=== PATIENT | male | born 1960 | race Caucasian/White ===

== ENCOUNTER → 2018-01-29 10:50 | Outpatient (CLI) | payer BC, SELFPAY ==
[2018-01-29 12:47] LABS: Cholesterol 306 mg/dL (200); High Density Lipoprotein 37 mg/dL; Triglycerides 613 mg/dL
== END ==
PROVIDERS: Family Provider Family Medicine; PCP Family Medicine; Visit Provider Family Medicine
DX: E11.49 Type 2 diabetes mellitus with other diabetic neurological complication (principal); E11.65 Type 2 diabetes mellitus with hyperglycemia; E78.5 Hyperlipidemia, unspecified
CPT/HCPCS: 36415; 80061; 83036

== ENCOUNTER → 2019-02-04 11:19 | Outpatient (CLI) | payer BC, SELFPAY ==
[2019-02-04 15:56] LABS: Absolute Neutrophil Count 6.4 X10^3/uL (2.0-7.7); Basophil# 0.04 X10^3/uL; Basophil% 0.4 % (0-1); Eosinophil# 0.28 X10^3/uL; Eosinophils% 2.8 % (0-5); Hematocrit 40.8 % (40-54); Hemoglobin 13.8 g/dl (13.0-16.5); Lymphocyte % 23.3 % (19-41); Mean Corp Hgb Conc 33.8 g/gl (32-36); Mean Corpuscular Hgb 31.6 pg (27.0-32.0); Mean Corpuscular Volume 93.4 fL (80-94); Mean Platelet Vol. 12.6 fl (6.2-12.0); Monocyte# 0.79 X10^3/uL; Neutrophil # 6.41 X10^3/uL (2.7-7.7); POSITIVE COUNT NO; POSITIVE DIFFERENTIAL NO; POSITIVE MORPHOLOGY NO; Platelet Count 197 K/mm3 (150-450); RBC Distribution Width CV 12.1 % (11.6-14.6); RBC Distribution Width SD 40.3 fl (35.1-43.9); Red Blood Count 4.37 M/mm3 (4.6-6.2); White Blood Count 9.9 K/mm3 (4.4-11.0)
[2019-02-04 16:12] LABS: Hemoglobin A1c 11.8 % (4.2-6.3)
[2019-02-04 16:14] LABS: AST(SGOT) 30 U/L (15-37); Alanine Aminotransfer ALT/SGPT 48 U/L (16-61); Albumin, Serum 3.8 g/dL (3.2-5.0); Alkaline Phosphatase 86 U/L (45-117); Anion Gap 10 (5-15); BUN 25 mg/dL (7-18); BUN/Creat Ratio 15.9 RATIO (10-20); Calcium,Total 8.8 mg/dL (8.5-10.1); Chloride 100 mmol/L (98-107); Cholesterol 273 mg/dL (200); Creatinine, Serum 1.57 mg/dL (0.70-1.30); EST Glomerular Filtration Rate 49 mL/min (>60); Est Glom Filt Rate - Afr Amer 59 mL/min (>60); Globulin 3.9 g/dL (2.2-4.2); Glucose 239 mg/dL (74-106); High Density Lipoprotein 36 mg/dL; Potassium 4.7 mmol/L (3.5-5.1); Protein, Total 7.7 g/dL (6.4-8.2); Sodium Level 133 mmol/L (136-145); Triglycerides 761 mg/dL
[2019-02-04 16:21] LABS: Microalbumin,Random Urine 52.3 mg/L (NO RANGE EST.); Microalbumin:Creatinine Ratio 22.1 mg/g CRE (<30 mg/g CRE)
== END ==
PROVIDERS: Family Provider Family Medicine; PCP Family Medicine; Visit Provider Family Medicine
DX: E11.49 Type 2 diabetes mellitus with other diabetic neurological complication (principal); E11.65 Type 2 diabetes mellitus with hyperglycemia; I10 Essential (primary) hypertension; Z12.5 Encounter for screening for malignant neoplasm of prostate
CPT/HCPCS: 36415; 80053; 80061; 82043; 82570; 83036; 84153; 85025; G0103

== ENCOUNTER 2019-10-26 13:40 | Inpatient (IN) | payer BC, SELFPAY ==
[2019-10-26 13:41] VITALS: BP 137/89; PULSE 120; RESP 18; TEMP 36.6; O2SAT 99; BMI 36.2
--- NOTE | 2019-10-26 14:53 | EKG12_ITS ---
Test Reason : INFECTED WOUND Blood Pressure : / mmHG Vent. Rate : 108 BPM Atrial Rate : 108 BPM P-R Int : 146 ms QRS Dur : 088 ms QT Int : 326 ms P-R-T Axes : 050 056 063 degrees QTc Int : 436 ms Sinus tachycardia Nonspecific T wave abnormality Abnormal ECG Confirmed by MARYANN ROOT, HANANE ([id number]), film editor supervisor ASTRID RODRIGUEZ ([id number]) on 10/28/2019 11:58:39 AM Referred By: Guilherme Stanley Confirmed By:HANANE WOLF MD
--- NOTE | 2019-10-26 15:00 | RAD_ITS ---
STUDY: X-RAY CHEST REASON FOR EXAM: Male, 58 years old. Tachycardia. TECHNIQUE: Single AP portable view of the chest. COMPARISON: None. FINDINGS: The lungs are clear and expanded. Scattered calcified granulomas. There is no demonstrated pleural abnormality. Normal size heart. Normal mediastinum and mariano. Normal visualized pulmonary arteries. Normal visualized aortic arch and descending thoracic aorta. There are diffuse degenerative changes of the visualized thoracic spine. Normal visualized ribs, clavicles, and shoulders. There is no demonstrated abnormality of the visualized soft tissue structures of the upper abdomen. RAD/Chest 1 View (Portable) IMPRESSION: No acute abnormality is seen. Electronically Signed: Joe Barone, at 15:21 EST , Service support ,
--- NOTE | 2019-10-26 15:12 | ED.VIS.GEN ---
History of Present Illness Chief Complaint: Wound Informant: Patient, Significant Other Onset: Days Context: Gradual Onset Narrative: Patient is a 58-year-old male with history of insulin-dependent diabetes mellitus presenting with wounds/abscesses in his groin region and leg. Patient states he started with a spot in his left groin. That was about 2 weeks ago. That improved but then he developed another spot on his left mid thigh. That has been draining. His PCP started him on Bactrim. He is now had 3 doses. The area on his leg seems to be worsening and today patient developed another spot in the folds of his lower right abdomen. Patient has had associated fever and chills. He states he is otherwise feeling well. He does have an associated headache. He denies any associated chest pain, nausea, vomiting or urinary symptoms. He denies any other complaints at this time. Past Medical History - Allergies and Home Meds Allergies/Adverse Reactions: Allergies No Known Allergies Allergy (Verified 10/26/19 13:40) Primary Care Physician: Didier Longoria DO [Primary Care Provider] - Past Medical History: - - Hypertension, insulin-dependent diabetes mellitus Surgical History: noncontributory Lives: Spouse/ Significant Other Smoking Status: Current every day smoker Review of Systems General: Reports: Chills, Fever, Malaise. Denies: Sweats Eyes: Denies: Visual changes - bilaterally, Diplopia ENT: Denies: Rhinorrhea, Sore throat Cardiovascular: Denies: Chest pain, Palpitations Respiratory: Denies: Dyspnea, Cough, Dyspnea on exertion Gastrointestinal: Denies: Abdominal pain, Nausea, Vomiting, Diarrhea, Melena, Hematochezia Genitourinary: Denies: Dysuria, Hematuria, Frequency Musculoskeletal: Denies: Back pain, Extremity Pain Skin: Reports: Abscess - left thigh. Denies: Rash, Wounds Neurological: Denies: Headache, Weakness, Numbness Physical Exam Vital Signs/Narrative: Vital Signs Temp Pulse Resp BP Pulse Ox 10/26/19 13:41 97.8 F 120 H 18 137/89 H 99 Inital Vital Signs reviewed: Yes General: Well nourished, Well developed, No Acute Distress Head: Normocephalic, Atraumatic Eyes: Perrl, EOMI ENT: Moist mucous membranes, No rhinorrhea Neck: Supple, Nontender Cardiovascular: Regular rhythm, No murmurs, Tachycardia Respiratory: No distress, CTA bilaterally, Chest nontender. Negative for: Wheezing Abdomen: Soft, Nontender, Nondistended, Normal bowel sounds Back: Nontender, Normal Inspection Extremities: Nontender, No edema Skin: Normal color, - - Left mid thigh?8 cm x 8 cm area of erythema with central 2 cm x 2 cm area of induration and some purulent drainage present. Right lower abdominal wall?3 cm x 2 cm area of erythema with a central pore?no associated induration or fluctuance Neurological: Alert, Oriented x3, Cranial nerves II-XII grossly intact, Normal Strength, Normal Sensation Psychological: Normal affect, Normal Mood Diagnostic/Tx/Re-eval Clinical Impression(s) from Imaging Studies Chest X-Ray 10/26/19 15:00 IMPRESSION: No acute abnormality is seen. Electronically Signed: Joe Braone, at 15:21 EST , Service support , Laboratory Data 10/26/19 10/26/19 10/26/19 15:40 15:40 15:40 WBC 15.8 H RBC 4.44 L Hgb 14.0 Hct 40.2 MCV 90.5 MCH 31.5 MCHC 34.8 RDW Std Deviation 39.1 RDW Coeff of Chrissie 11.9 Plt Count 216 MPV 12.2 H Immature Gran % (Auto) 1.100 H Neut % (Auto) 73.3 H Lymph % (Auto) 17.1 L [place] % (Auto) 6.6 Eos % (Auto) 1.5 Baso % (Auto) 0.4 Absolute Neuts (auto) 11.6 H Absolute Lymphs (auto) 2.70 Nucleated RBC % 0 PT 13.0 INR 1.0 APTT 31.0 Sodium 135 L Potassium 4.1 Chloride 103 Carbon Dioxide 25.0 Anion Gap 7 BUN 29 H Creatinine 1.98 H Estim Creat Clear Calc 43.84 Est GFR (MDRD) Af Amer 45 L Est GFR (MDRD) Non-Af 37 L BUN/Creatinine Ratio 14.6 Glucose 139 H Lactic Acid Calcium 9.4 Total Bilirubin 0.40 AST 11 L ALT 21 Alkaline Phosphatase 112 Troponin I < 0.015 Total Protein 8.5 H Albumin 3.7 Globulin 4.8 H Albumin/Globulin Ratio 0.8 L Urine Color Urine Clarity Urine pH Ur Specific [place] Urine Protein Urine Glucose (UA) Urine Ketones Urine Occult Blood Urine Nitrite Urine Bilirubin Urine Urobilinogen Ur Leukocyte Esterase Urine RBC Urine WBC Ur Squamous Epith Cells Urine Bacteria Hyaline Casts Urine Mucus 10/26/19 10/26/19 15:40 16:00 WBC RBC Hgb Hct MCV MCH MCHC RDW Std Deviation RDW Coeff of Chrissie Plt Count MPV Immature Gran % (Auto) Neut % (Auto) Lymph % (Auto) [place] % (Auto) Eos % (Auto) Baso % (Auto) Absolute Neuts (auto) Absolute Lymphs (auto) Nucleated RBC % PT INR APTT Sodium Potassium Chloride Carbon Dioxide Anion Gap BUN Creatinine Estim Creat Clear Calc Est GFR (MDRD) Af Amer Est GFR (MDRD) Non-Af BUN/Creatinine Ratio Glucose Lactic Acid 1.7 Calcium Total Bilirubin AST ALT Alkaline Phosphatase Troponin I Total Protein Albumin Globulin Albumin/Globulin Ratio Urine Color Yellow Urine Clarity Clear Urine pH 5.0 Ur Specific [place] 1.025 Urine Protein 30 H Urine Glucose (UA) 250 H Urine Ketones 5 H Urine Occult Blood Negative Urine Nitrite Negative Urine Bilirubin 1 H Urine Urobilinogen 1 H Ur Leukocyte Esterase 25 H Urine RBC 0 SEEN Urine WBC 0-5 SEEN Ur Squamous Epith Cells 0 SEEN Urine Bacteria RARE Hyaline Casts 5-10 SEEN Urine Mucus 0 SEEN - Rhythm Strip Rhythm Strip: Sinus Tach Rate: 108 Ectopy: None - EKG Initial EKG Interpretation: Sinus Tachycardia, - - Sinus tachycardia at a rate of 108 Normal intervals Normal axis Normal ST segments - Medical Decision Making Patient has new abscesses that have been forming as well as fever and generalized malaise. He has had 3 doses of Bactrim but seems to be worsening. Patient has cellulitic changes and an abscess on his left thigh which does require incision and drainage. See procedure note. Patient is initially quite tachycardic. He is given IV fluids and does have improvement. He has a leukocytosis as well. He does meet criteria for sepsis. His lactate is normal and he does not have severe sepsis or septic shock. Patient is a diabetic and is at increased risk of delayed healing. I do not appreciate any crepitus and I do not think he has early gas gangrene/Oneil's. I do think he would benefit from IV antibiotics. He started on vancomycin in the emergency room. His creatinine is mildly elevated from earlier this year. This will be renally dosed by pharmacy. Patient is agreeable to this plan and stable for the general medical floor at time of disposition. Procedures Procedure(s): Incision and drainage. 2 cc of 1% lidocaine injected subcutaneously. Once adequate analgesia was achieved #11 blade used to make a 1-1/2 cm incision through center of induration. Patient did have a moderate amount of purulent discharge. A wound culture was obtained at this time. Abscess was explored with hemostats to open up any loculations. It was then irrigated. Half-inch iodoform packing is placed to help keep it open. Patient tolerated procedure well with no immediate complications. ED Disposition - Plan for ED Patient: Disposition: [facility] Diagnosis: Cellulitis and abscess of leg, Sepsis Referrals: Didier Longoria DO [Primary Care Provider] -
[2019-10-26 16:01] LABS: Absolute Neutrophil Count 11.6 X10^3/uL (2.0-7.7); Basophil# 0.07 X10^3/uL; Basophil% 0.4 % (0-1); Eosinophil# 0.24 X10^3/uL; Eosinophils% 1.5 % (0-5); Hematocrit 40.2 % (40-54); Lymphocyte % 17.1 % (19-41); Mean Corp Hgb Conc 34.8 g/dL (32-36); Mean Corpuscular Hgb 31.5 pg (27.0-32.0); Mean Corpuscular Volume 90.5 fL (80-94); Mean Platelet Vol. 12.2 fl (6.2-12.0); Monocyte# 1.04 X10^3/uL; Monocyte% 6.6 % (0-10); NRBC Flagged by Analyzer 0 % (0-5); Neutrophil # 11.58 X10^3/uL (2.7-7.7); Neutrophil % 73.3 % (47-70); Platelet Count 216 K/mm3 (150-450); RBC Distribution Width CV 11.9 % (11.6-14.6); RBC Distribution Width SD 39.1 fl (35.1-43.9); Red Blood Count 4.44 M/mm3 (4.6-6.2); White Blood Count 15.8 K/mm3 (4.4-11.0)
[2019-10-26] MEDS: Acetaminophen 500 MG Tablet 1000 MG PO (16:10)
[2019-10-26 16:13] LABS: Mucous, Urine 0 SEEN /hpf (<or=2+); Red Blood Cells-Urine 0 SEEN /hpf (0-5); Squamous Epithelial Cells - UA 0 SEEN /hpf (0-5)
[2019-10-26 16:15] VITALS: BP 118/81; PULSE 101; RESP 15; O2SAT 95
[2019-10-26 16:19] LABS: ALB/GLOB Ratio 0.8 RATIO (0.9-2.4); AST(SGOT) 11 U/L (15-37); Alanine Aminotransfer ALT/SGPT 21 U/L (16-61); Albumin, Serum 3.7 g/dL (3.2-5.0); Alkaline Phosphatase 112 U/L (45-117); Anion Gap 7 (5-15); BUN 29 mg/dL (7-18); BUN/Creat Ratio 14.6 RATIO (10-20); Calcium,Total 9.4 mg/dL (8.5-10.1); Chloride 103 mmol/L (98-107); Creatinine, Serum 1.98 mg/dL (0.70-1.30); EST Glomerular Filtration Rate 37 mL/min (>60); Est Glom Filt Rate - Afr Amer 45 mL/min (>60); Estimated Creatinine Clearance 43.84 ml/min; Globulin 4.8 g/dL (2.2-4.2); Glucose 139 mg/dL (74-106); Potassium 4.1 mmol/L (3.5-5.1); Protein, Total 8.5 g/dL (6.4-8.2); Sodium Level 135 mmol/L (136-145)
[2019-10-26] MEDS: 0.9% Normal Saline 1,000 ML 999 ML IV (16:19)
[2019-10-26 16:22] LABS: Color, Urine Yellow (Yellow); Glucose, Dipstick 250 mg/dl (Normal); Ketone-Dipstick 5 mg/dl (Negative); Leukocyte Esterase-Dipstick 25 /ul (Negative); Nitrite-Dipstick Negative (Negative); Occult Blood-Urine Negative /ul (Negative); Protein-Dipstick 30 mg/dl (Negative); Specific Gravity, Urine 1.025 (1.002-1.030); Urine Clarity Clear (Clear); Urine Urobilinogen 1 mg/dl (Normal)
[2019-10-26 16:24] LABS: Lactic Acid 1.7 mmol/L (0.4-1.9)
[2019-10-26 16:49] LABS: Urine Bilirubin Dipstick 1 mg/dL (Negative)
[2019-10-26 16:54] LABS: Bacteria RARE /hpf (None Seen); Hyaline Cast 5-10 SEEN /lpf (0-5); White Blood Cells 0-5 SEEN /hpf (0-5)
[2019-10-26 17:00] VITALS: BP 121/79; PULSE 98; RESP 14; TEMP 36.8; O2SAT 94
--- NOTE | 2019-10-26 17:06 | NURSING ---
PCU FABIENNE SEPSIS, CELLULITIS
--- NOTE | 2019-10-26 17:16 | HP.PCM_ITS ---
<Omari Mike - Last Filed: 10/26/19 17:16> Problem List (1) Sepsis Status: Acute (2) Cellulitis and abscess of leg Status: Acute (3) Diabetes Status: Chronic Qualifiers: Diabetes mellitus type: type 2 (4) Obesity Status: Chronic (5) Nicotine abuse Status: Chronic (6) HTN (hypertension) Status: Chronic History of Present Illness Date of Admission: 10/26/19 Chief Complaint: LE wound The patient is a 58 year old M with pmhx of DMt2, HTN, Nicotine abuse, obesity who presents to the ER with c/o LLE wound. He is primarily here for a left proximal leg wound that he noticed about 2 days ago, however he also has some smaller red swollen areas in the right inguinal and right lower abdominal areas that have been there for several weeks. As for the left thigh wound, this started 2 days prior with him picking at what he described as a festered hair. It became red, swollen, and had clear drainage with some blood. He has had fevers and heavy sweats at home over the past 2 days as well. He tried bleaching the area and also took bactrim for one day. He had this lanced in the ER and drained of purulent fluid. He denies prior cellulitis or mrsa. He currently has no pain, stating it feels much better after being drained. [] Past Medical History Past Medical History (Chronic Problems): Chronic Problems Diabetes (Chronic) Obesity (Chronic) Nicotine abuse (Chronic) HTN (hypertension) (Chronic) Allergies No Known Allergies Allergy (Verified 10/26/19 13:40) Home Medications: Ambulatory Orders Medication Instructions Recorded Amlodipine [Norvasc] 10 mg PO DAILY 10/26/19 Aspirin [Aspirin EC] 81 mg PO DAILY 10/26/19 Duloxetine Hcl [Cymbalta] 60 mg PO DAILY 10/26/19 Gabapentin [Neurontin] 300 mg PO TID 10/26/19 Insulin NPH Hum/Reg Insulin Hm 50 unit SQ BID 10/26/19 [Humulin 70/30 Kwikpen] Lisinopril 20 mg PO BID 10/26/19 Omeprazole 40 mg PO DAILY 10/26/19 Smz/Tmp Ds [Bactrim Ds] 1 tab PO BID 10/26/19 traMADol [Ultram] 1 - 2 tab PO Q6H PRN 10/26/19 Surgical History: noncontributory Psychiatric History: No pertinent psych hx Lives: Spouse/ Significant Other Smoking Status: Heavy Smoker (>10/day) Tobacco Use: Cigarettes Alcohol: None Drugs: None - *Family History Maternal History Items: Cancer - liver Paternal History Items: Dementia Review of Systems Constitutional: Reports: Chills, Fever, Night Sweats. Denies: Weight Change, Fatigue HEENT: Denies: Head Aches, Sinus Congestion, Sinus Drainage Cardiovascular: Denies: Chest Pain, Chest Tightness, Heaviness, Light Headedness, Palpitations Respiratory: Denies: Cough, Shortness of Breath, Shortness of breath at rest, Sputum production, Wheezing Gastrointestinal: Denies: Abdominal Pain, Nausea, Vomiting Genitourinary: Denies: Dysuria Musculoskeletal: Denies: Joint Pain, Joint Tenderness Skin: Reports: Lesions, Rash, Skin Changes, Wounds Neurological: Denies: Numbness, Tingling, Focal weakness Psychiatric: Denies: Anxiety, Depression, Homicidal Ideations, Suicidal Ideations Hematologic/ Lymphatic: Denies: Easy Bruising, Easy Bleeding VTE Information - Inpt Only VTE Present on Admission: No VTE Mechan Device Prophylaxis: None VTE Pharm Prophylaxis ordered?: Yes Patient Problems: Active and Suspected Problems Cellulitis and abscess of leg (Acute) Sepsis (Acute) - Physical Exam Vitals/I&O's: Vital Signs Temp Pulse Resp BP Pulse Ox 97.8 F 120 H 18 137/89 H 99 10/26/19 13:41 10/26/19 13:41 10/26/19 13:41 10/26/19 13:41 10/26/19 13:41 Oxygen Delivery Method Room Air Weight: 260 lb Body Mass Index (BMI) 36.2 General: Alert, Oriented x3, Cooperative HEENT: Atraumatic, PERRLA, EOMI, Normocephalic Neck: Supple, No JVD, Negative Carotid Bruits Lungs: Clear to auscultation, Normal air movement Cardiovascular: Regular rate, No murmurs Abdomen: Bowel Sounds Present, Soft, Non Tender, Obese Extremities: No edema, Capillary Refill Less than 3 Seconds Skin: No rashes, No breakdown, - - Left thigh, somewhat medially, area of abscess s/p I&D with surrounding warmth, erythema, and induration. Right lower abdomen skin with small swollen abscess with no drainage, mild surrounding erythema, and similar areas in right inguinal region. Musculoskeletal: No Tenderness to Palpation of Joints or Extremities Neurological: Cranial nerves II-XII grossly intact Psych/Mental Status: Normal Affect, Appropriate Laboratory Results 10/26/19 15:40: WBC 15.8 H, RBC 4.44 L, Hgb 14.0, Hct 40.2, MCV 90.5, MCH 31.5, MCHC 34.8, RDW Std Deviation 39.1, RDW Coeff of Chrissie 11.9, Plt Count 216, MPV 12.2 H, Immature Gran % (Auto) 1.100 H, Neut % (Auto) 73.3 H, Lymph % (Auto) 17.1 L, [place] % (Auto) 6.6, Eos % (Auto) 1.5, Baso % (Auto) 0.4, Absolute Neuts (auto) 11.6 H, Absolute Lymphs (auto) 2.70, Nucleated RBC % 0 10/26/19 15:40: PT 13.0, INR 1.0, APTT 31.0 10/26/19 15:40: Sodium 135 L, Potassium 4.1, Chloride 103, Carbon Dioxide 25.0, Anion Gap 7, BUN 29 H, Creatinine 1.98 H, Estim Creat Clear Calc 43.84, Est GFR (MDRD) Af Amer 45 L, Est GFR (MDRD) Non-Af 37 L, BUN/Creatinine Ratio 14.6, Glucose 139 H, Calcium 9.4, Total Bilirubin 0.40, AST 11 L, ALT 21, Alkaline Phosphatase 112, Troponin I < 0.015, Total Protein 8.5 H, Albumin 3.7, Globulin 4.8 H, Albumin/Globulin Ratio 0.8 L 10/26/19 15:40: Lactic Acid 1.7 10/26/19 16:00: Urine Color Yellow, Urine Clarity Clear, Urine pH 5.0, Ur Specific [place] 1.025, Urine Protein 30 H, Urine Glucose (UA) 250 H, Urine Ketones 5 H, Urine Occult Blood Negative, Urine Nitrite Negative, Urine Bilirubin 1 H, Urine Urobilinogen 1 H, Ur Leukocyte Esterase 25 H, Urine RBC 0 SEEN, Urine WBC 0-5 SEEN, Ur Squamous Epith Cells 0 SEEN, Urine Bacteria RARE, Hyaline Casts 5-10 SEEN, Urine Mucus 0 SEEN Current Medications Vancomycin HCl 1,750 mg/ (Sodium Chloride) 535 mls @ 250 mls/hr IV X1 ONE Stop: 10/26/19 19:38 Assessment/Plan All Active Problems Cellulitis and abscess of leg (Acute) Sepsis (Acute) 1. Acute sepsis 2/2 cellulitis and abscess left thigh - I&D in ER with purulent drainage. + Leukocytosis and tachycardia, no fever, negative lactate. Suspicious for MRSA. Start Vancomycin/Rocephin for empiric sepsis tx. Culture wound, check MRSA/MSSA PCR screen, culture blood. C/s Dr. Lopez to evaluate if it needs further debridement. Hx DMt2 + Smoking will complicate and prolong wound healing. 2. MAT 2/2 acute infection, possibly related to bactrim use - hold bactrim, lisinopril 3. 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 4. HTN -stable, continue norvasc. 5. Chronic pain - gabapentin/cymbalta/tramadol. DVT ppx: heparin DC planning: Likely home with no needs. Consider wound care center referral. This patient was seen by Omari Mike PA-C under the supervision of Dr. Stanley. <Guilherme Stanley - Last Filed: 10/26/19 18:07> History of Present Illness The patient is a 58 year old M with history of diabetes mellitus type 2 and hypertension and possible right recent groin abscess with MRSA but no microbiology culture prove came to ER with left thigh wound with purulent drainage for about 2 days. It started with a small red boil in the area area which progressed to abscess with purulent drainage, pain, erythema and induration and surrounding area. She is also had fever and chills as mentioned above. Patient had incision and drainage in ER. Patient has healing right groin scab and other 2 small furunculosis in the right groin area. Past Medical History Allergies No Known Allergies Allergy (Verified 10/26/19 13:40) Review of Systems Constitutional: Reports: Chills, Fever, Night Sweats HEENT: Denies: Head Aches, Sinus Congestion, Sinus Drainage Cardiovascular: Denies: Chest Pain, Palpitations Respiratory: Denies: Cough, Shortness of breath at rest, Sputum production Gastrointestinal: Denies: Abdominal Pain, Nausea, Vomiting Genitourinary: Denies: Dysuria Musculoskeletal: Denies: Joint Pain, Joint Tenderness Skin: Reports: Rash, Skin Changes, Wounds Neurological: Denies: Numbness, Tingling, Focal weakness Psychiatric: Denies: Anxiety, Depression, Homicidal Ideations, Suicidal Ideations Hematologic/ Lymphatic: Denies: Easy Bruising, Easy Bleeding VTE Information - Inpt Only VTE Pharm Prophylaxis ordered?: Yes - Physical Exam Vitals/I&O's: Vital Signs Temp Pulse Resp BP Pulse Ox 98.2 F 98 14 121/79 H 94 10/26/19 17:00 10/26/19 17:00 10/26/19 17:00 10/26/19 17:00 10/26/19 17:00 Oxygen Delivery Method Room Air Weight: 271 lb 14.4 oz Body Mass Index (BMI) 37.9 General: Alert, Oriented x3, Cooperative HEENT: Atraumatic, PERRLA, EOMI, Normocephalic Neck: Supple, No JVD, Negative Carotid Bruits Lungs: Clear to auscultation, Normal air movement, No rhonchi, No wheeze, No rales Cardiovascular: Regular rate, Regular Rhythm, Normal S1, No murmurs Abdomen: Bowel Sounds Present, Soft, Non Tender, Non-Distended, Obese Extremities: No edema, Capillary Refill Less than 3 Seconds Skin: No rashes, No breakdown, Ulcer/ Wound, Rash Present - Erythema present, - - Left thigh, somewhat medially, area of abscess s/p I&D with surrounding warmth, erythema, and induration. Right lower abdomen skin with small swollen abscess with no drainage, mild surrounding erythema, and similar areas in right inguinal region. Small incision and drainage over right anterior thigh. Total area of induration about 8 x 8 cm from anterior medial to posterior medial region. Musculoskeletal: No Tenderness to Palpation of Joints or Extremities Neurological: Cranial nerves II-XII grossly intact, Deep Tendon Reflexes 2+/4 and Symmetrical Psych/Mental Status: Normal Affect, Appropriate Laboratory Results 10/26/19 15:40: WBC 15.8 H, RBC 4.44 L, Hgb 14.0, Hct 40.2, MCV 90.5, MCH 31.5, MCHC 34.8, RDW Std Deviation 39.1, RDW Coeff of Chrissie 11.9, Plt Count 216, MPV 12.2 H, Immature Gran % (Auto) 1.100 H, Neut % (Auto) 73.3 H, Lymph % (Auto) 17.1 L, [place] % (Auto) 6.6, Eos % (Auto) 1.5, Baso % (Auto) 0.4, Absolute Neuts (auto) 11.6 H, Absolute Lymphs (auto) 2.70, Nucleated RBC % 0 10/26/19 15:40: PT 13.0, INR 1.0, APTT 31.0 10/26/19 15:40: Sodium 135 L, Potassium 4.1, Chloride 103, Carbon Dioxide 25.0, Anion Gap 7, BUN 29 H, Creatinine 1.98 H, Estim Creat Clear Calc 43.84, Est GFR (MDRD) Af Amer 45 L, Est GFR (MDRD) Non-Af 37 L, BUN/Creatinine Ratio 14.6, Glucose 139 H, Calcium 9.4, Total Bilirubin 0.40, AST 11 L, ALT 21, Alkaline Phosphatase 112, Troponin I < 0.015, Total Protein 8.5 H, Albumin 3.7, Globulin 4.8 H, Albumin/Globulin Ratio 0.8 L 10/26/19 15:40: Lactic Acid 1.7 10/26/19 16:00: Urine Color Yellow, Urine Clarity Clear, Urine pH 5.0, Ur Specific [place] 1.025, Urine Protein 30 H, Urine Glucose (UA) 250 H, Urine Ketones 5 H, Urine Occult Blood Negative, Urine Nitrite Negative, Urine Bilirubin 1 H, Urine Urobilinogen 1 H, Ur Leukocyte Esterase 25 H, Urine RBC 0 SEEN, Urine WBC 0-5 SEEN, Ur Squamous Epith Cells 0 SEEN, Urine Bacteria RARE, Hyaline Casts 5-10 SEEN, Urine Mucus 0 SEEN Current Medications Vancomycin HCl 1,750 mg/ (Sodium Chloride) 535 mls @ 250 mls/hr IV X1 ONE Stop: 10/26/19 19:38 Influenza Virus Vaccine Quadrival (Flucelvax /Fluzone [id number]) 0.5 ml IM .ONCE ONE Stop: 10/27/19 10:01 Sodium Chloride () 10 - 40 ml IV UD PRN PRN Reason: SALINE FLUSH Assessment/Plan This patient was seen in conjunction with Omari ESCOBAR. I have independently interviewed and examined the patient and reviewed pertinent history, examination findings, laboratory and plan of management. I have reviewed the note and agree with the documented findings with the few additional points. 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 Patient had incision and drainage in ER. Patient has 2 sirs criteria positive sinus tachycardia and leukocytosis with neutrophils 73%. Normal lactic acid. BUN/creatinine 29/1.98. Glucose 139. INR normal. Transaminases normal. UA is negative WBC 0-5 cells. Patient is increased frequency secondary to diabetes/hyperglycemia but no burning micturition. Diagnosis: Acute sepsis secondary to cellulitis with left thigh abscess. Patient is started on IV vancomycin and Rocephin. Follow-up cultures. Acute kidney injury probably prerenal/Bactrim use prior to admission/infection: Hold nephrotoxic medications and IV fluid. I have discussed my assessment with Omari ESCOBAR and orders have been reviewed. Code Visit Inpatient E&M: 81502 Init Hosp L3
[2019-10-26 17:44] VITALS: BMI 37.9
[2019-10-26 17:50] VITALS: BMI 37.9
[2019-10-26 17:58] VITALS: BP 110/75; PULSE 102; RESP 16; TEMP 36.7; O2SAT 97
[2019-10-26] MEDS: 0.9% Saline Lock 10 ML Syringe IV (18:29)
[2019-10-26 19:01] LABS: Bedside Glucose 62 mg/dL (70-110)
--- NOTE | 2019-10-26 19:15 | PHA.PHARE_ITS ---
Consult Pharmacy has been consulted to manage selected antiobiotic: Vancomycin Type of Consult: New start Suspected Infection: Skin/Soft tissue Labs: Sodium 135 mmol/L (136-145) L 10/26/19 15:40 Potassium 4.1 mmol/L (3.5-5.1) 10/26/19 15:40 Chloride 103 mmol/L (98-107) 10/26/19 15:40 Carbon Dioxide 25.0 mmol/L (21.0-32.0) 10/26/19 15:40 Anion Gap 7 (5-15) 10/26/19 15:40 BUN 29 mg/dL (7-18) H 10/26/19 15:40 Creatinine 1.98 mg/dL (0.70-1.30) H 10/26/19 15:40 Est GFR (MDRD) Af Amer 45 mL/min (>60) L 10/26/19 15:40 Est GFR (MDRD) Non-Af 37 mL/min (>60) L 10/26/19 15:40 BUN/Creatinine Ratio 14.6 RATIO (10-20) 10/26/19 15:40 Glucose 139 mg/dL (74-106) H 10/26/19 15:40 Weight used for dosin lb 2.697 oz Goal Trough: 15-20 mcg/mL Pharmacy Plan for Drug Dosing: Pharmacy Service will continue to monitor and adjust dosing as required. Vancomycin loading dose of 1750mg given in ED at 1828 Calculated dose of 1250mg q12h to start 10/27 at 0600 to maintain trough of 15- 20 Trough will be obtained before 4th dose on 10/28 at 0530 Follow-Up Labs: Trough Vancomycin
[2019-10-26 19:16] LABS: Bedside Glucose 108 mg/dL (70-110)
[2019-10-26 19:30] LABS: M R Staph aureus DNA By PCR Negative (Negative); Probe Check PASS; Specimen Processing Control PASS; Staph aureus DNA By PCR NEGATIVE (Negative)
[2019-10-26] MEDS: Heparin Injection (Vial) 5,000 UNIT/ML VIAL 5000 UNIT SC (21:52)
[2019-10-26] MEDS: Gabapentin 300 MG Capsule PO (21:52)
[2019-10-26] MEDS: DULoxetine Hcl 60 MG Capsule PO (21:52)
[2019-10-26] MEDS: traMADol 50 MG Tablet PO (21:53)
[2019-10-26] MEDS: 0.9% Normal Saline 1,000 ML 125 ML IV (22:04)
[2019-10-26 22:15] VITALS: BP 128/78; PULSE 98; RESP 18; TEMP 36.8; O2SAT 96
[2019-10-26 22:51] LABS: Bedside Glucose 259 mg/dL (70-110)
[2019-10-27] VITALS (9 sets, daily range): BP systolic 131–167; BP diastolic 83–99; PULSE 97–120; RESP 16–18; TEMP 36.6–37.2; O2SAT 94–98; BMI 37.9
[2019-10-27] MEDS: 0.9% Saline Lock 10 ML Syringe IV (04:18)
[2019-10-27] MEDS: oxyCODONE 5 MG Tablet PO ×3 (04:18→22:05)
[2019-10-27] MEDS: 0.9% Normal Saline 1,000 ML 125 ML IV ×2 (05:17→16:36)
[2019-10-27] MEDS: Gabapentin 300 MG Capsule PO ×2 (05:18→22:05)
[2019-10-27] MEDS: Heparin Injection (Vial) 5,000 UNIT/ML VIAL 5000 UNIT SC (05:18)
[2019-10-27 05:19] LABS: Absolute Neutrophil Count 8.5 X10^3/uL (2.0-7.7); Basophil# 0.05 X10^3/uL; Basophil% 0.4 % (0-1); Eosinophil# 0.23 X10^3/uL; Eosinophils% 1.8 % (0-5); Hematocrit 33.5 % (40-54); Hemoglobin 11.5 g/dL (13.0-16.5); Lymphocyte % 22.5 % (19-41); Mean Corp Hgb Conc 34.3 g/dL (32-36); Mean Corpuscular Hgb 31.6 pg (27.0-32.0); Mean Platelet Vol. 12.8 fl (6.2-12.0); Monocyte# 0.75 X10^3/uL; NRBC Flagged by Analyzer 0 % (0-5); Neutrophil # 8.51 X10^3/uL (2.7-7.7); Neutrophil % 68.3 % (47-70); Platelet Count 158 K/mm3 (150-450); RBC Distribution Width CV 12.1 % (11.6-14.6); RBC Distribution Width SD 40.7 fl (35.1-43.9); Red Blood Count 3.64 M/mm3 (4.6-6.2); White Blood Count 12.5 K/mm3 (4.4-11.0)
[2019-10-27 05:42] LABS: Anion Gap 7 (5-15); BUN 33 mg/dL (7-18); BUN/Creat Ratio 17.9 RATIO (10-20); Calcium,Total 8.3 mg/dL (8.5-10.1); Chloride 106 mmol/L (98-107); Creatinine, Serum 1.84 mg/dL (0.70-1.30); EST Glomerular Filtration Rate 40 mL/min (>60); Est Glom Filt Rate - Afr Amer 49 mL/min (>60); Estimated Creatinine Clearance 47.18 ml/min; Glucose 282 mg/dL (74-106); Potassium 4.2 mmol/L (3.5-5.1); Sodium Level 133 mmol/L (136-145)
[2019-10-27 06:51] LABS: Bedside Glucose 252 mg/dL (70-110)
--- NOTE | 2019-10-27 08:24 | CON.PCM_ITS ---
Reason for Consult Date of Consultation: 10/27/19 Reason for Consultation: Diabetic abscesses left medial thigh and right lower abdominal wall. REFERRING PHYSICIAN: Dr. Stanley. POWER NUT RUNNER OPERATOR: Dr. Lopez. History of Present Illness: The patient is a 58 year old M with a history of diabetes mellitus presented to the ED with increasing pain and redness and swelling in his left medial thigh and right lower abdominal wall that started a few days ago. The patient thinks he may have scratched an ingrown hair on his left medial thigh that worsened. He was started on Bactrim without relief as the symptomatology worsened which prompted the visit to the ED. In the ED, and I&D was done and purulent drainage was expressed. His WBC was 15.8. His Lactate was 1.7. He was started on IV Vancomycin and Ceftriaxone and admitted. I was asked to evaluate this patient for surgical options for treatment. He did have some fever at home. Past Medical History Past Medical History (Chronic Problems): Chronic Problems Smoker (Chronic) Diabetes (Chronic) Obesity (Chronic) Nicotine abuse (Chronic) HTN (hypertension) (Chronic) Allergies No Known Allergies Allergy (Verified 10/26/19 13:40) Home Medications: Ambulatory Orders Medication Instructions Recorded Amlodipine [Norvasc] 10 mg PO DAILY 10/26/19 Aspirin [Aspirin EC] 81 mg PO DAILY 10/26/19 Duloxetine Hcl [Cymbalta] 60 mg PO DAILY 10/26/19 Gabapentin [Neurontin] 300 mg PO TID 10/26/19 Insulin NPH Hum/Reg Insulin Hm 50 unit SQ BID 10/26/19 [Humulin 70/30 Kwikpen] Lisinopril 20 mg PO BID 10/26/19 Omeprazole 40 mg PO DAILY 10/26/19 traMADol [Ultram] 1 - 2 tab PO Q6H PRN 10/26/19 Diazepam [Valium] 5 mg PO 4X/DAY PRN PRN #30 tablet 10/29/19 Oxycodone HCl/Acetaminophen 1 tablet PO Q4H PRN PRN 7 Days #40 10/29/19 [Percocet 5/325] tablet Surgical History: noncontributory Psychiatric History: No pertinent psych hx Lives: Spouse/ Significant Other Smoking Status: Heavy Smoker (>10/day) Tobacco Use: Cigarettes Alcohol: None Drugs: None - *Family History Maternal History Items: Cancer - liver Paternal History Items: Dementia Review of Systems Comment: Constitutional: Reports: Chills, Fever, Night Sweats. Denies: Weight Change, Fatigue. HEENT: Denies: Head Aches, Sinus Congestion, Sinus Drainage. Cardiovascular: Denies: Chest Pain, Chest Tightness, Heaviness, Light Headedness, Palpitations. Respiratory: Denies: Cough, Shortness of Breath, Shortness of breath at rest, Sputum production, Wheezing. Gastrointestinal: Denies: Abdominal Pain, Nausea, Vomiting. Genitourinary: Denies: Dysuria. Musculoskeletal: Denies: Joint Pain, Joint Tenderness. Skin: Reports: Lesions, Rash, Skin Changes, Wounds. Neurological: Denies: Numbness, Tingling, Focal weakness. Psychiatric: Denies: Anxiety, Depression, Homicidal Ideations, Suicidal Ideations. Hematologic/ Lymphatic: Denies: Easy Bruising, Easy Bleeding Patient Problems: Active and Suspected Problems Necrotizing soft tissue infection (Acute) diabetic abscesses left medial thigh and right lower abdominal wall Abscess of abdominal wall (Acute) necrotizing soft tissue infection diabetic abscess right lower abdominal wall Abscess of left thigh (Acute) necrotizing soft tissue infection diabetic abscess left medial thigh Cellulitis and abscess of leg (Acute) Sepsis (Acute) - Physical Exam Vitals/I&O's: General: Alert, Oriented x3, Cooperative HEENT: PERRLA, EOMI. Neck: Supple, Nontender. No cervical adenopathy. Lungs: Clear to auscultation. Cardiovascular: Regular rate and rhythm. Abdomen: Soft, Nondistended. Extremities: No edema, Capillary Refill Less than 3 Seconds Skin: Left medial thigh has an area of tender induration with an opening in the central aspect from an I&D in the ED. The redness and induration measure 11 x 8 cm. Some fluctuance. No inguinal adenopathy. Dorsalis pedis pulses are palpable. On the right lower abdominal wall is an area of tender induration. Some fluctuance. No purulent drainage. The redness and induration measure 9 x 3 cm. Neurological: Cranial nerves II-XII grossly intact Psych/Mental Status: Normal Affect, Appropriate Vital Signs Temp Pulse Resp BP Pulse Ox 97.8 F 101 H 18 131/83 H 97 10/27/19 03:45 10/27/19 03:45 10/27/19 03:45 10/27/19 03:45 10/27/19 03:45 Oxygen Delivery Method Room Air Weight: 271 lb 14.4 oz Body Mass Index (BMI) 37.9 Intake and Output for Last 24 Hours 10/25/19 10/26/19 10/27/19 23:59 23:59 23:59 Intake Total 1884 1659.16 / 1659.16 Balance 1884 1659.16 / 165.16 Laboratory Results 10/26/19 15:40: WBC 15.8 H, RBC 4.44 L, Hgb 14.0, Hct 40.2, MCV 90.5, MCH 31.5, MCHC 34.8, RDW Std Deviation 39.1, RDW Coeff of Chrissie 11.9, Plt Count 216, MPV 12.2 H, Immature Gran % (Auto) 1.100 H, Neut % (Auto) 73.3 H, Lymph % (Auto) 17.1 L, [place] % (Auto) 6.6, Eos % (Auto) 1.5, Baso % (Auto) 0.4, Absolute Neuts (auto) 11.6 H, Absolute Lymphs (auto) 2.70, Nucleated RBC % 0 10/26/19 15:40: PT 13.0, INR 1.0, APTT 31.0 10/26/19 15:40: Sodium 135 L, Potassium 4.1, Chloride 103, Carbon Dioxide 25.0, Anion Gap 7, BUN 29 H, Creatinine 1.98 H, Estim Creat Clear Calc 43.84, Est GFR (MDRD) Af Amer 45 L, Est GFR (MDRD) Non-Af 37 L, BUN/Creatinine Ratio 14.6, Glucose 139 H, Calcium 9.4, Total Bilirubin 0.40, AST 11 L, ALT 21, Alkaline Phosphatase 112, Troponin I < 0.015, Total Protein 8.5 H, Albumin 3.7, Globulin 4.8 H, Albumin/Globulin Ratio 0.8 L 10/26/19 15:40: Lactic Acid 1.7 10/26/19 16:00: Urine Color Yellow, Urine Clarity Clear, Urine pH 5.0, Ur Specific [place] 1.025, Urine Protein 30 H, Urine Glucose (UA) 250 H, Urine Ketones 5 H, Urine Occult Blood Negative, Urine Nitrite Negative, Urine Bilirubin 1 H, Urine Urobilinogen 1 H, Ur Leukocyte Esterase 25 H, Urine RBC 0 SEEN, Urine WBC 0-5 SEEN, Ur Squamous Epith Cells 0 SEEN, Urine Bacteria RARE, Hyaline Casts 5-10 SEEN, Urine Mucus 0 SEEN 10/26/19 18:17: S.aureus Protein A PCR NEGATIVE, MRSA (PCR) Negative 10/26/19 18:45: POC Glucose 62 L 10/26/19 19:07: POC Glucose 108 10/26/19 21:50: POC Glucose 259 H 10/27/19 04:42: WBC 12.5 H, RBC 3.64 L, Hgb 11.5 L, Hct 33.5 L, MCV 92.0, MCH 31.6, MCHC 34.3, RDW Std Deviation 40.7, RDW Coeff of Chrissie 12.1, Plt Count 158, MPV 12.8 H, Immature Gran % (Auto) 1.000 H, Neut % (Auto) 68.3, Lymph % (Auto) 22.5, [place] % (Auto) 6.0, Eos % (Auto) 1.8, Baso % (Auto) 0.4, Absolute Neuts (auto) 8.5 H, Absolute Lymphs (auto) 2.80, Nucleated RBC % 0 10/27/19 04:42: Sodium 133 L, Potassium 4.2, Chloride 106, Carbon Dioxide 20.0 L , Anion Gap 7, BUN 33 H, Creatinine 1.84 H, Estim Creat Clear Calc 47.18, Est GFR (MDRD) Af Amer 49 L, Est GFR (MDRD) Non-Af 40 L, BUN/Creatinine Ratio 17.9, Glucose 282 H, Calcium 8.3 L 10/27/19 06:36: POC Glucose 252 H Current Medications Acetaminophen (Tylenol) 650 mg PO Q6H PRN PRN PRN Reason: Pain (1-08/20) or Fever Amlodipine Besylate (Norvasc) 10 mg PO DAILY [facility] Aspirin (Ecotrin) 81 mg PO DAILY@0800 [facility] Duloxetine HCl (Cymbalta) 60 mg PO QHS [facility] Last Admin: 10/26/19 21:52 Dose: 60 mg Documented by: Gabapentin (Neurontin) 300 mg PO TID [facility] Last Admin: 10/27/19 05:18 Dose: 300 mg Documented by: Glucagon () 1 mg IM .X1 PRN PRN Reason: Hypoglycemia Heparin Sodium (Porcine) (Heparin Na) 5,000 unit SC Q8 [facility] Last Admin: 10/27/19 05:18 Dose: 5,000 unit Documented by: Ceftriaxone Sodium 2 gm/ (Sodium Chloride) 50 mls @ 100 mls/hr IV Q24@2200 [facility] Last Infusion: 10/26/19 21:23 Dose: Infused Documented by: Sodium Chloride () 1,000 mls @ 125 mls/hr IV .Q8H [facility] Last Infusion: 10/27/19 06:57 Dose: 125 mls/hr Documented by: Vancomycin IV Pharmacy to Dose (1 ea/ Sodium Chloride) 500 mls @ 250 mls/hr IV X1 PRN; Protocol PRN Reason: Rx to Dose Dextrose (Dextrose 10%-Water) 250 mls @ 999 mls/hr IV X1 PRN; Protocol PRN Reason: HYPOGLYCEMIA Vancomycin HCl 1,250 mg/ (Sodium Chloride) 275 mls @ 167 mls/hr IV Q12H [facility] Last Infusion: 10/27/19 06:57 Dose: Infused Documented by: Influenza Virus Vaccine Quadrival (Flucelvax /Fluzone ) 0.5 ml IM .ONCE ONE Stop: 10/27/19 10:01 Insulin Human Lispro (Humalog Kwikpen (Bkc)) 0 unit SC ACHS [facility]; Protocol Last Admin: 10/27/19 08:01 Dose: Not Given Documented by: Insulin Lispro Protam/Lispro Human (Humalog Mix 75-25 Kwikpen (Bkc)) 50 unit SC BIDCM [facility] Last Admin: 10/27/19 08:01 Dose: Not Given Documented by: Nicotine (Nicoderm Cq (Pbkc)) 14 mg TRANSDERM. DAILY [facility] Last Admin: 10/26/19 21:53 Dose: 14 mg Documented by: Ondansetron HCl (Zofran Odt) 4 mg PO Q6H PRN PRN PRN Reason: NAUSEA Oxycodone HCl (Oxyir) 5 mg PO Q6H PRN PRN PRN Reason: Pain Score 6-10/10 Last Admin: 10/27/19 04:18 Dose: 5 mg Documented by: Pantoprazole Sodium (Protonix) 40 mg PO DAILY [facility] Sodium Chloride () 10 - 40 ml IV UD PRN PRN Reason: SALINE FLUSH Last Admin: 10/27/19 04:18 Dose: 10 ml Documented by: Tramadol HCl (Ultram) 50 - 100 mg PO Q6H PRN PRN PRN Reason: Pain 4-1010 Last Admin: 10/26/19 21:53 Dose: 100 mg Documented by: Assessment/Plan All Active Problems Necrotizing soft tissue infection (Acute) Abscess of abdominal wall (Acute) Abscess of left thigh (Acute) Cellulitis and abscess of leg (Acute) Sepsis (Acute) 1. Necrotizing soft tissue infection diabetic abscess left medial thigh. 2. Necrotizing soft tissue infection diabetic abscess right lower abdominal wall. 3. Diabetes mellitus. 4. Sepsis. 5. Smoker. Patient has necrotizing soft tissue infection diabetic abscesses left medial thigh and right lower abdominal wall that worsened despite oral antibiotic therapy with Bactrim as an outpatient. In the ED, his WBC was 15.8. Lactate was 1.7. He was started on Vancomycin and Ceftriaxone. Patient has painful induration in the area of the left medial thigh and right lower abdominal wall. His clinical picture is consistent with MRSA. Recommended to the patient to proceed with operative intervention with incision and drainage and excisional debridement of these necrotizing soft tissue infection diabetic abscesses left medial thigh and right lower abdominal wall. Will leave the wounds open after surgery. Postoperatively will place the VAC. Will send tissue to Pathology for analysis to rule out carcinoma and to Microbiology for culture. A positive culture will necessitate antibiotic ther apy. After discharge, will [facility]up [facility]. If there is a plateau in the healing process, then can proceed with delayed closure with skin grafting. Before proceeding with an elective skin graft, his HgbA1c needs to be less than 8. He had one drawn on admission and it is pending thus far. Anticipate increased metabolic demands from the infection and from the surgery. Will check a Prealbumin and encourage nutritional supplementation with protein to help the healing process. Will proceed with the surgery later today as I am concerned that by waiting and by being diabetic, there is increased risk of the necrotizing process extending to his muscle and fascia and a possible necrotizing fasciitis. Surgery will be done under general anesthesia. Patient is aware the wounds will be left open after surgery and voices understanding. Patient was informed of the risks and complications of the procedure including alternatives to surgery. These were discussed with the patient personally. Patient voices understanding and wishes to proceed. Encouraged patient to stop smoking as it may have deleterious effects on wound healing. Code Visit Inpatient E&M: 73340 Init Hosp L3 - --57 Modifier ICD-10 - L02.416, L02.211, M79.89, E11.9, A41.9, F17.200
[2019-10-27] MEDS: amLODIPine 10 MG Tablet PO (09:52)
[2019-10-27] MEDS: Pantoprazole Sodium 40 MG Tablet PO (09:52)
--- NOTE | 2019-10-27 11:12 | NURSING ---
wound photo: left medial thigh
--- NOTE | 2019-10-27 11:13 | NURSING ---
wound photo: right lower abdomen
[2019-10-27 11:26] LABS: Bedside Glucose 251 mg/dL (70-110)
--- NOTE | 2019-10-27 11:39 | PCM.PN.HOSP ---
<Omari Mike - Last Filed: 10/27/19 11:39> Patient Problems: Active and Suspected Problems Cellulitis and abscess of leg (Acute) Sepsis (Acute) Reason for Visit: abscess Subjective: Pt resting comfortably in bed NAD. Pt going to OR today for further debridement. No fever/chills overnight. No nausea vomiting. Erythema slightly improved. No further drainage. Vitals/I&O's: Vital Signs Temp Pulse Resp BP Pulse Ox 98.2 F 97 18 141/84 H 98 10/27/19 09:45 10/27/19 09:45 10/27/19 09:45 10/27/19 09:45 10/27/19 09:45 Oxygen Delivery Method Room Air Weight: 271 lb 14.408 oz Body Mass Index (BMI) 37.9 Intake and Output for Last 24 Hours 10/25/19 10/26/19 10/27/19 23:59 23:59 23:59 Intake Total 1884 / 1884 1709.16 / 1709.16 Balance 1884 1709.16 / 1709.16 General: Alert, Oriented x3, Cooperative HEENT: Atraumatic, PERRLA, EOMI, Normocephalic Neck: Supple, No JVD, Negative Carotid Bruits Lungs: Clear to auscultation, Normal air movement Cardiovascular: Regular rate, No murmurs Abdomen: Bowel Sounds Present, Soft, Non Tender Extremities: No edema, Capillary Refill Less than 3 Seconds Skin: No rashes, No breakdown, - - erythema improved however worsening induration around left thigh abscess Musculoskeletal: No Tenderness to Palpation of Joints or Extremities Neurological: Cranial nerves II-XII grossly intact Psych/Mental Status: Normal Affect, Appropriate, Alert and oriented to time, place, person, mood and affect Microbiology Past 72 Hours 10/26/19 16:45 Wound - Leg, Left Gram Stain - Final 10/26/19 16:45 Wound - Leg, Left Wound Culture - Preliminary Staphylococcus aureus Laboratory Results 10/26/19 15:40: WBC 15.8 H, RBC 4.44 L, Hgb 14.0, Hct 40.2, MCV 90.5, MCH 31.5, MCHC 34.8, RDW Std Deviation 39.1, RDW Coeff of Chrissie 11.9, Plt Count 216, MPV 12.2 H, Immature Gran % (Auto) 1.100 H, Neut % (Auto) 73.3 H, Lymph % (Auto) 17.1 L, Bradley % (Auto) 6.6, Eos % (Auto) 1.5, Baso % (Auto) 0.4, Absolute Neuts (auto) 11.6 H, Absolute Lymphs (auto) 2.70, Nucleated RBC % 0 10/26/19 15:40: PT 13.0, INR 1.0, APTT 31.0 10/26/19 15:40: Sodium 135 L, Potassium 4.1, Chloride 103, Carbon Dioxide 25.0, Anion Gap 7, BUN 29 H, Creatinine 1.98 H, Estim Creat Clear Calc 43.84, Est GFR (MDRD) Af Amer 45 L, Est GFR (MDRD) Non-Af 37 L, BUN/Creatinine Ratio 14.6, Glucose 139 H, Calcium 9.4, Total Bilirubin 0.40, AST 11 L, ALT 21, Alkaline Phosphatase 112, Troponin I < 0.015, Total Protein 8.5 H, Albumin 3.7, Globulin 4.8 H, Albumin/Globulin Ratio 0.8 L 10/26/19 15:40: Lactic Acid 1.7 10/26/19 16:00: Urine Color Yellow, Urine Clarity Clear, Urine pH 5.0, Ur Specific [place] 1.025, Urine Protein 30 H, Urine Glucose (UA) 250 H, Urine Ketones 5 H, Urine Occult Blood Negative, Urine Nitrite Negative, Urine Bilirubin 1 H, Urine Urobilinogen 1 H, Ur Leukocyte Esterase 25 H, Urine RBC 0 SEEN, Urine WBC 0-5 SEEN, Ur Squamous Epith Cells 0 SEEN, Urine Bacteria RARE, Hyaline Casts 5-10 SEEN, Urine Mucus 0 SEEN 10/26/19 18:17: S.aureus Protein A PCR NEGATIVE, MRSA (PCR) Negative 10/26/19 18:45: POC Glucose 62 L 10/26/19 19:07: POC Glucose 108 10/26/19 21:50: POC Glucose 259 H 10/27/19 04:42: WBC 12.5 H, RBC 3.64 L, Hgb 11.5 L, Hct 33.5 L, MCV 92.0, MCH 31.6, MCHC 34.3, RDW Std Deviation 40.7, RDW Coeff of Chrissie 12.1, Plt Count 158, MPV 12.8 H, Immature Gran % (Auto) 1.000 H, Neut % (Auto) 68.3, Lymph % (Auto) 22.5, Bradley % (Auto) 6.0, Eos % (Auto) 1.8, Baso % (Auto) 0.4, Absolute Neuts (auto) 8.5 H, Absolute Lymphs (auto) 2.80, Nucleated RBC % 0 10/27/19 04:42: Sodium 133 L, Potassium 4.2, Chloride 106, Carbon Dioxide 20.0 L, Anion Gap 7, BUN 33 H, Creatinine 1.84 H, Estim Creat Clear Calc 47.18, Est GFR (MDRD) Af Amer 49 L, Est GFR (MDRD) Non-Af 40 L, BUN/Creatinine Ratio 17.9, Glucose 282 H, Calcium 8.3 L 10/27/19 04:42: Hemoglobin A1c Pending 10/27/19 06:36: POC Glucose 252 H 10/27/19 11:15: POC Glucose 251 H Current Medications Acetaminophen (Tylenol) 650 mg PO Q6H PRN PRN PRN Reason: Pain (-08/20) or Fever Amlodipine Besylate (Norvasc) 10 mg PO DAILY [facility] Last Admin: 10/27/19 09:52 Dose: 10 mg Documented by: Aspirin (Ecotrin) 81 mg PO DAILY@0800 [facility] Last Admin: 10/27/19 09:27 Dose: Not Given Documented by: Duloxetine HCl (Cymbalta) 60 mg PO QHS [facility] Last Admin: 10/26/19 21:52 Dose: 60 mg Documented by: Gabapentin (Neurontin) 300 mg PO TID [facility] Last Admin: 10/27/19 05:18 Dose: 300 mg Documented by: Glucagon () 1 mg IM .X1 PRN PRN Reason: Hypoglycemia Heparin Sodium (Porcine) (Heparin Na) 5,000 unit SC Q8 [facility] Last Admin: 10/27/19 11:23 Dose: Not Given Documented by: Ceftriaxone Sodium 2 gm/ (Sodium Chloride) 50 mls @ 100 mls/hr IV Q24@2200 [facility] Last Infusion: 10/26/19 21:23 Dose: Infused Documented by: Sodium Chloride () 1,000 mls @ 125 mls/hr IV .Q8H [facility] Last Infusion: 10/27/19 06:57 Dose: 125 mls/hr Documented by: Vancomycin IV Pharmacy to Dose (1 ea/ Sodium Chloride) 500 mls @ 250 mls/hr IV X1 PRN; Protocol PRN Reason: Rx to Dose Dextrose (Dextrose 10%-Water) 250 mls @ 999 mls/hr IV X1 PRN; Protocol PRN Reason: HYPOGLYCEMIA Vancomycin HCl 1,250 mg/ (Sodium Chloride) 275 mls @ 167 mls/hr IV Q12H [facility] Last Infusion: 10/27/19 06:57 Dose: Infused Documented by: Insulin Human Lispro (Humalog Kwikpen (Bkc)) 0 unit SC ACHS [facility]; Protocol Last Admin: 10/27/19 11:16 Dose: Not Given Documented by: Insulin Lispro Protam/Lispro Human (Humalog Mix 75-25 Kwikpen (Bk)) 50 unit SC BIDCM [facility] Last Admin: 10/27/19 08:01 Dose: Not Given Documented by: Nicotine (Nicoderm Cq (Pbkc)) 14 mg TRANSDERM. DAILY [facility] Last Admin: 10/27/19 09:43 Dose: 14 mg Documented by: Ondansetron HCl (Zofran Odt) 4 mg PO Q6H PRN PRN PRN Reason: NAUSEA Oxycodone HCl (Oxyir) 5 mg PO Q6H PRN PRN PRN Reason: Pain Score 6-10/10 Last Admin: 10/27/19 04:18 Dose: 5 mg Documented by: Pantoprazole Sodium (Protonix) 40 mg PO DAILY [facility] Last Admin: 10/27/19 09:52 Dose: 40 mg Documented by: Sodium Chloride () 10 - 40 ml IV UD PRN PRN Reason: SALINE FLUSH Last Admin: 10/27/19 04:18 Dose: 10 ml Documented by: Tramadol HCl (Ultram) 50 - 100 mg PO Q6H PRN PRN PRN Reason: Pain 4-10/10 Last Admin: 10/26/19 21:53 Dose: 100 mg Documented by: STROKE Vital Signs/Narrative: Vital Signs Temp Pulse Resp BP Pulse Ox 10/27/19 09:45 98.2 F 97 18 141/84 H 98 Medical Necessity - Tobacco Use Smoking Status: Heavy Smoker (>10/day) Tobacco Use: Cigarettes Assessment/Plan All Active Problems Cellulitis and abscess of leg (Acute) Sepsis (Acute) 1. Acute sepsis 2/2 cellulitis and abscess left thigh - Stable. To OR today with [place]. MRSA/MSSA screen negative. Await final cultures. Continue empiric therapy. 2. MAT 2/2 acute infection, possibly related to bactrim use - hold bactrim, lisinopril. Somewhat improved overnight. Continue IVF. 3. DMt2 with obesity - director of partnerships eval, continue home insulin + SSI. A1C pending. 4. HTN -stable, continue norvasc. 5. Chronic pain - gabapentin/cymbalta/tramadol. DVT ppx: heparin DC planning: Consider wound care center referral. This patient was seen by Omari Mike PA-C under the supervision of Dr. Valladares <Rajendra Valladares - Last Filed: 10/27/19 12:32> Vitals/I&O's: Vital Signs Temp Pulse Resp BP Pulse Ox 98.2 F 97 18 141/84 H 98 10/27/19 09:45 10/27/19 09:45 10/27/19 09:45 10/27/19 09:45 10/27/19 09:45 Oxygen Delivery Method Room Air Weight: 123.332 kg Body Mass Index (BMI) 37.9 Intake and Output for Last 24 Hours 10/25/19 10/26/19 10/27/19 23:59 23:59 23:59 Intake Total 1884 / 188 1709.16 / 1709.16 Balance 1884 / 188 1709.16 / 1709.16 Microbiology Past 72 Hours 10/26/19 16:45 Wound - Leg, Left Gram Stain - Final 10/26/19 16:45 Wound - Leg, Left Wound Culture - Preliminary Staphylococcus aureus Laboratory Results 10/26/19 15:40: WBC 15.8 H, RBC 4.44 L, Hgb 14.0, Hct 40.2, MCV 90.5, MCH 31.5, MCHC 34.8, RDW Std Deviation 39.1, RDW Coeff of Chrissie 11.9, Plt Count 216, MPV 12.2 H, Immature Gran % (Auto) 1.100 H, Neut % (Auto) 73.3 H, Lymph % (Auto) 17.1 L, Bradley % (Auto) 6.6, Eos % (Auto) 1.5, Baso % (Auto) 0.4, Absolute Neuts (auto) 11.6 H, Absolute Lymphs (auto) 2.70, Nucleated RBC % 0 10/26/19 15:40: PT 13.0, INR 1.0, APTT 31.0 10/26/19 15:40: Sodium 135 L, Potassium 4.1, Chloride 103, Carbon Dioxide 25.0, Anion Gap 7, BUN 29 H, Creatinine 1.98 H, Estim Creat Clear Calc 43.84, Est GFR (MDRD) Af Amer 45 L, Est GFR (MDRD) Non-Af 37 L, BUN/Creatinine Ratio 14.6, Glucose 139 H, Calcium 9.4, Total Bilirubin 0.40, AST 11 L, ALT 21, Alkaline Phosphatase 112, Troponin I < 0.015, Total Protein 8.5 H, Albumin 3.7, Globulin 4.8 H, Albumin/Globulin Ratio 0.8 L 10/26/19 15:40: Lactic Acid 1.7 10/26/19 16:00: Urine Color Yellow, Urine Clarity Clear, Urine pH 5.0, Ur Specific [place] 1.025, Urine Protein 30 H, Urine Glucose (UA) 250 H, Urine Ketones 5 H, Urine Occult Blood Negative, Urine Nitrite Negative, Urine Bilirubin 1 H, Urine Urobilinogen 1 H, Ur Leukocyte Esterase 25 H, Urine RBC 0 SEEN, Urine WBC 0-5 SEEN, Ur Squamous Epith Cells 0 SEEN, Urine Bacteria RARE, Hyaline Casts 5-10 SEEN, Urine Mucus 0 SEEN 10/26/19 18:17: S.aureus Protein A PCR NEGATIVE, MRSA (PCR) Negative 10/26/19 18:45: POC Glucose 62 L 10/26/19 19:07: POC Glucose 108 10/26/19 21:50: POC Glucose 259 H 10/27/19 04:42: WBC 12.5 H, RBC 3.64 L, Hgb 11.5 L, Hct 33.5 L, MCV 92.0, MCH 31.6, MCHC 34.3, RDW Std Deviation 40.7, RDW Coeff of Chrissie 12.1, Plt Count 158, MPV 12.8 H, Immature Gran % (Auto) 1.000 H, Neut % (Auto) 68.3, Lymph % (Auto) 22.5, Bradley % (Auto) 6.0, Eos % (Auto) 1.8, Baso % (Auto) 0.4, Absolute Neuts (auto) 8.5 H, Absolute Lymphs (auto) 2.80, Nucleated RBC % 0 10/27/19 04:42: Sodium 133 L, Potassium 4.2, Chloride 106, Carbon Dioxide 20.0 L, Anion Gap 7, BUN 33 H, Creatinine 1.84 H, Estim Creat Clear Calc 47.18, Est GFR (MDRD) Af Amer 49 L, Est GFR (MDRD) Non-Af 40 L, BUN/Creatinine Ratio 17.9, Glucose 282 H, Calcium 8.3 L 10/27/19 04:42: Hemoglobin A1c Pending 10/27/19 06:36: POC Glucose 252 H 10/27/19 11:15: POC Glucose 251 H Current Medications Acetaminophen (Tylenol) 650 mg PO Q6H PRN PRN PRN Reason: Pain (-08/20) or Fever Amlodipine Besylate (Norvasc) 10 mg PO DAILY [facility] Last Admin: 10/27/19 09:52 Dose: 10 mg Documented by: Aspirin (Ecotrin) 81 mg PO DAILY@0800 [facility] Last Admin: 10/27/19 09:27 Dose: Not Given Documented by: Duloxetine HCl (Cymbalta) 60 mg PO QHS [facility] Last Admin: 10/26/19 21:52 Dose: 60 mg Documented by: Gabapentin (Neurontin) 300 mg PO TID [facility] Last Admin: 10/27/19 05:18 Dose: 300 mg Documented by: Glucagon () 1 mg IM .X1 PRN PRN Reason: Hypoglycemia Heparin Sodium (Porcine) (Heparin Na) 5,000 unit SC Q8 [facility] Last Admin: 10/27/19 11:23 Dose: Not Given Documented by: Ceftriaxone Sodium 2 gm/ (Sodium Chloride) 50 mls @ 100 mls/hr IV Q24@2200 [facility] Last Infusion: 10/26/19 21:23 Dose: Infused Documented by: Sodium Chloride () 1,000 mls @ 125 mls/hr IV .Q8H [facility] Last Infusion: 10/27/19 06:57 Dose: 125 mls/hr Documented by: Vancomycin IV Pharmacy to Dose (1 ea/ Sodium Chloride) 500 mls @ 250 mls/hr IV X1 PRN; Protocol PRN Reason: Rx to Dose Dextrose (Dextrose 10%-Water) 250 mls @ 999 mls/hr IV X1 PRN; Protocol PRN Reason: HYPOGLYCEMIA Vancomycin HCl 1,250 mg/ (Sodium Chloride) 275 mls @ 167 mls/hr IV Q12H [facility] Last Infusion: 10/27/19 06:57 Dose: Infused Documented by: Insulin Human Lispro (Humalog Kwikpen (Bkc)) 0 unit SC ACHS [facility]; Protocol Last Admin: 10/27/19 11:16 Dose: Not Given Documented by: Insulin Lispro Protam/Lispro Human (Humalog Mix 75-25 Kwikpen (Bkc)) 50 unit SC BIDCM [facility] Last Admin: 10/27/19 08:01 Dose: Not Given Documented by: Nicotine (Nicoderm Cq ([facility])) 14 mg TRANSDERM. DAILY [facility] Last Admin: 10/27/19 09:43 Dose: 14 mg Documented by: Ondansetron HCl (Zofran Odt) 4 mg PO Q6H PRN PRN PRN Reason: NAUSEA Oxycodone HCl (Oxyir) 5 mg PO Q6H PRN PRN PRN Reason: Pain Score 6-10/10 Last Admin: 10/27/19 04:18 Dose: 5 mg Documented by: Pantoprazole Sodium (Protonix) 40 mg PO DAILY [facility] Last Admin: 10/27/19 09:52 Dose: 40 mg Documented by: Sodium Chloride () 10 - 40 ml IV UD PRN PRN Reason: SALINE FLUSH Last Admin: 10/27/19 04:18 Dose: 10 ml Documented by: Tramadol HCl (Ultram) 50 - 100 mg PO Q6H PRN PRN PRN Reason: Pain 4-10/10 Last Admin: 10/26/19 21:53 Dose: 100 mg Documented by: STROKE Vital Signs/Narrative: Vital Signs Temp Pulse Resp BP Pulse Ox 10/27/19 09:45 98.2 F 97 18 141/84 H 98 Assessment/Plan This patient was seen in conjunction with Omari Mike PA-C . I have independently interviewed and examined the patient and reviewed pertinent historical, laboratory, and other data. Please refer to Omari Mike PA-C note for details of this patient's presentation, findings, and recommendations. I have reviewed Omari Rashid PA-C note and concur with documented findings. In brief, patient is a 58-year-old gentleman who presented with swelling and erythema on the inner aspect of the left thigh as well as anterior abdomen Physical Examination: GENERAL: cooperative HEENT: Atraumatic; EYES; Anicteric, Normal Conjunctiva NECK; supple, normal thyroid, RESPIRATORY: Diminished to auscultation CARDIOVASCULAR: Regular S1 S2, GI: soft, normoactive bowel sounds, : No Renal angle tenderness; EXTREMITIES: No edema, no clubbing, MUSCULOSKELETAL: no muscle waisting NEURO: Awake; no lateralizing signs. SKIN: Abscess left thigh and anterior abdomen PSYCH; Flat affect Assessment: 1. Left thigh And anterior abdominal wall cellulitis and abscess 2. Acute kidney injury 3. Diabetes mellitus type 2 4. Essential hypertension 5. Obesity with BMI of 37.9 6. Chronic pain syndrome 7. DVT prophylaxis SC heparin Recommendations: 1. I have discussed the results of my overview and impressions with the patient 2. Options for management were reviewed Code Visit Inpatient E&M: 46416 Subs Hosp L3
--- NOTE | 2019-10-27 12:55 | ABS_PTH ---
PATIENT: YURIDIA SINGH LOC: MS3 U#:[id number] AGE/SX: 58/M ROOM: MS314 RE10/26/[address]: Dr. Rajendra Valladares MD : 1960 BED: 1 DIS: 10/29/2019 SPEC #: [id number] RECD: 10/27/19 16:01 STATUS: CURTIS RE #: [id number] JOSUE: 10/27/19 12:[address]: Fredi Lopez DEPT: SURGICAL PATHOLOGY RECD BY: Terrance Roche ENTERED: 10/28/19 11:59 SP TYPE: Abscess OTHR DR: MD Dr. Fredi Rao MD Dr. Mark Stutzman, DO Dr. Prakash Chand, MD Dr. Robert Leininger, MD Tissues: A - Thigh, NOS B - Abdominal wall, NOS Procedures: PAS Fungus (control) Special Stain Group I Surgery Specimen Level III AFB Stain (control) Comments: @ Ordering doctor for SUIII edited from to @ by LUZ MARIA at 10/29/19912 @ Submitting doctor edited from to @ by LUZ MARIA at 10/29/19912 HEADER OPERATION: Incision, drainage abscess, left thigh, right abdominal wall PRE-OP DIAGNOSIS: Diabetic abscess right medial thigh and left abdominal wall TISSUE SUBMITTED: A. Soft tissue left thigh, B. Soft tissue right abdominal wall MICROSCOPIC DIAGNOSIS A. Soft tissue left thigh: A piece of skin with underlying tissue with focal ulceration, acute inflammation and abscess formation. Special stains for acid fast bacilli and fungi are negative for organisms; matched controls are appropriate. B. Soft tissue abdominal wall: A piece of skin with underlying tissue with focal ulceration, acute inflammation and abscess formation. Special stains for acid fast bacilli and fungi are negative for organisms; matched controls are appropriate. SJ:eldon 10/29/19 MICROSCOPIC DESCRIPTION Slides are reviewed. GROSS DESCRIPTION A - Received in fixative is one container labeled with the patient's name and designated soft tissue left thigh. The specimen consists of a piece of skin with underlying tissue measuring 7 x 5.5 cm and up to 3.5 cm in thickness. The skin surface shows brownish discolored area and focal area of ulceration. No mass lesion is identified. Cotton Weigher sections are submitted in two cassettes. B - Received in fixative is one container labeled with the patient's name and designated soft tissue abdominal wall. The specimen consists of a piece of skin with underlying tissue measuring 5.5 x 3 cm and up to 1.5 cm in thickness. A focal pink area is noted with ulceration. No mass lesion is identified. Cotton Weigher sections are submitted in two cassettes. / IMTIAZ:eldon 10/28/19 TC:2 CPT: 78258 x2, 72239 x4
--- NOTE | 2019-10-27 12:55 | NURSING ---
report called to KIRK Clements in [facility] for pre-op.
--- NOTE | 2019-10-27 14:44 | CASEMGMT ---
Case Management Progress Note: This instructional writer to patient bedside to complete RNCM initial assessment, patient not at bedside. Plan for patient to go to OR for Debridement of wound. CM to continue to follow for assessment and care coordination needs. Gaudencio Doss RNCM
--- NOTE | 2019-10-27 15:28 | OP.PCM_ITS ---
Report of Operation Date of Procedure: 10/27/19 Pre-Operative Diagnosis: 1. Necrotizing soft tissue infection diabetic abscess left medial thigh. 2. Necrotizing soft tissue infection diabetic abscess right lower abdominal wall. 3. Diabetes mellitus. 4. Sepsis. 5. Smoker. Post-Operative Diagnosis: Same. Surgery/Procedure Performed:: 1. Surgical preparation left medial thigh with incision and drainage and excisional debridement necrotizing soft tissue infection diabetic abscess (88 cm2). 2. Surgical preparation right lower abdominal wall with incision and drainage and excisional debridement skin, subcutaneous tissue, and fascia for necrotizing soft tissue infection diabetic abscess (27 cm2). Description of Surgical Findings:: The patient is a 58 year old M with a history of diabetes mellitus presented to the ED with increasing pain and redness and swelling in his left medial thigh and right lower abdominal wall that started a few days ago. The patient thinks he may have scratched an ingrown hair on his left medial thigh that worsened. He was started on Bactrim without relief as the symptomatology worsened which prompted the visit to the ED. In the ED, and I&D was done and purulent drainage was expressed. His WBC was 15.8. His Lactate was 1.7. He was started on IV Vancomycin and Ceftriaxone and admitted. I was asked to evaluate this patient for surgical options for treatment. He did have some fever at home. Patient was informed of the risks and complications of the procedure including alternatives to surgery. These were discussed with the patient personally. Patient voices understanding and wishes to proceed. Encouraged patient to stop smoking as it may have deleterious effects on wound healing. Size of defect left medial thigh - 11 x 8 x 3 cm. Size of defect right lower abdominal wall - 9 x 3 x 3 cm. operations management professionals: Jacky Cristina. Type of Anesthesia:: General Specimen's removed: 1. Necrotizing soft tissue infection diabetic abscess left medial thigh to Pathology and Microbiology. 2. MRSA Wound DNA by PCR. 3. Necrotizing soft tissue infection diabetic abscess right lower abdominal wall to Pathology and Microbiology. 4. MRSA Wound DNA by PCR. Drains: None. Estimated Blood Loss (mL): 250 ml. Description of Procedure: Patient was taken to OR in supine position and was placed under general anesthesia. The left medial thigh and right lower abdominal wall areas were prepped and draped in the usual fashion. SCD's were placed for DVT prophylaxis. Perioperative antibiotics were given intravenously. Using xylocaine with epinephrine, the left medial thigh and right lower abdominal wall areas were infiltrated for postoperative pain relief. After waiting 5 minutes for the anesthetic to take effect, I made a circular incision around the edges of the diabetic abscess left medial thigh into the subcutaneous tissue. Copious amounts of pus were seen and drained. Liquefied fat necrosis was seen and was excised and debrided. Large veins were encountered with presence of venous hypertension. Hemostasis was obtained with electrocautery. Dissection was carried down to the muscle. The fascia was inflamed but not thickened. It was viable. The underlying muscle was pink and viable. Some of the tissue was sent to Pathology for analysis to rule out carcinoma and to Microbiology for culture. A positive culture will necessitate antibiotic therapy. MRSA Wound DNA by PCR was done as clinically the infection looked consistent with MRSA. The size of the defect left medial thigh was 11 x 8 x 3 cm or 88 cm2. The wound was dressed with Mepitel nonadherent dressing followed by Kerlix gauze and Betadine and followed by dry Kerlix gauze and ABD pads compression dressing followed by a compression umm wrap. I made an elliptical incision over the diabetic abscess right lower abdominal wall into the subcutaneous tissue. Copious amounts of pus were seen and drained. Liquefied fat necrosis was seen and was excised and debrided. The fat necrosis extended deep to Joe's fascia. Hemostasis was obtained with electrocautery. Dissection was carried down to the abdominal wall fascia. The fascia was inflamed but not thickened. It was viable. Some of the tissue was sent to Pathology for analysis to rule out carcinoma and to Microbiology for culture. A positive culture will necessitate antibiotic therapy. MRSA Wound DNA by PCR was done as clinically the infection looked consistent with MRSA. The size of the defect right lower abdominal wall was 9 x 3 x 3 cm or 27 cm2. The wound was dressed with Mepitel nonadherent dressing followed by Kerlix gauze and Betadine and followed by dry Kerlix gauze and ABD pads compression dressing. Patient tolerated the procedure well and was sent to PACU in satisfactory condition. Patient will be sent upstairs for continued postop care. Will have the VAC placed tomorrow. Will continue Ceftriaxone and Vancomycin until the operative cultures are available. Grafts/Implants Used: None. - Complications None. - Admit VTE Documentation VTE Present on Admission: No VTE Mechan Device Prophylaxis: SCD's VTE Pharm Prophylaxis ordered?: Yes Code Visit Surgery Charges CPT - 30792 ICD-10 - S71.102A, L02.416, M79.89, E11.9, A41.9, F17.200 26573 L02.416, M79.89, S71.102A, E11.9, A41.9, F17.200 08178 L02.211, M79.89, S31.103A, E11.9, A41.9, F17.200
[2019-10-27 15:41] LABS: Bedside Glucose 239 mg/dL (70-110)
[2019-10-27] MEDS: Lactated Ringers 1,000 ML 100 ML IV (15:47)
--- NOTE | 2019-10-27 16:22 | NURSING ---
1600-REPORT CALLED TO [facility] FOR TRANSFER POST-OPERATIVELY.
[2019-10-27 16:44] LABS: Hemoglobin A1c 10.5 % (4.2-6.3)
[2019-10-27 17:11] LABS: Bedside Glucose 223 mg/dL (70-110)
[2019-10-27] MEDS: traMADol 50 MG Tablet PO (17:29)
[2019-10-27] MEDS: Insulin Human 75/25 Kwickpen 50 UNIT SC (18:15)
[2019-10-27] MEDS: Insulin Lispro 100 UNIT/ML INSULN.PEN SC ×2 (18:16→22:05)
[2019-10-27 18:17] LABS: M R Staph aureus DNA By PCR POSITIVE (Negative); Probe Check PASS; Staph aureus DNA By PCR POSITIVE (Negative)
[2019-10-27 18:18] LABS: M R Staph aureus DNA By PCR POSITIVE (Negative); Probe Check PASS; Staph aureus DNA By PCR POSITIVE (Negative)
[2019-10-27 19:36] LABS: Bedside Glucose 381 mg/dL (70-110)
[2019-10-27] MEDS: DULoxetine Hcl 60 MG Capsule PO (22:05)
[2019-10-27 22:16] LABS: Bedside Glucose 297 mg/dL (70-110)
[2019-10-28 00:13] VITALS: BP 161/80; PULSE 110; RESP 18; TEMP 36.9; O2SAT 97
[2019-10-28] MEDS: traMADol 50 MG Tablet PO ×2 (00:15→18:53)
[2019-10-28] MEDS: 0.9% Normal Saline 1,000 ML 125 ML IV ×3 (02:42→21:36)
[2019-10-28 05:40] LABS: Absolute Lymphocyte Count 1.36 X10^3/uL (0.83-4.51); Absolute Neutrophil Count 8.9 X10^3/uL (2.0-7.7); Basophil# 0.03 X10^3/uL; Basophil% 0.3 % (0-1); Eosinophil# 0.01 X10^3/uL; Eosinophils% 0.1 % (0-5); Hematocrit 32.3 % (40-54); Hemoglobin 11.1 g/dL (13.0-16.5); Lymphocyte # 1.36 X10^3/ul (4.0); Lymphocyte % 12.5 % (19-41); Mean Corp Hgb Conc 34.4 g/dL (32-36); Mean Corpuscular Hgb 31.4 pg (27.0-32.0); Mean Corpuscular Volume 91.5 fL (80-94); Mean Platelet Vol. 11.9 fl (6.2-12.0); Monocyte# 0.49 X10^3/uL; Monocyte% 4.5 % (0-10); NRBC Flagged by Analyzer 0 % (0-5); Neutrophil # 8.88 X10^3/uL (2.7-7.7); Neutrophil % 81.8 % (47-70); Platelet Count 163 K/mm3 (150-450); RBC Distribution Width SD 39.8 fl (35.1-43.9); Red Blood Count 3.53 M/mm3 (4.6-6.2); White Blood Count 10.9 K/mm3 (4.4-11.0)
[2019-10-28 06:00] VITALS: BP 149/85; PULSE 99; RESP 16; TEMP 36.7; O2SAT 97
[2019-10-28] MEDS: Gabapentin 300 MG Capsule PO ×3 (06:06→21:30)
[2019-10-28] MEDS: Heparin Injection (Vial) 5,000 UNIT/ML VIAL 5000 UNIT SC ×3 (06:06→21:30)
[2019-10-28] MEDS: oxyCODONE 5 MG Tablet PO ×3 (06:06→21:52)
[2019-10-28 06:53] LABS: Vancomycin, Trough Level 16.6 ug/mL (5.0-15.0)
[2019-10-28 06:54] LABS: Anion Gap 6 (5-15); BUN 25 mg/dL (7-18); BUN/Creat Ratio 16.8 RATIO (10-20); Calcium,Total 8.9 mg/dL (8.5-10.1); Chloride 108 mmol/L (98-107); Creatinine, Serum 1.49 mg/dL (0.70-1.30); EST Glomerular Filtration Rate 52 mL/min (>60); Est Glom Filt Rate - Afr Amer 62 mL/min (>60); Estimated Creatinine Clearance 58.26 ml/min; Glucose 177 mg/dL (74-106); Sodium Level 135 mmol/L (136-145)
--- NOTE | 2019-10-28 07:42 | PCM.PN.HOSP ---
Patient Problems: Active and Suspected Problems Cellulitis and abscess of leg (Acute) Sepsis (Acute) Reason for Visit: Follow-up left thigh abscess with MRSA Subjective: In brief, patient is a 58-year-old gentleman who presented with swelling and erythema on the inner aspect of the left thigh as well as anterior abdomen Objective: GENERAL: cooperative HEENT: Atraumatic; EYES; Anicteric, Normal Conjunctiva NECK; supple, normal thyroid, RESPIRATORY: Diminished to auscultation CARDIOVASCULAR: Regular S1 S2, GI: soft, normoactive bowel sounds, : No Renal angle tenderness; EXTREMITIES: No edema, no clubbing, MUSCULOSKELETAL: no muscle waisting NEURO: Awake; no lateralizing signs. SKIN: Abscess left thigh and anterior abdomen PSYCH; Flat affect Vitals/I&O's: Vital Signs Temp Pulse Resp BP Pulse Ox 98.1 F 99 16 149/85 H 97 10/28/19 06:00 10/28/19 06:00 10/28/19 06:00 10/28/19 06:00 10/28/19 06:00 Oxygen Delivery Method Room Air Weight: 123.332 kg Body Mass Index (BMI) 37.9 Finger Stick Blood Glucose 239 Intake and Output for Last 24 Hours 10/26/19 10/27/19 10/28/19 23:59 23:59 23:59 Intake Total 1884 / 1884 5773.75 / 5773.75 1487.49 / 1487.49 Output Total 700 / 700 1850 / 1850 Balance 1884 / 1885 5073.75 / 5073.75 -362.51 / -362.51 Microbiology Past 72 Hours 10/26/19 16:45 Wound - Leg, Left Gram Stain - Final 10/26/19 16:45 Wound - Leg, Left Wound Culture - Preliminary Staphylococcus aureus Laboratory Results 10/27/19 04:42: Hemoglobin A1c 10.5 H 10/27/19 11:15: POC Glucose 251 H 10/27/19 15:38: POC Glucose 239 H 10/27/19 15:40: S.aureus Protein A PCR POSITIVE H, MRSA (PCR) POSITIVE H 10/27/19 15:40: S.aureus Protein A PCR POSITIVE H, MRSA (PCR) POSITIVE H 10/27/19 16:27: POC Glucose 223 H 10/27/19 19:27: POC Glucose 381 H 10/27/19 22:02: POC Glucose 297 H 10/28/19 05:18: Vancomycin Trough 16.6 H 10/28/19 05:18: WBC 10.9, RBC 3.53 L, Hgb 11.1 L, Hct 32.3 L, MCV 91.5, MCH 31.4, MCHC 34.4, RDW Std Deviation 39.8, RDW Coeff of Chrissie 12.0, Plt Count 163, MPV 11.9, Immature Gran % (Auto) 0.800, Neut % (Auto) 81.8 H, Lymph % (Auto) 12.5 L, Braxton % (Auto) 4.5, Eos % (Auto) 0.1, Baso % (Auto) 0.3, Absolute Neuts (auto) 8.9 H, Absolute Lymphs (auto) 1.36, Nucleated RBC % 0 10/28/19 05:18: Sodium 135 L, Potassium 5.0, Chloride 108 H, Carbon Dioxide 21.0, Anion Gap 6, BUN 25 H, Creatinine 1.49 H, Estim Creat Clear Calc 58.26, Est GFR (MDRD) Af Amer 62, Est GFR (MDRD) Non-Af 52 L, BUN/Creatinine Ratio 16.8, Glucose 177 H, Calcium 8.9, Prealbumin 21.0 Current Medications Acetaminophen (Tylenol) 650 mg PO Q6H PRN PRN PRN Reason: Pain (-08/20) or Fever Amlodipine Besylate (Norvasc) 10 mg PO DAILY [facility] Last Admin: 10/27/19 09:52 Dose: 10 mg Documented by: Aspirin (Ecotrin) 81 mg PO DAILY@0800 [facility] Last Admin: 10/27/19 09:27 Dose: Not Given Documented by: Duloxetine HCl (Cymbalta) 60 mg PO QHS [facility] Last Admin: 10/27/19 22:05 Dose: 60 mg Documented by: Gabapentin (Neurontin) 300 mg PO TID [facility] Last Admin: 10/28/19 06:06 Dose: 300 mg Documented by: Glucagon () 1 mg IM .X1 PRN PRN Reason: Hypoglycemia Heparin Sodium (Porcine) (Heparin Na) 5,000 unit SC Q8 [facility] Last Admin: 10/28/19 06:06 Dose: 5,000 unit Documented by: Ceftriaxone Sodium 2 gm/ (Sodium Chloride) 50 mls @ 100 mls/hr IV Q24@2200 [facility] Last Infusion: 10/27/19 22:34 Dose: Infused Documented by: Sodium Chloride () 1,000 mls @ 125 mls/hr IV .Q8H [facility] Last Infusion: 10/28/19 06:07 Dose: 0 mls/hr Documented by: Vancomycin IV Pharmacy to Dose (1 ea/ Sodium Chloride) 500 mls @ 250 mls/hr IV X1 PRN; Protocol PRN Reason: Rx to Dose Dextrose (Dextrose 10%-Water) 250 mls @ 999 mls/hr IV X1 PRN; Protocol PRN Reason: HYPOGLYCEMIA Vancomycin HCl 1,250 mg/ (Sodium Chloride) 275 mls @ 167 mls/hr IV Q12H [facility] Last Admin: 10/28/19 06:07 Dose: 167 mls/hr Documented by: Insulin Human Lispro (Humalog Kwikpen (Bkc)) 0 unit SC ACHS [facility]; Protocol Last Admin: 10/27/19 22:05 Dose: 4 units Documented by: Insulin Lispro Protam/Lispro Human (Humalog Mix 75-25 Kwikpen (Bkc)) 50 unit SC BIDCM [facility] Last Admin: 10/27/19 18:15 Dose: 50 units Documented by: Nicotine (Nicoderm Cq (Pbkc)) 21 mg TRANSDERM. DAILY [facility] Nutritional Formula (Lactose Free) (Glucerna Shake) 120 ml PO 4X/DAY [facility] Ondansetron HCl (Zofran Odt) 4 mg PO Q6H PRN PRN PRN Reason: NAUSEA Oxycodone HCl (Oxyir) 5 mg PO Q6H PRN PRN PRN Reason: Pain Score 6-10/10 Last Admin: 10/28/19 06:06 Dose: 5 mg Documented by: Pantoprazole Sodium (Protonix) 40 mg PO DAILY [facility] Last Admin: 10/27/19 09:52 Dose: 40 mg Documented by: Sodium Chloride () 10 - 40 ml IV UD PRN PRN Reason: SALINE FLUSH Last Admin: 10/27/19 04:18 Dose: 10 ml Documented by: Tramadol HCl (Ultram) 50 - 100 mg PO Q6H PRN PRN PRN Reason: Pain 4-10/10 Last Admin: 10/28/19 00:15 Dose: 100 mg Documented by: STROKE Vital Signs/Narrative: Vital Signs Temp Pulse Resp BP Pulse Ox 10/28/19 06:00 98.1 F 99 16 149/85 H 97 Medical Necessity - Tobacco Use Smoking Status: Heavy Smoker (>10/day) Tobacco Use: Cigarettes Assessment/Plan All Active Problems Cellulitis and abscess of leg (Acute) Sepsis (Acute) In brief, patient is a 58-year-old gentleman who presented with swelling and erythema on the inner aspect of the left thigh as well as anterior abdomen 1. Left thigh And anterior abdominal wall cellulitis and abscess ?10/28/2019 and underwent incision and drainage the day prior by Dr. Lopez. Subsequent cultures came back positive for MRSA. Patient currently on appropriate antibiotic therapy. Scheduled to have a wound VAC placed. Consult placed to ID 2. Diabetes mellitus type II ~Complications including diabetic nephropathy patient's oral hypoglycemics held. Placed on long acting insulin, Accu-Cheks a.c. and at bedtime and covered with sliding scale insulin 3. Diabetic nephropathy (chronic kidney disease stage III) with baseline creatinine of 1.5 ~Creatinine on admission was 1.98 has since improved 4. Acute kidney injury ~Post on CKD stage III management as discussed above 5. Hypertension ~ blood pressure controlled, home medications continued with dose adjustment as needed 6. Obesity with BMI of 37.9 ~Weight loss advised. 7. Diabetic polyneuropathy Patient is on gabapentin as well as Cymbalta did continue 8. GERD ?Patient is on PPI 9. DVT prophylaxis ~SC heparin Active Medications Acetaminophen (Tylenol) 650 mg PO Q6H PRN PRN PRN Reason: Pain (1-10/10) or Fever Amlodipine Besylate (Norvasc) 10 mg PO DAILY [facility] Last Admin: 10/28/19 08:30 Dose: 10 mg Documented by: Aspirin (Ecotrin) 81 mg PO DAILY@0800 [facility] Last Admin: 10/28/19 08:30 Dose: 81 mg Documented by: Duloxetine HCl (Cymbalta) 60 mg PO QHS [facility] Last Admin: 10/27/19 22:05 Dose: 60 mg Documented by: Gabapentin (Neurontin) 300 mg PO TID [facility] Last Admin: 10/28/19 06:06 Dose: 300 mg Documented by: Glucagon () 1 mg IM .X1 PRN PRN Reason: Hypoglycemia Heparin Sodium (Porcine) (Heparin Na) 5,000 unit SC Q8 [facility] Last Admin: 10/28/19 06:06 Dose: 5,000 unit Documented by: Ceftriaxone Sodium 2 gm/ (Sodium Chloride) 50 mls @ 100 mls/hr IV Q24@2200 [facility] Last Infusion: 10/27/19 22:34 Dose: Infused Documented by: Sodium Chloride () 1,000 mls @ 125 mls/hr IV .Q8H [facility] Last Infusion: 10/28/19 07:46 Dose: 125 mls/hr Documented by: Vancomycin IV Pharmacy to Dose (1 ea/ Sodium Chloride) 500 mls @ 250 mls/hr IV X1 PRN; Protocol PRN Reason: Rx to Dose Dextrose (Dextrose 10%-Water) 250 mls @ 999 mls/hr IV X1 PRN; Protocol PRN Reason: HYPOGLYCEMIA Vancomycin HCl 1,250 mg/ (Sodium Chloride) 275 mls @ 167 mls/hr IV Q12H [facility] Last Infusion: 10/28/19 07:46 Dose: Infused Documented by: Insulin Human Lispro (Humalog Kwikpen (Bkc)) 0 unit SC ACHS [facility]; Protocol Last Admin: 10/28/19 08:28 Dose: 3 units Documented by: Insulin Lispro Protam/Lispro Human (Humalog Mix 75-25 Kwikpen (Bkc)) 50 unit SC BIDCM [facility] Last Admin: 10/28/19 08:29 Dose: 50 units Documented by: Nicotine (Nicoderm Cq (kc)) 21 mg TRANSDERM. DAILY [facility] Last Admin: 10/28/19 08:30 Dose: 21 mg Documented by: Nutritional Formula (Lactose Free) (Glucerna Shake) 120 ml PO 4X/DAY [facility] Last Admin: 10/28/19 08:35 Dose: 120 ml Documented by: Ondansetron HCl (Zofran Odt) 4 mg PO Q6H PRN PRN PRN Reason: NAUSEA Oxycodone HCl (Oxyir) 5 mg PO Q6H PRN PRN PRN Reason: Pain Score 6-10/10 Last Admin: 10/28/19 06:06 Dose: 5 mg Documented by: Pantoprazole Sodium (Protonix) 40 mg PO DAILY [facility] Last Admin: 10/28/19 08:30 Dose: 40 mg Documented by: Sodium Chloride () 10 - 40 ml IV UD PRN PRN Reason: SALINE FLUSH Last Admin: 10/27/19 04:18 Dose: 10 ml Documented by: Tramadol HCl (Ultram) 50 - 100 mg PO Q6H PRN PRN PRN Reason: Pain 4-08/20 Last Admin: 10/28/19 00:15 Dose: 100 mg Documented by: Code Visit Inpatient E&M: [id number] Subs Hosp L2
--- NOTE | 2019-10-28 07:44 | PCM.RX.CS ---
Consult Pharmacy has been consulted to manage selected antiobiotic: Vancomycin Type of Consult: Follow-up Suspected Infection: Sepsis, Skin/Soft tissue Prior Doses of Antibiotics Received/Current Regimen: Currently on 1250mg IV q12h Labs: Sodium 135 mmol/L (136-145) L 10/28/19 05:18 Potassium 5.0 mmol/L (3.5-5.1) 10/28/19 05:18 Chloride 108 mmol/L (98-107) H 10/28/19 05:18 Carbon Dioxide 21.0 mmol/L (21.0-32.0) 10/28/19 05:18 Anion Gap 6 (5-15) 10/28/19 05:18 BUN 25 mg/dL (7-18) H 10/28/19 05:18 Creatinine 1.49 mg/dL (0.70-1.30) H 10/28/19 05:18 Est GFR (MDRD) Af Amer 62 mL/min (>60) 10/28/19 05:18 Est GFR (MDRD) Non-Af 52 mL/min (>60) L 10/28/19 05:18 BUN/Creatinine Ratio 16.8 RATIO (10-20) 10/28/19 05:18 Glucose 177 mg/dL (74-106) H 10/28/19 05:18 Vancomycin Trough 16.6 ug/mL (5.0-15.0) H 10/28/19 05:18 Microbiology: Microbiology 10/26/19 16:45 Wound - Leg, Left Gram Stain - Final 10/26/19 16:45 Wound - Leg, Left Wound Culture - Preliminary Staphylococcus aureus Weight used for dosin kg Estimated Creatinine Clearance: 73 ml/min Goal Trough: 15-20 mcg/mL Pharmacy Plan for Drug Dosing: The vancomycin trough obtained before this morning's dose (drawn 11 hours after the previous dose) came back as 16.6 mg/L. Since this is within the goal range of 15-20, plan to keep the patient on the current regimen of 1250mg IV q12h. Will recheck the trough again in 4 days. Pharmacy Service will continue to monitor and adjust dosing as required. Follow-Up Labs: Trough Vancomycin Labs to be done on [date and time ordered]: 11/01/19 05:30
[2019-10-28 08:25] VITALS: BP 144/95; PULSE 103; RESP 16; TEMP 36.9; O2SAT 98
[2019-10-28] MEDS: Insulin Lispro 100 UNIT/ML INSULN.PEN SC ×3 (08:28→21:46)
[2019-10-28] MEDS: Insulin Human 75/25 Kwickpen 50 UNIT SC ×2 (08:29→16:55)
[2019-10-28] MEDS: Aspirin E.C. 81 MG Tablet PO (08:30)
[2019-10-28] MEDS: Pantoprazole Sodium 40 MG Tablet PO (08:30)
[2019-10-28] MEDS: amLODIPine 10 MG Tablet PO (08:30)
[2019-10-28] MEDS: Glucerna Shake 120 ML LIQUID PO ×4 (08:35→21:36)
[2019-10-28 08:46] LABS: Bedside Glucose 245 mg/dL (70-110)
--- NOTE | 2019-10-28 09:55 | CASEMGMT ---
KIRK ATKINSON Face to Face with patient for initial transition planning/care coordination assessment. KIRK ATKINSON introduced self and role at [facility]. Patient lying in bed, alert and oriented. Patient willing to participate in assessment and is able to answer all questions appropriately. Care providers, pharmacy, and demographics verified. Patient wishes to discharge home will need HHC for wound vac at discharge. Patient states he has no further needs or concerns at this time. CM to follow for discharge planning needs that may arise. PCP: [facility] Specialists: none [facility]acy[facility] Insurance: [employer] Prescription Benefit: yes Living Will/HPOA: none LNOK: Living Arrangements: Patient lives with in mobile home with 3 steps and railing to enter the home. Transportation: self/ DME/HHC: shower chair, BSC, raised toilet, cane, walker, nebulizer at home. Patient denies previous HHC. KIRK ATKINSON provided list of in-network HHC companies for patient to review. Disposition Plan: Patient to discharge home with HHC, family support, and follow-up plans in place. Marcia JHA, RN, CM
[2019-10-28 12:10] LABS: Bedside Glucose 202 mg/dL (70-110)
--- NOTE | 2019-10-28 12:11 | NURSING ---
wound photo: left medial thigh
--- NOTE | 2019-10-28 12:12 | NURSING ---
wound photo: right lower abdomen
[2019-10-28] MEDS: Magnesium Citrate 300 ML PO (12:58)
--- NOTE | 2019-10-28 14:46 | PCM.HP.ID ---
Problem List (1) Cellulitis and abscess of leg Status: Acute Reason for Consult: leg infection Consulted by: Dr. Valladares History of Present Illness: The patient is a 58 year old M with DM, presented 10/26 with 2 days of progressive L thigh and LLQ abd pain, redness, swelling. Pain was severe. Some associated nausea. No fever. Called PCP, started on po abx, but after a dose was still worsening, so came to ED. Started on vanc/ceftriaxone, taken to OR 10/[address] Lopez for I&D, wound vac now in place. Full ROS performed and neg except as noted above. - Medical History Past Medical History (Chronic Problems): Chronic Problems Diabetes (Chronic) Obesity (Chronic) Nicotine abuse (Chronic) HTN (hypertension) (Chronic) Allergies/Adverse Reactions: Allergies No Known Allergies Allergy (Verified 10/26/19 13:40) Home Medications: Ambulatory Orders Medication Instructions Recorded Amlodipine [Norvasc] 10 mg PO DAILY 10/26/19 Aspirin [Aspirin EC] 81 mg PO DAILY 10/26/19 Duloxetine Hcl [Cymbalta] 60 mg PO DAILY 10/26/19 Gabapentin [Neurontin] 300 mg PO TID 10/26/19 Insulin NPH Hum/Reg Insulin Hm 50 unit SQ BID 10/26/19 [Humulin 70/30 Kwikpen] Lisinopril 20 mg PO BID 10/26/19 Omeprazole 40 mg PO DAILY 10/26/19 traMADol [Ultram] 1 - 2 tab PO Q6H PRN 10/26/19 - Social History Tobacco Use: cigarettes Vital Signs Temp Pulse Resp BP Pulse Ox 98.5 F 103 H 16 144/95 H 98 10/28/19 08:25 10/28/19 08:25 10/28/19 08:25 10/28/19 08:25 10/28/19 08:25 Oxygen Delivery Method Room Air Weight: 123.332 kg Body Mass Index (BMI) 37.9 Finger Stick Blood Glucose 239 Microbiology Past 72 Hours 10/27/19 15:40 Gram Stain - Final Tissue - Abdominal Wound Culture - Preliminary Staphylococcus aureus Gram negative ольга 10/27/19 15:40 Gram Stain - Final Biopsy - Leg, Left Wound Culture - Preliminary Staphylococcus aureus 10/26/19 16:45 Gram Stain - Final Wound - Leg, Left Wound Culture - Final Meth. resistant Staph. aureus Laboratory Tests Past 24 Hrs 10/27/19 10/27/19 10/27/19 04:42 15:40 15:40 WBC RBC Hgb Hct MCV MCH MCHC RDW Std Deviation RDW Coeff of Chrissie Plt Count MPV Immature Gran % (Auto) Neut % (Auto) Lymph % (Auto) [place]y % (Auto) Eos % (Auto) Baso % (Auto) Absolute Neuts (auto) Absolute Lymphs (auto) Nucleated RBC % Sodium Potassium Chloride Carbon Dioxide Anion Gap BUN Creatinine Estim Creat Clear Calc Est GFR (MDRD) Af Amer Est GFR (MDRD) Non-Af BUN/Creatinine Ratio Glucose Hemoglobin A1c 10.5 H Calcium Prealbumin Vancomycin Trough S.aureus Protein A PCR POSITIVE H POSITIVE H MRSA (PCR) POSITIVE H POSITIVE H 10/28/19 10/28/19 10/28/19 05:18 05:18 05:18 WBC 10.9 RBC 3.53 L Hgb 11.1 L Hct 32.3 L MCV 91.5 MCH 31.4 MCHC 34.4 RDW Std Deviation 39.8 RDW Coeff of Chrissie 12.0 Plt Count 163 MPV 11.9 Immature Gran % (Auto) 0.800 Neut % (Auto) 81.8 H Lymph % (Auto) 12.5 L [place]y % (Auto) 4.5 Eos % (Auto) 0.1 Baso % (Auto) 0.3 Absolute Neuts (auto) 8.9 H Absolute Lymphs (auto) 1.36 Nucleated RBC % 0 Sodium 135 L Potassium 5.0 Chloride 108 H Carbon Dioxide 21.0 Anion Gap 6 BUN 25 H Creatinine 1.49 H Estim Creat Clear Calc 58.26 Est GFR (MDRD) Af Amer 62 Est GFR (MDRD) Non-Af 52 L BUN/Creatinine Ratio 16.8 Glucose 177 H Hemoglobin A1c Calcium 8.9 Prealbumin 21.0 Vancomycin Trough 16.6 H S.aureus Protein A PCR MRSA (PCR) - Other Studies Radiology: [] reviewed Other Studies: [] Route of nutrition/ use of supplements: [] Nutritional Intake: [] IV Site: [] Fleming Catheter: [] - Physical Exam General: Alert, Oriented x3, Cooperative, No apparent distress HEENT: Atraumatic, PERRLA, EOMI Neck: Supple, No Nodes Lungs: Clear to auscultation, Normal air movement Cardiovascular: Regular rate, Regular Rhythm, No murmurs Abdomen: Soft, Non Tender, Non-Distended Extremities: No edema Skin: Ulcer/ Wound - reviewed photos. Wound vac in place IV Site: Peripheral, without redness Musculoskeletal: No Tenderness to Palpation of Joints or Extremities Neurological: Cranial nerves II-XII grossly intact - Assessment/Plan Antibiotics: [] Assessment/Plan: [] Active and Suspected Problems Cellulitis and abscess of leg (Acute) Sepsis (Acute) necrotic skin infection of LLE and LLQ abd. Now s/p I&D and wound vac by Dr. Lopez 10/27. Surg cx with MRSA, staph, GNR. On vanc/ceftriaxone. Plan will be for home with po abx given good source control. Will follow, thank you, d/w correctional case manager.
[2019-10-28 14:55] VITALS: BP 150/83; PULSE 111; RESP 18; TEMP 36.7; O2SAT 98
--- NOTE | 2019-10-28 14:55 | CASEMGMT ---
KIRK ATKINSON discussed HHC with patient. Patient would like [facility] after reviewing list. RN CM called [facility] and they do not have staffing in [facility] at this time. RN CM in to update patient and get second choice. Patient states he is not sure and has left and he cannot get a hold of her. Patient gave permission for CM to call . KIRK ATKINSON attempted to call but no answer and unable to leave message.
[2019-10-28 17:06] LABS: Bedside Glucose 144 mg/dL (70-110)
[2019-10-28] MEDS: Glycerin/Hypromellose/PEG400 15 ml Bottle 1 DRP EACH EYE (20:25)
--- NOTE | 2019-10-28 20:32 | PN.SURG_ITS ---
Patient Problems: Active and Suspected Problems Necrotizing soft tissue infection (Acute) diabetic abscesses left medial thigh and right lower abdominal wall Abscess of abdominal wall (Acute) necrotizing soft tissue infection diabetic abscess right lower abdominal wall Abscess of left thigh (Acute) necrotizing soft tissue infection diabetic abscess left medial thigh Cellulitis and abscess of leg (Acute) Sepsis (Acute) Subjective: Postop #1 Patient is resting comfortably. VAC applied today. Has some spasm. - Physical Exam Vitals/I&O's: Vital Signs Temp Pulse Resp BP Pulse Ox 98.1 F 111 H 18 150/83 H 98 10/28/19 14:55 10/28/19 14:55 10/28/19 14:55 10/28/19 14:55 10/28/19 14:55 Oxygen Delivery Method Room Air Weight: 271 lb 14.408 oz Body Mass Index (BMI) 37.9 Finger Stick Blood Glucose 239 Intake and Output for Last 24 Hours 10/26/19 10/27/19 10/28/19 23:59 23:59 23:59 Intake Total 1885 / 1885 5773.75 / 5773.75 3847.91 / 3847.91 Output Total 700 / 700 3100 / 3100 Balance 1885 / 1885 5073.75 / 5073.75 747.91 / 747.91 General: Alert, Oriented x3 HEENT: PERRLA, EOMI Oral: Moist Mucosa Neck: Supple Abdomen: Soft, Non-Distended Skin: Ulcer/ Wound - wounds are stable. No active bleeding seen. VAC applied today. Neurological: Cranial nerves II-XII grossly intact Psych/Mental Status: Normal Affect, Appropriate Microbiology Past 72 Hours 10/27/19 15:40 Tissue - Abdominal Gram Stain - Final 10/27/19 15:40 Tissue - Abdominal Wound Culture - Preliminary Staphylococcus aureus Gram negative ольга 10/27/19 15:40 Biopsy - Leg, Left Gram Stain - Final 10/27/19 15:40 Biopsy - Leg, Left Wound Culture - Preliminary Staphylococcus aureus 10/26/19 16:45 Wound - Leg, Left Gram Stain - Final 10/26/19 16:45 Wound - Leg, Left Wound Culture - Final Meth. resistant Staph. aureus Laboratory Results 10/27/19 22:02: POC Glucose 297 H 10/28/19 05:18: Vancomycin Trough 16.6 H 10/28/19 05:18: WBC 10.9, RBC 3.53 L, Hgb 11.1 L, Hct 32.3 L, MCV 91.5, MCH 31.4, MCHC 34.4, RDW Std Deviation 39.8, RDW Coeff of Chrissie 12.0, Plt Count 163, MPV 11.9, Immature Gran % (Auto) 0.800, Neut % (Auto) 81.8 H, Lymph % (Auto) 12.5 L, Grainger % (Auto) 4.5, Eos % (Auto) 0.1, Baso % (Auto) 0.3, Absolute Neuts (auto) 8.9 H, Absolute Lymphs (auto) 1.36, Nucleated RBC % 0 10/28/19 05:18: Sodium 135 L, Potassium 5.0, Chloride 108 H, Carbon Dioxide 21.0, Anion Gap 6, BUN 25 H, Creatinine 1.49 H, Estim Creat Clear Calc 58.26, Est GFR (MDRD) Af Amer 62, Est GFR (MDRD) Non-Af 52 L, BUN/Creatinine Ratio 16.8, Glucose 177 H, Calcium 8.9, Prealbumin 21.0 10/28/19 08:27: POC Glucose 245 H 10/28/19 12:03: POC Glucose 202 H 10/28/19 16:53: POC Glucose 144 H Current Medications Acetaminophen (Tylenol) 650 mg PO Q6H PRN PRN PRN Reason: Pain (-08/20) or Fever Amlodipine Besylate (Norvasc) 10 mg PO DAILY [facility] Last Admin: 10/28/19 08:30 Dose: 10 mg Documented by: Aspirin (Ecotrin) 81 mg PO DAILY@0800 [facility] Last Admin: 10/28/19 08:30 Dose: 81 mg Documented by: Duloxetine HCl (Cymbalta) 60 mg PO QHS [facility] Last Admin: 10/27/19 22:05 Dose: 60 mg Documented by: Gabapentin (Neurontin) 300 mg PO TID [facility] Last Admin: 10/28/19 14:57 Dose: 300 mg Documented by: Glucagon () 1 mg IM .X1 PRN PRN Reason: Hypoglycemia Heparin Sodium (Porcine) (Heparin Na) 5,000 unit SC Q8 [facility] Last Admin: 10/28/19 14:57 Dose: 5,000 unit Documented by: Ceftriaxone Sodium 2 gm/ (Sodium Chloride) 50 mls @ 100 mls/hr IV Q24@2200 [facility] Last Infusion: 10/27/19 22:34 Dose: Infused Documented by: Sodium Chloride () 1,000 mls @ 125 mls/hr IV .Q8H [facility] Last Infusion: 10/28/19 17:52 Dose: 0 mls/hr Documented by: Vancomycin IV Pharmacy to Dose (1 ea/ Sodium Chloride) 500 mls @ 250 mls/hr IV X1 PRN; Protocol PRN Reason: Rx to Dose Dextrose (Dextrose 10%-Water) 250 mls @ 999 mls/hr IV X1 PRN; Protocol PRN Reason: HYPOGLYCEMIA Vancomycin HCl 1,250 mg/ (Sodium Chloride) 275 mls @ 167 mls/hr IV Q12H [facility] Last Admin: 10/28/19 17:52 Dose: 167 mls/hr Documented by: Insulin Human Lispro (Humalog Kwikpen (Bkc)) 0 unit SC ACHS [facility]; Protocol Last Admin: 10/28/19 16:55 Dose: Not Given Documented by: Insulin Lispro Protam/Lispro Human (Humalog Mix 75-25 Kwikpen (Bkc)) 50 unit SC BIDCM [facility] Last Admin: 10/28/19 16:55 Dose: 50 units Documented by: Nicotine (Nicoderm Cq (Pbkc)) 21 mg TRANSDERM. DAILY [facility] Last Admin: 10/28/19 08:30 Dose: 21 mg Documented by: Nutritional Formula (Lactose Free) (Glucerna Shake) 120 ml PO 4X/DAY [facility] Last Admin: 10/28/19 17:52 Dose: 120 ml Documented by: Ondansetron HCl (Zofran Odt) 4 mg PO Q6H PRN PRN PRN Reason: NAUSEA Oxycodone HCl (Oxyir) 5 mg PO Q6H PRN PRN PRN Reason: Pain Score 6-10/10 Last Admin: 10/28/19 15:04 Dose: 5 mg Documented by: Pantoprazole Sodium (Protonix) 40 mg PO DAILY [facility] Last Admin: 10/28/19 08:30 Dose: 40 mg Documented by: Senna (Senokot) 1 tablet PO BID [facility] Sodium Chloride () 10 - 40 ml IV UD PRN PRN Reason: SALINE FLUSH Last Admin: 10/27/19 04:18 Dose: 10 ml Documented by: Tramadol HCl (Ultram) 50 - 100 mg PO Q6H PRN PRN PRN Reason: Pain 4-1010 Last Admin: 10/28/19 18:53 Dose: 100 mg Documented by: Medical Necessity - Tobacco Use Smoking Status: Heavy Smoker (>10/day) Tobacco Use: Cigarettes Assessment/Plan All Active Problems Necrotizing soft tissue infection (Acute) Abscess of abdominal wall (Acute) Abscess of left thigh (Acute) Cellulitis and abscess of leg (Acute) Sepsis (Acute) 1. Necrotizing soft tissue infection diabetic abscess left medial thigh. 2. Necrotizing soft tissue infection diabetic abscess right lower abdominal wall. 3. Diabetes mellitus. 4. Sepsis, resolved. 5. Smoker. 6. MRSA. Wounds are stable, No active bleeding. VAC applied today. To be changed three times per week at 150 mmHg continuous suction. Operative culture shows MRSA and Gram negative ольга. He is currently on Vancomycin and Ceftriaxone. Ok for discharge when the vac is approved and antibiotics finalized. Will send scripts for Percocet for pain (40 tabs) and Valium for spasm (30 tabs) to his Pharmacy. Prealbumin was 21.0. Encourage nutritional supplementation with protein to help the healing process. After discharge, will [facility]up [facility]. If there is a plateau in the healing process, then can proceed with delayed closure with skin grafting. Before proceeding with an elective skin graft, his HgbA1c needs to be less than 8. His HgbA1c in the hospital was 10.5. Encouraged patient to stop smoking as it may have deleterious effects on wound healing.
[2019-10-28 20:55] VITALS: BP 150/89; PULSE 103; RESP 16; TEMP 37.2; O2SAT 97
[2019-10-28] MEDS: Senna Tablet 1 TABLET PO (21:30)
[2019-10-28] MEDS: DULoxetine Hcl 60 MG Capsule PO (21:30)
[2019-10-28 21:55] LABS: Bedside Glucose 167 mg/dL (70-110)
[2019-10-28 22:00] VITALS: PULSE 103
[2019-10-29 02:55] VITALS: BP 139/87; PULSE 91; RESP 16; TEMP 36.8; O2SAT 96
[2019-10-29] MEDS: oxyCODONE 5 MG Tablet PO (03:54)
[2019-10-29] MEDS: Heparin Injection (Vial) 5,000 UNIT/ML VIAL 5000 UNIT SC (05:53)
[2019-10-29] MEDS: Gabapentin 300 MG Capsule PO ×2 (06:01→13:49)
[2019-10-29 06:11] LABS: Bedside Glucose 81 mg/dL (70-110)
[2019-10-29 06:12] LABS: Absolute Lymphocyte Count 2.92 X10^3/uL (0.83-4.51); Absolute Neutrophil Count 5.1 X10^3/uL (2.0-7.7); Basophil# 0.05 X10^3/uL; Basophil% 0.6 % (0-1); Eosinophil# 0.18 X10^3/uL; Hematocrit 31.9 % (40-54); Hemoglobin 10.9 g/dL (13.0-16.5); Lymphocyte # 2.92 X10^3/ul (4.0); Lymphocyte % 32.4 % (19-41); Mean Corp Hgb Conc 34.2 g/dL (32-36); Mean Corpuscular Hgb 31.2 pg (27.0-32.0); Mean Corpuscular Volume 91.4 fL (80-94); Monocyte# 0.64 X10^3/uL; Monocyte% 7.1 % (0-10); NRBC Flagged by Analyzer 0 % (0-5); Neutrophil % 56.5 % (47-70); Platelet Count 168 K/mm3 (150-450); RBC Distribution Width CV 11.9 % (11.6-14.6); RBC Distribution Width SD 40.2 fl (35.1-43.9); Red Blood Count 3.49 M/mm3 (4.6-6.2)
[2019-10-29 06:38] LABS: Anion Gap 6 (5-15); BUN 23 mg/dL (7-18); BUN/Creat Ratio 17.3 RATIO (10-20); Calcium,Total 8.9 mg/dL (8.5-10.1); Chloride 107 mmol/L (98-107); Creatinine, Serum 1.33 mg/dL (0.70-1.30); EST Glomerular Filtration Rate 59 mL/min (>60); Est Glom Filt Rate - Afr Amer 71 mL/min (>60); Estimated Creatinine Clearance 65.27 ml/min; Glucose 80 mg/dL (74-106); Magnesium 2.1 mg/dL (1.6-2.6); Potassium 3.8 mmol/L (3.5-5.1); Sodium Level 139 mmol/L (136-145)
--- NOTE | 2019-10-29 08:11 | PCM.PN.HOSP ---
Patient Problems: Active and Suspected Problems Cellulitis and abscess of leg (Acute) Sepsis (Acute) Reason for Visit: Follow-up left thigh abscess Subjective: Patient underwent wound VAC placement the day prior. Cultures so far positive for MRSA and gram-negative organisms patient remains on vancomycin and Rocephin. Seen in consultation by Dr. Mccabe his note and recommendations reviewed. Objective: GENERAL: cooperative HEENT: Atraumatic; EYES; Anicteric, Normal Conjunctiva NECK; supple, normal thyroid, RESPIRATORY: Diminished to auscultation CARDIOVASCULAR: Regular S1 S2, GI: soft, normoactive bowel sounds, : No Renal angle tenderness; EXTREMITIES: No edema, no clubbing, MUSCULOSKELETAL: no muscle waisting NEURO: Awake; no lateralizing signs. SKIN: Wound VAC on anterior abdominal wall as well as the left thigh PSYCH; Flat affect Vitals/I&O's: Vital Signs Temp Pulse Resp BP Pulse Ox 98.3 F 91 16 139/87 H 96 10/29/19 02:55 10/29/19 02:55 10/29/19 02:55 10/29/19 02:55 10/29/19 02:55 Oxygen Delivery Method Room Air Weight: 123.332 kg Body Mass Index (BMI) 37.9 Finger Stick Blood Glucose 239 Intake and Output for Last 24 Hours 10/27/19 10/28/19 10/29/19 23:59 23:59 23:59 Intake Total 5773.75 / 5773.75 4122.91 / 4722.91 950 / 950 Output Total 700 / 700 3100 / 3550 850 / 850 Balance 5073.75 / 5073.75 1022.91 / 1172.91 100 / 100 Microbiology Past 72 Hours 10/27/19 15:40 Tissue - Abdominal Gram Stain - Final 10/27/19 15:40 Tissue - Abdominal Wound Culture - Preliminary Staphylococcus aureus Gram negative ольга 10/27/19 15:40 Biopsy - Leg, Left Gram Stain - Final 10/27/19 15:40 Biopsy - Leg, Left Wound Culture - Preliminary Staphylococcus aureus 10/26/19 16:45 Wound - Leg, Left Gram Stain - Final 10/26/19 16:45 Wound - Leg, Left Wound Culture - Final Meth. resistant Staph. aureus Laboratory Results 10/28/19 08:27: POC Glucose 245 H 10/28/19 12:03: POC Glucose 202 H 10/28/19 16:53: POC Glucose 144 H 10/28/19 21:44: POC Glucose 167 H 10/29/19 05:42: WBC 9.0, RBC 3.49 L, Hgb 10.9 L, Hct 31.9 L, MCV 91.4, MCH 31.2, MCHC 34.2, RDW Std Deviation 40.2, RDW Coeff of Chrissie 11.9, Plt Count 168, MPV 12.0, Immature Gran % (Auto) 1.400 H, Neut % (Auto) 56.5, Lymph % (Auto) 32.4, Stark % (Auto) 7.1, Eos % (Auto) 2.0, Baso % (Auto) 0.6, Absolute Neuts (auto) 5.1, Absolute Lymphs (auto) 2.92, Nucleated RBC % 0 10/29/19 05:42: Sodium 139, Potassium 3.8, Chloride 107, Carbon Dioxide 26.0, Anion Gap 6, BUN 23 H, Creatinine 1.33 H, Estim Creat Clear Calc 65.27, Est GFR (MDRD) Af Amer 71, Est GFR (MDRD) Non-Af 59 L, BUN/Creatinine Ratio 17.3, Glucose 80, Calcium 8.9, Magnesium 2.1 10/29/19 06:03: POC Glucose 81 Current Medications Acetaminophen (Tylenol) 650 mg PO Q6H PRN PRN PRN Reason: Pain (-08/20) or Fever Amlodipine Besylate (Norvasc) 10 mg PO DAILY [facility] Last Admin: 10/28/19 08:30 Dose: 10 mg Documented by: Aspirin (Ecotrin) 81 mg PO DAILY@0800 [facility] Last Admin: 10/28/19 08:30 Dose: 81 mg Documented by: Diazepam (Valium) 5 mg PO 4X/DAY PRN PRN PRN Reason: SPASMS Duloxetine HCl (Cymbalta) 60 mg PO QHS [facility] Last Admin: 10/28/19 21:30 Dose: 60 mg Documented by: Gabapentin (Neurontin) 300 mg PO TID [facility] Last Admin: 10/29/19 06:01 Dose: 300 mg Documented by: Glucagon () 1 mg IM .X1 PRN PRN Reason: Hypoglycemia Heparin Sodium (Porcine) (Heparin Na) 5,000 unit SC Q8 [facility] Last Admin: 10/29/19 05:53 Dose: 5,000 unit Documented by: Ceftriaxone Sodium 2 gm/ (Sodium Chloride) 50 mls @ 100 mls/hr IV Q24@2200 [facility] Last Infusion: 10/29/19 00:30 Dose: Infused Documented by: Sodium Chloride () 1,000 mls @ 125 mls/hr IV .Q8H [facility] Last Admin: 10/28/19 21:36 Dose: 125 mls/hr Documented by: Vancomycin IV Pharmacy to Dose (1 ea/ Sodium Chloride) 500 mls @ 250 mls/hr IV X1 PRN; Protocol PRN Reason: Rx to Dose Dextrose (Dextrose 10%-Water) 250 mls @ 999 mls/hr IV X1 PRN; Protocol PRN Reason: HYPOGLYCEMIA Vancomycin HCl 1,250 mg/ (Sodium Chloride) 275 mls @ 167 mls/hr IV Q12H [facility] Last Admin: 10/29/19 05:52 Dose: 167 mls/hr Documented by: Insulin Human Lispro (Humalog Kwikpen (Bkc)) 0 unit SC ACHS [facility]; Protocol Last Admin: 10/29/19 06:04 Dose: Not Given Documented by: Insulin Lispro Protam/Lispro Human (Humalog Mix 75-25 Kwikpen (Bkc)) 50 unit SC BIDCM [facility] Last Admin: 10/28/19 16:55 Dose: 50 units Documented by: Nicotine (Nicoderm Cq (Pbkc)) 21 mg TRANSDERM. DAILY [facility] Last Admin: 10/28/19 08:30 Dose: 21 mg Documented by: Nutritional Formula (Lactose Free) (Glucerna Shake) 120 ml PO 4X/DAY [facility] Last Admin: 10/28/19 21:36 Dose: 120 ml Documented by: Ondansetron HCl (Zofran Odt) 4 mg PO Q6H PRN PRN PRN Reason: NAUSEA Oxycodone HCl (Oxyir) 5 mg PO Q6H PRN PRN PRN Reason: Pain Score 6-10/10 Last Admin: 10/29/19 03:54 Dose: 5 mg Documented by: Pantoprazole Sodium (Protonix) 40 mg PO DAILY [facility] Last Admin: 10/28/19 08:30 Dose: 40 mg Documented by: Senna (Senokot) 1 tablet PO BID [facility] Last Admin: 10/28/19 21:30 Dose: 1 tablet Documented by: Sodium Chloride () 10 - 40 ml IV UD PRN PRN Reason: SALINE FLUSH Last Admin: 10/27/19 04:18 Dose: 10 ml Documented by: Tramadol HCl (Ultram) 50 - 100 mg PO Q6H PRN PRN PRN Reason: Pain 4-10/10 Last Admin: 10/28/19 18:53 Dose: 100 mg Documented by: Medical Necessity - Tobacco Use Smoking Status: Heavy Smoker (>10/day) Tobacco Use: Cigarettes Assessment/Plan All Active Problems Cellulitis and abscess of leg (Acute) Sepsis (Acute) In brief, patient is a 58-year-old gentleman who presented with swelling and erythema on the inner aspect of the left thigh as well as anterior abdomen 1. Left thigh And anterior abdominal wall cellulitis and abscess ?10/28/2019 and underwent incision and drainage the day prior by Dr. Lopez. Subsequent cultures came back positive for MRSA. Patient currently on appropriate antibiotic therapy. Scheduled to have a wound VAC placed. Consult placed to ID - 10/29/2019; Patient underwent wound VAC placement the day prior. Cultures so far positive for MRSA and gram-negative organisms patient remains on vancomycin and Rocephin. Seen in consultation by Dr. Mccabe his note and recommendations reviewed. 2. Diabetes mellitus type II ~Complications including diabetic nephropathy patient's oral hypoglycemics held. Placed on long acting insulin, Accu-Cheks a.c. and at bedtime and covered with sliding scale insulin 3. Diabetic nephropathy (chronic kidney disease stage III) with baseline creatinine of 1.5 ~Creatinine on admission was 1.98 has since improved 4. Acute kidney injury ~Post on CKD stage III management as discussed above 5. Hypertension ~ blood pressure controlled, home medications continued with dose adjustment as needed 6. Obesity with BMI of 37.9 ~Weight loss advised. 7. Diabetic polyneuropathy Patient is on gabapentin as well as Cymbalta did continue 8. GERD ?Patient is on PPI 9. DVT prophylaxis ~SC heparin Microbiology 10/27/19 15:40 Tissue - Abdominal Gram Stain - Final 10/27/19 15:40 Tissue - Abdominal Wound Culture - Preliminary Staphylococcus aureus Gram negative ольга 10/27/19 15:40 Biopsy - Leg, Left Gram Stain - Final 10/27/19 15:40 Biopsy - Leg, Left Wound Culture - Preliminary Staphylococcus aureus 10/26/19 16:45 Wound - Leg, Left Gram Stain - Final 10/26/19 16:45 Wound - Leg, Left Wound Culture - Final Meth. resistant Staph. aureus Code Visit Inpatient E&M: 15518 Subs Hosp L2
[2019-10-29] MEDS: Pantoprazole Sodium 40 MG Tablet PO (09:27)
[2019-10-29] MEDS: amLODIPine 10 MG Tablet PO (09:27)
[2019-10-29] MEDS: Aspirin E.C. 81 MG Tablet PO (09:28)
[2019-10-29] MEDS: Glucerna Shake 120 ML LIQUID PO ×2 (09:28→13:49)
[2019-10-29] MEDS: Senna Tablet 1 TABLET PO (09:28)
[2019-10-29] MEDS: 0.9% Normal Saline 1,000 ML 125 ML IV (09:28)
[2019-10-29] MEDS: Insulin Human 75/25 Kwickpen 50 UNIT SC (09:30)
[2019-10-29 10:09] VITALS: BP 145/91; PULSE 104; RESP 16; TEMP 36.8; O2SAT 98
--- NOTE | 2019-10-29 10:22 | PN.ID_ITS ---
Patient Problems: Active and Suspected Problems Necrotizing soft tissue infection (Acute) diabetic abscesses left medial thigh and right lower abdominal wall Abscess of abdominal wall (Acute) necrotizing soft tissue infection diabetic abscess right lower abdominal wall Abscess of left thigh (Acute) necrotizing soft tissue infection diabetic abscess left medial thigh Cellulitis and abscess of leg (Acute) Sepsis (Acute) Subjective: Feeling better, no fever, no n/v/d. Wound vac in place. - Physical Exam Vitals/I&O's: Vital Signs Temp Pulse Resp BP Pulse Ox 98.3 F 104 H 16 145/91 H 98 10/29/19 10:09 10/29/19 10:09 10/29/19 10:09 10/29/19 10:09 10/29/19 10:09 Oxygen Delivery Method Room Air Weight: 123.332 kg Body Mass Index (BMI) 37.9 Finger Stick Blood Glucose 239 Intake and Output for Last 24 Hours 10/27/19 10/28/19 10/29/19 23:59 23:59 23:59 Intake Total 5773.75 / 5773.75 4122.91 / 4722.91 2225 / 2225 Output Total 700 / 700 3100 / 3550 850 / 850 Balance 5073.75 / 5073.75 1022.91 / 1172.91 1375 / 1375 General: Alert, Cooperative, No apparent distress Lungs: Clear to auscultation, Normal air movement Cardiovascular: Regular rate, Regular Rhythm Abdomen: Soft, Non Tender, Non-Distended Skin: Ulcer/ Wound Microbiology Past 72 Hours 10/27/19 15:40 Tissue - Abdominal Gram Stain - Final 10/27/19 15:40 Tissue - Abdominal Wound Culture - Preliminary Staphylococcus aureus Gram negative ольга 10/27/19 15:40 Biopsy - Leg, Left Gram Stain - Final 10/27/19 15:40 Biopsy - Leg, Left Wound Culture - Preliminary Staphylococcus aureus 10/26/19 16:45 Wound - Leg, Left Gram Stain - Final 10/26/19 16:45 Wound - Leg, Left Wound Culture - Final Meth. resistant Staph. aureus Laboratory Results 10/28/19 12:03: POC Glucose 202 H 10/28/19 16:53: POC Glucose 144 H 10/28/19 21:44: POC Glucose 167 H 10/29/19 05:42: WBC 9.0, RBC 3.49 L, Hgb 10.9 L, Hct 31.9 L, MCV 91.4, MCH 31.2, MCHC 34.2, RDW Std Deviation 40.2, RDW Coeff of Chrissie 11.9, Plt Count 168, MPV 12.0, Immature Gran % (Auto) 1.400 H, Neut % (Auto) 56.5, Lymph % (Auto) 32.4, [place]o % (Auto) 7.1, Eos % (Auto) 2.0, Baso % (Auto) 0.6, Absolute Neuts (auto) 5.1, Absolute Lymphs (auto) 2.92, Nucleated RBC % 0 10/29/19 05:42: Sodium 139, Potassium 3.8, Chloride 107, Carbon Dioxide 26.0, Anion Gap 6, BUN 23 H, Creatinine 1.33 H, Estim Creat Clear Calc 65.27, Est GFR (MDRD) Af Amer 71, Est GFR (MDRD) Non-Af 59 L, BUN/Creatinine Ratio 17.3, Glucose 80, Calcium 8.9, Magnesium 2.1 10/29/19 06:03: POC Glucose 81 Current Medications Acetaminophen (Tylenol) 650 mg PO Q6H PRN PRN PRN Reason: Pain (-08/20) or Fever Amlodipine Besylate (Norvasc) 10 mg PO DAILY [facility] Last Admin: 10/29/19 09:27 Dose: 10 mg Documented by: Aspirin (Ecotrin) 81 mg PO DAILY@0800 [facility] Last Admin: 10/29/19 09:28 Dose: 81 mg Documented by: Diazepam (Valium) 5 mg PO 4X/DAY PRN PRN PRN Reason: SPASMS Duloxetine HCl (Cymbalta) 60 mg PO QHS [facility] Last Admin: 10/28/19 21:30 Dose: 60 mg Documented by: Gabapentin (Neurontin) 300 mg PO TID [facility] Last Admin: 10/29/19 06:01 Dose: 300 mg Documented by: Glucagon () 1 mg IM .X1 PRN PRN Reason: Hypoglycemia Heparin Sodium (Porcine) (Heparin Na) 5,000 unit SC Q8 [facility] Last Admin: 10/29/19 05:53 Dose: 5,000 unit Documented by: Ceftriaxone Sodium 2 gm/ (Sodium Chloride) 50 mls @ 100 mls/hr IV Q24@2200 [facility] Last Infusion: 10/29/19 00:30 Dose: Infused Documented by: Sodium Chloride () 1,000 mls @ 125 mls/hr IV .Q8H [facility] Last Admin: 10/29/19 09:28 Dose: 125 mls/hr Documented by: Vancomycin IV Pharmacy to Dose (1 ea/ Sodium Chloride) 500 mls @ 250 mls/hr IV X1 PRN; Protocol PRN Reason: Rx to Dose Dextrose (Dextrose 10%-Water) 250 mls @ 999 mls/hr IV X1 PRN; Protocol PRN Reason: HYPOGLYCEMIA Vancomycin HCl 1,250 mg/ (Sodium Chloride) 275 mls @ 167 mls/hr IV Q12H [facility] Last Infusion: 10/29/19 07:31 Dose: Infused Documented by: Insulin Human Lispro (Humalog Kwikpen (Bk)) 0 unit SC ACHS [facility]; Protocol Last Admin: 10/29/19 06:04 Dose: Not Given Documented by: Insulin Lispro Protam/Lispro Human (Humalog Mix 75-25 Kwikpen (Bk)) 50 unit SC BIDCM [facility] Last Admin: 10/29/19 09:30 Dose: 50 units Documented by: Nicotine (Nicoderm Cq (Pbkc)) 21 mg TRANSDERM. DAILY [facility] Last Admin: 10/29/19 09:28 Dose: 21 mg Documented by: Nutritional Formula (Lactose Free) (Glucerna Shake) 120 ml PO 4X/DAY [facility] Last Admin: 10/29/19 09:28 Dose: 120 ml Documented by: Ondansetron HCl (Zofran Odt) 4 mg PO Q6H PRN PRN PRN Reason: NAUSEA Oxycodone HCl (Oxyir) 5 mg PO Q6H PRN PRN PRN Reason: Pain Score 6-10/10 Last Admin: 10/29/19 03:54 Dose: 5 mg Documented by: Pantoprazole Sodium (Protonix) 40 mg PO DAILY [facility] Last Admin: 10/29/19 09:27 Dose: 40 mg Documented by: Senna (Senokot) 1 tablet PO BID [facility] Last Admin: 10/29/19 09:28 Dose: 1 tablet Documented by: Sodium Chloride () 10 - 40 ml IV UD PRN PRN Reason: SALINE FLUSH Last Admin: 10/27/19 04:18 Dose: 10 ml Documented by: Tramadol HCl (Ultram) 50 - 100 mg PO Q6H PRN PRN PRN Reason: Pain 4-08/20 Last Admin: 10/28/19 18:53 Dose: 100 mg Documented by: Medical Necessity - Tobacco Use Smoking Status: Heavy Smoker (>10/day) Tobacco Use: Cigarettes Route of nutrition/ use of supplements: [] Nutritional Intake: [] IV Site: [] Fleming Catheter: [] - Assessment/Plan Antibiotics: [] Assessment/Plan: [] Active and Suspected Problems Cellulitis and abscess of leg (Acute) Sepsis (Acute) necrotic skin infection of LLE and LLQ abd. Now s/p I&D and wound vac by Dr. Lopez 10/27. Surg cx with MRSA, staph, GNR. On vanc/ceftriaxone. Ok for home with 5 days of po doxy and cefdinir given good source control. Will follow final cx results and adjust as needed. Will follow, d/w behavioral health case manager and Dr. Valladares.
--- NOTE | 2019-10-29 11:18 | CASEMGMT ---
Social Work Note SW received call from pt's Lay Wick asking for update on HHC. SURJIT updated Lay that RN DEMETRIO is currently working on HHC being arranged but informed Lay that the first choice of [facility] doesn't have the staffing available at this time. Lay states that second choice is [facility]. While on the phone with Lay RN CM called [facility] and they don't have the staffing available either. SURJIT reviewed other choices with Lay including [facility], [employer], and [facility]. Lay states either of the companies will work, she just needs HHC to be set up. SW informed Lay again that RN DEMETRIO is working on the referral and RN CM can call Lay and update her. Lay states understanding and phone number [phone]. SW updated RN DEMETRIO. Marcia Hussein [employer], [employer]
--- NOTE | 2019-10-29 11:25 | CASEMGMT ---
KIRK CM updated by SURJIT after receiving call from that they do not have a preference just one that is able to accept the patient. Nadia called not staffing. Referral sent to [facility] and awaiting call back. KIRK ATKINSON will continue to follow this patient and plan for a safe discharge.
[2019-10-29] MEDS: Insulin Lispro 100 UNIT/ML INSULN.PEN SC (11:26)
[2019-10-29 11:36] LABS: Bedside Glucose 221 mg/dL (70-110)
--- NOTE | 2019-10-29 11:39 | DCINST_ITS ---
- Discharge Diagnoses Current Active Problems: Current Active and Chronic Problems Necrotizing soft tissue infection (Acute) diabetic abscesses left medial thigh and right lower abdominal wall Abscess of abdominal wall (Acute) necrotizing soft tissue infection diabetic abscess right lower abdominal wall Abscess of left thigh (Acute) necrotizing soft tissue infection diabetic abscess left medial thigh Cellulitis and abscess of leg (Acute) Sepsis (Acute) Diabetes (Chronic) Obesity (Chronic) Nicotine abuse (Chronic) HTN (hypertension) (Chronic) You will use the following diet at home:: Calorie/Carbohydrate Controlled (specify 1200, 1400, etc) - 1800 Your food should be the consistency of: Regular Discharge Activity: Return to Normal Activity Allergies/Adverse Reactions: Allergies No Known Allergies Allergy (Verified 10/26/19 13:40) Medications to take at Discharge Amlodipine [Norvasc] 10 mg PO DAILY 10/26/19 Aspirin [Aspirin EC] 81 mg PO DAILY 10/26/19 Duloxetine Hcl [Cymbalta] 60 mg PO DAILY 10/26/19 Gabapentin [Neurontin] 300 mg PO TID 10/26/19 Insulin NPH Hum/Reg Insulin Hm [Humulin 70/30 Kwikpen] 50 unit SQ BID 10/26/19 Lisinopril 20 mg PO BID 10/26/19 Omeprazole 40 mg PO DAILY 10/26/19 traMADol [Ultram] 1 - 2 tab PO Q6H PRN 10/26/19 Acetaminophen [Tylenol Tablet] 650 mg PO Q6H PRN PRN tab 10/29/19 Cefdinir 300 mg PO BID #10 cap 10/29/19 Diazepam [Valium] 5 mg PO 4X/DAY PRN PRN #30 tab 10/29/19 Doxycycline 100 mg PO BID 5 Days #10 cap 10/29/19 Oxycodone HCl/Acetaminophen [Percocet 5/325] 1 tab PO Q4H PRN PRN 7 Days #40 tab 10/29/19 The following prescriptions were given: Cefdinir 300 mg PO BID #10 cap [facility] Doxycycline 100 mg PO BID 5 Days #10 cap Transmission Status: [facility] Oxycodone HCl/Acetaminophen [Percocet 5/325] 1 tab PO Q4H PRN PRN 7 Days #40 tab PRN Reason: Pain Transmission Status: [facility] Diazepam [Valium] 5 mg PO 4X/DAY PRN PRN #30 tab PRN Reason: Spasms Transmission Status: Received by [facility] Primary Care Physician: Didier Longoria DO [Primary Care Provider] - Please follow up with your Primary Care Physician in: in 5-7 days Test Results: Test results from this visit will be discussed in further detail at your follow- up appointment, if applicable. Please Follow Up With: Fredi Lopez MD When: in 1 week Please Follow Up With: Crow Mccabe MD When: in 1-2 weeks Proposed Discharge Date: 10/29/19
--- NOTE | 2019-10-29 11:47 | PCM.DC.SUM ---
Discharge Date and Diagnosis - Problem List Patient Problems: Active and Suspected Problems Necrotizing soft tissue infection (Acute) diabetic abscesses left medial thigh and right lower abdominal wall Abscess of abdominal wall (Acute) necrotizing soft tissue infection diabetic abscess right lower abdominal wall Abscess of left thigh (Acute) necrotizing soft tissue infection diabetic abscess left medial thigh Cellulitis and abscess of leg (Acute) Sepsis (Acute) Date of Admission: 10/26/19 Date of Discharge: 10/29/19 - Primary Discharge Diagnosis Active and Suspected Problems Necrotizing soft tissue infection (Acute) diabetic abscesses left medial thigh and right lower abdominal wall Abscess of abdominal wall (Acute) necrotizing soft tissue infection diabetic abscess right lower abdominal wall Abscess of left thigh (Acute) necrotizing soft tissue infection diabetic abscess left medial thigh Cellulitis and abscess of leg (Acute) Sepsis (Acute) - Secondary Discharge Diagnosis Chronic Problems Smoker (Chronic) Diabetes (Chronic) Obesity (Chronic) Nicotine abuse (Chronic) HTN (hypertension) (Chronic) Hospital Course and Treatment Consultations 10/26/19 19:01 Consult: Onc/Wound/sales representative [facility] Routine Comment: Summary of Care Provided: In brief, patient is a 58-year-old gentleman who presented with swelling and erythema on the inner aspect of the left thigh as well as anterior abdomen 1. Left thigh And anterior abdominal wall cellulitis and abscess ?10/28/2019 and underwent incision and drainage the day prior by Dr. Lopez. Subsequent cultures came back positive for MRSA. Patient currently on appropriate antibiotic therapy. Scheduled to have a wound VAC placed. Consult placed to ID - 10/29/2019; Patient underwent wound VAC placement the day prior. Cultures so far positive for MRSA and gram-negative organisms patient remains on vancomycin and Rocephin. Seen in consultation by Dr. Mccabe his note and recommendations reviewed.. Case was discussed with Dr. Mccabe decision was made to discharge patient home on doxycycline as well as Omnicef with plans for patient to follow-up with him, Dr. Lopez as well as patient's primary care physician. 2. Diabetes mellitus type II ~Complications including diabetic nephropathy patient's oral hypoglycemics held. Placed on long acting insulin, Accu-Cheks a.c. and at bedtime and covered with sliding scale insulin 3. Diabetic nephropathy (chronic kidney disease stage III) with baseline creatinine of 1.5 ~Creatinine on admission was 1.98 has since improved 4. Acute kidney injury ~Post on CKD stage III management as discussed above 5. Hypertension ~ blood pressure controlled, home medications continued with dose adjustment as needed 6. Obesity with BMI of 37.9 ~Weight loss advised. 7. Diabetic polyneuropathy Patient is on gabapentin as well as Cymbalta did continue 8. GERD ?Patient is on PPI 9. DVT prophylaxis ~SC heparin Patient Problems: Active and Suspected Problems Necrotizing soft tissue infection (Acute) diabetic abscesses left medial thigh and right lower abdominal wall Abscess of abdominal wall (Acute) necrotizing soft tissue infection diabetic abscess right lower abdominal wall Abscess of left thigh (Acute) necrotizing soft tissue infection diabetic abscess left medial thigh Cellulitis and abscess of leg (Acute) Sepsis (Acute) Objective: GENERAL: cooperative HEENT: Atraumatic; EYES; Anicteric, Normal Conjunctiva NECK; supple, normal thyroid, RESPIRATORY: Diminished to auscultation CARDIOVASCULAR: Regular S1 S2, GI: soft, normoactive bowel sounds, : No Renal angle tenderness; EXTREMITIES: No edema, no clubbing, MUSCULOSKELETAL: no muscle waisting NEURO: Awake; no lateralizing signs. SKIN: Wound VAC on anterior abdominal wall as well as the left thigh PSYCH; Flat affect - Physical Exam Vitals/I&O's: Vital Signs Temp Pulse Resp BP Pulse Ox 98.3 F 104 H 16 145/91 H 98 10/29/19 10:09 10/29/19 10:09 10/29/19 10:09 10/29/19 10:09 10/29/19 10:09 Oxygen Delivery Method Room Air Weight: 123.332 kg Body Mass Index (BMI) 37.9 Finger Stick Blood Glucose 239 Intake and Output for Last 24 Hours 10/27/19 10/28/19 10/29/19 23:59 23:59 23:59 Intake Total 5773.75 / 5773.75 4122.91 / 4722.91 2825 / 2825 Output Total 700 / 700 3100 / 3550 1350 / 1350 Balance 5073.75 / 5073.75 1022.91 / 1172.91 1475 / 1475 Microbiology Past 72 Hours 10/27/19 15:40 Tissue - Abdominal Gram Stain - Final 10/27/19 15:40 Tissue - Abdominal Wound Culture - Final Meth. resistant Staph. aureus Pseudomonas aeroginosa 10/27/19 15:40 Biopsy - Leg, Left Gram Stain - Final 10/27/19 15:40 Biopsy - Leg, Left Wound Culture - Preliminary Staphylococcus aureus 10/26/19 16:45 Wound - Leg, Left Gram Stain - Final 10/26/19 16:45 Wound - Leg, Left Wound Culture - Final Meth. resistant Staph. aureus Laboratory Results 10/28/19 12:03: POC Glucose 202 H 10/28/19 16:53: POC Glucose 144 H 10/28/19 21:44: POC Glucose 167 H 10/29/19 05:42: WBC 9.0, RBC 3.49 L, Hgb 10.9 L, Hct 31.9 L, MCV 91.4, MCH 31.2, MCHC 34.2, RDW Std Deviation 40.2, RDW Coeff of Chrissie 11.9, Plt Count 168, MPV 12.0, Immature Gran % (Auto) 1.400 H, Neut % (Auto) 56.5, Lymph % (Auto) 32.4, [place] % (Auto) 7.1, Eos % (Auto) 2.0, Baso % (Auto) 0.6, Absolute Neuts (auto) 5.1, Absolute Lymphs (auto) 2.92, Nucleated RBC % 0 10/29/19 05:42: Sodium 139, Potassium 3.8, Chloride 107, Carbon Dioxide 26.0, Anion Gap 6, BUN 23 H, Creatinine 1.33 H, Estim Creat Clear Calc 65.27, Est GFR (MDRD) Af Amer 71, Est GFR (MDRD) Non-Af 59 L, BUN/Creatinine Ratio 17.3, Glucose 80, Calcium 8.9, Magnesium 2.1 10/29/19 06:03: POC Glucose 81 10/29/19 11:25: POC Glucose 221 H Current Medications Acetaminophen (Tylenol) 650 mg PO Q6H PRN PRN PRN Reason: Pain (1-08/20) or Fever Amlodipine Besylate (Norvasc) 10 mg PO DAILY [facility] Last Admin: 10/29/19 09:27 Dose: 10 mg Documented by: Aspirin (Ecotrin) 81 mg PO DAILY@0800 [facility] Last Admin: 10/29/19 09:28 Dose: 81 mg Documented by: Diazepam (Valium) 5 mg PO 4X/DAY PRN PRN PRN Reason: SPASMS Duloxetine HCl (Cymbalta) 60 mg PO QHS [facility] Last Admin: 10/28/19 21:30 Dose: 60 mg Documented by: Gabapentin (Neurontin) 300 mg PO TID [facility] Last Admin: 10/29/19 06:01 Dose: 300 mg Documented by: Glucagon () 1 mg IM .X1 PRN PRN Reason: Hypoglycemia Heparin Sodium (Porcine) (Heparin Na) 5,000 unit SC Q8 [facility] Last Admin: 10/29/19 05:53 Dose: 5,000 unit Documented by: Ceftriaxone Sodium 2 gm/ (Sodium Chloride) 50 mls @ 100 mls/hr IV Q24@2200 [facility] Last Infusion: 10/29/19 00:30 Dose: Infused Documented by: Sodium Chloride () 1,000 mls @ 125 mls/hr IV .Q8H [facility] Last Admin: 10/29/19 09:28 Dose: 125 mls/hr Documented by: Vancomycin IV Pharmacy to Dose (1 ea/ Sodium Chloride) 500 mls @ 250 mls/hr IV X1 PRN; Protocol PRN Reason: Rx to Dose Dextrose (Dextrose 10%-Water) 250 mls @ 999 mls/hr IV X1 PRN; Protocol PRN Reason: HYPOGLYCEMIA Vancomycin HCl 1,250 mg/ (Sodium Chloride) 275 mls @ 167 mls/hr IV Q12H [facility] Last Infusion: 10/29/19 07:31 Dose: Infused Documented by: Insulin Human Lispro (Humalog Kwikpen (Bkc)) 0 unit SC ACHS [facility]; Protocol Last Admin: 10/29/19 11:26 Dose: 2 units Documented by: Insulin Lispro Protam/Lispro Human (Humalog Mix 75-25 Kwikpen (Bkc)) 50 unit SC BIDCM [facility] Last Admin: 10/29/19 09:30 Dose: 50 units Documented by: Nicotine (Nicoderm Cq (Pbkc)) 21 mg TRANSDERM. DAILY [facility] Last Admin: 10/29/19 09:28 Dose: 21 mg Documented by: Nutritional Formula (Lactose Free) (Glucerna Shake) 120 ml PO 4X/DAY [facility] Last Admin: 10/29/19 09:28 Dose: 120 ml Documented by: Ondansetron HCl (Zofran Odt) 4 mg PO Q6H PRN PRN PRN Reason: NAUSEA Oxycodone HCl (Oxyir) 5 mg PO Q6H PRN PRN PRN Reason: Pain Score 6-10/10 Last Admin: 10/29/19 03:54 Dose: 5 mg Documented by: Pantoprazole Sodium (Protonix) 40 mg PO DAILY [facility] Last Admin: 10/29/19 09:27 Dose: 40 mg Documented by: Senna (Senokot) 1 tablet PO BID [facility] Last Admin: 10/29/19 09:28 Dose: 1 tablet Documented by: Sodium Chloride () 10 - 40 ml IV UD PRN PRN Reason: SALINE FLUSH Last Admin: 10/27/19 04:18 Dose: 10 ml Documented by: Tramadol HCl (Ultram) 50 - 100 mg PO Q6H PRN PRN PRN Reason: Pain 4-1010 Last Admin: 10/28/19 18:53 Dose: 100 mg Documented by: Discharge Activity: Return to Normal Activity Home Medications: Medications to take at Discharge Amlodipine [Norvasc] 10 mg PO DAILY 10/26/19 Aspirin [Aspirin EC] 81 mg PO DAILY 10/26/19 Duloxetine Hcl [Cymbalta] 60 mg PO DAILY 10/26/19 Gabapentin [Neurontin] 300 mg PO TID 10/26/19 Insulin NPH Hum/Reg Insulin Hm [Humulin 70/30 Kwikpen] 50 unit SQ BID 10/26/19 Lisinopril 20 mg PO BID 10/26/19 Omeprazole 40 mg PO DAILY 10/26/19 traMADol [Ultram] 1 - 2 tab PO Q6H PRN 10/26/19 Acetaminophen [Tylenol Tablet] 650 mg PO Q6H PRN PRN tab 10/29/19 Cefdinir 300 mg PO BID #10 cap 10/29/19 Diazepam [Valium] 5 mg PO 4X/DAY PRN PRN #30 tab 10/29/19 Doxycycline 100 mg PO BID 5 Days #10 cap 10/29/19 Oxycodone HCl/Acetaminophen [Percocet 5/325] 1 tab PO Q4H PRN PRN 7 Days #40 tab 10/29/19 Following Prescrptions Were Given to Patient: Cefdinir 300 mg PO BID #10 cap Transmission Status: Received by [facility] Doxycycline 100 mg PO BID 5 Days #10 cap Transmission Status: Received by [facility] Oxycodone HCl/Acetaminophen [Percocet 5/325] 1 tab PO Q4H PRN PRN 7 Days #40 tab PRN Reason: Pain Transmission Status: Received by [facility] Diazepam [Valium] 5 mg PO 4X/DAY PRN PRN #30 tab PRN Reason: Spasms Transmission Status: Received by [facility] Primary Care Physician: Didier Longoria DO [Primary Care Provider] - Please follow up with your Primary Care Physician in: in 5-7 days Please Follow Up With: Fredi Lopez MD When: in 1 week Please Follow Up With: Crow Mccabe MD When: in 1-2 weeks Disposition: Home with Home Health Minutes spent on discharge:: 40 Patient Condition:: Stable Medical Necessity - Tobacco Use Smoking Status: Heavy Smoker (>10/day) Tobacco Use: Cigarettes Meaningful Use Info Meaningful Use Diagnoses (Choose all that apply): None applicable Code Visit Inpatient E&M: 67087 Disch Hosp
--- NOTE | 2019-10-29 12:16 | DCINST_ITS ---
- Discharge Diagnoses Current Active Problems: Current Active and Chronic Problems Necrotizing soft tissue infection (Acute) diabetic abscesses left medial thigh and right lower abdominal wall Abscess of abdominal wall (Acute) necrotizing soft tissue infection diabetic abscess right lower abdominal wall Abscess of left thigh (Acute) necrotizing soft tissue infection diabetic abscess left medial thigh Cellulitis and abscess of leg (Acute) Sepsis (Acute) Diabetes (Chronic) Obesity (Chronic) Nicotine abuse (Chronic) HTN (hypertension) (Chronic) Discharge Activity: Return to Normal Activity Allergies/Adverse Reactions: Allergies No Known Allergies Allergy (Verified 10/26/19 13:40) Medications to take at Discharge Amlodipine [Norvasc] 10 mg PO DAILY 10/26/19 Aspirin [Aspirin EC] 81 mg PO DAILY 10/26/19 Duloxetine Hcl [Cymbalta] 60 mg PO DAILY 10/26/19 Gabapentin [Neurontin] 300 mg PO TID 10/26/19 Insulin NPH Hum/Reg Insulin Hm [Humulin 70/30 Kwikpen] 50 unit SQ BID 10/26/19 Lisinopril 20 mg PO BID 10/26/19 Omeprazole 40 mg PO DAILY 10/26/19 traMADol [Ultram] 1 - 2 tab PO Q6H PRN 10/26/19 Acetaminophen [Tylenol Tablet] 650 mg PO Q6H PRN PRN tab 10/29/19 Amoxicillin/Potassium Clav [Augmentin 875-125 Tablet] 1 ea PO BID #14 tab 10/29/19 Diazepam [Valium] 5 mg PO 4X/DAY PRN PRN #30 tab 10/29/19 Levofloxacin [Levaquin] 750 mg PO DAILY #7 tab 10/29/19 Oxycodone HCl/Acetaminophen [Percocet 5/325] 1 tab PO Q4H PRN PRN 7 Days #40 tab 10/29/19 The following prescriptions were given: Amoxicillin/Potassium Clav [Augmentin 875-125 Tablet] 1 ea PO BID #14 tab Transmission Status: Pending to [facility] Levofloxacin [Levaquin] 750 mg PO DAILY #7 tab [facility]: [facility] Oxycodone HCl/Acetaminophen [Percocet 5/325] 1 tab PO Q4H PRN PRN 7 Days #40 tab PRN Reason: Pain Transmission Status[facility] Diazepam [Valium] 5 mg PO 4X/DAY PRN PRN #30 tab PRN Reason: Spasms Transmission Status: [facility] Primary Care Physician: Didier Longoria DO [Primary Care Provider] - Please follow up with your Primary Care Physician in: in 5-7 days Test Results: Test results from this visit will be discussed in further detail at your follow- up appointment, if applicable. Please Follow Up With: Fredi Lopez MD When: in 1 week Please Follow Up With: Crow Mccabe MD When: in 1-2 weeks Proposed Discharge Date: 10/29/19
--- NOTE | 2019-10-29 12:26 | NURSING ---
Pt approved for home VAC and is being discharged home today. Pt switched over to the home VAC at this time. Reviewed alarms, etc. with patient. Denies questions.
--- NOTE | 2019-10-29 12:31 | NURSING ---
called [facility] to cancel doxycycline and omiceph prescription per dr thornton request.
--- NOTE | 2019-10-29 13:20 | CASEMGMT ---
KIRK ATKINSON called [facility] and confirmed acceptance. Start of care for [facility] is tomorrow. KIRK ATKINSON updated that patient that [facility] is able to accept the patient.
[2019-10-29] MEDS: traMADol 50 MG Tablet PO (13:49)
[2019-10-29 13:58] VITALS: BP 145/101; PULSE 107; RESP 16; TEMP 36.7; O2SAT 98
== END 2019-10-29 14:23 | disposition home health service (06) | DRG 854 ==
LOC: ED 17:11 → PCU 17:41 → MS3 10-27 16:06
PROVIDERS: Anesthesiology; Physician Assistant; Surgery; Admitting Provider Internal Medicine; Emergency Provider Emergency Medicine; Family Provider Family Medicine; PCP Family Medicine; Referring Provider Internal Medicine; Visit Provider Internal Medicine
PROC: 0JB80ZZ Excision of Abdomen Subcutaneous Tissue and Fascia, Open Approach (ICD-10-PCS; principal; 2019-10-27 12:45)
DX: A41.9 Sepsis, unspecified organism (principal); L02.416 Cutaneous abscess of left lower limb; L02.211 Cutaneous abscess of abdominal wall; E11.52 Type 2 diabetes mellitus with diabetic peripheral angiopathy with gangrene; I96 Gangrene, not elsewhere classified; L03.116 Cellulitis of left lower limb; L03.311 Cellulitis of abdominal wall; N17.9 Acute kidney failure, unspecified; E11.628 Type 2 diabetes mellitus with other skin complications; E66.9 Obesity, unspecified; Z23 Encounter for immunization; Z79.4 Long term (current) use of insulin; Z68.37 Body mass index [BMI] 37.0-37.9, adult; F17.210 Nicotine dependence, cigarettes, uncomplicated; E11.22 Type 2 diabetes mellitus with diabetic chronic kidney disease; N18.3 Chronic kidney disease, stage 3 (moderate); E11.42 Type 2 diabetes mellitus with diabetic polyneuropathy; I10 Essential (primary) hypertension; K21.9 Gastro-esophageal reflux disease without esophagitis; B95.62 Methicillin resistant Staphylococcus aureus infection as the cause of diseases classified elsewhere
CPT/HCPCS: 10060; 36415; 71045; 80048; 80053; 80202; 81001; 82962; 83036; 83605; 83735; 84134; 84484; 85025; 85610; 85730; 87040; 87070; 87075; 87077; 87102; 87186; 87205; 87206; 87640; 88304; 88312; 93005; 97802; 99285; 99406; J7030; J7040; J7050; J7120; 90686; A4216; J0696; J2405

== ENCOUNTER 2019-11-10 23:09 | Inpatient (IN) | payer BC, SELFPAY ==
[2019-10-27 12:30] VITALS: BMI 37.9
[2019-11-10 23:10] VITALS: BP 119/82; PULSE 124; RESP 16; TEMP 37.7; O2SAT 98; BMI 38.2
[2019-11-10 23:17] VITALS: PULSE 124; TEMP 37.7
--- NOTE | 2019-11-10 23:37 | ED.VISSUMM ---
- ER Visit Summary Date of Service: 11/10/19 Chief Complaint: Left leg redness History of Present Illness: The patient is a 58 M presenting with increasing redness left leg. Patient was discharged on 10/29 after admission for wound infection. At that time he underwent I&D per Dr. Lopez and had wound VAC placed. He had consultation with infectious disease and was sent home on Levaquin and Augmentin. He finished antibiotics on 11/04/19. He states since yesterday the redness around his left thigh wound VAC has been increasing. He has had low-grade fever. Denies other complaints. Physical Examination: Vitals are stable. Heart rate 124. Temperature 99.9. Alert no acute distress. HEENT exam is unremarkable. Neck is supple. Lungs are clear and equal bilaterally. Heart is regular and tachycardic. Abdomen is soft nontender nondistended. Wound VAC in place with no surrounding erythema Extremities left inner thigh wound VAC with surrounding erythema, no fluctuance, neurovascularly intact distally Skin is warm and dry. No focal neurologic deficit. Remainder of exam is unremarkable. Emergency Department Course and Treatment: Patient was given IV fluids, Tylenol. Blood cultures were sent. CBC shows white count 15.5, hemoglobin 11.6. Chemistries show glucose 386, BUN 37, creatinine 2.1. Previous creatinine 1.33. Lactic acid is normal. Discussed with the hospitalist. He was given linezolid and cefepime IV. He will be admitted. Disposition: Admission Impression: LLE cellulitis, MAT This note was generated with [email or web address] dictation software. It may contain incorrect words, spelling, and punctuation that were not noted in review of the chart prior to signing ED Disposition - Plan for ED Patient: Referrals: Didier Longoria DO [Primary Care Provider] -
[2019-11-10 23:58] LABS: Absolute Lymphocyte Count 2.66 X10^3/uL (0.83-4.51); Absolute Neutrophil Count 11.4 X10^3/uL (2.0-7.7); Basophil# 0.05 X10^3/uL; Basophil% 0.3 % (0-1); Eosinophil# 0.22 X10^3/uL; Eosinophils% 1.4 % (0-5); Hemoglobin 11.6 g/dL (13.0-16.5); Lymphocyte # 2.66 X10^3/ul (4.0); Lymphocyte % 17.2 % (19-41); Mean Corp Hgb Conc 34.1 g/dL (32-36); Mean Corpuscular Hgb 31.4 pg (27.0-32.0); Mean Corpuscular Volume 92.1 fL (80-94); Mean Platelet Vol. 11.4 fl (6.2-12.0); Monocyte# 0.93 X10^3/uL; NRBC Flagged by Analyzer 0 % (0-5); Neutrophil # 11.37 X10^3/uL (2.7-7.7); Neutrophil % 73.4 % (47-70); Platelet Count 229 K/mm3 (150-450); RBC Distribution Width CV 11.6 % (11.6-14.6); RBC Distribution Width SD 38.9 fl (35.1-43.9); Red Blood Count 3.69 M/mm3 (4.6-6.2); White Blood Count 15.5 K/mm3 (4.4-11.0)
[2019-11-11] MEDS: 0.9% Normal Saline 1,000 ML 1000 ML IV
[2019-11-11] MEDS: Acetaminophen 500 MG Tablet 1000 MG PO
[2019-11-11 00:17] LABS: Anion Gap 9 (5-15); BUN 37 mg/dL (7-18); BUN/Creat Ratio 17.6 RATIO (10-20); Calcium,Total 9.3 mg/dL (8.5-10.1); Chloride 100 mmol/L (98-107); EST Glomerular Filtration Rate 35 mL/min (>60); Est Glom Filt Rate - Afr Amer 42 mL/min (>60); Estimated Creatinine Clearance 41.34 ml/min; Glucose 386 mg/dL (74-106); Potassium 4.7 mmol/L (3.5-5.1); Sodium Level 135 mmol/L (136-145)
[2019-11-11 00:21] LABS: Lactic Acid 1.5 mmol/L (0.4-1.9)
--- NOTE | 2019-11-11 00:27 | HP.PCM_ITS ---
Problem List (1) Cellulitis of left thigh Status: Acute (2) Abscess of abdominal wall Status: Acute Comment: necrotizing soft tissue infection diabetic abscess right lower abdominal wall (3) Open wound of right lower quadrant of abdominal wall without penetration into peritoneal cavity Status: Acute Comment: right lower abdominal wall diabetic abscess wound (4) Open wound of left thigh Status: Acute Comment: left medial thigh diabetic abscess wound (5) Smoker Status: Chronic (6) Abscess of left thigh Status: Acute Comment: necrotizing soft tissue infection diabetic abscess left medial thigh (7) Diabetes Status: Chronic Qualifiers: Diabetes mellitus type: type 2 (8) Obesity Status: Chronic (9) Nicotine abuse Status: Chronic (10) HTN (hypertension) Status: Chronic (11) Severe sepsis Status: Acute History of Present Illness Date of Admission: 11/11/19 Chief Complaint: redness of left thigh wound The patient is a 58 year old M with a significant history of hypertension; diabetes mellitus with neuropathy; who recently was treated for abdominal abscess and cellulitis; as well as left thigh abscess and cellulitis; and was discharged home on antibiotics and wound VAC presenting with increased redness around site of left thigh wound. Her home nurse who changes the wound VAC dressing noticed increased redness around the dressing site of his left thigh wound where he recently had I&D. This redness progressively worsened. Associated with symptoms is increased warmth and soreness at his left thigh wound. Because of pain patient is unable to bend down. Patient was discharged home on Augmentin and Levaquin. He finished taking his antibiotics around November 04, 2019. At the Emergency department patient was noted to have tachycardia; and leukocytosis with left shift. Moreover patient was found to have elevated creatinine above his baseline. On his previous admission he was seen by Dr. Lopez who did I&D of both his right lower abdomen and his left thigh. Also he saw Dr. Mccabe, infectious disease while inpatient. He was supposed to follow-up with Dr. Lopez, Plastic surgeon; Dr. Figueroa, infectious disease; and wound care. However before he could get appointment with Plastics, ID and wound care he returned to the ED because of extension of erythema around wound vac site of his left thigh as described above. On his previous visits a tissue culture of his abdomen was positive for MRSA and Pseudomonas. And a tissue culture of his left thigh was positive for MRSA. Blood cultures were negative. His last admission was from 10/26/2019 to 10/29/2019. Past Medical History Past Medical History (Chronic Problems): Chronic Problems Smoker (Chronic) Diabetes (Chronic) Obesity (Chronic) Nicotine abuse (Chronic) HTN (hypertension) (Chronic) Allergies No Known Allergies Allergy (Verified 11/10/19 23:13) Home Medications: Ambulatory Orders Medication Instructions Recorded Amlodipine [Norvasc] 10 mg PO DAILY 10/26/19 Aspirin [Aspirin EC] 81 mg PO DAILY 10/26/19 Duloxetine Hcl [Cymbalta] 60 mg PO DAILY 10/26/19 Gabapentin [Neurontin] 300 mg PO TID 10/26/19 Insulin NPH Hum/Reg Insulin Hm 50 unit SQ BID 10/26/19 [Humulin 70/30 Kwikpen] Lisinopril 20 mg PO BID 10/26/19 Omeprazole 40 mg PO DAILY 10/26/19 Diazepam [Valium] 5 mg PO 4X/DAY PRN PRN #30 tab 10/29/19 Oxycodone HCl/Acetaminophen 1 ea PO BID PRN PRN 11/10/19 [Oxycodone-Acetaminophen 5-325] Nystatin 1 dose PO DAILY 11/11/19 Surgical History: - - I&D of right lower abdomen; and left inner thigh Psychiatric History: Depression Lives: Spouse/ Significant Other Smoking Status: Current every day smoker Tobacco Use: Cigarettes Alcohol: None - *Family History Maternal History Items: Cancer - Pancreas Paternal History Items: Dementia Review of Systems Constitutional: Reports: Chills. Denies: Weight Change HEENT: Denies: Head Aches, Sinus Congestion, Sinus Drainage Cardiovascular: Denies: Chest Pain, Palpitations Respiratory: Denies: Cough, Shortness of breath at rest, Sputum production Gastrointestinal: Denies: Abdominal Pain, Nausea, Vomiting Genitourinary: Denies: Dysuria Musculoskeletal: Denies: Joint Pain, Joint Tenderness Skin: Reports: Wounds - Right lower quadrant of the abdomen; and left inner thigh wounds covered with wound VAC., -, - - Erythema; increased warmth; soreness and swelling around wound VAC site of left inner thigh. Denies: Rash Neurological: Denies: Numbness, Tingling, Focal weakness Psychiatric: Reports: Depression. Denies: Anxiety, Homicidal Ideations, Suicidal Ideations Hematologic/ Lymphatic: Denies: Easy Bruising, Easy Bleeding VTE Information - Inpt Only VTE Present on Admission: No VTE Mechan Device Prophylaxis: None VTE Pharm Prophylaxis ordered?: Yes Patient Problems: Active and Suspected Problems Cellulitis of left thigh (Acute) Severe sepsis (Acute) - Physical Exam Vitals/I&O's: Vital Signs Temp Pulse Resp BP Pulse Ox 99.9 F H 124 H 16 119/82 H 98 11/10/19 23:17 11/10/19 23:17 11/10/19 23:10 11/10/19 23:10 11/10/19 23:10 Oxygen Delivery Method Room Air Weight: 124.2 kg Body Mass Index (BMI) 38.2 Finger Stick Blood Glucose 239 General: Alert, Oriented x3, Cooperative HEENT: Atraumatic, PERRLA, EOMI, Normocephalic Neck: Supple, Trachea Midline Lungs: Clear to auscultation, Normal air movement Cardiovascular: Normal S1, Normal S2, No murmurs, Tachycardic Abdomen: Bowel Sounds Present, Soft, Non Tender, - - right lower abdomen with wound vac Extremities: Capillary Refill Less than 3 Seconds, Edema - bilateral legs Skin: Ulcer/ Wound - Wound VAC on right lower abdominal quadrant; and inner left thigh., - - Erythema; increased warmth and mild tenderness around wound VAC site of left thigh (inner side) Musculoskeletal: No Tenderness to Palpation of Joints or Extremities Neurological: Cranial nerves II-XII grossly intact Psych/Mental Status: Normal Affect, Appropriate Laboratory Results 11/10/19 23:40: WBC 15.5 H, RBC 3.69 L, Hgb 11.6 L, Hct 34.0 L, MCV 92.1, MCH 31.4, MCHC 34.1, RDW Std Deviation 38.9, RDW Coeff of Chrissie 11.6, Plt Count 229, MPV 11.4, Immature Gran % (Auto) 1.700 H, Neut % (Auto) 73.4 H, Lymph % (Auto) 17.2 L, [place] % (Auto) 6.0, Eos % (Auto) 1.4, Baso % (Auto) 0.3, Absolute Neuts (auto) 11.4 H, Absolute Lymphs (auto) 2.66, Nucleated RBC % 0 11/10/19 23:40: Sodium 135 L, Potassium 4.7, Chloride 100, Carbon Dioxide 26.0, Anion Gap 9, BUN 37 H, Creatinine 2.10 H, Estim Creat Clear Calc 41.34, Est GFR (MDRD) Af Amer 42 L, Est GFR (MDRD) Non-Af 35 L, BUN/Creatinine Ratio 17.6, Glucose 386 H, Calcium 9.3 11/10/19 23:40: Lactic Acid 1.5 Current Medications Sodium Chloride () 1,000 mls @ 1,000 mls/hr IV .Q1H ONE Stop: 11/11/19 00:32 Last Admin: 11/11/19 00:00 Dose: 1,000 mls/hr Documented by: Assessment/Plan All Active Problems Cellulitis of left thigh (Acute) Severe sepsis (Acute) Open wound of right lower quadrant of abdominal wall without penetration into peritoneal cavity (Acute) Open wound of left thigh (Acute) Abscess of abdominal wall (Acute) Abscess of left thigh (Acute) The patient is a 58 year old M with a significant history of hypertension; diabetes mellitus with neuropathy; who recently was treated for abdominal abscess and cellulitis; as well as left thigh abscess and cellulitis; and was discharged home on antibiotics and wound VAC presenting with increased redness around site of left thigh wound; increased warmth; soreness and found to have a low-grade fever; tachycardia; and leukocytosis with bandemia as well as elevated creatinine of more than 2 consistent with severe sepsis secondary to left thigh cellulitis. Severe sepsis secondary to left thigh cellulitis. Cultures of abdominal tissue on 10/27/2019 showed MRSA and Pseudomonas. Culture of left thigh on 10/27/2019 showed MRSA. Continue wound VAC Discussed [facility] emergent department doctor to start patient on linezolid and cefepime. Linezolid was chosen because of MAT on CKD in an attempt to avoid vancomycin. However patient is on Cymbalta which together with linezolid can cause serotonin syndrome. Will decrease dose of Cymbalta. Continue linezolid and cefepime. Trend lactic acid. Trend CBC and BMP. Infectious disease consult. Blood culture x2 was obtained at the emergency department; follow. Of note his blood culture on 10/26/2019 was unremarkable. If patient does not improve consider discussing case with Dr. Lopez, plastic surgeon. Continue as needed Percocet from home. At previous discharge patient was prescribed Valium. Per family patient looks very lethargic on Valium stopped taking it. Valium not reordered. Right lower quadrant abdominal wall cellulitis and abscess From outside this does not look infected and patient does not complain of any symptoms over there. Patient has no complaint of any irregularity with dressing change at home. Patient is on linezolid and cefepime for left thigh cellulitis Diabetes mellitus type II with hyperglycemia Complications including diabetic nephropathy. Continue NPH. Add prandial and correction scale insulin. Accu-Chek QA CHS and 2 AM. Diabetic nephropathy (chronic kidney disease stage III) with baseline creatinine of 1.5 Creatinine on admission was 2.10. Acute kidney injury on CKD stage III On presentation his creatinine was 2.10. Baseline creatinine around 1.5. BUN was 37. BUN over creatinine 17.6. Likely MAT is is from toxic effects of severe sepsis. Received normal saline 1 L bolus in emergency department. We will continue patient on gentle IV hydration. Avoid nephrotoxic's. Home lisinopril discontinued. Trend BMP. Hypertension On presentation his blood pressure was not within goal. Amlodipine continued. Hold lisinopril because of MAT. Trend blood pressure and adjust medications as necessary. Of note patient has a severe sepsis and high risk for hypotension. Obesity with BMI of 37.9 Weight loss advised. Diabetic polyneuropathy Patient is on gabapentin as well as Cymbalta did continue. Gabapentin dose was decreased because of MAT. Cymbalta dose was decreased because patient was started on linezolid. GERD PPI continued Tobacco abuse Consult Thrush He reported that at home his tongue was white and painful and he was started on nystatin outpatient. At admission although his tongue did not look white he complained that he is not able to eat because of soreness of his mouth. Will Continue nystatin swish and swallow. DVT prophylaxis Subcutaneous Lovenox Code Visit Inpatient E&M: 56767 Init Hosp L3
[2019-11-11 00:29] VITALS: BP 120/82; PULSE 108; RESP 15; TEMP 36.9; O2SAT 96
[2019-11-11 01:00] VITALS: TEMP 36.9
[2019-11-11] MEDS: Linezolid 600 MG 600 MG/300 ML BAG 200 MG IV ×3 (01:25→22:43)
[2019-11-11 01:32] VITALS: BMI 37.8; BMI 37.9
[2019-11-11 01:40] VITALS: BP 140/75; PULSE 116; RESP 16; TEMP 37.1; O2SAT 98
[2019-11-11 02:11] LABS: Bedside Glucose 296 mg/dL (70-110)
[2019-11-11] MEDS: 0.9% Normal Saline 1,000 ML 75 ML IV (02:13)
[2019-11-11] MEDS: Insulin Lispro 100 UNIT/ML INSULN.PEN SC ×5 (02:16→17:35)
[2019-11-11] MEDS: Gabapentin 100 MG Capsule PO ×3 (05:01→22:50)
[2019-11-11 05:15] LABS: Absolute Lymphocyte Count 2.98 X10^3/uL (0.83-4.51); Basophil# 0.04 X10^3/uL; Basophil% 0.3 % (0-1); Eosinophil# 0.27 X10^3/uL; Eosinophils% 1.9 % (0-5); Hematocrit 31.1 % (40-54); Hemoglobin 10.7 g/dL (13.0-16.5); Lymphocyte # 2.98 X10^3/ul (4.0); Lymphocyte % 20.5 % (19-41); Mean Corp Hgb Conc 34.4 g/dL (32-36); Mean Corpuscular Hgb 31.2 pg (27.0-32.0); Mean Corpuscular Volume 90.7 fL (80-94); Mean Platelet Vol. 10.8 fl (6.2-12.0); Monocyte# 1.08 X10^3/uL; Monocyte% 7.4 % (0-10); NRBC Flagged by Analyzer 0 % (0-5); Neutrophil # 9.96 X10^3/uL (2.7-7.7); Neutrophil % 68.7 % (47-70); Platelet Count 216 K/mm3 (150-450); RBC Distribution Width CV 11.9 % (11.6-14.6); RBC Distribution Width SD 39.2 fl (35.1-43.9); Red Blood Count 3.43 M/mm3 (4.6-6.2); White Blood Count 14.5 K/mm3 (4.4-11.0)
[2019-11-11 05:44] LABS: Anion Gap 7 (5-15); BUN 33 mg/dL (7-18); BUN/Creat Ratio 19.4 RATIO (10-20); Chloride 104 mmol/L (98-107); EST Glomerular Filtration Rate 44 mL/min (>60); Est Glom Filt Rate - Afr Amer 54 mL/min (>60); Estimated Creatinine Clearance 51.06 ml/min; Glucose 249 mg/dL (74-106); Potassium 4.2 mmol/L (3.5-5.1); Sodium Level 137 mmol/L (136-145)
[2019-11-11 06:55] LABS: Bedside Glucose 193 mg/dL (70-110)
[2019-11-11 07:40] VITALS: BP 149/94; PULSE 114; RESP 18; TEMP 37.1; O2SAT 92
--- NOTE | 2019-11-11 08:42 | PCM.PN.HOSP ---
Patient Problems: Active and Suspected Problems Cellulitis of left thigh (Acute) Severe sepsis (Acute) Reason for Visit: Follow-up left thigh abscess Subjective: Patient is a 58-year-old gentleman who underwent incision and drainage with subsequent application of a wound VAC on 10/28/[address] Lopez discharged on oral antibiotics. Patient presented back to the emergency department with pain swelling and erythema below the site of the insertion of the wound VAC. An assessment of severe sepsis secondary to recurrent abscess made admitted to regular nursing floor for subsequent management Objective: GENERAL: cooperative HEENT: Atraumatic; EYES; Anicteric, Normal Conjunctiva NECK; supple, normal thyroid, RESPIRATORY: Diminished to auscultation CARDIOVASCULAR: Regular S1 S2, GI: soft, normoactive bowel sounds, : No Renal angle tenderness; EXTREMITIES: Abscess with an area of induration below the insertion of the wound VAC with surrounding erythema and warmth MUSCULOSKELETAL: no muscle waisting NEURO: Awake; no lateralizing signs. SKIN: As described above PSYCH; Flat affect Vitals/I&O's: Vital Signs Temp Pulse Resp BP Pulse Ox 98.8 F 116 H 16 140/75 H 98 11/11/19 01:40 11/11/19 01:40 11/11/19 01:40 11/11/19 01:40 11/11/19 01:40 Oxygen Delivery Method Room Air Weight: 123.1 kg Body Mass Index (BMI) 37.8 Finger Stick Blood Glucose 239 Intake and Output for Last 24 Hours 11/09/19 11/10/19 11/11/19 23:59 23:59 23:59 Intake Total 1520 / 1520 Balance 1520 / 1520 Laboratory Results 11/10/19 23:40: WBC 15.5 H, RBC 3.69 L, Hgb 11.6 L, Hct 34.0 L, MCV 92.1, MCH 31.4, MCHC 34.1, RDW Std Deviation 38.9, RDW Coeff of Chrissie 11.6, Plt Count 229, MPV 11.4, Immature Gran % (Auto) 1.700 H, Neut % (Auto) 73.4 H, Lymph % (Auto) 17.2 L, [place] % (Auto) 6.0, Eos % (Auto) 1.4, Baso % (Auto) 0.3, Absolute Neuts (auto) 11.4 H, Absolute Lymphs (auto) 2.66, Nucleated RBC % 0 11/10/19 23:40: Sodium 135 L, Potassium 4.7, Chloride 100, Carbon Dioxide 26.0, Anion Gap 9, BUN 37 H, Creatinine 2.10 H, Estim Creat Clear Calc 41.34, Est GFR (MDRD) Af Amer 42 L, Est GFR (MDRD) Non-Af 35 L, BUN/Creatinine Ratio 17.6, Glucose 386 H, Calcium 9.3 11/10/19 23:40: Lactic Acid 1.5 11/11/19 02:08: POC Glucose 296 H 11/11/19 05:00: WBC 14.5 H, RBC 3.43 L, Hgb 10.7 L, Hct 31.1 L, MCV 90.7, MCH 31.2, MCHC 34.4, RDW Std Deviation 39.2, RDW Coeff of Chrissie 11.9, Plt Count 216, MPV 10.8, Immature Gran % (Auto) 1.200 H, Neut % (Auto) 68.7, Lymph % (Auto) 20.5, [place] % (Auto) 7.4, Eos % (Auto) 1.9, Baso % (Auto) 0.3, Absolute Neuts (auto) 10.0 H, Absolute Lymphs (auto) 2.98, Nucleated RBC % 0 11/11/19 05:00: Sodium 137, Potassium 4.2, Chloride 104, Carbon Dioxide 26.0, Anion Gap 7, BUN 33 H, Creatinine 1.70 H, Estim Creat Clear Calc 51.06, Est GFR (MDRD) Af Amer 54 L, Est GFR (MDRD) Non-Af 44 L, BUN/Creatinine Ratio 19.4, Glucose 249 H, Calcium 9.0 11/11/19 06:48: POC Glucose 193 H Current Medications Acetaminophen (Tylenol) 650 mg PO Q6H PRN PRN PRN Reason: Pain Score 1-3/Temp > 100.7 F Amlodipine Besylate (Norvasc) 10 mg PO DAILY [facility]) [facility] Duloxetine HCl (Cymbalta) 20 mg PO DAILY [facility] Enoxaparin Sodium (Lovenox) 40 mg SC DAILY [facility] Gabapentin (Neurontin) 100 mg PO TID [facility] Last Admin: 11/11/19 05:01 Dose: 100 mg Documented by: Glucagon () 1 mg IM .X1 PRN PRN Reason: Hypoglycemia Sodium Chloride () 1,000 mls @ 75 mls/hr IV .[id number] [facility] Stop: 11/12/19 04:11 Last Admin: 11/11/19 02:13 Dose: 75 mls/hr Documented by: Cefepime HCl 2 gm/ Sodium (Chloride) 100 mls @ 200 mls/hr IV Q12 [facility] Linezolid (Zyvox 600mg) 600 mg in 300 mls @ 200 mls/hr IV Q12 [facility] Sodium Chloride () 250 mls @ 15 mls/hr IV .[id number] PRN PRN Reason: Saline Flush Sodium Chloride () 250 mls @ 15 mls/hr IV .[id number] PRN PRN Reason: Additional IVPB Infusion Dextrose (Dextrose 10%-Water) 250 mls @ 999 mls/hr IV .Q16M PRN; Protocol PRN Reason: HYPOGLYCEMIA Insulin Human Lispro (Humalog Kwikpen (Bkc)) 4 unit SC 0700 [facility] Insulin Human Lispro (Humalog Kwikpen (Bkc)) 4 unit SC 1600 [facility] Insulin Human Lispro (Humalog Kwikpen (Bkc)) 4 unit SC 1100 [facility] Insulin Human Lispro (Humalog Kwikpen (Bkc)) 0 unit SC ACHS & 3AM [facility]; Protocol Last Admin: 11/11/19 02:16 Dose: 4 units Documented by: Insulin Lispro Protam/Lispro Human (Humalog Mix 75-25 Kwikpen (Bkc)) 50 unit SC BID@0700,1600 [facility] Melatonin (Melatonin) 3 mg PO QHS PRN PRN PRN Reason: INSOMNIA Nicotine (Nicoderm Cq (Pbkc)) 21 mg TRANSDERM. DAILY [facility] Nystatin (Nystatin) 500,000 unit PO 4X/DAY [facility] Ondansetron HCl (Zofran) 4 mg IV Q8H PRN PRN PRN Reason: NAUSEA/VOMITING Oxycodone HCl (Oxyir) 5 mg PO BID PRN PRN PRN Reason: Pain Score 6-10/10 Pantoprazole Sodium (Protonix) 40 mg PO DAILY [facility] Senna/Docusate Sodium (Senokot-S, Renetta-Colace) 2 tablet PO BID PRN PRN PRN Reason: Constipation Sodium Chloride () 10 - 40 ml IV UD PRN PRN Reason: SALINE FLUSH Medical Necessity - Tobacco Use Smoking Status: Current every day smoker Tobacco Use: Cigarettes Assessment/Plan All Active Problems Cellulitis of left thigh (Acute) Severe sepsis (Acute) Open wound of right lower quadrant of abdominal wall without penetration into peritoneal cavity (Acute) Open wound of left thigh (Acute) Abscess of abdominal wall (Acute) Abscess of left thigh (Acute) Patient is a 58-year-old gentleman who underwent incision and drainage with subsequent application of a wound VAC on 10/28/[address] Lopez discharged on oral antibiotics. Patient presented back to the emergency department with pain swelling and erythema below the site of the insertion of the wound VAC. An assessment of severe sepsis secondary to recurrent abscess made admitted to regular nursing floor for subsequent management 1. Sepsis secondary to recurrent left thigh abscess And initially admitted to the intensive care unit managed per protocol with IV fluid resuscitation, broad-spectrum antibiotic therapy and serial monitoring of lactic acid level 2. Left thigh abscess Patient started on Zyvox and cefepime. Consult placed to Dr. henry who did perform the original incision and drainage. 3. Status post incision and drainage of a left thigh and anterior abdominal wall abscess on 10/28/2019 Patient was discharged home on doxycycline as well as Omnicef after a wound VAC was applied 4. Diabetes mellitus type II ~Complications including diabetic nephropathy patient's oral hypoglycemics held. Placed on long acting insulin, Accu-Cheks a.c. and at bedtime and covered with sliding scale insulin 5. Diabetic nephropathy (chronic kidney disease stage III) with baseline creatinine of 1.5 ~Creatinine on admission was 2.10. Patient started on IV fluids with subsequent monitoring of electrolyte 6. Acute kidney injury ~Plan imposed on chronic kidney disease. Creatinine on admission was 2.10 management is as discussed above 7. Hypertension ~ blood pressure controlled, home medications continued with dose adjustment as needed 8. Obesity with BMI of 37.9 ~Weight loss advised. 9. Diabetic polyneuropathy Patient is on gabapentin as well as Cymbalta did continue 10. GERD ?Patient is on PPI 12. DVT prophylaxis ~ on enoxaparin Code Visit Inpatient E&M: 41403 [facility] Hosp L3
[2019-11-11] MEDS: DULoxetine Hcl 20 MG Capsule PO (10:04)
[2019-11-11] MEDS: amLODIPine 10 MG Tablet PO (10:04)
[2019-11-11] MEDS: Pantoprazole Sodium 40 MG Tablet PO (10:04)
[2019-11-11] MEDS: Enoxaparin 40 MG/0.4 ML Syringe SC (10:05)
[2019-11-11] MEDS: oxyCODONE 5 MG Tablet PO ×2 (10:05→22:42)
[2019-11-11] MEDS: NYSTATIN 500,000 UNIT/5 ML UDC 500000 UNIT PO ×4 (10:05→22:51)
[2019-11-11] MEDS: Aspirin E.C. 81 MG Tablet PO (10:06)
[2019-11-11 11:26] LABS: Bedside Glucose 243 mg/dL (70-110)
--- NOTE | 2019-11-11 12:48 | PN.SURG_ITS ---
Patient Problems: Active and Suspected Problems Cellulitis of left thigh (Acute) Severe sepsis (Acute) - Physical Exam Vitals/I&O's: Vital Signs Temp Pulse Resp BP Pulse Ox 98.8 F 114 H 18 149/94 H 92 11/11/19 07:40 11/11/19 07:40 11/11/19 07:40 11/11/19 07:40 11/11/19 07:40 Oxygen Delivery Method Room Air Weight: 271 lb 6.224 oz Body Mass Index (BMI) 37.8 Finger Stick Blood Glucose 239 Intake and Output for Last 24 Hours 11/09/19 11/10/19 11/11/19 23:59 23:59 23:59 Intake Total 1620 / 1620 Balance 1620 / 1620 Laboratory Results 11/10/19 23:40: WBC 15.5 H, RBC 3.69 L, Hgb 11.6 L, Hct 34.0 L, MCV 92.1, MCH 31.4, MCHC 34.1, RDW Std Deviation 38.9, RDW Coeff of Chrissie 11.6, Plt Count 229, MPV 11.4, Immature Gran % (Auto) 1.700 H, Neut % (Auto) 73.4 H, Lymph % (Auto) 17.2 L, [place] % (Auto) 6.0, Eos % (Auto) 1.4, Baso % (Auto) 0.3, Absolute Neuts (auto) 11.4 H, Absolute Lymphs (auto) 2.66, Nucleated RBC % 0 11/10/19 23:40: Sodium 135 L, Potassium 4.7, Chloride 100, Carbon Dioxide 26.0, Anion Gap 9, BUN 37 H, Creatinine 2.10 H, Estim Creat Clear Calc 41.34, Est GFR (MDRD) Af Amer 42 L, Est GFR (MDRD) Non-Af 35 L, BUN/Creatinine Ratio 17.6, Glucose 386 H, Calcium 9.3 11/10/19 23:40: Lactic Acid 1.5 11/11/19 02:08: POC Glucose 296 H 11/11/19 05:00: WBC 14.5 H, RBC 3.43 L, Hgb 10.7 L, Hct 31.1 L, MCV 90.7, MCH 31.2, MCHC 34.4, RDW Std Deviation 39.2, RDW Coeff of Chrissie 11.9, Plt Count 216, MPV 10.8, Immature Gran % (Auto) 1.200 H, Neut % (Auto) 68.7, Lymph % (Auto) 20.5, [place] % (Auto) 7.4, Eos % (Auto) 1.9, Baso % (Auto) 0.3, Absolute Neuts (auto) 10.0 H, Absolute Lymphs (auto) 2.98, Nucleated RBC % 0 11/11/19 05:00: Sodium 137, Potassium 4.2, Chloride 104, Carbon Dioxide 26.0, Anion Gap 7, BUN 33 H, Creatinine 1.70 H, Estim Creat Clear Calc 51.06, Est GFR (MDRD) Af Amer 54 L, Est GFR (MDRD) Non-Af 44 L, BUN/Creatinine Ratio 19.4, Glucose 249 H, Calcium 9.0 11/11/19 06:48: POC Glucose 193 H 11/11/19 11:13: POC Glucose 243 H Current Medications Acetaminophen (Tylenol) 650 mg PO Q6H PRN PRN PRN Reason: Pain Score 1-3/Temp > 100.7 F Amlodipine Besylate (Norvasc) 10 mg PO DAILY [facility] Last Admin: 11/11/19 10:04 Dose: 10 mg Documented by: Aspirin (Ecotrin) 81 mg PO DAILYCM [facility] Last Admin: 11/11/19 10:06 Dose: 81 mg Documented by: Duloxetine HCl (Cymbalta) 20 mg PO DAILY [facility] Last Admin: 11/11/19 10:04 Dose: 20 mg Documented by: Enoxaparin Sodium (Lovenox) 40 mg SC DAILY [facility] Last Admin: 11/11/19 10:05 Dose: 40 mg Documented by: Gabapentin (Neurontin) 100 mg PO TID [facility] Last Admin: 11/11/19 05:01 Dose: 100 mg Documented by: Glucagon () 1 mg IM .X1 PRN PRN Reason: Hypoglycemia Sodium Chloride () 1,000 mls @ 75 mls/hr IV .[id number] [facility] Stop: 11/12/19 04:11 Last Admin: 11/11/19 02:13 Dose: 75 mls/hr Documented by: Cefepime HCl 2 gm/ Sodium (Chloride) 100 mls @ 200 mls/hr IV Q12 [facility] Last Infusion: 11/11/19 10:44 Dose: Infused Documented by: Linezolid (Zyvox 600mg) 600 mg in 300 mls @ 200 mls/hr IV Q12 [facility] Sodium Chloride () 250 mls @ 15 mls/hr IV .[id number] PRN PRN Reason: Saline Flush Sodium Chloride () 250 mls @ 15 mls/hr IV .[id number] PRN PRN Reason: Additional IVPB Infusion Dextrose (Dextrose 10%-Water) 250 mls @ 999 mls/hr IV .Q16M PRN; Protocol PRN Reason: HYPOGLYCEMIA Insulin Human Lispro (Humalog Kwikpen (Bkc)) 4 unit SC 0700 [facility] Last Admin: 11/11/19 10:17 Dose: Not Given Documented by: Insulin Human Lispro (Humalog Kwikpen (Bkc)) 4 unit SC 1600 [facility] Insulin Human Lispro (Humalog Kwikpen (Bkc)) 4 unit SC 1100 [facility] Insulin Human Lispro (Humalog Kwikpen (Bkc)) 0 unit SC ACHS & 3AM [facility]; Protocol Last Admin: 11/11/19 10:17 Dose: Not Given Documented by: Insulin Lispro Protam/Lispro Human (Humalog Mix 75-25 Kwikpen (Bkc)) 50 unit SC BID@0700,1600 [facility] Last Admin: 11/11/19 10:09 Dose: Not Given Documented by: Melatonin (Melatonin) 3 mg PO QHS PRN PRN PRN Reason: INSOMNIA Nicotine (Nicoderm Cq (Pbkc)) 21 mg TRANSDERM. DAILY [facility] Last Admin: 11/11/19 10:05 Dose: 21 mg Documented by: Nystatin (Nystatin) 500,000 unit PO 4X/DAY [facility] Last Admin: 11/11/19 10:05 Dose: 500,000 unit Documented by: Ondansetron HCl (Zofran) 4 mg IV Q8H PRN PRN PRN Reason: NAUSEA/VOMITING Oxycodone HCl (Oxyir) 5 mg PO BID PRN PRN PRN Reason: Pain Score 6-10/10 Last Admin: 11/11/19 10:05 Dose: 5 mg Documented by: Pantoprazole Sodium (Protonix) 40 mg PO DAILY [facility] Last Admin: 11/11/19 10:04 Dose: 40 mg Documented by: Senna/Docusate Sodium (Senokot-S, Renetta-Colace) 2 tablet PO BID PRN PRN PRN Reason: Constipation Sodium Chloride () 10 - 40 ml IV UD PRN PRN Reason: SALINE FLUSH Medical Necessity - Tobacco Use Smoking Status: Current every day smoker Tobacco Use: Cigarettes Assessment/Plan All Active Problems Cellulitis of left thigh (Acute) Severe sepsis (Acute) Open wound of right lower quadrant of abdominal wall without penetration into peritoneal cavity (Acute) Open wound of left thigh (Acute) Abscess of abdominal wall (Acute) Abscess of left thigh (Acute)
--- NOTE | 2019-11-11 12:50 | PCM.CONS.B ---
- Consult Date of Consult: 11/11/19 - Reason for Consult Reason for Consult Date of Consultation: 10/27/19 Reason for Consultation: Diabetic abscesses left medial thigh and right lower abdominal wall. REFERRING PHYSICIAN: Dr. Stanley. PACKAGE LINER: Dr. Lopez. History of Present Illness: The patient is a 58 year old M with a history of diabetes mellitus presented to the ED with increasing pain and redness and swelling in his left medial thigh and right lower abdominal wall that started a few days ago. The patient thinks he may have scratched an ingrown hair on his left medial thigh that worsened. He was started on Bactrim without relief as the symptomatology worsened which prompted the visit to the ED. In the ED, and I&D was done and purulent drainage was expressed. His WBC was 15.8. His Lactate was 1.7. He was started on IV Vancomycin and Ceftriaxone and admitted. I was asked to evaluate this patient for surgical options for treatment. He did have some fever at home. Past Medical History Past Medical History (Chronic Problems): Chronic Problems Smoker (Chronic) Diabetes (Chronic) Obesity (Chronic) Nicotine abuse (Chronic) HTN (hypertension) (Chronic) Allergies No Known Allergies Allergy (Verified 10/26/19 13:40) Home Medications: Ambulatory Orders Medication Instructions Recorded Amlodipine [Norvasc] 10 mg PO DAILY 10/26/19 Aspirin [Aspirin EC] 81 mg PO DAILY 10/26/19 Duloxetine Hcl [Cymbalta] 60 mg PO DAILY 10/26/19 Gabapentin [Neurontin] 300 mg PO TID 10/26/19 Insulin NPH Hum/Reg Insulin Hm 50 unit SQ BID 10/26/19 [Humulin 70/30 Kwikpen] Lisinopril 20 mg PO BID 10/26/19 Omeprazole 40 mg PO DAILY 10/26/19 traMADol [Ultram] 1 - 2 tab PO Q6H PRN 10/26/19 Diazepam [Valium] 5 mg PO 4X/DAY PRN PRN #30 tablet 10/29/19 Oxycodone HCl/Acetaminophen 1 tablet PO Q4H PRN PRN 7 Days #40 10/29/19 [Percocet 5/325] tablet Surgical History: noncontributory Psychiatric History: No pertinent psych hx Lives: Spouse/ Significant Other Smoking Status: Heavy Smoker (>10/day) Tobacco Use: Cigarettes Alcohol: None Drugs: None - *Family History Maternal History Items: Cancer - liver Paternal History Items: Dementia Review of Systems Comment: Constitutional: Reports: Chills, Fever, Night Sweats. Denies: Weight Change, Fatigue. HEENT: Denies: Head Aches, Sinus Congestion, Sinus Drainage. Cardiovascular: Denies: Chest Pain, Chest Tightness, Heaviness, Light Headedness, Palpitations. Respiratory: Denies: Cough, Shortness of Breath, Shortness of breath at rest, Sputum production, Wheezing. Gastrointestinal: Denies: Abdominal Pain, Nausea, Vomiting. Genitourinary: Denies: Dysuria. Musculoskeletal: Denies: Joint Pain, Joint Tenderness. Skin: Reports: Lesions, Rash, Skin Changes, Wounds. Neurological: Denies: Numbness, Tingling, Focal weakness. Psychiatric: Denies: Anxiety, Depression, Homicidal Ideations, Suicidal Ideations. Hematologic/ Lymphatic: Denies: Easy Bruising, Easy Bleeding Patient Problems: Active and Suspected Problems Necrotizing soft tissue infection (Acute) diabetic abscesses left medial thigh and right lower abdominal wall Abscess of abdominal wall (Acute) necrotizing soft tissue infection diabetic abscess right lower abdominal wall Abscess of left thigh (Acute) necrotizing soft tissue infection diabetic abscess left medial thigh Cellulitis and abscess of leg (Acute) Sepsis (Acute) - Physical Exam Vitals/I&O's: General: Alert, Oriented x3, Cooperative HEENT: PERRLA, EOMI. Neck: Supple, Nontender. No cervical adenopathy. Lungs: Clear to auscultation. Cardiovascular: Regular rate and rhythm. Abdomen: Soft, Nondistended. Extremities: No edema, Capillary Refill Less than 3 Seconds Skin: Left medial thigh has an area of tender induration with an opening in the central aspect from an I&D in the ED. The redness and induration measure 11 x 8 cm. Some fluctuance. No inguinal adenopathy. Dorsalis pedis pulses are palpable. On the right lower abdominal wall is an area of tender induration. Some fluctuance. No purulent drainage. The redness and induration measure 9 x 3 cm. Neurological: Cranial nerves II-XII grossly intact Psych/Mental Status: Normal Affect, Appropriate Vital Signs Temp Pulse Resp BP Pulse Ox 97.8 F 101 H 18 131/83 H 97 10/27/19 03:45 10/27/19 03:45 10/27/19 03:45 10/27/19 03:45 10/27/19 03:45 Oxygen Delivery Method Room Air Weight: 271 lb 14.4 oz Body Mass Index (BMI) 37.9 Intake and Output for Last 24 Hours 10/25/19 10/26/19 10/27/19 23:59 23:59 23:59 Intake Total 1884 / 1884 1659.16 / 1659.16 Balance 1884 1659.16 / 165.16 Laboratory Results 10/26/19 15:40: WBC 15.8 H, RBC 4.44 L, Hgb 14.0, Hct 40.2, MCV 90.5, MCH 31.5, MCHC 34.8, RDW Std Deviation 39.1, RDW Coeff of Chrissie 11.9, Plt Count 216, MPV 12.2 H, Immature Gran % (Auto) 1.100 H, Neut % (Auto) 73.3 H, Lymph % (Auto) 17.1 L, Dewitt % (Auto) 6.6, Eos % (Auto) 1.5, Baso % (Auto) 0.4, Absolute Neuts (auto) 11.6 H, Absolute Lymphs (auto) 2.70, Nucleated RBC % 0 10/26/19 15:40: PT 13.0, INR 1.0, APTT 31.0 10/26/19 15:40: Sodium 135 L, Potassium 4.1, Chloride 103, Carbon Dioxide 25.0, Anion Gap 7, BUN 29 H, Creatinine 1.98 H, Estim Creat Clear Calc 43.84, Est GFR (MDRD) Af Amer 45 L, Est GFR (MDRD) Non-Af 37 L, BUN/Creatinine Ratio 14.6, Glucose 139 H, Calcium 9.4, Total Bilirubin 0.40, AST 11 L, ALT 21, Alkaline Phosphatase 112, Troponin I < 0.015, Total Protein 8.5 H, Albumin 3.7, Globulin 4.8 H, Albumin/Globulin Ratio 0.8 L 10/26/19 15:40: Lactic Acid 1.7 10/26/19 16:00: Urine Color Yellow, Urine Clarity Clear, Urine pH 5.0, Ur Specific [place] 1.025, Urine Protein 30 H, Urine Glucose (UA) 250 H, Urine Ketones 5 H, Urine Occult Blood Negative, Urine Nitrite Negative, Urine Bilirubin 1 H, Urine Urobilinogen 1 H, Ur Leukocyte Esterase 25 H, Urine RBC 0 SEEN, Urine WBC 0-5 SEEN, Ur Squamous Epith Cells 0 SEEN, Urine Bacteria RARE, Hyaline Casts 5-10 SEEN, Urine Mucus 0 SEEN 10/26/19 18:17: S.aureus Protein A PCR NEGATIVE, MRSA (PCR) Negative 10/26/19 18:45: POC Glucose 62 L 10/26/19 19:07: POC Glucose 108 10/26/19 21:50: POC Glucose 259 H 10/27/19 04:42: WBC 12.5 H, RBC 3.64 L, Hgb 11.5 L, Hct 33.5 L, MCV 92.0, MCH 31.6, MCHC 34.3, RDW Std Deviation 40.7, RDW Coeff of Chrissie 12.1, Plt Count 158, MPV 12.8 H, Immature Gran % (Auto) 1.000 H, Neut % (Auto) 68.3, Lymph % (Auto) 22.5, Dewitt % (Auto) 6.0, Eos % (Auto) 1.8, Baso % (Auto) 0.4, Absolute Neuts (auto) 8.5 H, Absolute Lymphs (auto) 2.80, Nucleated RBC % 0 10/27/19 04:42: Sodium 133 L, Potassium 4.2, Chloride 106, Carbon Dioxide 20.0 L, Anion Gap 7, BUN 33 H, Creatinine 1.84 H, Estim Creat Clear Calc 47.18, Est GFR (MDRD) Af Amer 49 L, Est GFR (MDRD) Non-Af 40 L, BUN/Creatinine Ratio 17.9, Glucose 282 H, Calcium 8.3 L 10/27/19 06:36: POC Glucose 252 H Current Medications Acetaminophen (Tylenol) 650 mg PO Q6H PRN PRN PRN Reason: Pain (-08/20) or Fever Amlodipine Besylate (Norvasc) 10 mg PO DAILY [facility] Aspirin (Ecotrin) 81 mg PO DAILY@0800 [facility] Duloxetine HCl (Cymbalta) 60 mg PO QHS [facility] Last Admin: 10/26/19 21:52 Dose: 60 mg Documented by: Gabapentin (Neurontin) 300 mg PO TID [facility] Last Admin: 10/27/19 05:18 Dose: 300 mg Documented by: Glucagon () 1 mg IM .X1 PRN PRN Reason: Hypoglycemia Heparin Sodium (Porcine) (Heparin Na) 5,000 unit SC Q8 [facility] Last Admin: 10/27/19 05:18 Dose: 5,000 unit Documented by: Ceftriaxone Sodium 2 gm/ (Sodium Chloride) 50 mls @ 100 mls/hr IV Q24@2200 [facility] Last Infusion: 10/26/19 21:23 Dose: Infused Documented by: Sodium Chloride () 1,000 mls @ 125 mls/hr IV .Q8H [facility] Last Infusion: 10/27/19 06:57 Dose: 125 mls/hr Documented by: Vancomycin IV Pharmacy to Dose (1 ea/ Sodium Chloride) 500 mls @ 250 mls/hr IV X1 PRN; Protocol PRN Reason: Rx to Dose Dextrose (Dextrose 10%-Water) 250 mls @ 999 mls/hr IV X1 PRN; Protocol PRN Reason: HYPOGLYCEMIA Vancomycin HCl 1,250 mg/ (Sodium Chloride) 275 mls @ 167 mls/hr IV Q12H [facility] Last Infusion: 10/27/19 06:57 Dose: Infused Documented by: Influenza Virus Vaccine Quadrival (Flucelvax /Fluzone ) 0.5 ml IM .ONCE ONE Stop: 10/27/19 10:01 Insulin Human Lispro (Humalog Kwikpen (Bkc)) 0 unit SC ACHS [facility]; Protocol Last Admin: 10/27/19 08:01 Dose: Not Given Documented by: Insulin Lispro Protam/Lispro Human (Humalog Mix 75-25 Kwikpen (Bkc)) 50 unit SC BIDCM [facility] Last Admin: 10/27/19 08:01 Dose: Not Given Documented by: Nicotine (Nicoderm Cq (Pbkc)) 14 mg TRANSDERM. DAILY [facility] Last Admin: 10/26/19 21:53 Dose: 14 mg Documented by: Ondansetron HCl (Zofran Odt) 4 mg PO Q6H PRN PRN PRN Reason: NAUSEA Oxycodone HCl (Oxyir) 5 mg PO Q6H PRN PRN PRN Reason: Pain Score 6-10/10 Last Admin: 10/27/19 04:18 Dose: 5 mg Documented by: Pantoprazole Sodium (Protonix) 40 mg PO DAILY [facility] Sodium Chloride () 10 - 40 ml IV UD PRN PRN Reason: SALINE FLUSH Last Admin: 10/27/19 04:18 Dose: 10 ml Documented by: Tramadol HCl (Ultram) 50 - 100 mg PO Q6H PRN PRN PRN Reason: Pain 4-10/10 Last Admin: 10/26/19 21:53 Dose: 100 mg Documented by: Assessment/Plan All Active Problems Necrotizing soft tissue infection (Acute) Abscess of abdominal wall (Acute) Abscess of left thigh (Acute) Cellulitis and abscess of leg (Acute) Sepsis (Acute) 1. Necrotizing soft tissue infection diabetic abscess left medial thigh. 2. Necrotizing soft tissue infection diabetic abscess right lower abdominal wall. 3. Diabetes mellitus. 4. Sepsis. 5. Smoker. Patient has necrotizing soft tissue infection diabetic abscesses left medial thigh and right lower abdominal wall that worsened despite oral antibiotic therapy with Bactrim as an outpatient. In the ED, his WBC was 15.8. Lactate was 1.7. He was started on Vancomycin and Ceftriaxone. Patient has painful induration in the area of the left medial thigh and right lower abdominal wall. His clinical picture is consistent with MRSA. Recommended to the patient to proceed with operative intervention with incision and drainage and excisional debridement of these necrotizing soft tissue infection diabetic abscesses left medial thigh and right lower abdominal wall. Will leave the wounds open after surgery. Postoperatively will place the VAC. Will send tissue to Pathology for analysis to rule out carcinoma and to Microbiology for culture. A positive culture will necessitate antibiotic therapy. After discharge, will followup at [facility]. If there is a plateau in the healing process, then can proceed with delayed closure with skin grafting. Before proceeding with an elective skin graft, his HgbA1c needs to be less than 8. He had one drawn on admission and it is pending thus far. Anticipate increased metabolic demands from the infection and from the surgery. Will check a Prealbumin and encourage nutritional supplementation with protein to help the healing process. Will proceed with the surgery later today as I am concerned that by waiting and by being diabetic, there is increased risk of the necrotizing process extending to his muscle and fascia and a possible necrotizing fasciitis. Surgery will be done under general anesthesia. Patient is aware the wounds will be left open after surgery and voices understanding. Patient was informed of the risks and complications of the procedure including alternatives to surgery. These were discussed with the patient personally. Patient voices understanding and wishes to proceed. Encouraged patient to stop smoking as it may have deleterious effects on wound healing.
--- NOTE | 2019-11-11 13:03 | CT_ITS ---
STUDY: CT LEFT FEMUR WITHOUT CONTRAST REASON FOR EXAM: Male, 58 years old. INFECTION. I and amp; D OF LEFT THIGH WOUND 10/27/19. REDDNESS NOW RADIATION DOSAGE (If Supplied By Facility): CTDIvol = ( 33.20 ) mGy, DLP = ( 2126.57 ) mGycm TECHNIQUE: Transaxial CT imaging of the femur was performed. Sagittal and coronal images were reconstructed. Individualized dose optimization techniques were used for this CT. COMPARISON: None. FINDINGS: Normal visualized femur. The left hip is normally aligned with circumferential joint space narrowing. There are diverticular changes of the visualized colon. There is a soft tissue defect of the medial left thigh extending to the muscle margin compatible with history of prior surgical debridement. Dilated superficial veins of the medial proximal left thigh compatible varicosities (immediately anterior to surgical margin). There are atherosclerotic calcifications. No focal fluid collection. CT/Extremity Lower without Contra IMPRESSION: 1. Operative changes of the medial thigh without focal fluid collection. No destructive bony process. 2. Varicose veins. Electronically Signed: Brant Magallon MD (Brooks) at 14:38 EST , Service support ,
[2019-11-11] MEDS: HYDROmorphone 0.5 MG/0.5 ML SYRINGE IV (13:33)
[2019-11-11 14:00] VITALS: BP 137/76; PULSE 110; RESP 16; TEMP 36.9; O2SAT 94
[2019-11-11] MEDS: Acetaminophen 325 MG Tablet 650 MG PO (16:32)
[2019-11-11 16:45] LABS: Bedside Glucose 214 mg/dL (70-110)
[2019-11-11] MEDS: Insulin Human 75/25 Kwickpen 50 UNIT SC (17:34)
[2019-11-11 20:51] VITALS: BP 132/91; PULSE 101; RESP 18; TEMP 37.1; O2SAT 96
[2019-11-11] MEDS: 0.9% Saline Lock 10 ML Syringe IV ×2 (22:43→23:05)
[2019-11-12 00:11] LABS: Bedside Glucose 145 mg/dL (70-110)
[2019-11-12] MEDS: 0.9% Saline Lock 10 ML Syringe IV ×3 (00:46→11:34)
[2019-11-12 02:56] VITALS: BP 134/86; PULSE 95; RESP 18; TEMP 36.8; O2SAT 96
[2019-11-12] MEDS: Acetaminophen 325 MG Tablet 650 MG PO ×3 (03:06→18:49)
[2019-11-12 03:16] LABS: Bedside Glucose 121 mg/dL (70-110)
[2019-11-12 06:19] LABS: Absolute Neutrophil Count 7.7 X10^3/uL (2.0-7.7); Basophil# 0.04 X10^3/uL; Basophil% 0.3 % (0-1); Eosinophil# 0.32 X10^3/uL; Eosinophils% 2.7 % (0-5); Hematocrit 31.7 % (40-54); Lymphocyte % 24.2 % (19-41); Mean Corp Hgb Conc 34.7 g/dL (32-36); Mean Corpuscular Hgb 31.7 pg (27.0-32.0); Mean Corpuscular Volume 91.4 fL (80-94); Mean Platelet Vol. 11.1 fl (6.2-12.0); Monocyte# 0.85 X10^3/uL; Monocyte% 7.1 % (0-10); NRBC Flagged by Analyzer 0 % (0-5); Neutrophil # 7.69 X10^3/uL (2.7-7.7); Neutrophil % 64.4 % (47-70); Platelet Count 219 K/mm3 (150-450); RBC Distribution Width CV 11.6 % (11.6-14.6); RBC Distribution Width SD 38.6 fl (35.1-43.9); Red Blood Count 3.47 M/mm3 (4.6-6.2)
[2019-11-12] MEDS: Gabapentin 100 MG Capsule PO ×3 (06:19→22:40)
[2019-11-12 06:43] LABS: Anion Gap 5 (5-15); BUN 21 mg/dL (7-18); BUN/Creat Ratio 14.5 RATIO (10-20); Calcium,Total 9.2 mg/dL (8.5-10.1); Chloride 103 mmol/L (98-107); Creatinine, Serum 1.45 mg/dL (0.70-1.30); EST Glomerular Filtration Rate 53 mL/min (>60); Est Glom Filt Rate - Afr Amer 64 mL/min (>60); Estimated Creatinine Clearance 59.86 ml/min; Glucose 123 mg/dL (74-106); Magnesium 1.6 mg/dL (1.6-2.6); Potassium 4.1 mmol/L (3.5-5.1); Prealbumin 14.5 mg/dL (20.0-40.0); Sodium Level 136 mmol/L (136-145)
[2019-11-12] MEDS: Insulin Human 75/25 Kwickpen 50 UNIT SC ×2 (07:57→16:19)
[2019-11-12] MEDS: Insulin Lispro 100 UNIT/ML INSULN.PEN SC ×7 (07:58→22:41)
[2019-11-12] MEDS: Aspirin E.C. 81 MG Tablet PO (07:59)
[2019-11-12] MEDS: oxyCODONE 5 MG Tablet PO ×2 (08:01→19:31)
[2019-11-12 08:06] VITALS: O2SAT 96
[2019-11-12 08:10] LABS: Bedside Glucose 161 mg/dL (70-110)
--- NOTE | 2019-11-12 08:23 | PCM.PN.HOSP ---
Patient Problems: Active and Suspected Problems Cellulitis of left thigh (Acute) Severe sepsis (Acute) Reason for Visit: Follow-up left thigh abscess Subjective: CT of the lower extremity obtained the day prior demonstrated Operative changes of the medial thigh without focal fluid collection. No destructive bony process. He was also seen in consultation by Dr. Lopez his note and recommendations reviewed. Wound cultures were sent Following removal of wound VAC. Objective: GENERAL: cooperative HEENT: Atraumatic; EYES; Anicteric, Normal Conjunctiva NECK; supple, normal thyroid, RESPIRATORY: Diminished to auscultation CARDIOVASCULAR: Regular S1 S2, GI: soft, normoactive bowel sounds, : No Renal angle tenderness; EXTREMITIES: Abscess with an area of induration below the insertion of the wound VAC with surrounding erythema and warmth MUSCULOSKELETAL: no muscle waisting NEURO: Awake; no lateralizing signs. SKIN: As described above PSYCH; Flat affect Vitals/I&O's: Vital Signs Temp Pulse Resp BP Pulse Ox 98.2 F 95 18 134/86 H 96 11/12/19 02:56 11/12/19 02:56 11/12/19 02:56 11/12/19 02:56 11/12/19 08:06 Oxygen Delivery Method Room Air Weight: 123.1 kg Body Mass Index (BMI) 37.8 Finger Stick Blood Glucose 239 Intake and Output for Last 24 Hours 11/10/19 11/11/19 11/12/19 23:59 23:59 23:59 Intake Total 3920.25 / 3920.25 1019.5 / 1019.5 Output Total 2100 / 2100 1675 / 1675 Balance 1820.25 / 1820.25 -655.5 / -655.5 Laboratory Results 11/11/19 11:13: POC Glucose 243 H 11/11/19 16:39: POC Glucose 214 H 11/11/19 22:47: POC Glucose 145 H 11/12/19 02:59: POC Glucose 121 H 11/12/19 05:54: WBC 12.0 H, RBC 3.47 L, Hgb 11.0 L, Hct 31.7 L, MCV 91.4, MCH 31.7, MCHC 34.7, RDW Std Deviation 38.6, RDW Coeff of Chrissie 11.6, Plt Count 219, MPV 11.1, Immature Gran % (Auto) 1.300 H, Neut % (Auto) 64.4, Lymph % (Auto) 24.2, [place] % (Auto) 7.1, Eos % (Auto) 2.7, Baso % (Auto) 0.3, Absolute Neuts (auto) 7.7, Absolute Lymphs (auto) 2.90, Nucleated RBC % 0 11/12/19 05:54: Sodium 136, Potassium 4.1, Chloride 103, Carbon Dioxide 28.0, Anion Gap 5, BUN 21 H, Creatinine 1.45 H, Estim Creat Clear Calc 59.86, Est GFR (MDRD) Af Amer 64, Est GFR (MDRD) Non-Af 53 L, BUN/Creatinine Ratio 14.5, Glucose 123 H, Calcium 9.2, Magnesium 1.6, Prealbumin 14.5 L 11/12/19 07:55: POC Glucose 161 H Current Medications Acetaminophen (Tylenol) 650 mg PO Q6H PRN PRN PRN Reason: Pain Score 1-3/Temp > 100.7 F Last Admin: 11/12/19 03:06 Dose: 650 mg Documented by: Amlodipine Besylate (Norvasc) 10 mg PO DAILY [facility] Last Admin: 11/11/19 10:04 Dose: 10 mg Documented by: Aspirin (Ecotrin) 81 mg PO DAILYCM [facility] Last Admin: 11/12/19 07:59 Dose: 81 mg Documented by: Duloxetine HCl (Cymbalta) 20 mg PO DAILY [facility] Last Admin: 11/11/19 10:04 Dose: 20 mg Documented by: Enoxaparin Sodium (Lovenox) 40 mg SC DAILY [facility] Last Admin: 11/11/19 10:05 Dose: 40 mg Documented by: Gabapentin (Neurontin) 100 mg PO TID [facility] Last Admin: 11/12/19 06:19 Dose: 100 mg Documented by: Glucagon () 1 mg IM .X1 PRN PRN Reason: Hypoglycemia Cefepime HCl 2 gm/ Sodium (Chloride) 100 mls @ 200 mls/hr IV Q12 [facility] Last Infusion: 11/11/19 23:34 Dose: Infused Documented by: Linezolid (Zyvox 600mg) 600 mg in 300 mls @ 200 mls/hr IV Q12 [facility] Last Infusion: 11/12/19 00:13 Dose: Infused Documented by: Sodium Chloride () 250 mls @ 15 mls/hr IV .[id number] PRN PRN Reason: Saline Flush Last Infusion: 11/12/19 00:52 Dose: 0 mls/hr Documented by: Sodium Chloride () 250 mls @ 15 mls/hr IV .[id number] PRN PRN Reason: Additional IVPB Infusion Dextrose (Dextrose 10%-Water) 250 mls @ 999 mls/hr IV .Q16M PRN; Protocol PRN Reason: HYPOGLYCEMIA Insulin Human Lispro (Humalog Kwikpen (Bkc)) 4 unit SC 0700 [facility] Last Admin: 11/12/19 07:58 Dose: 4 units Documented by: Insulin Human Lispro (Humalog Kwikpen (Bkc)) 4 unit SC 1600 [facility] Last Admin: 11/11/19 17:35 Dose: 4 u Documented by: Insulin Human Lispro (Humalog Kwikpen (Bkc)) 4 unit SC 1100 [facility] Last Admin: 11/11/19 12:52 Dose: 4 u Documented by: Insulin Human Lispro (Humalog Kwikpen (Bkc)) 0 unit SC ACHS & 3AM [facility]; Protocol Last Admin: 11/12/19 07:59 Dose: 1 units Documented by: Insulin Lispro Protam/Lispro Human (Humalog Mix 75-25 Kwikpen (Bkc)) 50 unit SC BID@0700,1600 [facility] Last Admin: 11/12/19 07:57 Dose: 50 u Documented by: Melatonin (Melatonin) 3 mg PO QHS PRN PRN PRN Reason: INSOMNIA Nicotine (Nicoderm Cq (Pbkc)) 21 mg TRANSDERM. DAILY [facility] Last Admin: 11/11/19 10:05 Dose: 21 mg Documented by: Nystatin (Nystatin) 500,000 unit PO 4X/DAY [facility] Last Admin: 11/11/19 22:51 Dose: 500,000 unit Documented by: Ondansetron HCl (Zofran) 4 mg IV Q8H PRN PRN PRN Reason: NAUSEA/VOMITING Oxycodone HCl (Oxyir) 5 mg PO BID PRN PRN PRN Reason: Pain Score 6-10/10 Last Admin: 11/12/19 08:01 Dose: 5 mg Documented by: Pantoprazole Sodium (Protonix) 40 mg PO DAILY [facility] Last Admin: 11/11/19 10:04 Dose: 40 mg Documented by: Senna/Docusate Sodium (Senokot-S, Renetta-Colace) 2 tablet PO BID PRN PRN PRN Reason: Constipation Sodium Chloride () 10 - 40 ml IV UD PRN PRN Reason: SALINE FLUSH Last Admin: 11/12/19 00:46 Dose: 10 ml Documented by: STROKE Vital Signs/Narrative: Vital Signs Pulse Ox 11/12/19 08:06 96 Medical Necessity - Tobacco Use Smoking Status: Current every day smoker Tobacco Use: Cigarettes Assessment/Plan All Active Problems Cellulitis of left thigh (Acute) Severe sepsis (Acute) Open wound of right lower quadrant of abdominal wall without penetration into peritoneal cavity (Acute) Open wound of left thigh (Acute) Abscess of abdominal wall (Acute) Abscess of left thigh (Acute) Patient is a 58-year-old gentleman who underwent incision and drainage with subsequent application of a wound VAC on 10/28/[address] Lopez discharged on oral antibiotics. Patient presented back to the emergency department with pain swelling and erythema below the site of the insertion of the wound VAC. An assessment of severe sepsis secondary to recurrent abscess made admitted to regular nursing floor for subsequent management 1. Sepsis secondary to recurrent left thigh abscess ?Initially admitted to the intensive care unit managed per protocol with IV fluid resuscitation, broad-spectrum antibiotic therapy and serial monitoring of lactic acid level ?11/12/2019; subsequent management as discussed below 2. Left thigh abscess Patient started on Zyvox and cefepime. Consult placed to Dr. Lopez who did perform the original incision and drainage. 11/12/2019; CT of the lower extremity obtained the day prior demonstrated Operative changes of the medial thigh without focal fluid collection. No destructive bony process. He was also seen in consultation by Dr. Lopez his note and recommendations reviewed. Wound cultures were sent Following removal of wound VAC. 3. Status post incision and drainage of a left thigh and anterior abdominal wall abscess on 10/28/2019 Patient was discharged home on doxycycline as well as Omnicef after a wound VAC was applied ?11/12/2019; wound VAC was removed on 11/11/2019 4. Diabetes mellitus type II ~Complications including diabetic nephropathy patient's oral hypoglycemics held. Placed on long acting insulin, Accu-Cheks a.c. and at bedtime and covered with sliding scale insulin 5. Diabetic nephropathy (chronic kidney disease stage III) with baseline creatinine of 1.5 ~Creatinine on admission was 2.10. Patient started on IV fluids with subsequent monitoring of electrolyte 6. Acute kidney injury ~Plan imposed on chronic kidney disease. Creatinine on admission was 2.10 management is as discussed above 7. Hypertension ~ blood pressure controlled, home medications continued with dose adjustment as needed 8. Obesity with BMI of 37.9 ~Weight loss advised. 9. Diabetic polyneuropathy Patient is on gabapentin as well as Cymbalta did continue 10. GERD ?Patient is on PPI 12. DVT prophylaxis ~ on enoxaparin Code Visit Inpatient E&M: 04327 Subs Hosp L2
[2019-11-12 09:53] VITALS: BP 142/92; PULSE 107; RESP 18; TEMP 36.9; O2SAT 96
[2019-11-12] MEDS: amLODIPine 10 MG Tablet PO (09:57)
[2019-11-12] MEDS: Enoxaparin 40 MG/0.4 ML Syringe SC (09:58)
[2019-11-12] MEDS: Pantoprazole Sodium 40 MG Tablet PO (09:59)
[2019-11-12] MEDS: DULoxetine Hcl 20 MG Capsule PO (09:59)
[2019-11-12] MEDS: NYSTATIN 500,000 UNIT/5 ML UDC 500000 UNIT PO ×4 (09:59→22:40)
[2019-11-12] MEDS: Linezolid 600 MG 600 MG/300 ML BAG 200 MG IV (10:07)
--- NOTE | 2019-11-12 10:55 | CASEMGMT ---
RN DEMETRIO Face to Face with patient for initial transition planning/care coordination assessment. RN CM introduced self and role at [facility]. Patient lying in bed, alert and oriented. Patient willing to participate in assessment and is able to answer all questions appropriately. Care providers, pharmacy, and demographics verified. Patient wishes to discharge home with resumption of HHC through [facility] [place]. Patient states he has no further needs or concerns at this time. CM to follow for discharge planning needs that may arise. PCP: [facility] Specialists: None [facility]erred [facility]acy[facility] Insurance: [employer] Prescription Benefit: yes Living Will/HPOA: none LNOK: Living Arrangements: Patient lives with in mobile home with 3-4 steps to enter the home. Transportation: DME/HHC: Patient has shower chair and walker at home. Patient is current with [facility] [place] for wound vac dressing changes. Patient has PICC line and will likely need IV ATBs at discharge. CM to follow Disposition Plan: Patient to discharge home with resumption of HHC, family support, and follow-up plans in place. Marcia JHA, RN, CM
--- NOTE | 2019-11-12 11:19 | NURSING ---
wound photo: left medial thigh
--- NOTE | 2019-11-12 11:20 | CON.PCM_ITS ---
Reason for Consult: Left thigh soft tissue abscess and abdominal wall abscess Consulted by: Dr. Milton Steve History of Present Illness: The patient is a 58 year old M [] This is a 58-year-old gentleman with a history of diabetes mellitus, hypertension, recently in the hospital for complicated skin and soft tissue abscess of the left thigh and abdominal wall that was surgically I&D roughly 2 weeks ago and was sent home with a wound VAC and oral antibiotic therapy. In reviewing his recent cultures from October 27 the wound culture grew consistently MRSA and 1 of the placements grew out pseudomonas aeruginosa. Patient was readmitted because of concern of erythema along the left medial th igh around his wound VAC. No fevers or chills no significant constitutional symptoms. Patient did undergo imaging study including a CT of his left thigh during this hospitalization. He is currently on parenteral antimicrobial therapy. He is alert does not appear toxic no cardiopulmonary distress nor any gastrointestinal symptoms. He continues to have wound VAC in his left medial thigh and abdominal wall area - Medical History Past Medical History (Chronic Problems): Chronic Problems Smoker (Chronic) Diabetes (Chronic) Obesity (Chronic) Nicotine abuse (Chronic) HTN (hypertension) (Chronic) Allergies/Adverse Reactions: Allergies No Known Allergies Allergy (Verified 11/10/19 23:13) Home Medications: Ambulatory Orders Medication Instructions Recorded Amlodipine [Norvasc] 10 mg PO DAILY 10/26/19 Aspirin [Aspirin EC] 81 mg PO DAILY 10/26/19 Duloxetine Hcl [Cymbalta] 60 mg PO DAILY 10/26/19 Gabapentin [Neurontin] 300 mg PO TID 10/26/19 Insulin NPH Hum/Reg Insulin Hm 50 unit SQ BID 10/26/19 [Humulin 70/30 Kwikpen] Lisinopril 20 mg PO BID 10/26/19 Omeprazole 40 mg PO DAILY 10/26/19 Diazepam [Valium] 5 mg PO 4X/DAY PRN PRN #30 tab 10/29/19 Oxycodone HCl/Acetaminophen 1 ea PO BID PRN PRN 11/10/19 [Oxycodone-Acetaminophen 5-325] Nystatin 1 dose PO DAILY 11/11/19 Review of Systems Comment: Noncontributory Vital Signs Temp Pulse Resp BP Pulse Ox 98.5 F 107 H 18 142/92 H 96 11/12/19 09:53 11/12/19 09:53 11/12/19 09:53 11/12/19 09:53 11/12/19 09:53 Oxygen Delivery Method Room Air Weight: 123.1 kg Body Mass Index (BMI) 37.8 Finger Stick Blood Glucose 239 Laboratory Tests Past 24 Hrs 11/12/19 11/12/19 05:54 05:54 WBC 12.0 H RBC 3.47 L Hgb 11.0 L Hct 31.7 L MCV 91.4 MCH 31.7 MCHC 34.7 RDW Std Deviation 38.6 RDW Coeff of Chrissie 11.6 Plt Count 219 MPV 11.1 Immature Gran % (Auto) 1.300 H Neut % (Auto) 64.4 Lymph % (Auto) 24.2 [place] % (Auto) 7.1 Eos % (Auto) 2.7 Baso % (Auto) 0.3 Absolute Neuts (auto) 7.7 Absolute Lymphs (auto) 2.90 Nucleated RBC % 0 Sodium 136 Potassium 4.1 Chloride 103 Carbon Dioxide 28.0 Anion Gap 5 BUN 21 H Creatinine 1.45 H Estim Creat Clear Calc 59.86 Est GFR (MDRD) Af Amer 64 Est GFR (MDRD) Non-Af 53 L BUN/Creatinine Ratio 14.5 Glucose 123 H Calcium 9.2 Magnesium 1.6 Prealbumin 14.5 L - Other Studies Radiology: [] Other Studies: [] Route of nutrition/ use of supplements: [] Nutritional Intake: [] IV Site: [] Fleming Catheter: [] Patient is alert does not appear toxic lungs are clear heart exam S1-S2 abdomen is obese but soft patient does have wound VAC in his right abdominal wall area and left medial thigh which look intact no significant erythema surrounding that area. - Assessment/Plan Antibiotics: [] Assessment/Plan: [] Active and Suspected Problems Cellulitis of left thigh (Acute) Severe sepsis (Acute) Soft tissue infection of the left medial thigh and abdominal wall which was surgically I&D during his previous hospitalization recently. Based on the culture information I will treat him with clindamycin plus ciprofloxacin.
--- NOTE | 2019-11-12 11:20 | NURSING ---
wound photo: right lower abdomen
[2019-11-12] MEDS: Ciprofloxacin 500 MG Tablet PO ×2 (11:34→22:40)
[2019-11-12 11:40] LABS: Bedside Glucose 297 mg/dL (70-110)
[2019-11-12] MEDS: oxyCODONE 5 MG Tablet 10 MG PO (13:52)
[2019-11-12 14:15] VITALS: BP 141/91; PULSE 109; RESP 18; TEMP 36.9; O2SAT 96
[2019-11-12] MEDS: DULoxetine Hcl 20 MG Capsule 40 MG PO (15:09)
--- NOTE | 2019-11-12 16:09 | PCM.PN.SRG ---
Patient Problems: Active and Suspected Problems Cellulitis of left thigh (Acute) Severe sepsis (Acute) Subjective: Postop #16 Patient is resting comfortably. He states the pain is slowly improving. - Physical Exam Vitals/I&O's: Vital Signs Temp Pulse Resp BP Pulse Ox 98.5 F 109 H 18 141/91 H 96 11/12/19 14:15 11/12/19 14:15 11/12/19 14:15 11/12/19 14:15 11/12/19 14:15 Oxygen Delivery Method Room Air Weight: 271 lb 6.224 oz Body Mass Index (BMI) 37.8 Finger Stick Blood Glucose 239 Intake and Output for Last 24 Hours 11/10/19 11/11/19 11/12/19 23:59 23:59 23:59 Intake Total 3920.25 / 3920.25 1769.5 / 1769.5 Output Total 2099 / 2099 2074 / 2074 Balance 1820.25 / 1820.25 -305.5 / -305.5 General: Alert, Oriented x3 HEENT: PERRLA, EOMI Oral: Moist Mucosa Neck: Supple Abdomen: Soft, Non-Distended Extremities: No clubbing, No cyanosis, Edema - mild edema in lower extremities., Peripheral Pulses Normal Skin: Ulcer/ Wound - diabetic ulcer left medial thigh shows an area of redness, induration, and tenderness inferiorly. The ulcer itself shows good granulation tissue. Compared to yesterday, the area of redness and induration is less. Will continue to observe. Neurological: Cranial nerves II-XII grossly intact Psych/Mental Status: Normal Affect, Appropriate Microbiology Past 72 Hours 11/11/19 12:50 Wound - Abdominal Gram Stain - Final 11/11/19 12:50 Wound - Leg, Left Gram Stain - Final 11/10/19 23:45 Blood Culture (Wb) - Right Hand Blood Culture - Preliminary No growth in 48 hours. 11/10/19 23:40 Blood Culture (Wb) - Anticubital Left Blood Culture - Preliminary No growth in 48 hours. Laboratory Results 11/11/19 16:39: POC Glucose 214 H 11/11/19 22:47: POC Glucose 145 H 11/12/19 02:59: POC Glucose 121 H 11/12/19 05:54: WBC 12.0 H, RBC 3.47 L, Hgb 11.0 L, Hct 31.7 L, MCV 91.4, MCH 31.7, MCHC 34.7, RDW Std Deviation 38.6, RDW Coeff of Chrissie 11.6, Plt Count 219, MPV 11.1, Immature Gran % (Auto) 1.300 H, Neut % (Auto) 64.4, Lymph % (Auto) 24.2, [place] % (Auto) 7.1, Eos % (Auto) 2.7, Baso % (Auto) 0.3, Absolute Neuts (auto) 7.7, Absolute Lymphs (auto) 2.90, Nucleated RBC % 0 11/12/19 05:54: Sodium 136, Potassium 4.1, Chloride 103, Carbon Dioxide 28.0, Anion Gap 5, BUN 21 H, Creatinine 1.45 H, Estim Creat Clear Calc 59.86, Est GFR (MDRD) Af Amer 64, Est GFR (MDRD) Non-Af 53 L, BUN/Creatinine Ratio 14.5, Glucose 123 H, Calcium 9.2, Magnesium 1.6, Prealbumin 14.5 L 11/12/19 07:55: POC Glucose 161 H 11/12/19 11:27: POC Glucose 297 H Current Medications Acetaminophen (Tylenol) 650 mg PO Q6H PRN PRN PRN Reason: Pain Score 1-3/Temp > 100.7 F Last Admin: 11/12/19 12:37 Dose: 650 mg Documented by: Amlodipine Besylate (Norvasc) 10 mg PO DAILY [facility] Last Admin: 11/12/19 09:57 Dose: 10 mg Documented by: [facility] Last Admin: 11/12/19 07:59 Dose: 81 mg Documented by: Ciprofloxacin HCl (Cipro) 500 mg PO BID [facility] Last Admin: 11/12/19 11:34 Dose: 500 mg Documented by: Duloxetine HCl (Cymbalta) 60 mg PO DAILY [facility] Enoxaparin Sodium (Lovenox) 40 mg SC DAILY [facility] Last Admin: 11/12/19 09:58 Dose: 40 mg Documented by: Gabapentin (Neurontin) 100 mg PO TID [facility] Last Admin: 11/12/19 14:12 Dose: 100 mg Documented by: Glucagon () 1 mg IM .X1 PRN PRN Reason: Hypoglycemia Sodium Chloride () 250 mls @ 15 mls/hr IV .[id number] PRN PRN Reason: Saline Flush Last Infusion: 11/12/19 00:52 Dose: 0 mls/hr Documented by: Sodium Chloride () 250 mls @ 15 mls/hr IV .[id number] PRN PRN Reason: Additional IVPB Infusion Dextrose (Dextrose 10%-Water) 250 mls @ 999 mls/hr IV .Q16M PRN; Protocol PRN Reason: HYPOGLYCEMIA Clindamycin Phosphate 900 mg/ (Dextrose) 106 mls @ 150 mls/hr IV Q8 [facility] Last Admin: 11/12/19 15:09 Dose: 150 mls/hr Documented by: Insulin Human Lispro (Humalog Kwikpen (Bkc)) 4 unit SC 0700 [facility] Last Admin: 11/12/19 07:58 Dose: 4 units Documented by: Insulin Human Lispro (Humalog Kwikpen (Bkc)) 4 unit SC 1600 [facility] Last Admin: 11/11/19 17:35 Dose: 4 u Documented by: Insulin Human Lispro (Humalog Kwikpen (Bkc)) 4 unit SC 1100 [facility] Last Admin: 11/12/19 11:29 Dose: 4 u Documented by: Insulin Human Lispro (Humalog Kwikpen (Bkc)) 0 unit SC ACHS & 3AM [facility]; Protocol Last Admin: 11/12/19 11:30 Dose: 4 units Documented by: Insulin Lispro Protam/Lispro Human (Humalog Mix 75-25 Kwikpen (Bkc)) 50 unit SC BID@0700,1600 [facility] Last Admin: 11/12/19 07:57 Dose: 50 u Documented by: Melatonin (Melatonin) 3 mg PO QHS PRN PRN PRN Reason: INSOMNIA Nicotine (Nicoderm Cq (Pbkc)) 21 mg TRANSDERM. DAILY [facility] Last Admin: 11/12/19 09:57 Dose: 21 mg Documented by: Nystatin (Nystatin) 500,000 unit PO 4X/DAY [facility] Last Admin: 11/12/19 14:12 Dose: 500,000 unit Documented by: Ondansetron HCl (Zofran) 4 mg IV Q8H PRN PRN PRN Reason: NAUSEA/VOMITING Oxycodone HCl (Oxyir) 5 mg PO Q4H PRN PRN PRN Reason: Pain Score 4-5/10 Oxycodone HCl (Oxyir) 10 mg PO Q4H PRN PRN PRN Reason: Pain Score 6-10/10 Pantoprazole Sodium (Protonix) 40 mg PO DAILY [facility] Last Admin: 11/12/19 09:59 Dose: 40 mg Documented by: Senna/Docusate Sodium (Senokot-S, Renetta-Colace) 2 tablet PO BID PRN PRN PRN Reason: Constipation Sodium Chloride () 10 - 40 ml IV UD PRN PRN Reason: SALINE FLUSH Last Admin: 11/12/19 11:34 Dose: 10 ml Documented by: Medical Necessity - Tobacco Use Smoking Status: Current every day smoker Tobacco Use: Cigarettes Assessment/Plan All Active Problems Cellulitis of left thigh (Acute) Severe sepsis (Acute) Open wound of right lower quadrant of abdominal wall without penetration into peritoneal cavity (Acute) Open wound of left thigh (Acute) Abscess of abdominal wall (Acute) Abscess of left thigh (Acute) 1. 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 2. Nonhealing diabetic abscess ulcer right lower abdominal wall. 3. Diabetes mellitus. 4. MRSA. 5. Pseudomonas aeroginosa infection. 6. Smoker. 7. Failed outpatient therapy. Ulcers show good granulation tissue. VAC applied today. To be changed three times per week at 150 mmHg continuous suction. The area of concern involving the inferior aspect of the left medial thigh ulcer has improved with less redness and less induration. Will continue to observe. I would like to see resolution before deciding against surgery. If improvement continues, can send home with IV antibiotics and reassess in the [facility]ound [facility]. If it worsens as an outpatient with IV antibiotics, then would need operative intervention. Will reassess the area of infection tomorrow morning, If improvement stalls, then will proceed with operative intervention with incision and drainage and excisional debridement of the infection. Wound cultures done yesterday are pending. Previous operative cultures from 10/27/19 showed MRSA and Pseudomonas aeroginosa. He was admitted on IV Linezolid and Cefepime. The antibiotics have been changed to IV Cleocin and PO Cipro. Prealbumin was 14.5. Encourage nutritional supplementation with protein to help the healing process. WBC continues to improve down to 12.0 (15.5 at admission). Creatinine continues to improve down to 1.45 (2.10 at admission).
[2019-11-12 16:40] LABS: Bedside Glucose 212 mg/dL (70-110)
--- NOTE | 2019-11-12 18:48 | PCA ---
this film developer answered the call light in the room and the was mad. I asked what I could do and she stated he can not clean himself up i do it at home. So I asked the pt if he would like a warm bathpack or a basin with soap and water. He stated basin with soap and water.. So i gave pt bath and changed linens. He then apologized for his and stated i am sorry about the I hope she calms down soon. I told him it was ok but i could tell he was embarrassed.
[2019-11-12 20:57] VITALS: BP 118/83; PULSE 103; RESP 18; TEMP 36.7; O2SAT 98
[2019-11-12] MEDS: Nystatin Powder 15gm Bottle 1 APPLIC TOPICAL (22:39)
[2019-11-12 23:06] LABS: Bedside Glucose 161 mg/dL (70-110)
[2019-11-13] VITALS (12 sets, daily range): BP systolic 110–147; BP diastolic 66–91; PULSE 92–116; RESP 16–18; TEMP 36.5–36.8; O2SAT 91–96
--- NOTE | 2019-11-13 | ABS_PTH ---
PATIENT: YURIDIA SINGH LOC: [facility] U#:[id number] AGE/SX: 58/M ROOM: PA321 RE11/11/[address]: Dr. Lazaro Black MD : [id number] BED: 1 DIS: 11/16/2019 SPEC #: [id number] RECD: 11/13/19 14:36 STATUS: CURTIS REQ #: [id number] JOSUE: 11/13/19 00:[address]: Fredi Lopez DEPT: SURGICAL PATHOLOGY RECD BY: Kian Monique ENTERED: 11/13/19 14:36 SP TYPE: Abscess OTHR DR: MD Dr. Milton Rao MD Dr. James A Slaby, MD Dr. Mark Stutzman, DO Dr. Robert Leininger, MD Tissues: Thigh, NOS Procedures: Surgery Specimen Level III Comments: @ Ordering doctor for SUIII edited from to @ by LUZ MARIA at 11/16/19 0812 @ Submitting doctor edited from to @ by LUZ MARIA at 11/16/19811 HEADER OPERATION: Incision and drainage abscess thigh PRE-OP DIAGNOSIS: Diabetic abscess left thigh TISSUE SUBMITTED: Diabetic abscess soft tissue left thigh MICROSCOPIC DIAGNOSIS Soft tissue left thigh, diabetic abscess: A piece of skin with underlying tissue with ulceration, acute and chronic inflammation, granulation tissue reaction and fat necrosis. IMTIAZ:eldon 11/16/19 MICROSCOPIC DESCRIPTION Slides are reviewed. GROSS DESCRIPTION Received in fixative is one container labeled with the patient's name and designated diabetic abscess soft tissue left thigh. The specimen consists of a piece of skin with underlying tissue measuring 7.5 x 3 cm and up to 3.5 cm in thickness. A focal area of ulceration with discoloration is noted. Sections do not reveal any mass lesion. Gynecologist sections are submitted in three cassettes. / IMTIAZ:eldon 11/13/19 TC:2 CPT: 42911
[2019-11-13] MEDS: oxyCODONE 5 MG Tablet 10 MG PO ×3 (00:06→22:11)
[2019-11-13 03:15] LABS: Bedside Glucose 107 mg/dL (70-110)
[2019-11-13] MEDS: Gabapentin 100 MG Capsule PO ×3 (05:40→22:09)
[2019-11-13 06:13] LABS: Absolute Lymphocyte Count 2.45 X10^3/uL (0.83-4.51); Absolute Neutrophil Count 6.3 X10^3/uL (2.0-7.7); Basophil# 0.04 X10^3/uL; Basophil% 0.4 % (0-1); Eosinophil# 0.31 X10^3/uL; Eosinophils% 3.1 % (0-5); Hematocrit 31.1 % (40-54); Hemoglobin 10.7 g/dL (13.0-16.5); Lymphocyte # 2.45 X10^3/ul (4.0); Lymphocyte % 24.4 % (19-41); Mean Corp Hgb Conc 34.4 g/dL (32-36); Mean Corpuscular Hgb 31.5 pg (27.0-32.0); Mean Corpuscular Volume 91.5 fL (80-94); Mean Platelet Vol. 10.7 fl (6.2-12.0); Monocyte# 0.78 X10^3/uL; Monocyte% 7.8 % (0-10); NRBC Flagged by Analyzer 0 % (0-5); Neutrophil # 6.32 X10^3/uL (2.7-7.7); Neutrophil % 62.8 % (47-70); Platelet Count 210 K/mm3 (150-450); RBC Distribution Width CV 11.6 % (11.6-14.6); RBC Distribution Width SD 38.9 fl (35.1-43.9); White Blood Count 10.1 K/mm3 (4.4-11.0)
[2019-11-13 06:34] LABS: Anion Gap 3 (5-15); BUN 20 mg/dL (7-18); BUN/Creat Ratio 14.5 RATIO (10-20); Calcium,Total 8.9 mg/dL (8.5-10.1); Chloride 102 mmol/L (98-107); Creatinine, Serum 1.38 mg/dL (0.70-1.30); EST Glomerular Filtration Rate 56 mL/min (>60); Est Glom Filt Rate - Afr Amer 68 mL/min (>60); Glucose 116 mg/dL (74-106); Potassium 4.1 mmol/L (3.5-5.1); Sodium Level 136 mmol/L (136-145)
[2019-11-13 07:41] LABS: Bedside Glucose 140 mg/dL (70-110)
[2019-11-13] MEDS: Insulin Lispro 100 UNIT/ML INSULN.PEN SC ×3 (08:01→21:59)
[2019-11-13] MEDS: Insulin Human 75/25 Kwickpen 50 UNIT SC ×2 (08:04→16:07)
[2019-11-13] MEDS: Aspirin E.C. 81 MG Tablet PO (08:04)
--- NOTE | 2019-11-13 08:45 | PN_ITS ---
Patient Problems: Active and Suspected Problems Cellulitis of left thigh (Acute) Severe sepsis (Acute) Reason for Visit: Follow-up left thigh abscess Subjective: Patient antibiotic therapy was adjusted on 11/12/[address] Whitt. He was also seen again by Dr. Lopez plans for patient to undergo further debridement of his left thigh wound. Objective: GENERAL: cooperative HEENT: Atraumatic; EYES; Anicteric, Normal Conjunctiva NECK; supple, normal thyroid, RESPIRATORY: Diminished to auscultation CARDIOVASCULAR: Regular S1 S2, GI: soft, normoactive bowel sounds, : No Renal angle tenderness; EXTREMITIES: Abscess with an area of induration below the insertion of the wound VAC with surrounding erythema and warmth MUSCULOSKELETAL: no muscle waisting NEURO: Awake; no lateralizing signs. SKIN: As described above PSYCH; Flat affect Vitals/I&O's: Vital Signs Temp Pulse Resp BP Pulse Ox 97.8 F 92 16 110/66 94 11/13/19 07:31 11/13/19 07:31 11/13/19 07:31 11/13/19 07:31 11/13/19 07:31 Oxygen Delivery Method Room Air Weight: 123.1 kg Body Mass Index (BMI) 37.8 Finger Stick Blood Glucose 239 Intake and Output for Last 24 Hours 11/11/19 11/12/19 11/13/19 23:59 23:59 23:59 Intake Total 3920.25 / 3920.25 2533.5 / 2533.5 200.25 / 200.25 Output Total 2100 / 2100 2475 / 2475 475 / 475 Balance 1820.25 / 1820.25 58.5 / 58.5 -274.75 / -274.75 Microbiology Past 72 Hours 11/11/19 12:50 Wound - Abdominal Gram Stain - Final 11/11/19 12:50 Wound - Abdominal Anaerobic Culture - Preliminary No anaerobic bacteria isolated. 11/11/19 12:50 Wound - Leg, Left Gram Stain - Final 11/11/19 12:50 Wound - Leg, Left Anaerobic Culture - Preliminary No anaerobic bacteria isolated. 11/10/19 23:45 Blood Culture (Wb) - Right Hand Blood Culture - Preliminary No growth in 48 hours. 11/10/19 23:40 Blood Culture (Wb) - Anticubital Left Blood Culture - Preliminary No growth in 48 hours. Laboratory Results 11/12/19 11:27: POC Glucose 297 H 11/12/19 16:15: POC Glucose 212 H 11/12/19 22:38: POC Glucose 161 H 11/13/19 03:07: POC Glucose 107 11/13/19 05:55: WBC 10.1, RBC 3.40 L, Hgb 10.7 L, Hct 31.1 L, MCV 91.5, MCH 31.5, MCHC 34.4, RDW Std Deviation 38.9, RDW Coeff of Chrissie 11.6, Plt Count 210, MPV 10.7, Immature Gran % (Auto) 1.500 H, Neut % (Auto) 62.8, Lymph % (Auto) 24.4, [place] % (Auto) 7.8, Eos % (Auto) 3.1, Baso % (Auto) 0.4, Absolute Neuts (auto) 6.3, Absolute Lymphs (auto) 2.45, Nucleated RBC % 0 11/13/19 05:55: Sodium 136, Potassium 4.1, Chloride 102, Carbon Dioxide 31.0, Anion Gap 3 L, BUN 20 H, Creatinine 1.38 H, Estim Creat Clear Calc 62.90, Est GFR (MDRD) Af Amer 68, Est GFR (MDRD) Non-Af 56 L, BUN/Creatinine Ratio 14.5, Glucose 116 H, Calcium 8.9 11/13/19 07:36: POC Glucose 140 H Current Medications Acetaminophen (Tylenol) 650 mg PO Q6H PRN PRN PRN Reason: Pain Score 1-3/Temp > 100.7 F Last Admin: 11/12/19 18:49 Dose: 650 mg Documented by: Amlodipine Besylate (Norvasc) 10 mg PO DAILY [facility] Last Admin: 11/12/19 09:57 Dose: 10 mg Documented by: [facility] ([facility]) [facility] Last Admin: 11/13/19 08:04 Dose: 81 mg Documented by: Ciprofloxacin HCl (Cipro) 500 mg PO BID [facility] Last Admin: 11/12/19 22:40 Dose: 500 mg Documented by: Duloxetine HCl (Cymbalta) 60 mg PO DAILY [facility] Enoxaparin Sodium (Lovenox) 40 mg SC DAILY [facility] Last Admin: 11/12/19 09:58 Dose: 40 mg Documented by: Gabapentin (Neurontin) 100 mg PO TID [facility] Last Admin: 11/13/19 05:40 Dose: 100 mg Documented by: Glucagon () 1 mg IM .X1 PRN PRN Reason: Hypoglycemia Sodium Chloride () 250 mls @ 15 mls/hr IV .[id number] PRN PRN Reason: Saline Flush Last Infusion: 11/13/19 06:37 Dose: 15 mls/hr Documented by: Sodium Chloride () 250 mls @ 15 mls/hr IV .[id number] PRN PRN Reason: Additional IVPB Infusion Dextrose (Dextrose 10%-Water) 250 mls @ 999 mls/hr IV .Q16M PRN; Protocol PRN Reason: HYPOGLYCEMIA Clindamycin Phosphate 900 mg/ (Dextrose) 106 mls @ 150 mls/hr IV Q8 [facility] Last Infusion: 11/13/19 06:37 Dose: Infused Documented by: Insulin Human Lispro (Humalog Kwikpen (Bkc)) 4 unit SC 0700 [facility] Last Admin: 11/13/19 08:01 Dose: 4 units Documented by: Insulin Human Lispro (Humalog Kwikpen (Bkc)) 4 unit SC 1600 [facility] Last Admin: 11/12/19 16:17 Dose: 4 u Documented by: Insulin Human Lispro (Humalog Kwikpen (Bkc)) 4 unit SC 1100 [facility] Last Admin: 11/12/19 11:29 Dose: 4 u Documented by: Insulin Human Lispro (Humalog Kwikpen (Bkc)) 0 unit SC ACHS & 3AM [facility]; Protocol Last Admin: 11/13/19 08:00 Dose: Not Given Documented by: Insulin Lispro Protam/Lispro Human (Humalog Mix 75-25 Kwikpen (Bkc)) 50 unit SC BID@0700,1600 [facility] Last Admin: 11/13/19 08:04 Dose: 50 u Documented by: Melatonin (Melatonin) 3 mg PO QHS PRN PRN PRN Reason: INSOMNIA Nicotine (Nicoderm Cq (Pbkc)) 21 mg TRANSDERM. DAILY [facility] Last Admin: 11/12/19 09:57 Dose: 21 mg Documented by: Nystatin (Nystatin) 500,000 unit PO 4X/DAY [facility] Last Admin: 11/12/19 22:40 Dose: 500,000 unit Documented by: Nystatin (Mycostatin Powder) 1 applic TOPICAL BID [facility]; Protocol Last Admin: 11/12/19 22:39 Dose: 1 applicatio Documented by: Ondansetron HCl (Zofran) 4 mg IV Q8H PRN PRN PRN Reason: NAUSEA/VOMITING Oxycodone HCl (Oxyir) 5 mg PO Q4H PRN PRN PRN Reason: Pain Score 4-5/10 Last Admin: 11/12/19 19:31 Dose: 5 mg Documented by: Oxycodone HCl (Oxyir) 10 mg PO Q4H PRN PRN PRN Reason: Pain Score 6-10/10 Last Admin: 11/13/19 05:44 Dose: 10 mg Documented by: Pantoprazole Sodium (Protonix) 40 mg PO DAILY [facility] Last Admin: 11/12/19 09:59 Dose: 40 mg Documented by: Senna/Docusate Sodium (Senokot-S, Renetta-Colace) 2 tablet PO BID PRN PRN PRN Reason: Constipation Sodium Chloride () 10 - 40 ml IV UD PRN PRN Reason: SALINE FLUSH Last Admin: 11/12/19 11:34 Dose: 10 ml Documented by: STROKE Vital Signs/Narrative: Vital Signs Temp Pulse Resp BP Pulse Ox 11/13/19 07:31 97.8 F 92 16 110/66 94 Medical Necessity - Tobacco Use Smoking Status: Current every day smoker Tobacco Use: Cigarettes Assessment/Plan All Active Problems Cellulitis of left thigh (Acute) Severe sepsis (Acute) Open wound of right lower quadrant of abdominal wall without penetration into peritoneal cavity (Acute) Open wound of left thigh (Acute) Abscess of abdominal wall (Acute) Abscess of left thigh (Acute) Patient is a 58-year-old gentleman who underwent incision and drainage with subsequent application of a wound VAC on 10/28/[address] Lopez discharged on oral antibiotics. Patient presented back to the emergency department with pain swelling and erythema below the site of the insertion of the wound VAC. An assessment of severe sepsis secondary to recurrent abscess made admitted to regular nursing floor for subsequent management 1. Sepsis secondary to recurrent left thigh abscess ?Initially admitted to the intensive care unit managed per protocol with IV fluid resuscitation, broad-spectrum antibiotic therapy and serial monitoring of lactic acid level ?11/12/2019; subsequent management as discussed below 2. Left thigh abscess Patient started on Zyvox and cefepime. Consult placed to Dr. Lopez who did perform the original incision and drainage. 11/12/2019; CT of the lower extremity obtained the day prior demonstrated Operative changes of the medial thigh without focal fluid collection. No destructive bony process. He was also seen in consultation by Dr. Lopez his note and recommendations reviewed. Wound cultures were sent Following removal of wound VAC. ?11/13/2019; patient antibiotic therapy was adjusted on 11/12/2019) cefepime and linezolid discontinued started on Clinda and Cipro) by Dr. Whitt. He was also seen again by Dr. Lopez plans for patient to undergo further debridement of his left thigh wound. 3. Status post incision and drainage of a left thigh and anterior abdominal wall abscess on 10/28/2019 Patient was discharged home on doxycycline as well as Omnicef after a wound VAC was applied ?11/12/2019; wound VAC was removed on 11/11/2019 4. Diabetes mellitus type II ~Complications including diabetic nephropathy patient's oral hypoglycemics held. Placed on long acting insulin, Accu-Cheks a.c. and at bedtime and covered with sliding scale insulin 5. Diabetic nephropathy (chronic kidney disease stage III) with baseline creatinine of 1.5 ~Creatinine on admission was 2.10. Patient started on IV fluids with subsequent monitoring of electrolyte 6. Acute kidney injury ~Plan imposed on chronic kidney disease. Creatinine on admission was 2.10 management is as discussed above 7. Hypertension ~ blood pressure controlled, home medications continued with dose adjustment as needed 8. Obesity with BMI of 37.9 ~Weight loss advised. 9. Diabetic polyneuropathy Patient is on gabapentin as well as Cymbalta did continue 10. GERD ?Patient is on PPI 12. DVT prophylaxis ~ on enoxaparin Code Visit Inpatient E&M: 62385 Subs Hosp L2
--- NOTE | 2019-11-13 08:50 | NURSING ---
Talked with Dr Lopez this am. Plans to take patient back to surgery for more debridement to the left medial thigh wound. wound VAC will most likely be reapplied tomorrow. Pt already has home VAC in room if discharged over the weekend. will just need to be sure home health is aware of discharge home.
[2019-11-13] MEDS: NYSTATIN 500,000 UNIT/5 ML UDC 500000 UNIT PO ×3 (10:43→22:10)
--- NOTE | 2019-11-13 10:47 | PN.ID_ITS ---
Patient Problems: Active and Suspected Problems Cellulitis of left thigh (Acute) Severe sepsis (Acute) Subjective: Patient alert overall clinically stable and tolerating the clindamycin plus Cipro. No fevers. No gastrointestinal distress. Patient is scheduled for surgery of his left medial thigh today. Objective: Patient is alert does not appear toxic lungs are clear heart exam S1-S2 abdomen soft nontender left medial thigh wound VAC is in place with some mild erythema inferior to the wound VAC. - Physical Exam Vitals/I&O's: Vital Signs Temp Pulse Resp BP Pulse Ox 97.8 F 92 16 110/66 94 11/13/19 07:31 11/13/19 07:31 11/13/19 07:31 11/13/19 07:31 11/13/19 07:31 Oxygen Delivery Method Room Air Weight: 123.1 kg Body Mass Index (BMI) 37.8 Finger Stick Blood Glucose 239 Intake and Output for Last 24 Hours 11/11/19 11/12/19 11/13/19 23:59 23:59 23:59 Intake Total 3920.25 / 3920.25 2533.5 / 2533.5 200.25 / 200.25 Output Total 2100 / 2100 2475 / 2475 475 / 475 Balance 1820.25 / 1820.25 58.5 / 58.5 -274.75 / -274.75 Microbiology Past 72 Hours 11/11/19 12:50 Wound - Abdominal Gram Stain - Final 11/11/19 12:50 Wound - Abdominal Wound Culture - Preliminary Staphylococcus species 11/11/19 12:50 Wound - Abdominal Anaerobic Culture - Preliminary No anaerobic bacteria isolated. 11/11/19 12:50 Wound - Leg, Left Gram Stain - Final 11/11/19 12:50 Wound - Leg, Left Wound Culture - Preliminary Staphylococcus species 11/11/19 12:50 Wound - Leg, Left Anaerobic Culture - Preliminary No anaerobic bacteria isolated. 11/10/19 23:45 Blood Culture (Wb) - Right Hand Blood Culture - Preliminary No growth in 48 hours. 11/10/19 23:40 Blood Culture (Wb) - Anticubital Left Blood Culture - Preliminary No growth in 48 hours. Laboratory Results 11/12/19 11:27: POC Glucose 297 H 11/12/19 16:15: POC Glucose 212 H 11/12/19 22:38: POC Glucose 161 H 11/13/19 03:07: POC Glucose 107 11/13/19 05:55: WBC 10.1, RBC 3.40 L, Hgb 10.7 L, Hct 31.1 L, MCV 91.5, MCH 31.5, MCHC 34.4, RDW Std Deviation 38.9, RDW Coeff of Chrissie 11.6, Plt Count 210, MPV 10.7, Immature Gran % (Auto) 1.500 H, Neut % (Auto) 62.8, Lymph % (Auto) 24.4, Carlton % (Auto) 7.8, Eos % (Auto) 3.1, Baso % (Auto) 0.4, Absolute Neuts (auto) 6.3, Absolute Lymphs (auto) 2.45, Nucleated RBC % 0 11/13/19 05:55: Sodium 136, Potassium 4.1, Chloride 102, Carbon Dioxide 31.0, Anion Gap 3 L, BUN 20 H, Creatinine 1.38 H, Estim Creat Clear Calc 62.90, Est GFR (MDRD) Af Amer 68, Est GFR (MDRD) Non-Af 56 L, BUN/Creatinine Ratio 14.5, Glucose 116 H, Calcium 8.9 11/13/19 07:36: POC Glucose 140 H Current Medications Acetaminophen (Tylenol) 650 mg PO Q6H PRN PRN PRN Reason: Pain Score 1-3/Temp > 100.7 F Last Admin: 11/12/19 18:49 Dose: 650 mg Documented by: Amlodipine Besylate (Norvasc) 10 mg PO DAILY [facility] Last Admin: 11/12/19 09:57 Dose: 10 mg Documented by: [facility] Last Admin: 11/13/19 08:04 Dose: 81 mg Documented by: Ciprofloxacin HCl (Cipro) 500 mg PO BID [facility] Last Admin: 11/12/19 22:40 Dose: 500 mg Documented by: Duloxetine HCl (Cymbalta) 60 mg PO DAILY [facility] Enoxaparin Sodium (Lovenox) 40 mg SC DAILY [facility] Last Admin: 11/12/19 09:58 Dose: 40 mg Documented by: Gabapentin (Neurontin) 100 mg PO TID [facility] Last Admin: 11/13/19 05:40 Dose: 100 mg Documented by: Glucagon () 1 mg IM .X1 PRN PRN Reason: Hypoglycemia Sodium Chloride () 250 mls @ 15 mls/hr IV .[id number] PRN PRN Reason: Saline Flush Last Infusion: 11/13/19 06:37 Dose: 15 mls/hr Documented by: Sodium Chloride () 250 mls @ 15 mls/hr IV .[id number] PRN PRN Reason: Additional IVPB Infusion Dextrose (Dextrose 10%-Water) 250 mls @ 999 mls/hr IV .Q16M PRN; Protocol PRN Reason: HYPOGLYCEMIA Clindamycin Phosphate 900 mg/ (Dextrose) 106 mls @ 150 mls/hr IV Q8 [facility] Last Infusion: 11/13/19 06:37 Dose: Infused Documented by: Insulin Human Lispro (Humalog Kwikpen (Bkc)) 4 unit SC 0700 [facility] Last Admin: 11/13/19 08:01 Dose: 4 units Documented by: Insulin Human Lispro (Humalog Kwikpen (Bkc)) 4 unit SC 1600 [facility] Last Admin: 11/12/19 16:17 Dose: 4 u Documented by: Insulin Human Lispro (Humalog Kwikpen (Bkc)) 4 unit SC 1100 [facility] Last Admin: 11/12/19 11:29 Dose: 4 u Documented by: Insulin Human Lispro (Humalog Kwikpen (Bkc)) 0 unit SC ACHS & 3AM [facility]; Protocol Last Admin: 11/13/19 08:00 Dose: Not Given Documented by: Insulin Lispro Protam/Lispro Human (Humalog Mix 75-25 Kwikpen (Bkc)) 50 unit SC BID@0700,1600 [facility] Last Admin: 11/13/19 08:04 Dose: 50 u Documented by: Melatonin (Melatonin) 3 mg PO QHS PRN PRN PRN Reason: INSOMNIA Nicotine (Nicoderm Cq (Pbkc)) 21 mg TRANSDERM. DAILY [facility] Last Admin: 11/12/19 09:57 Dose: 21 mg Documented by: Nystatin (Nystatin) 500,000 unit PO 4X/DAY [facility] Last Admin: 11/13/19 10:43 Dose: 500,000 unit Documented by: Nystatin (Mycostatin Powder) 1 applic TOPICAL BID [facility]; Protocol Last Admin: 11/12/19 22:39 Dose: 1 applicatio Documented by: Ondansetron HCl (Zofran) 4 mg IV Q8H PRN PRN PRN Reason: NAUSEA/VOMITING Oxycodone HCl (Oxyir) 5 mg PO Q4H PRN PRN PRN Reason: Pain Score 4-5/10 Last Admin: 11/12/19 19:31 Dose: 5 mg Documented by: Oxycodone HCl (Oxyir) 10 mg PO Q4H PRN PRN PRN Reason: Pain Score 6-10/10 Last Admin: 11/13/19 05:44 Dose: 10 mg Documented by: Pantoprazole Sodium (Protonix) 40 mg PO DAILY [facility] Last Admin: 11/12/19 09:59 Dose: 40 mg Documented by: Senna/Docusate Sodium (Senokot-S, Renetta-Colace) 2 tablet PO BID PRN PRN PRN Reason: Constipation Sodium Chloride () 10 - 40 ml IV UD PRN PRN Reason: SALINE FLUSH Last Admin: 11/12/19 11:34 Dose: 10 ml Documented by: Medical Necessity - Tobacco Use Smoking Status: Current every day smoker Tobacco Use: Cigarettes Route of nutrition/ use of supplements: [] Nutritional Intake: [] IV Site: [] Fleming Catheter: [] - Assessment/Plan Soft tissue infection abdominal wall and left medial thigh recently hospitalized in had community-acquired MRSA isolated. 1 of the specimens from the previous hospitalization also grew pseudomonas aeruginosa. At this point we will continue clindamycin plus Cipro based on previous wound cultures.
[2019-11-13 12:00] LABS: Bedside Glucose 80 mg/dL (70-110)
[2019-11-13] MEDS: Lactated Ringers 1,000 ML 100 ML IV ×2 (12:26→15:41)
--- NOTE | 2019-11-13 13:56 | PCM.OPRPT ---
Report of Operation Date of Procedure: 11/13/19 Pre-Operative Diagnosis: 1. Nonhealing diabetic ulcer abscess left medial thigh. 2. Diabetes mellitus. 3. Smoker. Post-Operative Diagnosis: 1. Nonhealing necrotizing diabetic ulcer abscess left medial thigh. 2. Diabetes mellitus. 3. Smoker. Surgery/Procedure Performed:: Surgical preparation left medial thigh with incision and drainage and excisional debridement nonhealing necrotizing diabetic ulcer abscess (45 cm2). Description of Surgical Findings:: I recently took the patient to surgery on 10/27/19 where he underwent surgical preparation left medial thigh with incision and drainage and excisional debridement necrotizing soft tissue infection diabetic abscess (88 cm2) and surgical preparation right lower abdominal wall with incision and drainage and excisional debridement skin, subcutaneous tissue, and fascia for necrotizing soft tissue infection diabetic abscess (27 cm2). The wounds were left open and wound care started with the VAC. Operative cultures showed MRSA and Pseudomonas aeroginosa. He was treated in the hospital with Vancomycin and Ceftriaxone. He was discharged from the hospital on Doxycycline and Cefdinir. Over the last 1-2 days, the patient noted increasing redness and pain and swelling in his left medial thigh just inferior to the previously debrided wound. He came to the ED. WBC was 15.5. Creatinine was 2.1. Lactate was 1.5. He was admitted for failed outpatient therapy and was started on IV Linezolid and Cefepime. I removed the VAC. The wounds show good granulation tissue with good healing. However on the inferior aspect of the left medial thigh wound is an area of induration and tenderness and redness and swelling. Clinically further infection is present. His antibiotics were changed to Cleocin IV and Cipro PO. CT showed no focal fluid collection seen. There was some improvement with IV antibiotics, but there was persistent redness and induration and pain. So operative intervention was recommended. Patient was informed of the risks and complications of the procedure including alternatives to surgery. These were discussed with the patient personally. Patient voices understanding and wishes to proceed. Encouraged patient to stop smoking as it may have deleterious effects on wound healing. Size of defect left medial thigh, additional, - 9 x 5 cm. Initial defect measured 10 x 6 cm, so total defect after surgery today measures 10 x 11 cm. 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 Drains: None. Estimated Blood Loss (mL): 20 ml. Description of Procedure: Patient was taken to OR in supine position and was placed under general anesthesia. The left medial thigh was prepped and draped in the usual fashion. SCD's were placed for DVT prophylaxis. Perioperative antibiotics were given intravenously. Using xylocaine with epinephrine, the nonhealing diabetic ulcer abscess left medial thigh was infiltrated for postoperative pain relief. After waiting 5 minutes for the anesthetic to take effect, I made a circular incision around the inferior edge of the diabetic ulcer abscess left medial thigh into the subcutaneous tissue. This was the area where there was persistent redness and swelling and induration. A small amount of pus was seen and drained. Liquefied fat necrosis was seen and was excised and debrided. Large veins were encountered with presence of venous hypertension. Hemostasis was obtained with electrocautery. The wound was irrigated with saline. Dissection was carried down to the muscle. The fascia was inflamed but not thickened. It was viable. The underlying muscle was pink and viable. Some of the tissue was sent to Pathology for analysis to rule out carcinoma and to Microbiology for culture. A positive culture will necessitate antibiotic therapy. He is currently on Cleocin and Cipro. The size of the defect left medial thigh, additional, was 9 x 5 x 2 cm or 45 cm2. The initial defect measured 10 x 6 cm, so total defect after surgery today measures 10 x 11 cm. The wound was dressed with Mepitel nonadherent dressing followed by Kerlix gauze and Betadine and followed by dry Kerlix gauze and ABD pads compression dressing followed by a compression umm wrap. Patient tolerated the procedure well and was sent to PACU in satisfactory condition. Patient will be sent upstairs for continued postop care. Will have the VAC placed tomorrow. Will continue Cleocin and Cipro until the operative cultures are available. Grafts/Implants Used: None. - Complications None. - Admit VTE Documentation VTE Present on Admission: No VTE Mechan Device Prophylaxis: SCD's VTE Pharm Prophylaxis ordered?: Yes Code Visit Surgery Charges CPT - 54199 ICD-10 - L97.122, L02.416, M79.89, E11.622, E11.9, F17.200 20950-35 L02.416, M79.89, L97.122, E11.622, E11.9, F17.200
[2019-11-13 14:25] LABS: Bedside Glucose 72 mg/dL (70-110)
[2019-11-13] MEDS: DULoxetine Hcl 60 MG Capsule PO (15:33)
[2019-11-13] MEDS: Pantoprazole Sodium 40 MG Tablet PO (15:33)
[2019-11-13] MEDS: amLODIPine 10 MG Tablet PO (15:34)
[2019-11-13] MEDS: Ciprofloxacin 500 MG Tablet PO ×2 (15:34→22:08)
[2019-11-13 16:05] LABS: Bedside Glucose 130 mg/dL (70-110)
[2019-11-13] MEDS: Nystatin Powder 15gm Bottle 1 APPLIC TOPICAL (22:09)
[2019-11-13] MEDS: 0.9% Saline Lock 10 ML Syringe IV (22:19)
[2019-11-14 00:10] LABS: Bedside Glucose 181 mg/dL (70-110)
[2019-11-14 02:20] VITALS: BP 136/95; PULSE 103; RESP 18; TEMP 36.8; O2SAT 96
[2019-11-14] MEDS: Insulin Lispro 100 UNIT/ML INSULN.PEN SC ×6 (02:27→21:05)
[2019-11-14] MEDS: 0.9% Saline Lock 10 ML Syringe IV ×2 (02:30→05:52)
[2019-11-14 02:41] LABS: Bedside Glucose 249 mg/dL (70-110)
[2019-11-14 05:43] LABS: Absolute Lymphocyte Count 1.44 X10^3/uL (0.83-4.51); Absolute Neutrophil Count 9.9 X10^3/uL (2.0-7.7); Basophil# 0.02 X10^3/uL; Basophil% 0.2 % (0-1); Eosinophil# 0.01 X10^3/uL; Eosinophils% 0.1 % (0-5); Hematocrit 29.7 % (40-54); Hemoglobin 10.3 g/dL (13.0-16.5); Lymphocyte # 1.44 X10^3/ul (4.0); Lymphocyte % 11.8 % (19-41); Mean Corp Hgb Conc 34.7 g/dL (32-36); Mean Corpuscular Hgb 31.3 pg (27.0-32.0); Mean Corpuscular Volume 90.3 fL (80-94); Mean Platelet Vol. 10.5 fl (6.2-12.0); Monocyte# 0.63 X10^3/uL; Monocyte% 5.2 % (0-10); NRBC Flagged by Analyzer 0 % (0-5); Neutrophil # 9.93 X10^3/uL (2.7-7.7); Neutrophil % 81.6 % (47-70); Platelet Count 212 K/mm3 (150-450); RBC Distribution Width CV 11.5 % (11.6-14.6); RBC Distribution Width SD 37.6 fl (35.1-43.9); Red Blood Count 3.29 M/mm3 (4.6-6.2); White Blood Count 12.2 K/mm3 (4.4-11.0)
[2019-11-14] MEDS: Acetaminophen 325 MG Tablet 650 MG PO ×2 (05:50→14:56)
[2019-11-14] MEDS: oxyCODONE 5 MG Tablet 10 MG PO ×4 (05:50→21:07)
[2019-11-14] MEDS: Lactated Ringers 1,000 ML 100 ML IV ×2 (05:51→18:32)
[2019-11-14] MEDS: Gabapentin 100 MG Capsule PO ×3 (05:52→21:05)
[2019-11-14 05:55] LABS: Anion Gap 6 (5-15); BUN 22 mg/dL (7-18); BUN/Creat Ratio 15.1 RATIO (10-20); Calcium,Total 8.6 mg/dL (8.5-10.1); Chloride 101 mmol/L (98-107); Creatinine, Serum 1.46 mg/dL (0.70-1.30); EST Glomerular Filtration Rate 53 mL/min (>60); Est Glom Filt Rate - Afr Amer 64 mL/min (>60); Estimated Creatinine Clearance 59.45 ml/min; Glucose 178 mg/dL (74-106); Potassium 4.6 mmol/L (3.5-5.1); Sodium Level 134 mmol/L (136-145)
[2019-11-14 08:30] VITALS: O2SAT 95
--- NOTE | 2019-11-14 08:54 | PN_ITS ---
Patient Problems: Active and Suspected Problems Cellulitis of left thigh (Acute) Severe sepsis (Acute) Reason for Visit: Follow-up Left thigh abscess Subjective: Patient underwent surgical preparation left medial thigh with incision and drainage and excisional debridement nonhealing necrotizing diabetic ulcer abscess (45 cm2) Dr. Lopez on 11/13/2019. Repeat cultures sent results pending.. Objective: GENERAL: cooperative HEENT: Atraumatic; EYES; Anicteric, Normal Conjunctiva NECK; supple, normal thyroid, RESPIRATORY: Diminished to auscultation CARDIOVASCULAR: Regular S1 S2, GI: soft, normoactive bowel sounds, : No Renal angle tenderness; EXTREMITIE; wound VAC left thigh MUSCULOSKELETAL: no muscle waisting NEURO: Awake; no lateralizing signs. SKIN: As described above PSYCH; Flat affect Vitals/I&O's: Vital Signs Temp Pulse Resp BP Pulse Ox 98.2 F 103 H 18 136/95 H 95 11/14/19 02:20 11/14/19 02:20 11/14/19 02:20 11/14/19 02:20 11/14/19 08:30 Oxygen Delivery Method Room Air Weight: 123.1 kg Body Mass Index (BMI) 37.8 Finger Stick Blood Glucose 72 Intake and Output for Last 24 Hours 11/12/19 11/13/19 11/14/19 23:59 23:59 23:59 Intake Total 2533.5 / 2533.5 737.25 / 1087.25 1467.67 / 1467.67 Output Total 2475 / 2475 875 / 1475 1950 / 1950 Balance 58.5 / 58.5 -137.75 / -387.75 -482.33 / -482.33 Microbiology Past 72 Hours 11/11/19 12:50 Wound - Abdominal Gram Stain - Final 11/11/19 12:50 Wound - Abdominal Wound Culture - Final Staphylococcus epidermidis 11/11/19 12:50 Wound - Abdominal Anaerobic Culture - Preliminary No anaerobic bacteria isolated. 11/11/19 12:50 Wound - Leg, Left Gram Stain - Final 11/11/19 12:50 Wound - Leg, Left Wound Culture - Final Staphylococcus epidermidis 11/11/19 12:50 Wound - Leg, Left Anaerobic Culture - Preliminary No anaerobic bacteria isolated. 11/13/19 13:36 Tissue - Leg, Left Gram Stain - Final 11/10/19 23:45 Blood Culture (Wb) - Right Hand Blood Culture - Preliminary No growth in 48 hours. 11/10/19 23:40 Blood Culture (Wb) - Anticubital Left Blood Culture - Preliminary No growth in 48 hours. Laboratory Results 11/13/19 11:45: POC Glucose 80 11/13/19 14:21: POC Glucose 72 11/13/19 15:59: POC Glucose 130 H 11/13/19 21:50: POC Glucose 181 H 11/14/19 02:25: POC Glucose 249 H 11/14/19 05:30: WBC 12.2 H, RBC 3.29 L, Hgb 10.3 L, Hct 29.7 L, MCV 90.3, MCH 31.3, MCHC 34.7, RDW Std Deviation 37.6, RDW Coeff of Chrissie 11.5 L, Plt Count 212, MPV 10.5, Immature Gran % (Auto) 1.100 H, Neut % (Auto) 81.6 H, Lymph % (Auto) 11.8 L, Grayson % (Auto) 5.2, Eos % (Auto) 0.1, Baso % (Auto) 0.2, Absolute Neuts (auto) 9.9 H, Absolute Lymphs (auto) 1.44, Nucleated RBC % 0 11/14/19 05:30: Sodium 134 L, Potassium 4.6, Chloride 101, Carbon Dioxide 27.0, Anion Gap 6, BUN 22 H, Creatinine 1.46 H, Estim Creat Clear Calc 59.45, Est GFR (MDRD) Af Amer 64, Est GFR (MDRD) Non-Af 53 L, BUN/Creatinine Ratio 15.1, Glucose 178 H, Calcium 8.6 Current Medications Acetaminophen (Tylenol) 650 mg PO Q6H PRN PRN PRN Reason: Pain Score 1-3/Temp > 100.7 F Last Admin: 11/14/19 05:50 Dose: 650 mg Documented by: Amlodipine Besylate (Norvasc) 10 mg PO DAILY [facility] Last Admin: 11/13/19 15:34 Dose: 10 mg Documented by: [facility] Last Admin: 11/13/19 08:04 Dose: 81 mg Documented by: Ciprofloxacin HCl (Cipro) 500 mg PO BID [facility] Last Admin: 11/13/19 22:08 Dose: 500 mg Documented by: Diazepam (Valium) 5 mg PO 4X/DAY PRN PRN PRN Reason: SPASMS Duloxetine HCl (Cymbalta) 60 mg PO DAILY [facility] Last Admin: 11/13/19 15:33 Dose: 60 mg Documented by: Enoxaparin Sodium (Lovenox) 40 mg SC DAILY [facility] Last Admin: 11/13/19 15:32 Dose: Not Given Documented by: Gabapentin (Neurontin) 100 mg PO TID [facility] Last Admin: 11/14/19 05:52 Dose: 100 mg Documented by: Glucagon () 1 mg IM .X1 PRN PRN Reason: Hypoglycemia Hydromorphone HCl (Dilaudid Inj) 1 mg IV Q4H PRN PRN PRN Reason: Pain Score 6-10/10 Sodium Chloride () 250 mls @ 15 mls/hr IV .[id number] PRN PRN Reason: Saline Flush Last Infusion: 11/13/19 06:37 Dose: 15 mls/hr Documented by: Sodium Chloride () 250 mls @ 15 mls/hr IV .[id number] PRN PRN Reason: Additional IVPB Infusion Dextrose (Dextrose 10%-Water) 250 mls @ 999 mls/hr IV .Q16M PRN; Protocol PRN Reason: HYPOGLYCEMIA Clindamycin Phosphate 900 mg/ (Dextrose) 106 mls @ 150 mls/hr IV Q8 [facility] Last Infusion: 11/14/19 07:00 Dose: Infused Documented by: Lactated Ringer's () 1,000 mls @ 100 mls/hr IV .Q10H [facility] Last Infusion: 11/14/19 05:58 Dose: 0 mls/hr Documented by: Insulin Human Lispro (Humalog Kwikpen (Bkc)) 4 unit SC 0700 [facility] Last Admin: 11/13/19 08:01 Dose: 4 units Documented by: Insulin Human Lispro (Humalog Kwikpen (Bkc)) 4 unit SC 1600 [facility] Last Admin: 11/13/19 16:08 Dose: 4 u Documented by: Insulin Human Lispro (Humalog Kwikpen (Bkc)) 4 unit SC 1100 [facility] Last Admin: 11/13/19 15:40 Dose: Not Given Documented by: Insulin Human Lispro (Humalog Kwikpen (Bkc)) 0 unit SC ACHS & 3AM [facility]; Protocol Last Admin: 11/14/19 02:27 Dose: 3 units Documented by: Insulin Lispro Protam/Lispro Human (Humalog Mix 75-25 Kwikpen (Bkc)) 50 unit SC BID@0700,1600 [facility] Last Admin: 11/13/19 16:07 Dose: 50 u Documented by: Melatonin (Melatonin) 3 mg PO QHS PRN PRN PRN Reason: INSOMNIA Nicotine (Nicoderm Cq (Pbkc)) 21 mg TRANSDERM. DAILY [facility] Last Admin: 11/13/19 15:33 Dose: 21 mg Documented by: Nystatin (Nystatin) 500,000 unit PO 4X/DAY [facility] Last Admin: 11/13/19 22:10 Dose: 500,000 unit Documented by: Nystatin (Mycostatin Powder) 1 applic TOPICAL BID [facility]; Protocol Last Admin: 11/13/19 22:09 Dose: 1 applicatio Documented by: Ondansetron HCl (Zofran) 4 mg IV Q8H PRN PRN PRN Reason: NAUSEA/VOMITING Oxycodone HCl (Oxyir) 5 mg PO Q4H PRN PRN PRN Reason: Pain Score 4-5/10 Last Admin: 11/12/19 19:31 Dose: 5 mg Documented by: Oxycodone HCl (Oxyir) 10 mg PO Q4H PRN PRN PRN Reason: Pain Score 6-10/10 Last Admin: 11/14/19 05:50 Dose: 10 mg Documented by: Pantoprazole Sodium (Protonix) 40 mg PO DAILY [facility] Last Admin: 11/13/19 15:33 Dose: 40 mg Documented by: Senna/Docusate Sodium (Senokot-S, Renetta-Colace) 2 tablet PO BID PRN PRN PRN Reason: Constipation Sodium Chloride () 10 - 40 ml IV UD PRN PRN Reason: SALINE FLUSH Last Admin: 11/14/19 05:52 Dose: 10 ml Documented by: STROKE Vital Signs/Narrative: Vital Signs Pulse Ox 11/14/19 08:30 95 Medical Necessity - Tobacco Use Smoking Status: Current every day smoker Tobacco Use: Cigarettes Assessment/Plan All Active Problems Cellulitis of left thigh (Acute) Severe sepsis (Acute) Open wound of right lower quadrant of abdominal wall without penetration into peritoneal cavity (Acute) Open wound of left thigh (Acute) Abscess of abdominal wall (Acute) Abscess of left thigh (Acute) Patient is a 58-year-old gentleman who underwent incision and drainage with subsequent application of a wound VAC on 10/28/[address] Lopez discharged on oral antibiotics. Patient presented back to the emergency department with pain swelling and erythema below the site of the insertion of the wound VAC. An assessment of severe sepsis secondary to recurrent abscess made admitted to regular nursing floor for subsequent management 1. Sepsis secondary to recurrent left thigh abscess ?Initially admitted to the intensive care unit managed per protocol with IV fluid resuscitation, broad-spectrum antibiotic therapy and serial monitoring of lactic acid level ?11/12/2019; subsequent management as discussed below 2. Left thigh abscess Patient started on Zyvox and cefepime. Consult placed to Dr. Lopez who did perform the original incision and drainage. 11/12/2019; CT of the lower extremity obtained the day prior demonstrated Operative changes of the medial thigh without focal fluid collection. No destructive bony process. He was also seen in consultation by Dr. Lopez his note and recommendations reviewed. Wound cultures were sent Following removal of wound VAC. ?11/13/2019; patient antibiotic therapy was adjusted on 11/12/2019) cefepime and linezolid discontinued started on Clinda and Cipro) by Dr. Whitt. He was also seen again by Dr. Lopez plans for patient to undergo further debridement of his left thigh wound. ?11/14/2019.Patient underwent surgical preparation left medial thigh with incision and drainage and excisional debridement nonhealing necrotizing diabetic ulcer abscess (45 cm2) Dr. Lopez on 11/13/2019. Repeat cultures sent results pending.. 3. Status post incision and drainage of a left thigh and anterior abdominal wall abscess on 10/28/2019 Patient was discharged home on doxycycline as well as Omnicef after a wound VAC was applied ?11/12/2019; wound VAC was removed on 11/11/2019 4. Diabetes mellitus type II ~Complications including diabetic nephropathy patient's oral hypoglycemics held. Placed on long acting insulin, Accu-Cheks a.c. and at bedtime and covered with sliding scale insulin 5. Diabetic nephropathy (chronic kidney disease stage III) with baseline creatinine of 1.5 ~Creatinine on admission was 2.10. Patient started on IV fluids with subsequent monitoring of electrolyte 6. Acute kidney injury ~Plan imposed on chronic kidney disease. Creatinine on admission was 2.10 management is as discussed above 7. Hypertension ~ blood pressure controlled, home medications continued with dose adjustment as needed 8. Obesity with BMI of 37.9 ~Weight loss advised. 9. Diabetic polyneuropathy Patient is on gabapentin as well as Cymbalta did continue 10. GERD ?Patient is on PPI 12. DVT prophylaxis ~ on enoxaparin Code Visit Inpatient E&M: 49506 Subs Hosp L2
[2019-11-14 10:04] VITALS: BP 131/85; PULSE 105; RESP 18; TEMP 36.4; O2SAT 100
[2019-11-14] MEDS: Pantoprazole Sodium 40 MG Tablet PO (10:09)
[2019-11-14] MEDS: Nystatin Powder 15gm Bottle 1 APPLIC TOPICAL ×2 (10:09→21:06)
[2019-11-14] MEDS: amLODIPine 10 MG Tablet PO (10:09)
[2019-11-14] MEDS: Aspirin E.C. 81 MG Tablet PO (10:09)
[2019-11-14] MEDS: Enoxaparin 40 MG/0.4 ML Syringe SC (10:09)
[2019-11-14] MEDS: Ciprofloxacin 500 MG Tablet PO ×2 (10:09→21:05)
[2019-11-14] MEDS: DULoxetine Hcl 60 MG Capsule PO (10:19)
[2019-11-14] MEDS: Senna/Docusate Sodium 1 Tablet 2 TABLET PO (10:20)
[2019-11-14] MEDS: NYSTATIN 500,000 UNIT/5 ML UDC 500000 UNIT PO ×3 (10:20→21:05)
[2019-11-14 13:11] LABS: Bedside Glucose 213 mg/dL (70-110)
--- NOTE | 2019-11-14 13:20 | PCM.PN.SRG ---
Patient Problems: Active and Suspected Problems Cellulitis of left thigh (Acute) Severe sepsis (Acute) Subjective: Postop #1 and #18 - Physical Exam Vitals/I&O's: Vital Signs Temp Pulse Resp BP Pulse Ox 97.6 F L 105 H 18 131/85 H 100 11/14/19 10:04 11/14/19 10:04 11/14/19 10:04 11/14/19 10:04 11/14/19 10:04 Oxygen Delivery Method Room Air Weight: 271 lb 6.224 oz Body Mass Index (BMI) 37.8 Finger Stick Blood Glucose 72 Intake and Output for Last 24 Hours 11/12/19 11/13/19 11/14/19 23:59 23:59 23:59 Intake Total 2533.5 / 2533.5 737.25 / 1087.25 1707.67 / 1707.67 Output Total 2475 / 2475 875 / 1475 2550 / 2550 Balance 58.5 / 58.5 -137.75 / -387.75 -842.33 / -842.33 General: Alert, Oriented x3 HEENT: PERRLA, EOMI Oral: Moist Mucosa Neck: Supple Abdomen: Soft, Non-Distended Skin: Ulcer/ Wound - left medial thigh wound is stable. No active bleeding seen. VAC reapplied today. right lower abdominal wall wound is stable with good granulation tissue present. Has VAC. Neurological: Cranial nerves II-XII grossly intact Psych/Mental Status: Normal Affect, Appropriate Microbiology Past 72 Hours 11/13/19 13:36 Tissue - Leg, Left Gram Stain - Final 11/13/19 13:36 Tissue - Leg, Left Wound Culture - Preliminary Staphylococcus species 11/11/19 12:50 Wound - Abdominal Gram Stain - Final 11/11/19 12:50 Wound - Abdominal Wound Culture - Final Staphylococcus epidermidis 11/11/19 12:50 Wound - Abdominal Anaerobic Culture - Preliminary No anaerobic bacteria isolated. 11/11/19 12:50 Wound - Leg, Left Gram Stain - Final 11/11/19 12:50 Wound - Leg, Left Wound Culture - Final Staphylococcus epidermidis 11/11/19 12:50 Wound - Leg, Left Anaerobic Culture - Preliminary No anaerobic bacteria isolated. 11/10/19 23:45 Blood Culture (Wb) - Right Hand Blood Culture - Preliminary No growth in 48 hours. 11/10/19 23:40 Blood Culture (Wb) - Anticubital Left Blood Culture - Preliminary No growth in 48 hours. Laboratory Results 11/13/19 14:21: POC Glucose 72 11/13/19 15:59: POC Glucose 130 H 11/13/19 21:50: POC Glucose 181 H 11/14/19 02:25: POC Glucose 249 H 11/14/19 05:30: WBC 12.2 H, RBC 3.29 L, Hgb 10.3 L, Hct 29.7 L, MCV 90.3, MCH 31.3, MCHC 34.7, RDW Std Deviation 37.6, RDW Coeff of Chrissie 11.5 L, Plt Count 212, MPV 10.5, Immature Gran % (Auto) 1.100 H, Neut % (Auto) 81.6 H, Lymph % (Auto) 11.8 L, Carbon % (Auto) 5.2, Eos % (Auto) 0.1, Baso % (Auto) 0.2, Absolute Neuts (auto) 9.9 H, Absolute Lymphs (auto) 1.44, Nucleated RBC % 0 11/14/19 05:30: Sodium 134 L, Potassium 4.6, Chloride 101, Carbon Dioxide 27.0, Anion Gap 6, BUN 22 H, Creatinine 1.46 H, Estim Creat Clear Calc 59.45, Est GFR (MDRD) Af Amer 64, Est GFR (MDRD) Non-Af 53 L, BUN/Creatinine Ratio 15.1, Glucose 178 H, Calcium 8.6 11/14/19 09:51: POC Glucose 213 H Current Medications Acetaminophen (Tylenol) 650 mg PO Q6H PRN PRN PRN Reason: Pain Score 1-3/Temp > 100.7 F Last Admin: 11/14/19 05:50 Dose: 650 mg Documented by: Amlodipine Besylate (Norvasc) 10 mg PO DAILY [facility] Last Admin: 11/14/19 10:09 Dose: 10 mg Documented by: [facility] Last Admin: 11/14/19 10:09 Dose: 81 mg Documented by: Ciprofloxacin HCl (Cipro) 500 mg PO BID [facility] Last Admin: 11/14/19 10:09 Dose: 500 mg Documented by: Diazepam (Valium) 5 mg PO 4X/DAY PRN PRN PRN Reason: SPASMS Duloxetine HCl (Cymbalta) 60 mg PO DAILY [facility] Last Admin: 11/14/19 10:19 Dose: 60 mg Documented by: Enoxaparin Sodium (Lovenox) 40 mg SC DAILY [facility] Last Admin: 11/14/19 10:09 Dose: 40 mg Documented by: Gabapentin (Neurontin) 100 mg PO TID [facility] Last Admin: 11/14/19 05:52 Dose: 100 mg Documented by: Glucagon () 1 mg IM .X1 PRN PRN Reason: Hypoglycemia Hydromorphone HCl (Dilaudid Inj) 1 mg IV Q4H PRN PRN PRN Reason: Pain Score 6-10/10 Sodium Chloride () 250 mls @ 15 mls/hr IV .[id number] PRN PRN Reason: Saline Flush Last Infusion: 11/13/19 06:37 Dose: 15 mls/hr Documented by: Sodium Chloride () 250 mls @ 15 mls/hr IV .[id number] PRN PRN Reason: Additional IVPB Infusion Dextrose (Dextrose 10%-Water) 250 mls @ 999 mls/hr IV .Q16M PRN; Protocol PRN Reason: HYPOGLYCEMIA Clindamycin Phosphate 900 mg/ (Dextrose) 106 mls @ 150 mls/hr IV Q8 [facility] Last Infusion: 11/14/19 07:00 Dose: Infused Documented by: Lactated Ringer's () 1,000 mls @ 100 mls/hr IV .Q10H [facility] Last Infusion: 11/14/19 05:58 Dose: 0 mls/hr Documented by: Insulin Human Lispro (Humalog Kwikpen (Bkc)) 4 unit SC 0700 [facility] Last Admin: 11/14/19 10:10 Dose: 4 units Documented by: Insulin Human Lispro (Humalog Kwikpen (Bkc)) 4 unit SC 1600 [facility] Last Admin: 11/13/19 16:08 Dose: 4 u Documented by: Insulin Human Lispro (Humalog Kwikpen (Bkc)) 4 unit SC 1100 [facility] Last Admin: 11/13/19 15:40 Dose: Not Given Documented by: Insulin Human Lispro (Humalog Kwikpen (Bkc)) 0 unit SC ACHS & 3AM [facility]; Protocol Last Admin: 11/14/19 10:10 Dose: 2 units Documented by: Insulin Lispro Protam/Lispro Human (Humalog Mix 75-25 Kwikpen (Bkc)) 50 unit SC BID@0700,1600 [facility] Last Admin: 11/13/19 16:07 Dose: 50 u Documented by: Melatonin (Melatonin) 3 mg PO QHS PRN PRN PRN Reason: INSOMNIA Nicotine (Nicoderm Cq (Pbkc)) 21 mg TRANSDERM. DAILY [facility] Last Admin: 11/14/19 10:19 Dose: 21 mg Documented by: Nystatin (Nystatin) 500,000 unit PO 4X/DAY [facility] Last Admin: 11/14/19 10:20 Dose: 500,000 unit Documented by: Nystatin (Mycostatin Powder) 1 applic TOPICAL BID [facility]; Protocol Last Admin: 11/14/19 10:09 Dose: 1 applicatio Documented by: Ondansetron HCl (Zofran) 4 mg IV Q8H PRN PRN PRN Reason: NAUSEA/VOMITING Oxycodone HCl (Oxyir) 5 mg PO Q4H PRN PRN PRN Reason: Pain Score 4-5/10 Last Admin: 11/12/19 19:31 Dose: 5 mg Documented by: Oxycodone HCl (Oxyir) 10 mg PO Q4H PRN PRN PRN Reason: Pain Score 6-10/10 Last Admin: 11/14/19 10:19 Dose: 10 mg Documented by: Pantoprazole Sodium (Protonix) 40 mg PO DAILY [facility] Last Admin: 11/14/19 10:09 Dose: 40 mg Documented by: Senna/Docusate Sodium (Senokot-S, Renetta-Colace) 2 tablet PO BID PRN PRN PRN Reason: Constipation Last Admin: 11/14/19 10:20 Dose: 2 tablet Documented by: Sodium Chloride () 10 - 40 ml IV UD PRN PRN Reason: SALINE FLUSH Last Admin: 11/14/19 05:52 Dose: 10 ml Documented by: Medical Necessity - Tobacco Use Smoking Status: Current every day smoker Tobacco Use: Cigarettes Assessment/Plan All Active Problems Cellulitis of left thigh (Acute) Severe sepsis (Acute) Open wound of right lower quadrant of abdominal wall without penetration into peritoneal cavity (Acute) Open wound of left thigh (Acute) Abscess of abdominal wall (Acute) Abscess of left thigh (Acute) 1. 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 2. Nonhealing diabetic abscess ulcer right lower abdominal wall. 3. Diabetes mellitus. 4. MRSA. 5. Pseudomonas aeroginosa infection. 6. Smoker. 7. Failed outpatient therapy. 8. s/p surgical preparation left medial thigh with incision and drainage and excisional debridement nonhealing necrotizing diabetic ulcer abscess (45 cm2). 9. MRSE. Left medial thigh ulcer is clean and stable. No active bleeding noted. VAC applied today. right lower abdominal wall ulcer is stable with good granulation tissue present. Has VAC. VAC to be changed three times per week at 150 mmHg continuous suction. Operative cultures show Staphylococcus species. Preoperative cultures showed MRSE in both the abdomen and thigh. He is currently on Cleocin IV and Cipro PO. Previous operative cultures from 10/27/19 showed MRSA and Pseudomonas aeroginosa. Prealbumin was 14.5. Encourage nutritional supplementation with protein to help the healing process. WBC is 12.2 (15.5 at admission). Creatinine is less than admission but increased after surgery from 1.38 to 1.46 (2.10 at admission). Patient would benefit from IV antibiotics for a couple of weeks and then reassess at the [facility] about changing to po antibiotics. Encouraged patient to stop smoking as it may have deleterious effects on wound healing.
[2019-11-14] MEDS: Insulin Human 75/25 Kwickpen 50 UNIT SC (13:36)
[2019-11-14 16:21] VITALS: BP 122/78; PULSE 87; RESP 16; TEMP 36.4; O2SAT 96
[2019-11-14 16:46] LABS: Bedside Glucose 170 mg/dL (70-110)
[2019-11-14 21:00] VITALS: BP 131/72; PULSE 97; RESP 16; TEMP 36.5; O2SAT 98
[2019-11-14 22:20] LABS: Bedside Glucose 178 mg/dL (70-110)
[2019-11-15 03:05] VITALS: BP 140/93; PULSE 89; RESP 18; TEMP 36.6; O2SAT 95
[2019-11-15] MEDS: oxyCODONE 5 MG Tablet 10 MG PO ×3 (03:06→20:11)
[2019-11-15] MEDS: Acetaminophen 325 MG Tablet 650 MG PO (03:06)
[2019-11-15 03:11] LABS: Bedside Glucose 146 mg/dL (70-110)
[2019-11-15] MEDS: Gabapentin 100 MG Capsule PO ×3 (05:34→21:32)
[2019-11-15] MEDS: Lactated Ringers 1,000 ML 100 ML IV ×2 (05:35→17:23)
--- NOTE | 2019-11-15 07:15 | PCM.PN.HOSP ---
Patient Problems: Active and Suspected Problems Cellulitis of left thigh (Acute) Severe sepsis (Acute) Reason for Visit: Follow-up left thigh abscess. Subjective: Repeat cultures growing staph species final identification and sensitivities pending. Objective: GENERAL: cooperative HEENT: Atraumatic; EYES; Anicteric, Normal Conjunctiva NECK; supple, normal thyroid, RESPIRATORY: Diminished to auscultation CARDIOVASCULAR: Regular S1 S2, GI: soft, normoactive bowel sounds, : No Renal angle tenderness; EXTREMITIE; wound VAC left thigh MUSCULOSKELETAL: no muscle waisting NEURO: Awake; no lateralizing signs. SKIN: As described above PSYCH; Flat affect Vitals/I&O's: Vital Signs Temp Pulse Resp BP Pulse Ox 97.8 F 89 18 140/93 H 95 11/15/19 03:05 11/15/19 03:05 11/15/19 03:05 11/15/19 03:05 11/15/19 03:05 Oxygen Delivery Method Room Air Weight: 123.1 kg Body Mass Index (BMI) 37.8 Finger Stick Blood Glucose 72 Intake and Output for Last 24 Hours 11/13/19 11/14/19 11/15/19 23:59 23:59 23:59 Intake Total 737.25 / 1087.25 3897.00 / 3897.00 1551 / 1551 Output Total 875 / 1475 3600 / 3600 1999 Balance -137.75 / -387.75 297.00 / 297.00 -449 / -449 Microbiology Past 72 Hours 11/13/19 13:36 Tissue - Leg, Left Gram Stain - Final 11/13/19 13:36 Tissue - Leg, Left Wound Culture - Preliminary Staphylococcus species 11/11/19 12:50 Wound - Abdominal Gram Stain - Final 11/11/19 12:50 Wound - Abdominal Wound Culture - Final Staphylococcus epidermidis 11/11/19 12:50 Wound - Abdominal Anaerobic Culture - Preliminary No anaerobic bacteria isolated. 11/11/19 12:50 Wound - Leg, Left Gram Stain - Final 11/11/19 12:50 Wound - Leg, Left Wound Culture - Final Staphylococcus epidermidis 11/11/19 12:50 Wound - Leg, Left Anaerobic Culture - Preliminary No anaerobic bacteria isolated. 11/10/19 23:45 Blood Culture (Wb) - Right Hand Blood Culture - Preliminary No growth in 48 hours. 11/10/19 23:40 Blood Culture (Wb) - Anticubital Left Blood Culture - Preliminary No growth in 48 hours. Laboratory Results 11/14/19 09:51: POC Glucose 213 H 11/14/19 16:17: POC Glucose 170 H 11/14/19 21:03: POC Glucose 178 H 11/15/19 03:04: POC Glucose 146 H Current Medications Acetaminophen (Tylenol) 650 mg PO Q6H PRN PRN PRN Reason: Pain Score 1-3/Temp > 100.7 F Last Admin: 11/15/19 03:06 Dose: 650 mg Documented by: Amlodipine Besylate (Norvasc) 10 mg PO DAILY [facility] Last Admin: 11/14/19 10:09 Dose: 10 mg Documented by: Aspirin (Ecotrin) 81 mg PO DAILYCM [facility] Last Admin: 11/14/19 10:09 Dose: 81 mg Documented by: Ciprofloxacin HCl (Cipro) 500 mg PO BID [facility] Last Admin: 11/14/19 21:05 Dose: 500 mg Documented by: Diazepam (Valium) 5 mg PO 4X/DAY PRN PRN PRN Reason: SPASMS Duloxetine HCl (Cymbalta) 60 mg PO DAILY [facility] Last Admin: 11/14/19 10:19 Dose: 60 mg Documented by: Enoxaparin Sodium (Lovenox) 40 mg SC DAILY [facility] Last Admin: 11/14/19 10:09 Dose: 40 mg Documented by: Gabapentin (Neurontin) 100 mg PO TID [facility] Last Admin: 11/15/19 05:34 Dose: 100 mg Documented by: Glucagon () 1 mg IM .X1 PRN PRN Reason: Hypoglycemia Hydromorphone HCl (Dilaudid Inj) 1 mg IV Q4H PRN PRN PRN Reason: Pain Score 6-10/10 Sodium Chloride () 250 mls @ 15 mls/hr IV .[id number] PRN PRN Reason: Saline Flush Last Infusion: 11/14/19 20:52 Dose: Infused Documented by: Sodium Chloride () 250 mls @ 15 mls/hr IV .[id number] PRN PRN Reason: Additional IVPB Infusion Dextrose (Dextrose 10%-Water) 250 mls @ 999 mls/hr IV .Q16M PRN; Protocol PRN Reason: HYPOGLYCEMIA Clindamycin Phosphate 900 mg/ (Dextrose) 106 mls @ 150 mls/hr IV Q8 [facility] Last Infusion: 11/15/19 06:17 Dose: Infused Documented by: Lactated Ringer's () 1,000 mls @ 100 mls/hr IV .Q10H [facility] Last Infusion: 11/15/19 06:17 Dose: 100 mls/hr Documented by: Insulin Human Lispro (Humalog Kwikpen (Bkc)) 4 unit SC 0700 [facility] Last Admin: 11/14/19 10:10 Dose: 4 units Documented by: Insulin Human Lispro (Humalog Kwikpen (Bkc)) 4 unit SC 1600 [facility] Last Admin: 11/14/19 16:23 Dose: 4 u Documented by: Insulin Human Lispro (Humalog Kwikpen (Bkc)) 4 unit SC 1100 [facility] Last Admin: 11/14/19 13:35 Dose: Not Given Documented by: Insulin Human Lispro (Humalog Kwikpen (Bkc)) 0 unit SC ACHS & 3AM [facility]; Protocol Last Admin: 11/15/19 03:07 Dose: Not Given Documented by: Insulin Lispro Protam/Lispro Human (Humalog Mix 75-25 Kwikpen (Bkc)) 50 unit SC BID@0700,1600 [facility] Last Admin: 11/14/19 16:22 Dose: Not Given Documented by: Melatonin (Melatonin) 3 mg PO QHS PRN PRN PRN Reason: INSOMNIA Nicotine (Nicoderm Cq (Pbkc)) 21 mg TRANSDERM. DAILY [facility] Last Admin: 11/14/19 10:19 Dose: 21 mg Documented by: Nystatin (Nystatin) 500,000 unit PO 4X/DAY [facility] Last Admin: 11/14/19 21:05 Dose: 500,000 unit Documented by: Nystatin (Mycostatin Powder) 1 applic TOPICAL BID [facility]; Protocol Last Admin: 11/14/19 21:06 Dose: 1 applicatio Documented by: Ondansetron HCl (Zofran) 4 mg IV Q8H PRN PRN PRN Reason: NAUSEA/VOMITING Oxycodone HCl (Oxyir) 5 mg PO Q4H PRN PRN PRN Reason: Pain Score 4-5/10 Last Admin: 11/12/19 19:31 Dose: 5 mg Documented by: Oxycodone HCl (Oxyir) 10 mg PO Q4H PRN PRN PRN Reason: Pain Score 6-10/10 Last Admin: 11/15/19 03:06 Dose: 10 mg Documented by: Pantoprazole Sodium (Protonix) 40 mg PO DAILY [facility] Last Admin: 11/14/19 10:09 Dose: 40 mg Documented by: Senna/Docusate Sodium (Senokot-S, Renetta-Colace) 2 tablet PO BID PRN PRN PRN Reason: Constipation Last Admin: 11/14/19 10:20 Dose: 2 tablet Documented by: Sodium Chloride () 10 - 40 ml IV UD PRN PRN Reason: SALINE FLUSH Last Admin: 11/14/19 05:52 Dose: 10 ml Documented by: Medical Necessity - Tobacco Use Smoking Status: Current every day smoker Tobacco Use: Cigarettes Assessment/Plan All Active Problems Cellulitis of left thigh (Acute) Severe sepsis (Acute) Open wound of right lower quadrant of abdominal wall without penetration into peritoneal cavity (Acute) Open wound of left thigh (Acute) Abscess of abdominal wall (Acute) Abscess of left thigh (Acute) Patient is a 58-year-old gentleman who underwent incision and drainage with subsequent application of a wound VAC on 10/28/[address] Lopez discharged on oral antibiotics. Patient presented back to the emergency department with pain swelling and erythema below the site of the insertion of the wound VAC. An assessment of severe sepsis secondary to recurrent abscess made admitted to regular nursing floor for subsequent management 1. Sepsis secondary to recurrent left thigh abscess ?Initially admitted to the intensive care unit managed per protocol with IV fluid resuscitation, broad-spectrum antibiotic therapy and serial monitoring of lactic acid level ?11/12/2019; subsequent management as discussed below 2. Left thigh abscess Patient started on Zyvox and cefepime. Consult placed to Dr. Lopez who did perform the original incision and drainage. 11/12/2019; CT of the lower extremity obtained the day prior demonstrated Operative changes of the medial thigh without focal fluid collection. No destructive bony process. He was also seen in consultation by Dr. Lopez his note and recommendations reviewed. Wound cultures were sent Following removal of wound VAC. ?11/13/2019; patient antibiotic therapy was adjusted on 11/12/2019) cefepime and linezolid discontinued started on Clinda and Cipro) by Dr. Whitt. He was also seen again by Dr. Lopez plans for patient to undergo further debridement of his left thigh wound. ?11/14/2019.Patient underwent surgical preparation left medial thigh with incision and drainage and excisional debridement nonhealing necrotizing diabetic ulcer abscess (45 cm2) Dr. Lopez on 11/13/2019. Repeat cultures sent results pending.. 11/15/2026: Patient cultures growing staph species final identification and sensitivities pending. Infectious disease to determine discharge antibiotics on 11/16/2019. 3. Status post incision and drainage of a left thigh and anterior abdominal wall abscess on 10/28/2019 Patient was discharged home on doxycycline as well as Omnicef after a wound VAC was applied ?11/12/2019; wound VAC was removed on 11/11/2019 4. Diabetes mellitus type II ~Complications including diabetic nephropathy patient's oral hypoglycemics held. Placed on long acting insulin, Accu-Cheks a.c. and at bedtime and covered with sliding scale insulin 5. Diabetic nephropathy (chronic kidney disease stage III) with baseline creatinine of 1.5 ~Creatinine on admission was 2.10. Patient started on IV fluids with subsequent monitoring of electrolyte 6. Acute kidney injury ~Plan imposed on chronic kidney disease. Creatinine on admission was 2.10 management is as discussed above 7. Hypertension ~ blood pressure controlled, home medications continued with dose adjustment as needed 8. Obesity with BMI of 37.9 ~Weight loss advised. 9. Diabetic polyneuropathy Patient is on gabapentin as well as Cymbalta did continue 10. GERD ?Patient is on PPI 12. DVT prophylaxis ~ on enoxaparin Code Visit Inpatient E&M: 60100 Subs Hosp L2
[2019-11-15 07:40] VITALS: PULSE 100
[2019-11-15 07:44] VITALS: O2SAT 95
[2019-11-15] MEDS: Insulin Lispro 100 UNIT/ML INSULN.PEN SC ×6 (07:44→21:35)
[2019-11-15 07:50] LABS: Bedside Glucose 116 mg/dL (70-110)
[2019-11-15] MEDS: Insulin Human 75/25 Kwickpen 50 UNIT SC ×2 (10:07→17:28)
[2019-11-15] MEDS: Aspirin E.C. 81 MG Tablet PO (10:08)
[2019-11-15] MEDS: Ciprofloxacin 500 MG Tablet PO ×2 (10:08→21:32)
[2019-11-15] MEDS: NYSTATIN 500,000 UNIT/5 ML UDC 500000 UNIT PO ×4 (10:09→21:32)
[2019-11-15] MEDS: amLODIPine 10 MG Tablet PO (10:09)
[2019-11-15] MEDS: Enoxaparin 40 MG/0.4 ML Syringe SC (10:10)
[2019-11-15] MEDS: Nystatin Powder 15gm Bottle 1 APPLIC TOPICAL ×2 (10:10→21:32)
[2019-11-15 10:15] LABS: Bedside Glucose 239 mg/dL (70-110)
[2019-11-15] MEDS: DULoxetine Hcl 60 MG Capsule PO (10:17)
[2019-11-15] MEDS: Pantoprazole Sodium 40 MG Tablet PO (10:17)
[2019-11-15 10:18] VITALS: BP 132/73; PULSE 97; RESP 16; TEMP 36.9; O2SAT 95
[2019-11-15 12:10] LABS: Bedside Glucose 165 mg/dL (70-110)
[2019-11-15 14:04] VITALS: BP 131/96; PULSE 97; RESP 18; TEMP 36.6; O2SAT 97
[2019-11-15 15:56] LABS: Bedside Glucose 171 mg/dL (70-110)
[2019-11-15 20:05] VITALS: BP 125/82; PULSE 104; RESP 18; TEMP 37.1; O2SAT 96
[2019-11-15 22:05] LABS: Bedside Glucose 159 mg/dL (70-110)
[2019-11-16 01:59] VITALS: BP 134/75; PULSE 101; RESP 18; TEMP 37.1; O2SAT 95
[2019-11-16] MEDS: Insulin Lispro 100 UNIT/ML INSULN.PEN SC ×2 (02:06→06:52)
[2019-11-16] MEDS: oxyCODONE 5 MG Tablet 10 MG PO ×2 (02:07→17:16)
[2019-11-16] MEDS: Lactated Ringers 1,000 ML 100 ML IV (04:03)
[2019-11-16] MEDS: Gabapentin 100 MG Capsule PO ×2 (05:29→14:10)
[2019-11-16 05:31] LABS: Bedside Glucose 264 mg/dL (70-110)
[2019-11-16 06:06] LABS: Anion Gap 3 (5-15); BUN 21 mg/dL (7-18); BUN/Creat Ratio 16.4 RATIO (10-20); Calcium,Total 8.6 mg/dL (8.5-10.1); Chloride 103 mmol/L (98-107); Creatinine, Serum 1.28 mg/dL (0.70-1.30); EST Glomerular Filtration Rate 61 mL/min (>60); Est Glom Filt Rate - Afr Amer 74 mL/min (>60); Estimated Creatinine Clearance 67.82 ml/min; Glucose 161 mg/dL (74-106); Potassium 4.2 mmol/L (3.5-5.1); Sodium Level 135 mmol/L (136-145)
[2019-11-16] MEDS: Insulin Human 75/25 Kwickpen 50 UNIT SC (06:50)
[2019-11-16 07:05] LABS: Bedside Glucose 125 mg/dL (70-110)
[2019-11-16 08:51] VITALS: BP 143/92; PULSE 97; RESP 18; TEMP 36.6; O2SAT 98
[2019-11-16] MEDS: Enoxaparin 40 MG/0.4 ML Syringe SC (10:07)
[2019-11-16] MEDS: Pantoprazole Sodium 40 MG Tablet PO (10:07)
[2019-11-16] MEDS: Aspirin E.C. 81 MG Tablet PO (10:07)
[2019-11-16] MEDS: amLODIPine 10 MG Tablet PO (10:07)
[2019-11-16] MEDS: DULoxetine Hcl 60 MG Capsule PO (10:07)
[2019-11-16] MEDS: Ciprofloxacin 500 MG Tablet PO (10:07)
[2019-11-16] MEDS: NYSTATIN 500,000 UNIT/5 ML UDC 500000 UNIT PO ×2 (10:07→14:10)
[2019-11-16] MEDS: Nystatin Powder 15gm Bottle 1 APPLIC TOPICAL (10:08)
[2019-11-16 12:00] LABS: Bedside Glucose 125 mg/dL (70-110)
[2019-11-16 14:14] VITALS: BP 151/99; PULSE 108; RESP 18; TEMP 36.8; O2SAT 97
--- NOTE | 2019-11-16 14:41 | PCM.DC ---
- Discharge Diagnoses Current Active Problems: Current Active and Chronic Problems Cellulitis of left thigh (Acute) Severe sepsis (Acute) You will use the following diet at home:: Calorie/Carbohydrate Controlled (specify 1200, 1400, etc) - 1800 JANA., Cardiac Your food should be the consistency of: Regular Discharge Activity: Return to Normal Activity Weight Bearing Status: Weight bearing as tolerated Call your doctor if your incision/area has: Sudden Increased Bleeding, Increased Pain/ Swelling Call your doctor if you observe: Fever of 101 or Higher, Shortness of breath, Dizziness, Fainting spells, Chest pain, Increased palpitations (irregular heartbeat), Uncontrolled pain Allergies/Adverse Reactions: Allergies No Known Allergies Allergy (Verified 11/10/19 23:13) Medications to take at Discharge Amlodipine [Norvasc] 10 mg PO DAILY 10/26/19 Aspirin [Aspirin EC] 81 mg PO DAILY 10/26/19 Duloxetine Hcl [Cymbalta] 60 mg PO DAILY 10/26/19 Gabapentin [Neurontin] 300 mg PO TID 10/26/19 Insulin NPH Hum/Reg Insulin Hm [Humulin 70/30 Kwikpen] 50 unit SQ BID 10/26/19 Lisinopril 20 mg PO BID 10/26/19 Omeprazole 40 mg PO DAILY 10/26/19 Diazepam [Valium] 5 mg PO 4X/DAY PRN PRN #30 tab 10/29/19 Oxycodone HCl/Acetaminophen [Oxycodone-Acetaminophen 5-325] 1 ea PO BID PRN PRN 11/10/19 Nystatin 1 dose PO DAILY 11/11/19 Clindamycin [Cleocin] 450 mg PO TID #60 cap 11/16/19 Clindamycin [Cleocin] 450 mg PO TID #60 cap 11/16/19 Lactobacillus Acidophilus [Acidophilus] 1 tab PO BID #30 tab 11/16/19 The following prescriptions were given: Lactobacillus Acidophilus [Acidophilus] 1 tab PO BID #30 tab Transmission Status: Pending to [id number] Clindamycin [Cleocin] 450 mg PO TID #60 cap Transmission Status: Received by [id number] Clindamycin [Cleocin] 450 mg PO TID #60 cap Transmission Status: Pending to [id number] Primary Care Physician: Didier Longoria DO [Primary Care Provider] - Please follow up with your Primary Care Physician in: 1 WEEK. Test Results: Test results from this visit will be discussed in further detail at your follow-up appointment, if applicable. Please Follow Up With: Fredi Lopez MD When: 2 weeks as scheduled.
--- NOTE | 2019-11-16 14:48 | DS.PCM_ITS ---
Discharge Date and Diagnosis Date of Admission: 11/11/19 Date of Discharge: 11/16/19 - Primary Discharge Diagnosis Active and Suspected Problems #1 staph epidermidis nonhealing diabetic ulcer/abscess of the left medial thigh status post incision, drainage and excisional debridement, status post wound VAC insertion. #2 sepsis. - Secondary Discharge Diagnosis Chronic Problems Chronic ulcer of left thigh with fat layer exposed (Chronic) Smoker (Chronic) Diabetes (Chronic) Obesity (Chronic) Nicotine abuse (Chronic) HTN (hypertension) (Chronic) Hospital Course and Treatment Imaging Results: Clinical Impression(s) from Imaging Studies Lower Extremity CT 11/11/19 13:03 IMPRESSION: 1. Operative changes of the medial thigh without focal fluid collection. No destructive bony process. 2. Varicose veins. 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 Lopez, plastic surgery. Operations: - - Incision, drainage and excisional debridement of left medial thigh nonhealing diabetic ulcer/abscess. Procedures: None Summary of Care Provided: Patient seen and examined on the day of discharge and appeared to be stable to be discharged home with home health. He reported mild ache at the left thigh because of the wound VAC. He has been afebrile, his vital signs are stable. The patient is a 58 year old M patient presented to the emergency room because of redness and swelling of the left medial thigh and he was found to have nonhealing diabetic left medial thigh wound/ulcer with abscess. Patient had left medial thigh wound infection for which she underwent incision and drainage on October 2019, placed on wound VAC and he was discharged on Levaquin and Augmentin. Patient completed antibiotics. He came back to the emergency room because of increasing left thigh wound redness and erythema as well as swelling. He was found to have sepsis based on tachycardia, leukocytosis with evidence of infection. Patient was treated with IV antibiotics namely IV Zyvox and cefepime. Plastic surgery consulted and patient underwent incision, drainage and excisional debridement of nonhealing diabetic left medial thigh abscess/ulcer. Wound culture revealed staph epidermidis. Blood culture reveale d no growth in 5 days. With IV antibiotic therapy, patient remained afebrile for more than 48 hours and WBC went back to normal. Wound VAC inserted and patient did very well. Patient discharged home with home health in a stable medical condition, discharged on clindamycin 450 mg p.o. 3 times daily for 2 weeks according to infectious disease recommendations, continued on his previous home medications without any changes, discharged on probiotic to decrease the risk of C. difficile colitis, plan to follow-up with Dr. Lopez in 2 weeks, recommended follow-up with PCP in 1 week. - Physical Exam Vitals/I&O's: Vital Signs Temp Pulse Resp BP Pulse Ox 98.3 F 108 H 18 151/99 H 97 11/16/19 14:14 11/16/19 14:14 11/16/19 14:14 11/16/19 14:14 11/16/19 14:14 Oxygen Delivery Method Nasal Cannula Weight: 271 lb 6.224 oz Body Mass Index (BMI) 37.8 Finger Stick Blood Glucose 72 Intake and Output for Last 24 Hours 11/14/19 11/15/19 11/16/19 23:59 23:59 23:59 Intake Total 3897.00 / 3897.00 3173.00 / 3773.00 2239.33 / 2239.33 Output Total 3600 / 3600 2900 / 3300 2049 / 2049 Balance 297.00 / 297.00 273.00 / 473.00 189.33 / 189.33 General: Alert, Oriented x3, Cooperative, No apparent distress HEENT: Atraumatic, PERRLA, EOMI, Normocephalic Oral: Moist Mucosa, No Gingival or Mucosal Lesions/ Ulcerations Neck: Supple, No JVD, Negative Carotid Bruits, Trachea Midline, Thyroid Normal Size and Texture Lungs: Clear to auscultation, Normal air movement, No rhonchi, No wheeze, No rales, Diminished Cardiovascular: Regular rate, Regular Rhythm, Normal S1, Normal S2 Abdomen: Bowel Sounds Present, Soft, Non Tender, Non-Distended, No Hepato- splenomegaly, Obese Extremities: No clubbing, No cyanosis, No edema Skin: No rashes, Ulcer/ Wound - Left medial thigh wound, wound VAC in place. Lymphatic: No Cervical, Supraclavicular, or Inguinal Adenopathy Neurological: Cranial nerves II-XII grossly intact, Neuro grossly intact Psych/Mental Status: Normal Affect, Appropriate Microbiology Past 72 Hours 11/13/19 13:36 Tissue - Leg, Left Gram Stain - Final 11/13/19 13:36 Tissue - Leg, Left Wound Culture - Final Staphylococcus epidermidis 11/13/19 13:36 Tissue - Leg, Left Anaerobic Culture - Preliminary No anaerobic bacteria isolated. 11/10/19 23:45 Blood Culture (Wb) - Right Hand Blood Culture - Final No growth in 5 days. 11/10/19 23:40 Blood Culture (Wb) - Anticubital Left Blood Culture - Final No growth in 5 days. 11/11/19 12:50 Wound - Leg, Left Gram Stain - Final 11/11/19 12:50 Wound - Leg, Left Wound Culture - Final Staphylococcus epidermidis 11/11/19 12:50 Wound - Leg, Left Anaerobic Culture - Final No anaerobic bacteria isolated. 11/11/19 12:50 Wound - Abdominal Gram Stain - Final 11/11/19 12:50 Wound - Abdominal Wound Culture - Final Staphylococcus epidermidis 11/11/19 12:50 Wound - Abdominal Anaerobic Culture - Final No anaerobic bacteria isolated. Laboratory Results 11/15/19 15:45: POC Glucose 171 H 11/15/19 21:34: POC Glucose 159 H 11/16/19 02:01: POC Glucose 264 H 11/16/19 05:32: Sodium 135 L, Potassium 4.2, Chloride 103, Carbon Dioxide 29.0, Anion Gap 3 L, BUN 21 H, Creatinine 1.28, Estim Creat Clear Calc 67.82, Est GFR (MDRD) Af Amer 74, Est GFR (MDRD) Non-Af 61, BUN/Creatinine Ratio 16.4, Glucose 161 H, Calcium 8.6 11/16/19 06:48: POC Glucose 125 H 11/16/19 11:52: POC Glucose 125 H Current Medications Acetaminophen (Tylenol) 650 mg PO Q6H PRN PRN PRN Reason: Pain Score 1-3/Temp > 100.7 F Last Admin: 11/15/19 03:06 Dose: 650 mg Documented by: Amlodipine Besylate (Norvasc) 10 mg PO DAILY [facility] Last Admin: 11/16/19 10:07 Dose: 10 mg Documented by: Aspirin (Ecotrin) 81 mg PO DAILYCM [facility] Last Admin: 11/16/19 10:07 Dose: 81 mg Documented by: Ciprofloxacin HCl (Cipro) 500 mg PO BID [facility] Last Admin: 11/16/19 10:07 Dose: 500 mg Documented by: Diazepam (Valium) 5 mg PO 4X/DAY PRN PRN PRN Reason: SPASMS Duloxetine HCl (Cymbalta) 60 mg PO DAILY [facility] Last Admin: 11/16/19 10:07 Dose: 60 mg Documented by: Enoxaparin Sodium (Lovenox) 40 mg SC DAILY [facility] Last Admin: 11/16/19 10:07 Dose: 40 mg Documented by: Gabapentin (Neurontin) 100 mg PO TID [facility] Last Admin: 11/16/19 14:10 Dose: 100 mg Documented by: Glucagon () 1 mg IM .X1 PRN PRN Reason: Hypoglycemia Hydromorphone HCl (Dilaudid Inj) 1 mg IV Q4H PRN PRN PRN Reason: Pain Score 6-10/10 Sodium Chloride () 250 mls @ 15 mls/hr IV .[id number] PRN PRN Reason: Saline Flush Last Infusion: 11/14/19 20:52 Dose: Infused Documented by: Sodium Chloride () 250 mls @ 15 mls/hr IV .[id number] PRN PRN Reason: Additional IVPB Infusion Dextrose (Dextrose 10%-Water) 250 mls @ 999 mls/hr IV .Q16M PRN; Protocol PRN Reason: HYPOGLYCEMIA Clindamycin Phosphate 900 mg/ (Dextrose) 106 mls @ 150 mls/hr IV Q8 [facility] Last Admin: 11/16/19 14:10 Dose: 150 mls/hr Documented by: Lactated Ringer's () 1,000 mls @ 100 mls/hr IV .Q10H [facility] Last Infusion: 11/16/19 10:26 Dose: 100 mls/hr Documented by: Insulin Human Lispro (Humalog Kwikpen (Bkc)) 4 unit SC 0700 [facility] Last Admin: 11/16/19 06:52 Dose: 4 units Documented by: Insulin Human Lispro (Humalog Kwikpen (Bkc)) 4 unit SC 1600 [facility] Last Admin: 11/15/19 17:26 Dose: 4 u Documented by: Insulin Human Lispro (Humalog Kwikpen (Bkc)) 4 unit SC 1100 [facility] Last Admin: 11/15/19 12:46 Dose: 4 u Documented by: Insulin Human Lispro (Humalog Kwikpen (Bk)) 0 unit SC ACHS & 3AM [facility]; Protocol Last Admin: 11/16/19 12:40 Dose: Not Given Documented by: Insulin Lispro Protam/Lispro Human (Humalog Mix 75-25 Kwikpen ([facility])) 50 unit SC BID@0700,1600 [facility] Last Admin: 11/16/19 06:50 Dose: 50 u Documented by: Melatonin (Melatonin) 3 mg PO QHS PRN PRN PRN Reason: INSOMNIA Nicotine (Nicoderm Cq ([facility])) 21 mg TRANSDERM. DAILY [facility] Last Admin: 11/16/19 10:07 Dose: 21 mg Documented by: Nystatin (Nystatin) 500,000 unit PO 4X/DAY [facility] Last Admin: 11/16/19 14:10 Dose: 500,000 unit Documented by: Nystatin (Mycostatin Powder) 1 applic TOPICAL BID [facility]; Protocol Last Admin: 11/16/19 10:08 Dose: 1 applicatio Documented by: Ondansetron HCl (Zofran) 4 mg IV Q8H PRN PRN PRN Reason: NAUSEA/VOMITING Oxycodone HCl (Oxyir) 5 mg PO Q4H PRN PRN PRN Reason: Pain Score 4-5/10 Last Admin: 11/12/19 19:31 Dose: 5 mg Documented by: Oxycodone HCl (Oxyir) 10 mg PO Q4H PRN PRN PRN Reason: Pain Score 6-10/10 Last Admin: 11/16/19 02:07 Dose: 10 mg Documented by: Pantoprazole Sodium (Protonix) 40 mg PO DAILY [facility] Last Admin: 11/16/19 10:07 Dose: 40 mg Documented by: Senna/Docusate Sodium (Senokot-S, Renetta-Colace) 2 tablet PO BID PRN PRN PRN Reason: Constipation Last Admin: 11/14/19 10:20 Dose: 2 tablet Documented by: Sodium Chloride () 10 - 40 ml IV UD PRN PRN Reason: SALINE FLUSH Last Admin: 11/14/19 05:52 Dose: 10 ml Documented by: Discharge Activity: Return to Normal Activity Weight Bearing Status: Weight bearing as tolerated Call your doctor if your incision/area has: Sudden Increased Bleeding, Increased Pain/ Swelling Call your doctor if you observe: Fever of 101 or Higher, Shortness of breath, Dizziness, Fainting spells, Chest pain, Increased palpitations (irregular heartbeat), Uncontrolled pain Home Medications: Medications to take at Discharge Amlodipine [Norvasc] 10 mg PO DAILY 10/26/19 Aspirin [Aspirin EC] 81 mg PO DAILY 10/26/19 Duloxetine Hcl [Cymbalta] 60 mg PO DAILY 10/26/19 Gabapentin [Neurontin] 300 mg PO TID 10/26/19 Insulin NPH Hum/Reg Insulin Hm [Humulin 70/30 Kwikpen] 50 unit SQ BID 10/26/19 Lisinopril 20 mg PO BID 10/26/19 Omeprazole 40 mg PO DAILY 10/26/19 Diazepam [Valium] 5 mg PO 4X/DAY PRN PRN #30 tab 10/29/19 Oxycodone HCl/Acetaminophen [Oxycodone-Acetaminophen 5-325] 1 ea PO BID PRN PRN 11/10/19 Nystatin 1 dose PO DAILY 11/11/19 Clindamycin [Cleocin] 450 mg PO TID #60 cap 11/16/19 Clindamycin [Cleocin] 450 mg PO TID #60 cap 11/16/19 Lactobacillus Acidophilus [Acidophilus] 1 tab PO BID #30 tab 11/16/19 Following Prescrptions Were Given to Patient: Lactobacillus Acidophilus [Acidophilus] 1 tab PO BID #30 tab Transmission Status: Received by [id number] Clindamycin [Cleocin] 450 mg PO TID #60 cap Transmission Status: Received by [facility] 181 Clindamycin [Cleocin] 450 mg PO TID #60 cap Transmission Status: Received by [facility] [id number] Primary Care Physician: Didier Longoria DO [Primary Care Provider] - Please follow up with your Primary Care Physician in: 1 WEEK. Please Follow Up With: Fredi Lopez MD When: 2 weeks as scheduled. Disposition: Home with Home Health Minutes spent on discharge:: 33 Patient Condition:: Stable Medical Necessity - Tobacco Use Smoking Status: Current every day smoker Tobacco Use: Cigarettes Meaningful Use Info Meaningful Use Diagnoses (Choose all that apply): None applicable Code Visit Inpatient E&M: 23686 Disch Hosp
--- NOTE | 2019-11-16 14:50 | PN.ID_ITS ---
Patient Problems: Active and Suspected Problems Cellulitis of left thigh (Acute) Severe sepsis (Acute) Subjective: No fever, no n/v/d. Pain controlled, wound vac in place. - Physical Exam Vitals/I&O's: Vital Signs Temp Pulse Resp BP Pulse Ox 98.3 F 108 H 18 151/99 H 97 11/16/19 14:14 11/16/19 14:14 11/16/19 14:14 11/16/19 14:14 11/16/19 14:14 Oxygen Delivery Method Nasal Cannula Weight: 123.1 kg Body Mass Index (BMI) 37.8 Finger Stick Blood Glucose 72 Intake and Output for Last 24 Hours 11/14/19 11/15/19 11/16/19 23:59 23:59 23:59 Intake Total 3897.00 / 3897.00 3173.00 / 3773.00 2239.33 / 2239.33 Output Total 3600 / 3600 2900 / 3300 2050 / 2050 Balance 297.00 / 297.00 273.00 / 473.00 189.33 / 189.33 General: Alert, Cooperative, No apparent distress Lungs: Clear to auscultation, Normal air movement Cardiovascular: Regular rate, Regular Rhythm Abdomen: Soft, Non Tender, Non-Distended Skin: Ulcer/ Wound - reviewed photo Microbiology Past 72 Hours 11/13/19 13:36 Tissue - Leg, Left Gram Stain - Final 11/13/19 13:36 Tissue - Leg, Left Wound Culture - Final Staphylococcus epidermidis 11/13/19 13:36 Tissue - Leg, Left Anaerobic Culture - Preliminary No anaerobic bacteria isolated. 11/10/19 23:45 Blood Culture (Wb) - Right Hand Blood Culture - Final No growth in 5 days. 11/10/19 23:40 Blood Culture (Wb) - Anticubital Left Blood Culture - Final No growth in 5 days. 11/11/19 12:50 Wound - Leg, Left Gram Stain - Final 11/11/19 12:50 Wound - Leg, Left Wound Culture - Final Staphylococcus epidermidis 11/11/19 12:50 Wound - Leg, Left Anaerobic Culture - Final No anaerobic bacteria isolated. 11/11/19 12:50 Wound - Abdominal Gram Stain - Final 11/11/19 12:50 Wound - Abdominal Wound Culture - Final Staphylococcus epidermidis 11/11/19 12:50 Wound - Abdominal Anaerobic Culture - Final No anaerobic bacteria isolated. Laboratory Results 11/15/19 15:45: POC Glucose 171 H 11/15/19 21:34: POC Glucose 159 H 11/16/19 02:01: POC Glucose 264 H 11/16/19 05:32: Sodium 135 L, Potassium 4.2, Chloride 103, Carbon Dioxide 29.0, Anion Gap 3 L, BUN 21 H, Creatinine 1.28, Estim Creat Clear Calc 67.82, Est GFR (MDRD) Af Amer 74, Est GFR (MDRD) Non-Af 61, BUN/Creatinine Ratio 16.4, Glucose 161 H, Calcium 8.6 11/16/19 06:48: POC Glucose 125 H 11/16/19 11:52: POC Glucose 125 H Current Medications Acetaminophen (Tylenol) 650 mg PO Q6H PRN PRN PRN Reason: Pain Score 1-3/Temp > 100.7 F Last Admin: 11/15/19 03:06 Dose: 650 mg Documented by: Amlodipine Besylate (Norvasc) 10 mg PO DAILY [facility] Last Admin: 11/16/19 10:07 Dose: 10 mg Documented by: Aspirin (Ecotrin) 81 mg PO DAILYCM [facility] Last Admin: 11/16/19 10:07 Dose: 81 mg Documented by: Ciprofloxacin HCl (Cipro) 500 mg PO BID [facility] Last Admin: 11/16/19 10:07 Dose: 500 mg Documented by: Diazepam (Valium) 5 mg PO 4X/DAY PRN PRN PRN Reason: SPASMS Duloxetine HCl (Cymbalta) 60 mg PO DAILY [facility] Last Admin: 11/16/19 10:07 Dose: 60 mg Documented by: Enoxaparin Sodium (Lovenox) 40 mg SC DAILY [facility] Last Admin: 11/16/19 10:07 Dose: 40 mg Documented by: Gabapentin (Neurontin) 100 mg PO TID [facility] Last Admin: 11/16/19 14:10 Dose: 100 mg Documented by: Glucagon () 1 mg IM .X1 PRN PRN Reason: Hypoglycemia Hydromorphone HCl (Dilaudid Inj) 1 mg IV Q4H PRN PRN PRN Reason: Pain Score 6-10/10 Sodium Chloride () 250 mls @ 15 mls/hr IV .[id number] PRN PRN Reason: Saline Flush Last Infusion: 11/14/19 20:52 Dose: Infused Documented by: Sodium Chloride () 250 mls @ 15 mls/hr IV .[id number] PRN PRN Reason: Additional IVPB Infusion Dextrose (Dextrose 10%-Water) 250 mls @ 999 mls/hr IV .Q16M PRN; Protocol PRN Reason: HYPOGLYCEMIA Clindamycin Phosphate 900 mg/ (Dextrose) 106 mls @ 150 mls/hr IV Q8 [facility] Last Admin: 11/16/19 14:10 Dose: 150 mls/hr Documented by: Lactated Ringer's () 1,000 mls @ 100 mls/hr IV .Q10H [facility] Last Infusion: 11/16/19 10:26 Dose: 100 mls/hr Documented by: Insulin Human Lispro (Humalog Kwikpen ([facility])) 4 unit SC 0700 [facility] Last Admin: 11/16/19 06:52 Dose: 4 units Documented by: Insulin Human Lispro (Humalog Kwikpen ([facility])) 4 unit SC 1600 [facility] Last Admin: 11/15/19 17:26 Dose: 4 u Documented by: Insulin Human Lispro (Humalog Kwikpen ([facility])) 4 unit SC 1100 [facility] Last Admin: 11/15/19 12:46 Dose: 4 u Documented by: Insulin Human Lispro (Humalog Kwikpen ([facility])) 0 unit SC ACHS & 3AM [facility]; Protocol Last Admin: 11/16/19 12:40 Dose: Not Given Documented by: Insulin Lispro Protam/Lispro Human (Humalog Mix 75-25 Kwikpen ([facility])) 50 unit SC BID@0700,1600 [facility] Last Admin: 11/16/19 06:50 Dose: 50 u Documented by: Melatonin (Melatonin) 3 mg PO QHS PRN PRN PRN Reason: INSOMNIA Nicotine (Nicoderm Cq ([facility])) 21 mg TRANSDERM. DAILY [facility] Last Admin: 11/16/19 10:07 Dose: 21 mg Documented by: Nystatin (Nystatin) 500,000 unit PO 4X/DAY [facility] Last Admin: 11/16/19 14:10 Dose: 500,000 unit Documented by: Nystatin (Mycostatin Powder) 1 applic TOPICAL BID [facility]; Protocol Last Admin: 11/16/19 10:08 Dose: 1 applicatio Documented by: Ondansetron HCl (Zofran) 4 mg IV Q8H PRN PRN PRN Reason: NAUSEA/VOMITING Oxycodone HCl (Oxyir) 5 mg PO Q4H PRN PRN PRN Reason: Pain Score 4-5/10 Last Admin: 11/12/19 19:31 Dose: 5 mg Documented by: Oxycodone HCl (Oxyir) 10 mg PO Q4H PRN PRN PRN Reason: Pain Score 6-10/10 Last Admin: 11/16/19 02:07 Dose: 10 mg Documented by: Pantoprazole Sodium (Protonix) 40 mg PO DAILY [facility] Last Admin: 11/16/19 10:07 Dose: 40 mg Documented by: Senna/Docusate Sodium (Senokot-S, Renetta-Colace) 2 tablet PO BID PRN PRN PRN Reason: Constipation Last Admin: 11/14/19 10:20 Dose: 2 tablet Documented by: Sodium Chloride () 10 - 40 ml IV UD PRN PRN Reason: SALINE FLUSH Last Admin: 11/14/19 05:52 Dose: 10 ml Documented by: Medical Necessity - Tobacco Use Smoking Status: Current every day smoker Tobacco Use: Cigarettes Route of nutrition/ use of supplements: [] Nutritional Intake: [] IV Site: [] Fleming Catheter: [] - Assessment/Plan Antibiotics: [] Assessment/Plan: [] Active and Suspected Problems Cellulitis of left thigh (Acute) Severe sepsis (Acute) infected L thigh wound - surg cx with staph epi, R to doxy. On clinda and cipro. Had prior growth of MRSA and PsA. Ok for d/c home on po clinda for 2 week course, plan on followup with Dr. Lopez. Will follow, d/w Dr. Black.
[2019-11-16] MEDS: 0.9% Saline Lock 10 ML Syringe IV (15:45)
--- NOTE | 2019-11-16 15:45 | CASEMGMT ---
Patient discharging home today with resumption of HHC with [facility] for wound vac dressing changes. Per wound nurse, next vac change due tomorrow 11/17/19. KIRK ATKINSON faxed discharge instructions and resumption order to [facility]. KIRK ATKINSON updated patient regarding resumption of HHC with [facility]
--- NOTE | 2019-11-16 15:46 | PCM.PN.SRG ---
Patient Problems: Active and Suspected Problems Cellulitis of left thigh (Acute) Severe sepsis (Acute) Subjective: Postop #3 and #20 Patient is resting comfortably. - Physical Exam Vitals/I&O's: Vital Signs Temp Pulse Resp BP Pulse Ox 98.3 F 108 H 18 151/99 H 97 11/16/19 14:14 11/16/19 14:14 11/16/19 14:14 11/16/19 14:14 11/16/19 14:14 Oxygen Delivery Method Nasal Cannula Weight: 271 lb 6.224 oz Body Mass Index (BMI) 37.8 Finger Stick Blood Glucose 72 Intake and Output for Last 24 Hours 11/14/19 11/15/19 11/16/19 23:59 23:59 23:59 Intake Total 3897.00 / 3897.00 3173.00 / 3773.00 2239.33 / 2239.33 Output Total 3600 / 3600 2900 / 3300 2050 / 2050 Balance 297.00 / 297.00 273.00 / 473.00 189.33 / 189.33 General: Alert, Oriented x3 HEENT: PERRLA, EOMI Oral: Moist Mucosa Neck: Supple Abdomen: Soft, Non-Distended Skin: Ulcer/ Wound - Left medial thigh wound is stable. VAC in place. Minimal drainage in the canister. Right lower abdominal wall wound is stable. VAC in place. Minimal drainage in the canister. Neurological: Cranial nerves II-XII grossly intact Psych/Mental Status: Normal Affect, Appropriate Microbiology Past 72 Hours 11/13/19 13:36 Tissue - Leg, Left Gram Stain - Final 11/13/19 13:36 Tissue - Leg, Left Wound Culture - Final Staphylococcus epidermidis 11/13/19 13:36 Tissue - Leg, Left Anaerobic Culture - Preliminary No anaerobic bacteria isolated. 11/10/19 23:45 Blood Culture (Wb) - Right Hand Blood Culture - Final No growth in 5 days. 11/10/19 23:40 Blood Culture (Wb) - Anticubital Left Blood Culture - Final No growth in 5 days. 11/11/19 12:50 Wound - Leg, Left Gram Stain - Final 11/11/19 12:50 Wound - Leg, Left Wound Culture - Final Staphylococcus epidermidis 11/11/19 12:50 Wound - Leg, Left Anaerobic Culture - Final No anaerobic bacteria isolated. 11/11/19 12:50 Wound - Abdominal Gram Stain - Final 11/11/19 12:50 Wound - Abdominal Wound Culture - Final Staphylococcus epidermidis 11/11/19 12:50 Wound - Abdominal Anaerobic Culture - Final No anaerobic bacteria isolated. Laboratory Results 11/15/19 15:45: POC Glucose 171 H 11/15/19 21:34: POC Glucose 159 H 11/16/19 02:01: POC Glucose 264 H 11/16/19 05:32: Sodium 135 L, Potassium 4.2, Chloride 103, Carbon Dioxide 29.0, Anion Gap 3 L, BUN 21 H, Creatinine 1.28, Estim Creat Clear Calc 67.82, Est GFR (MDRD) Af Amer 74, Est GFR (MDRD) Non-Af 61, BUN/Creatinine Ratio 16.4, Glucose 161 H, Calcium 8.6 11/16/19 06:48: POC Glucose 125 H 11/16/19 11:52: POC Glucose 125 H Current Medications Acetaminophen (Tylenol) 650 mg PO Q6H PRN PRN PRN Reason: Pain Score 1-3/Temp > 100.7 F Last Admin: 11/15/19 03:06 Dose: 650 mg Documented by: Amlodipine Besylate (Norvasc) 10 mg PO DAILY [facility] Last Admin: 11/16/19 10:07 Dose: 10 mg Documented by: [facility] Last Admin: 11/16/19 10:07 Dose: 81 mg Documented by: Ciprofloxacin HCl (Cipro) 500 mg PO BID [facility] Last Admin: 11/16/19 10:07 Dose: 500 mg Documented by: Diazepam (Valium) 5 mg PO 4X/DAY PRN PRN PRN Reason: SPASMS Duloxetine HCl (Cymbalta) 60 mg PO DAILY [facility] Last Admin: 11/16/19 10:07 Dose: 60 mg Documented by: Enoxaparin Sodium (Lovenox) 40 mg SC DAILY [facility] Last Admin: 11/16/19 10:07 Dose: 40 mg Documented by: Gabapentin (Neurontin) 100 mg PO TID [facility] Last Admin: 11/16/19 14:10 Dose: 100 mg Documented by: Glucagon () 1 mg IM .X1 PRN PRN Reason: Hypoglycemia Heparin Sodium (Beef Lung) () 50 units IV UD PRN PRN Reason: PICC Line Heparin Flush Last Admin: 11/16/19 15:45 Dose: 50 units Documented by: Hydromorphone HCl (Dilaudid Inj) 1 mg IV Q4H PRN PRN PRN Reason: Pain Score 6-10/10 Sodium Chloride () 250 mls @ 15 mls/hr IV .[id number] PRN PRN Reason: Saline Flush Last Infusion: 11/14/19 20:52 Dose: Infused Documented by: Sodium Chloride () 250 mls @ 15 mls/hr IV .[id number] PRN PRN Reason: Additional IVPB Infusion Dextrose (Dextrose 10%-Water) 250 mls @ 999 mls/hr IV .Q16M PRN; Protocol PRN Reason: HYPOGLYCEMIA Clindamycin Phosphate 900 mg/ (Dextrose) 106 mls @ 150 mls/hr IV Q8 [facility] Last Admin: 11/16/19 14:10 Dose: 150 mls/hr Documented by: Lactated Ringer's () 1,000 mls @ 100 mls/hr IV .Q10H [facility] Last Infusion: 11/16/19 10:26 Dose: 100 mls/hr Documented by: Insulin Human Lispro (Humalog Kwikpen (Bkc)) 4 unit SC 0700 [facility] Last Admin: 11/16/19 06:52 Dose: 4 units Documented by: Insulin Human Lispro (Humalog Kwikpen (Bkc)) 4 unit SC 1600 [facility] Last Admin: 11/15/19 17:26 Dose: 4 u Documented by: Insulin Human Lispro (Humalog Kwikpen (Bkc)) 4 unit SC 1100 [facility] Last Admin: 11/16/19 12:00 Dose: Not Given Documented by: Insulin Human Lispro (Humalog Kwikpen (Bkc)) 0 unit SC ACHS & 3AM [facility]; Protocol Last Admin: 11/16/19 12:40 Dose: Not Given Documented by: Insulin Lispro Protam/Lispro Human (Humalog Mix 75-25 Kwikpen (Bkc)) 50 unit SC BID@0700,1600 [facility] Last Admin: 11/16/19 06:50 Dose: 50 u Documented by: Melatonin (Melatonin) 3 mg PO QHS PRN PRN PRN Reason: INSOMNIA Nicotine (Nicoderm Cq (Pbkc)) 21 mg TRANSDERM. DAILY [facility] Last Admin: 11/16/19 10:07 Dose: 21 mg Documented by: Nystatin (Nystatin) 500,000 unit PO 4X/DAY [facility] Last Admin: 11/16/19 14:10 Dose: 500,000 unit Documented by: Nystatin (Mycostatin Powder) 1 applic TOPICAL BID [facility]; Protocol Last Admin: 11/16/19 10:08 Dose: 1 applicatio Documented by: Ondansetron HCl (Zofran) 4 mg IV Q8H PRN PRN PRN Reason: NAUSEA/VOMITING Oxycodone HCl (Oxyir) 5 mg PO Q4H PRN PRN PRN Reason: Pain Score 4-5/10 Last Admin: 11/12/19 19:31 Dose: 5 mg Documented by: Oxycodone HCl (Oxyir) 10 mg PO Q4H PRN PRN PRN Reason: Pain Score 6-10/10 Last Admin: 11/16/19 02:07 Dose: 10 mg Documented by: Pantoprazole Sodium (Protonix) 40 mg PO DAILY [facility] Last Admin: 11/16/19 10:07 Dose: 40 mg Documented by: Senna/Docusate Sodium (Senokot-S, Renetta-Colace) 2 tablet PO BID PRN PRN PRN Reason: Constipation Last Admin: 11/14/19 10:20 Dose: 2 tablet Documented by: Sodium Chloride () 10 - 40 ml IV UD PRN PRN Reason: SALINE FLUSH Last Admin: 11/16/19 15:45 Dose: 10 ml Documented by: Medical Necessity - Tobacco Use Smoking Status: Current every day smoker Tobacco Use: Cigarettes Assessment/Plan All Active Problems Cellulitis of left thigh (Acute) Severe sepsis (Acute) Open wound of right lower quadrant of abdominal wall without penetration into peritoneal cavity (Acute) Open wound of left thigh (Acute) Abscess of abdominal wall (Acute) Abscess of left thigh (Acute) 1. 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 2. Nonhealing diabetic abscess ulcer right lower abdominal wall. 3. Diabetes mellitus. 4. MRSA. 5. Pseudomonas aeroginosa infection. 6. Smoker. 7. Failed outpatient therapy. 8. s/p surgical preparation left medial thigh with incision and drainage and excisional debridement nonhealing necrotizing diabetic ulcer abscess (45 cm2). 9. MRSE. Left medial thigh ulcer is stable. VAC in place. Minimal drainage in the canister. Right lower abdominal wall ulcer is stable. VAC in place. Minimal drainage in the canister. VAC to be changed three times per week at 150 mmHg continuous suction. Operative cultures show Staphylococcus epidermidis. Sensitivity to follow. Anticipate MRSE as the preop cultures were positive for MRSE. Preoperative cultures showed MRSE in both the abdomen and thigh. He is currently on Cleocin IV and Cipro PO. Previous operative cultures from 10/27/19 showed MRSA and Pseudomonas aeroginosa. Prealbumin was 14.5. Encourage nutritional supplementation with protein to help the healing process. WBC is 12.2 (15.5 at admission). Creatinine has decreased from 1.46 to 1.28 (2.10 at admission). The wounds are clean and after operative debridement, it was felt that discharging the patient on po antibiotics was appropriate but would treat for a longer period of time. He will be discharged home today on Cleocin for 2 weeks. His Wound Center appointment is scheduled for 11/30/18 which is in two weeks. Will reassess at the Wound Center about continuing the po antibiotics or stopping them. Encouraged patient to stop smoking as it may have deleterious effects on wound healing.
--- NOTE | 2019-11-16 15:47 | NURSING ---
Pt switched over to the home VAC since patient is being discharged home. Home health will restart care tomorrow so VAC will be changed at that time. Wound VAC dressings are intact at this time.
--- NOTE | 2019-11-17 15:45 | CASEMGMT ---
Case Management DC F/u Call: DC Date: 11/16/2019 DC Diagnosis: #1 staph epidermidis nonhealing diabetic ulcer/abscess of the left medial thigh status post incision, drainage and excisional debridement, status post wound VAC insertion. #2 sepsis. DC Disposition: Home with resumption [facility], Wound care for Wound Vac Lace/Strata: 21/02 Called patient listed cell phone, immediately sent to . Sounded like stated Lay is not available. Patient has no listed HPOA on file, Therefore no VM was left. Patient noted in contacts name is Lay but has a different number listed in demographics. Gaudencio Doss, KIRKCM
== END 2019-11-16 17:24 | disposition home health service (06) | DRG 854 ==
LOC: ED 23:27 → ICU 11-11 01:27 → MS3 11-11 17:08
PROVIDERS: Internal Medicine; Surgery; Admitting Provider Hospitalist; Emergency Provider Emergency Medicine; Family Provider Family Medicine; PCP Family Medicine; Visit Provider Hospitalist
PROC: 0JBL0ZZ Excision of Right Upper Leg Subcutaneous Tissue and Fascia, Open Approach (ICD-10-PCS; principal; 2019-11-13 12:45)
DX: A41.9 Sepsis, unspecified organism (principal); N17.9 Acute kidney failure, unspecified; B37.0 Candidal stomatitis; L97.122 Non-pressure chronic ulcer of left thigh with fat layer exposed; L02.211 Cutaneous abscess of abdominal wall; L02.416 Cutaneous abscess of left lower limb; L03.116 Cellulitis of left lower limb; R65.20 Severe sepsis without septic shock; E11.22 Type 2 diabetes mellitus with diabetic chronic kidney disease; N18.3 Chronic kidney disease, stage 3 (moderate); E11.628 Type 2 diabetes mellitus with other skin complications; E11.42 Type 2 diabetes mellitus with diabetic polyneuropathy; E11.622 Type 2 diabetes mellitus with other skin ulcer; E11.65 Type 2 diabetes mellitus with hyperglycemia; I12.9 Hypertensive chronic kidney disease with stage 1 through stage 4 chronic kidney disease, or unspecified chronic kidney disease; B95.7 Other staphylococcus as the cause of diseases classified elsewhere; L98.499 Non-pressure chronic ulcer of skin of other sites with unspecified severity; F17.210 Nicotine dependence, cigarettes, uncomplicated; Z68.37 Body mass index [BMI] 37.0-37.9, adult; K21.9 Gastro-esophageal reflux disease without esophagitis; Z79.4 Long term (current) use of insulin
CPT/HCPCS: 36415; 36569; 73700; 80048; 82962; 83605; 83735; 84134; 85025; 87040; 87070; 87075; 87077; 87102; 87106; 87186; 87205; 87206; 88304; 97110; 97161; 97165; 97535; 97802; 97803; 99285; J2020; J7030; J7040; J7050; J7120; A4216; J2405

== ENCOUNTER 2019-11-21 18:02 | Emergency (ER) | payer BC, SELFPAY ==
[2019-11-11 01:32] VITALS: BMI 37.8
[2019-11-21 18:04] VITALS: BP 148/87; PULSE 107; RESP 17; TEMP 37.6; O2SAT 98; BMI 38.2
[2019-11-21 18:16] VITALS: BP 132/70; PULSE 101; RESP 19; O2SAT 96
[2019-11-21] MEDS: Silver Nitrate (BKC) 1 EACH TOPICAL (18:16)
--- NOTE | 2019-11-21 18:27 | ED.VISSUMM ---
- ER Visit Summary Date of Service: 11/21/19 Chief Complaint: Wound bleeding History of Present Illness: The patient is a 58 M who has bleeding from a wound on his left thigh. He had a wound debridement by Dr. Lopez in October. He has a wound VAC on that wound. When they were changing it tonight he started bleeding. He is on no blood thinning medications. They were unable to stop the bleeding at home so EMS was called. He denies any dizziness, lightheadedness or fevers. Physical Examination: Vital signs are reviewed. Left leg exam reveals a wound on the inner thigh. There is bleeding coming from the lateral superior portion of the wound. No erythema or signs of infection. Test Results: None performed Emergency Department Course and Treatment: Patient initially had applied pressure to the wound. This did not stop the bleeding. I applied pressure myself but the wound still bled. I tried a silver nitrate stick but again the wound still bled. I then had lidocaine with epinephrine and I instilled into this area. The bleeding then stopped. I reevaluated the patient and the bleeding was still controlled. I will see if we are able to replace the wound VAC. His brought in the cord portion of it. If not we will place wet-to-dry dressings and she states that the wound VAC nurse will be at her house tomorrow morning to replace his other wound VAC. Treatment Plan: [] Disposition: Discharge Impression: Bleeding wound, initial encounter, left leg This note was generated with [employer] dictation software. It may contain incorrect words, spelling, and punctuation that were not noted in review of the chart prior to signing ED Disposition - Plan for ED Patient: Referrals: Didier Longoria DO [Primary Care Provider] -
--- NOTE | 2019-11-21 19:13 | ED.DEP ---
ED Disposition - Plan for ED Patient: Disposition: Home or Assisted Living Instructions: POST OP WOUND CHECK, Bleeding Referrals: Didier Longoria DO [Primary Care Provider] -
[2019-11-21 19:58] VITALS: BP 136/81
== END 2019-11-21 19:59 | disposition home or self-care (01) ==
PROVIDERS: Emergency Provider Emergency Medicine; Family Provider Family Medicine; PCP Family Medicine
DX: S71.102A Unspecified open wound, left thigh, initial encounter (principal); X58.XXXA Exposure to other specified factors, initial encounter; Y93.9 Activity, unspecified; Y92.9 Unspecified place or not applicable; Y99.9 Unspecified external cause status; E11.9 Type 2 diabetes mellitus without complications; I10 Essential (primary) hypertension; Z72.0 Tobacco use; Z79.82 Long term (current) use of aspirin; Z79.4 Long term (current) use of insulin; Z79.899 Other long term (current) drug therapy
CPT/HCPCS: 99285

== ENCOUNTER 2019-11-30 09:52 | Outpatient (RCR) | payer BC, SELFPAY ==
[2019-11-30 10:09] VITALS: BP 159/99; PULSE 20; RESP 16; TEMP 37.3; BMI 36.9
--- NOTE | 2019-11-30 17:36 | PCM.WC.PN ---
Type of Wound Date of Service: 11/30/19 Chief Complaint: Nonhealing diabetic abscess ulcers right lower abdominal wall and left medial thigh. History of Wound: Surgery 11/13/19 - Surgical preparation left medial thigh with incision and drainage and excisional debridement nonhealing necrotizing diabetic ulcer abscess (45 cm2). Surgery 10/27/19 - Surgical preparation left medial thigh with incision and drainage and excisional debridement necrotizing soft tissue infection diabetic abscess (88 cm2) and surgical preparation right lower abdominal wall with incision and drainage and excisional debridement skin, subcutaneous tissue, and fascia for necrotizing soft tissue infection diabetic abscess (27 cm2). Wound care - VAC. Operative culture - MRSE. He was discharged on Cleocin and has finished them. His operative culture from 10/27/19 showed MRSA and Pseudomonas aeroginosa. He was discharged on Doxycycline and Cefdinir and has finished them. Prealbumin from 11/12/19 was 14.5. Encourage nutritional supplementation with protein to help the healing process. HgbA1c from 10/27/19 was 10.5. It needs to be less than 8 before proceeding with any elective skin graft surgery. Today he denies fever. His appetite is ok. Progress of Wound: Improved. - Physical Exam Vital Signs Temp Pulse Resp BP 99.1 F 20 L 16 159/99 H 11/30/19 10:09 11/30/19 10:09 11/30/19 10:09 11/30/19 10:09 Wound Measurements and Assessment WC - Nurse 1 - General Ulcer Measurement Start: 11/30/19 10:08 Freq: Status: Active Protocol: Activity Type Activity Date Activity User E-Sign Co-Sign Detail Recorded Client Recorded Date Recorded By Document 11/30/19 10:09 MW [id number] 11/30/19 10:24 MW 11/30/19 10:09 Wound Center Nurse 1 [Ulcer Assessment] #2 right lower abd -Combined with other wound No -Current Size (cm) - Length 1.0 -Current Size (cm) - Width 5.2 -Current Size (cm) - Depth 0.1 -Total Square Cm 5.20 -Date of Last Picture (Recall this 11/30/19 field) -Photo Taken Yes -Epithelialization Small 1-33% -Tunneling No -Undermining/Tunneling No -Circular Undermining No -Exudate Amt Medium -Exudate Type Serosanguineous -Wound Margin Flat & Intact -Granulation Amt Large (67-100%) -Granulation Quality [place] -Slough/Fibrin Yes -Necrosis Amt Small (1-33%) -Necrotic Tissue Type Adherent Slough -Structure Exposed N/A -Texture (Renetta-wound Skin Appearance) Assessed, Scarring -Moisture (Renetta-wound Skin Appearance No Abnormality, ) Assessed -Color (Renetta-wound Skin Appearance) No Abnormality, Assessed -Temperature (Renetta-wound Skin No Abnormality Appearance) (Pt Warm) -Tenderness on Palpation (Renetta-wound Yes Skin Appearance) -Ulcer Cleansing Rinsed/ Irrigated with Saline -Foul Odor after Cleansing No -Anesthetic Used 4% Lidocaine Solution #1 left medial thigh -Combined with other wound No -Current Size (cm) - Length 11.3 -Current Size (cm) - Width 6.4 -Current Size (cm) - Depth 1.7 -Total Square Cm 72.32 -Date of Last Picture (Recall this 11/30/19 field) -Photo Taken Yes -Epithelialization Small 1-33% -Tunneling No -Undermining/Tunneling No -Circular Undermining No -Exudate Amt Large -Exudate Type Serosanguineous -Wound Margin Distinct, Outline Attached -Granulation Amt Large (67-100%) -Granulation Quality Red -Slough/Fibrin Yes -Necrosis Amt Small (1-33%) -Necrotic Tissue Type Adherent Slough -Structure Exposed N/A -Texture (Renetta-wound Skin Appearance) Assessed, Scarring -Moisture (Renetta-wound Skin Appearance No Abnormality, ) Assessed -Color (Renetta-wound Skin Appearance) No Abnormality, Assessed -Temperature (Renetta-wound Skin No Abnormality Appearance) (Pt Warm) -Ulcer Cleansing Rinsed/ Irrigated with Saline -Foul Odor after Cleansing No -Anesthetic Used 4% Lidocaine Solution [Edema Assessment] -Lower Limb Edema Present No WC - Nurse 2 - General Ulcer CM Notes Start: 11/30/19 10:08 Freq: Status: Active Protocol: Activity Type Activity Date Activity User E-Sign Co-Sign Detail Recorded Client Recorded Date Recorded By Document 11/30/19 10:50 RUTH ANN [id number] 11/30/19 10:55 RUTH ANN 11/30/19 10:50 Wound Center Nurse 2 [Procedure/Treatment] #2 right lower abd -Time 10:50 -Correct Patient Yes -Correct Side, Site, Position Yes -Correct Procedure Yes -Procedure Performed Yes -Type of Procedure Debridement -Clinical Debridement Subcutaneous -Post Debridement Size (cm) - Length 1 -Post Debridement Size (cm) - Width 5.5 -Post Debridement Size (cm) - Depth 0.3 -Total Square Cm 5.5 -Wound/Ulcer Outcome Not Healed -Ulcer Cleansing Rinsed/ Irrigated with Saline -Foul Odor after Cleansing No -Bioengineered Tissue No -Bleeding Controlled with Pressure -Offloading No -Treatment Response Procedure Tolerated Well #1 left medial thigh -Time 10:51 -Correct Patient Yes -Correct Side, Site, Position Yes -Correct Procedure Yes -Procedure Performed Yes -Type of Procedure Debridement -Clinical Debridement Subcutaneous -Post Debridement Size (cm) - Length 10.7 -Post Debridement Size (cm) - Width 9 -Post Debridement Size (cm) - Depth 1.5 -Total Square Cm 96.3 -Wound/Ulcer Outcome Not Healed -Ulcer Cleansing Rinsed/ Irrigated with Saline -Foul Odor after Cleansing No -Bioengineered Tissue No -Bleeding Controlled with Pressure -Offloading No -Treatment Response Procedure Tolerated Well [See Physician Procedure note for Specifics] Pain Scale: 0-10 Numeric [Pain] -Is Patient Pain Free? Yes Debridement Note Post-Debridement Measurements/Treatment WC - Nurse 2 - General Ulcer CM Notes Start: 11/30/19 10:08 Freq: Status: Active Protocol: Activity Type Activity Date Activity User E-Sign Co-Sign Detail Recorded Client Recorded Date Recorded By Document 11/30/19 10:50 RUTH ANN [id number] 11/30/19 10:55 RUTH ANN 11/30/19 10:50 Wound Center Nurse 2 #2 right lower abd -Time 10:50 -Correct Patient Yes -Correct Side, Site, Position Yes -Correct Procedure Yes -Procedure Performed Yes -Type of Procedure Debridement -Clinical Debridement Subcutaneous -Post Debridement Size (cm) - Length 1 -Post Debridement Size (cm) - Width 5.5 -Post Debridement Size (cm) - Depth 0.3 -Total Square Cm 5.5 -Wound/Ulcer Outcome Not Healed -Ulcer Cleansing Rinsed/ Irrigated with Saline -Foul Odor after Cleansing No -Bioengineered Tissue No -Bleeding Controlled with Pressure -Offloading No -Treatment Response Procedure Tolerated Well #1 left medial thigh -Time 10:51 -Correct Patient Yes -Correct Side, Site, Position Yes -Correct Procedure Yes -Procedure Performed Yes -Type of Procedure Debridement -Clinical Debridement Subcutaneous -Post Debridement Size (cm) - Length 10.7 -Post Debridement Size (cm) - Width 9 -Post Debridement Size (cm) - Depth 1.5 -Total Square Cm 96.3 -Wound/Ulcer Outcome Not Healed -Ulcer Cleansing Rinsed/ Irrigated with Saline -Foul Odor after Cleansing No -Bioengineered Tissue No -Bleeding Controlled with Pressure -Offloading No -Treatment Response Procedure Tolerated Well Pain Scale: 0-10 Numeric Is Patient Pain Free? Yes Wound debrided: #1 Left medial thigh. Laterality: Left Wound Grade/Stage: 2. Type of Debridement: Excisional debridement Anesthesia Used: 4% Lidocaine Solution Depth: Down to and including healthy tissue, in the subcutaneous layer Percentage of wound debrided: 100 Instrument Used: 5mm curette Tissue Removed: subcutaneous tissue. Severity: Fat Layer Exposed Amount of bleeding with debridement: Mild Bleeding Controlled with: Pressure Patient tolerated procedure well - Additional Wound Wound debrided: #2 Right lower abdominal wall. Laterality: Right Wound Grade/Stage: 2. Type of Debridement: Excisional debridement Anesthesia Used: 4% Lidocaine Solution Depth: Down to and including healthy tissue, in the subcutaneous layer Percentage of wound debrided: 100 Instrument Used: 3mm curette Tissue Removed: subcutaneous tissue. Severity: Fat Layer Exposed Amount of bleeding with debridement: Mild Bleeding Controlled with: Pressure Patient tolerated procedure: Patient tolerated procedure well Assessment/Plan Assessment: 1. Nonhealing necrotizing diabetic abscess ulcer left medial thigh. 2. Nonhealing necrotizing diabetic abscess ulcer right lower abdominal wall. 2. Diabetes mellitus. 3. Smoker. 4. s/p surgical preparation left medial thigh with incision and drainage and excisional debridement nonhealing necrotizing diabetic ulcer abscess (45 cm2). 5. s/p surgical preparation left medial thigh with incision and drainage and excisional debridement necrotizing soft tissue infection diabetic abscess (88 cm2) and surgical preparation right lower abdominal wall with incision and drainage and excisional debridement skin, subcutaneous tissue, and fascia for necrotizing soft tissue infection diabetic abscess (27 cm2). Plan: Continue the VAC to the left medial thigh with Tubigrip for compression. Change the wound care to the right lower abdominal wall to Collagen Hydrogel dressing changes daily. He has finished Cleocin for operative culture that showed MRSE. His previous operative culture showed MRSA and Pseudomonas aeroginosa. He was treated with Doxycycline and Cefdinir and has finished them. His Prealbumin from 11/12/19 was 14.5. Encourage nutritional supplementation with protein to help the healing process. His HgbA1c from 10/27/19 was 10.5. Before proceeding with an elective skin graft reconstruction, the HgbA1c needs to be less than 8. Keep left leg elevated when sitting. He is anxious to get back to work. Will discuss it further at his next visit. May be able to stop the VAC and start daily Silver dressing changes at that time which will be easier to care for at work. Followup 2 weeks. Encouraged patient to stop smoking as it may have deleterious effects on wound healing. Code Visit [id number]: [id number] Global Visit - ICD-10 - V58.49, L97.122, L02.416, M79.89, L98.492, L02.211, E11.622, E11.9, A49.02, F17.200
== END 2019-12-11 23:59 ==
LOC: WC 09:52
PROVIDERS: PCP Family Medicine; Visit Provider Surgery
DX: E11.622 Type 2 diabetes mellitus with other skin ulcer (principal); L97.122 Non-pressure chronic ulcer of left thigh with fat layer exposed; L98.492 Non-pressure chronic ulcer of skin of other sites with fat layer exposed; F17.200 Nicotine dependence, unspecified, uncomplicated; Z86.14 Personal history of Methicillin resistant Staphylococcus aureus infection
CPT/HCPCS: 11042; 11045; 97605; 99213; G0463

== ENCOUNTER 2020-01-04 15:30 | Outpatient (RCR) | payer BC, SELFPAY ==
[2019-12-12 01:13] VITALS: BP 159/99; PULSE 20; RESP 16; TEMP 37.3
[2019-12-14 11:32] VITALS: BP 129/83; PULSE 86; RESP 16; BMI 36.9
--- NOTE | 2019-12-14 15:01 | PCM.WC.PN ---
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 Status: Chronic Code(s): L97.122 - Non-pressure chronic ulcer of left thigh with fat layer exposed (3) MRSA (methicillin resistant Staphylococcus aureus) infection Status: Acute Code(s): A49.02 - Methicillin resistant Staphylococcus aureus infection, unspecified site (4) Diabetes Status: Chronic Qualifiers: Diabetes mellitus type: type 2 Code(s): E11.9 - Type 2 diabetes mellitus without complications (5) Smoker Status: Chronic Code(s): F17.200 - Nicotine dependence, unspecified, uncomplicated Type of Wound Date of Service: 12/14/19 Chief Complaint: Nonhealing diabetic abscess ulcers right lower abdominal wall and left medial thigh. History of Wound: Surgery 11/13/19 - Surgical preparation left medial thigh with incision and drainage and excisional debridement nonhealing necrotizing diabetic ulcer abscess (45 cm2). Surgery 10/27/19 - Surgical preparation left medial thigh with incision and drainage and excisional debridement necrotizing soft tissue infection diabetic abscess (88 cm2) and surgical preparation right lower abdominal wall with incision and drainage and excisional debridement skin, subcutaneous tissue, and fascia for necrotizing soft tissue infection diabetic abscess (27 cm2). Wound care - VAC to left thigh. Right abdomen is healed. Operative culture - MRSE. He was discharged on Cleocin and has finished them. His operative culture from 10/27/19 showed MRSA and Pseudomonas aeroginosa. He was discharged on Doxycycline and Cefdinir and has finished them. Fungal culture positive for Aspirgillus species and Zoey albicans, will start on Diflucan. Prealbumin from 11/12/19 was 14.5. Encourage nutritional supplementation with protein to help the healing process. HgbA1c from 10/27/19 was 10.5. It needs to be less than 8 before proceeding with any elective skin graft surgery. Today he denies fever. His appetite is ok. Progress of Wound: Improved. - Physical Exam Vital Signs Temp Pulse Resp BP 99.1 F 86 16 129/83 H 12/12/19 01:13 12/14/19 11:32 12/14/19 11:32 12/14/19 11:32 General: Alert, Oriented x3, Cooperative HEENT: Atraumatic, PERRLA Oral: Moist Mucosa Lungs: Normal air movement Cardiovascular: Regular rate Abdomen: Soft Extremities: Capillary Refill Less than 3 Seconds Skin: Ulcer/ Wound - right abdominal ulcer is healed today. Left thigh ulcer is improved Wound Measurements and Assessment WC - Nurse 1 - General Ulcer Measurement Start: 12/14/19 11:32 Freq: Status: Active Protocol: Activity Type Activity Date Activity User E-Sign Co-Sign Detail Recorded Client Recorded Date Recorded By Document 12/14/19 11:32 [facility] [id number] 12/14/19 11:39 [facility] 12/14/19 11:32 Wound Center Nurse 1 [Ulcer Assessment] #2 right lower abd -Combined with other wound No -Current Size (cm) - Length 0.1 -Current Size (cm) - Width 0.1 -Current Size (cm) - Depth 0.1 -Total Square Cm 0.01 -Date of Last Picture (Recall this 12/14/19 field) -Photo Taken Yes -Epithelialization Large 67-100% -Tunneling No -Undermining/Tunneling No -Circular Undermining No #1 left medial thigh -Combined with other wound No -Current Size (cm) - Length 8.8 -Current Size (cm) - Width 6.9 -Current Size (cm) - Depth 0.1 -Total Square Cm 60.72 -Photo Taken No -Epithelialization Small 1-33% -Tunneling No -Undermining/Tunneling No -Circular Undermining No -Exudate Amt Large -Exudate Type Serosanguineous -Wound Margin Flat & Intact -Granulation Amt Large (67-100%) -Granulation Quality Red -Slough/Fibrin Yes -Necrosis Amt Small (1-33%) -Necrotic Tissue Type Adherent Slough -Structure Exposed N/A -Texture (Renetta-wound Skin Appearance) Assessed, Scarring -Moisture (Renetta-wound Skin Appearance No Abnormality, ) Assessed -Color (Renetta-wound Skin Appearance) No Abnormality, Assessed -Temperature (Renetta-wound Skin No Abnormality Appearance) (Pt Warm) -Tenderness on Palpation (Renetta-wound No Skin Appearance) -Ulcer Cleansing soap and water -Foul Odor after Cleansing No -Anesthetic Used 4% Lidocaine Solution [Edema Assessment] -Lower Limb Edema Present No WC - Nurse 2 - General Ulcer CM Notes Start: 12/14/19 11:32 Freq: Status: Active Protocol: Activity Type Activity Date Activity User E-Sign Co-Sign Detail Recorded Client Recorded Date Recorded By Document 12/14/19 12:02 [id number] 12/14/19 12:07 12/14/19 12:02 Wound Center Nurse 2 [Procedure/Treatment] #2 right lower abd -Correct Patient No -Correct Side, Site, Position No -Correct Procedure No -Procedure Performed No -Post Debridement Size (cm) - Length 0 -Post Debridement Size (cm) - Width 0 -Post Debridement Size (cm) - Depth 0 -Total Square Cm 0 -Wound/Ulcer Outcome Healed- Epithelialized #1 left medial thigh -Time 12:03 -Correct Patient Yes -Correct Side, Site, Position Yes -Correct Procedure Yes -Procedure Performed Yes -Type of Procedure Debridement -Clinical Debridement Subcutaneous -Post Debridement Size (cm) - Length 8.7 -Post Debridement Size (cm) - Width 7 -Post Debridement Size (cm) - Depth 0.3 -Total Square Cm 60.9 -Wound/Ulcer Outcome Not Healed -Ulcer Cleansing Rinsed/ Irrigated with Saline -Foul Odor after Cleansing No -Bioengineered Tissue No -Bleeding Controlled with Pressure -Offloading No -Treatment Response Procedure Tolerated Well [See Physician Procedure note for Specifics] Pain Scale: 0-10 Numeric [Pain] -Is Patient Pain Free? Yes Musculoskeletal: No Tenderness to Palpation of Joints or Extremities Neurological: Neuro grossly intact Psych/Mental Status: Normal Affect, Appropriate Debridement Note Post-Debridement Measurements/Treatment WC - Nurse 2 - General Ulcer CM Notes Start: 12/14/19 11:32 Freq: Status: Active Protocol: Activity Type Activity Date Activity User E-Sign Co-Sign Detail Recorded Client Recorded Date Recorded By Document 12/14/19 12:02 RUTH ANN [id number] 12/14/19 12:07 12/14/19 12:02 Wound Center Nurse 2 #2 right lower abd -Correct Patient No -Correct Side, Site, Position No -Correct Procedure No -Procedure Performed No -Post Debridement Size (cm) - Length 0 -Post Debridement Size (cm) - Width 0 -Post Debridement Size (cm) - Depth 0 -Total Square Cm 0 -Wound/Ulcer Outcome Healed- Epithelialized #1 left medial thigh -Time 12:03 -Correct Patient Yes -Correct Side, Site, Position Yes -Correct Procedure Yes -Procedure Performed Yes -Type of Procedure Debridement -Clinical Debridement Subcutaneous -Post Debridement Size (cm) - Length 8.7 -Post Debridement Size (cm) - Width 7 -Post Debridement Size (cm) - Depth 0.3 -Total Square Cm 60.9 -Wound/Ulcer Outcome Not Healed -Ulcer Cleansing Rinsed/ Irrigated with Saline -Foul Odor after Cleansing No -Bioengineered Tissue No -Bleeding Controlled with Pressure -Offloading No -Treatment Response Procedure Tolerated Well Pain Scale: 0-10 Numeric Is Patient Pain Free? Yes Wound debrided: 8thigh Laterality: Left Type of Debridement: Excisional debridement Anesthesia Used: 5% Lidocaine Gel Depth: Down to and including healthy tissue, in the subcutaneous layer Percentage of wound debrided: 100 Instrument Used: 5mm curette Tissue Removed: subcutaneous tissue and slough Severity: Fat Layer Exposed Amount of bleeding with debridement: Mild Bleeding Controlled with: Pressure Patient tolerated procedure well Assessment/Plan Assessment: 1. Nonhealing necrotizing diabetic abscess ulcer left medial thigh. 2. Nonhealing necrotizing diabetic abscess ulcer right lower abdominal wall. 2. Diabetes mellitus. 3. Smoker. 4. s/p surgical preparation left medial thigh with incision and drainage and excisional debridement nonhealing necrotizing diabetic ulcer abscess (45 cm2). 5. s/p surgical preparation left medial thigh with incision and drainage and excisional debridement necrotizing soft tissue infection diabetic abscess (88 cm2) and surgical preparation right lower abdominal wall with incision and drainage and excisional debridement skin, subcutaneous tissue, and fascia for necrotizing soft tissue infection diabetic abscess (27 cm2). Plan: Continue the VAC to the left medial thigh with Tubigrip for compression. The right lower abdominal wall ucler is healed today. He has finished Cleocin for operative culture that showed MRSE. His previous operative culture showed MRSA and Pseudomonas aeroginosa. He was treated with Doxycycline and Cefdinir and has finished them. His fungal culture came back positive for Aspirgillus species and Zoey albicans. Will start him on Diflucan. Will also obtaine 0CMP to check LFTs. His Prealbumin from 11/12/19 was 14.5. Encourage nutritional supplementation with protein to help the healing process. His HgbA1c from 10/27/19 was 10.5. Before proceeding with an elective skin graft reconstruction, the HgbA1c needs to be less than 8. Keep left leg elevated when sitting. He is anxious to get back to work. He would benefit from the wound VAC for one more week. Will bring him back in next week to see if the VAC is able to be stopped and start daily Silver dressing changes at that time which will be easier to care for at work. Encouraged to massage the right abdominal area with lotion to help soften scarring. Followup 1 week. Encouraged patient to stop smoking as it may have deleterious effects on wound healing. Code Visit [id number]: [id number] Global Visit
[2019-12-21 11:09] VITALS: BP 144/99; PULSE 116; RESP 18; TEMP 36.2; BMI 36.9
[2019-12-21 11:54] LABS: ALB/GLOB Ratio 0.8 RATIO (0.9-2.4); AST(SGOT) 18 U/L (15-37); Alanine Aminotransfer ALT/SGPT 28 U/L (16-61); Albumin, Serum 3.6 g/dL (3.2-5.0); Alkaline Phosphatase 86 U/L (45-117); Anion Gap 5 (5-15); BUN 26 mg/dL (7-18); Calcium,Total 9.5 mg/dL (8.5-10.1); Chloride 103 mmol/L (98-107); Creatinine, Serum 1.62 mg/dL (0.70-1.30); EST Glomerular Filtration Rate 47 mL/min (>60); Est Glom Filt Rate - Afr Amer 57 mL/min (>60); Estimated Creatinine Clearance 53.58 ml/min; Globulin 4.5 g/dL (2.2-4.2); Glucose 161 mg/dL (74-106); Potassium 4.1 mmol/L (3.5-5.1); Protein, Total 8.1 g/dL (6.4-8.2); Sodium Level 134 mmol/L (136-145)
--- NOTE | 2019-12-21 12:57 | PN.PCM_ITS ---
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 Status: Chronic Code(s): L97.122 - Non-pressure chronic ulcer of left thigh with fat layer exposed (2) MRSA (methicillin resistant Staphylococcus aureus) infection Status: Acute Code(s): A49.02 - Methicillin resistant Staphylococcus aureus infection, unspecified site (3) Diabetes Status: Chronic Qualifiers: Diabetes mellitus type: type 2 Code(s): E11.9 - Type 2 diabetes mellitus without complications (4) Venous (peripheral) insufficiency Status: Chronic Code(s): I87.2 - Venous insufficiency (chronic) (peripheral) (5) Smoker Status: Chronic Code(s): F17.200 - Nicotine dependence, unspecified, uncomplicated Type of Wound Date of Service: 12/21/19 Chief Complaint: Nonhealing diabetic abscess ulcers right lower abdominal wall and left medial thigh. History of Wound: Surgery 11/13/19 - Surgical preparation left medial thigh with incision and drainage and excisional debridement nonhealing necrotizing diabetic ulcer abscess (45 cm2). Surgery 10/27/19 - Surgical preparation left medial thigh with incision and drainage and excisional debridement necrotizing soft tissue infection diabetic abscess (88 cm2) and surgical preparation right lower abdominal wall with incision and drainage and excisional debridement skin, subcutaneous tissue, and fascia for necrotizing soft tissue infection diabetic abscess (27 cm2). Wound care - Stop VAC to left thigh and start daily Aquacel- Ag. Right abdomen is healed. He would benefit from an advanced wound product such as Epifix to help get his wound to heal quicker. Operative culture - MRSE. He was discharged on Cleocin and has finished them. His operative culture from 10/27/19 showed MRSA and Pseudomonas aeroginosa. He was discharged on Doxycycline and Cefdinir and has finished them. Fungal culture positive for Aspirgillus species and Zoey albicans, will start on Diflucan. Prealbumin from 11/12/19 was 14.5. Encourage nutritional supplementation with protein to help the healing process. HgbA1c from 10/27/19 was 10.5. It needs to be less than 8 before proceeding with any elective skin graft surgery. Today he denies fever. His appetite is ok. Progress of Wound: Improved. - Physical Exam Vital Signs Temp Pulse Resp BP 97.1 F L 116 H 18 144/99 H 12/21/19 11:09 12/21/19 11:09 12/21/19 11:09 12/21/19 11:09 General: Alert, Oriented x3, Cooperative HEENT: Atraumatic Oral: Moist Mucosa Lungs: Normal air movement Cardiovascular: Regular rate Abdomen: Soft Extremities: Capillary Refill Less than 3 Seconds, Edema, Tenderness Skin: Ulcer/ Wound - left medial thigh Wound Measurements and Assessment - Nurse 1 - General Ulcer Measurement Start: 12/14/19 11:32 Freq: Status: Active Protocol: Activity Type Activity Date Activity User E-Sign Co-Sign Detail Recorded Client Recorded Date Recorded By Document 12/21/19 11:09 [facility] [id number] 12/21/19 11:14 [facility] 12/21/19 11:09 Wound Center Nurse 1 [Ulcer Assessment] #1 left medial thigh -Combined with other wound No -Current Size (cm) - Length 8 -Current Size (cm) - Width 6.3 -Current Size (cm) - Depth 0.1 -Total Square Cm 50.4 -Tunneling No -Undermining/Tunneling No -Circular Undermining No -Exudate Amt Medium -Exudate Type Serosanguineous -Wound Margin Flat & Intact -Granulation Amt Large (67-100%) -Granulation Quality [place],Red -Slough/Fibrin Yes -Necrosis Amt Small (1-33%) -Necrotic Tissue Type Adherent Slough -Structure Exposed N/A -Texture (Renetta-wound Skin Appearance) Assessed, Scarring -Moisture (Renetta-wound Skin Appearance Assessed ) -Color (Renetta-wound Skin Appearance) Assessed -Temperature (Renetta-wound Skin No Abnormality Appearance) (Pt Warm) -Tenderness on Palpation (Renetta-wound No Skin Appearance) -Ulcer Cleansing Wound Cleanser -Foul Odor after Cleansing No -Anesthetic Used 4% Lidocaine Solution WC - Nurse 2 - General Ulcer CM Notes Start: 12/14/19 11:32 Freq: Status: Active Protocol: Activity Type Activity Date Activity User E-Sign Co-Sign Detail Recorded Client Recorded Date Recorded By Document 12/21/19 11:26 [id number] 12/21/19 11:27 12/21/19 11:26 Wound Center Nurse 2 [Procedure/Treatment] -Time 11:26 -Correct Patient Yes -Correct Side, Site, Position Yes -Correct Procedure Yes -Procedure Performed Yes -Type of Procedure Debridement -Clinical Debridement Subcutaneous -Post Debridement Size (cm) - Length 8.0 -Post Debridement Size (cm) - Width 6.4 -Post Debridement Size (cm) - Depth 0.2 -Total Square Cm 51.20 -Wound/Ulcer Outcome Not Healed -Ulcer Cleansing Rinsed/ Irrigated with Saline -Foul Odor after Cleansing No -Bioengineered Tissue No -Bleeding Controlled with Pressure -Offloading No -Treatment Response Procedure Tolerated Well [See Physician Procedure note for Specifics] Pain Scale: 0-10 Numeric [Pain] -Is Patient Pain Free? Yes Musculoskeletal: No Muscle Wasting Neurological: Neuro grossly intact Psych/Mental Status: Normal Affect, Appropriate Debridement Note Post-Debridement Measurements/Treatment WC - Nurse 2 - General Ulcer CM Notes Start: 12/14/19 11:32 Freq: Status: Active Protocol: Activity Type Activity Date Activity User E-Sign Co-Sign Detail Recorded Client Recorded Date Recorded By Document 12/14/19 12:02 [id number] 12/14/19 12:07 Document 12/21/19 11:26 [id number] 12/21/19 11:27 12/14/19 12/21/19 12:02 11:26 Wound Center Nurse 2 #2 right lower abd -Correct Patient No -Correct Side, Site, Position No -Correct Procedure No -Procedure Performed No -Post Debridement Size (cm) - Length 0 -Post Debridement Size (cm) - Width 0 -Post Debridement Size (cm) - Depth 0 -Total Square Cm 0 -Wound/Ulcer Outcome Healed- Epithelialized #1 left medial thigh -Time 12:03 11:26 -Correct Patient Yes Yes -Correct Side, Site, Position Yes Yes -Correct Procedure Yes Yes -Procedure Performed Yes Yes -Type of Procedure Debridement Debridement -Clinical Debridement Subcutaneous Subcutaneous -Post Debridement Size (cm) - Length 8.7 8.0 -Post Debridement Size (cm) - Width 7 6.4 -Post Debridement Size (cm) - Depth 0.3 0.2 -Total Square Cm 60.9 51.20 -Wound/Ulcer Outcome Not Healed Not Healed -Ulcer Cleansing Rinsed/ Rinsed/ Irrigated with Irrigated with Saline Saline -Foul Odor after Cleansing No No -Bioengineered Tissue No No -Bleeding Controlled with Pressure Pressure -Offloading No No -Treatment Response Procedure Procedure Tolerated Well Tolerated Well Pain Scale: 0-10 Numeric Is Patient Pain Free? Yes Yes Wound debrided: medial thigh Laterality: Left Type of Debridement: Excisional debridement Anesthesia Used: 4% Lidocaine Solution Depth: Down to and including healthy tissue, in the subcutaneous layer Percentage of wound debrided: 100 Instrument Used: 5mm curette Tissue Removed: subcutaneous tissue an slough Severity: Fat Layer Exposed Bleeding Controlled with: Pressure Patient tolerated procedure well Assessment/Plan Assessment: 1. Nonhealing necrotizing diabetic abscess ulcer left medial thigh. 2. Nonhealing necrotizing diabetic abscess ulcer right lower abdominal wall. 2. Diabetes mellitus. 3. Smoker. 4. s/p surgical preparation left medial thigh with incision and drainage and excisional debridement nonhealing necrotizing diabetic ulcer abscess (45 cm2). 5. s/p surgical preparation left medial thigh with incision and drainage and excisional debridement necrotizing soft tissue infection diabetic abscess (88 cm2) and surgical preparation right lower abdominal wall with incision and drainage and excisional debridement skin, subcutaneous tissue, and fascia for necrotizing soft tissue infection diabetic abscess (27 cm2). Plan: Stop the VAC to the left medial thigh and start daily Aquacel-Ag dressing changes. Patient would benefit from an advanced wound healing product such as Epifix to help with wound healing, epecially since he is going back to work even though he is not healed. The right lower abdominal wall ucler remains healed. He has finished Cleocin for operative culture that showed MRSE. His previous operative culture showed MRSA and Pseudomonas aeroginosa. He was treated with Doxycycline and Cefdinir and has finished them. His fungal culture came back positive for Aspirgillus species and Zoey albicans. Will start him on Diflu can. Will also obtaine 0CMP to check LFTs. His Prealbumin from 11/12/19 was 14.5. Encourage nutritional supplementation with protein to help the healing process. His HgbA1c from 10/27/19 was 10.5. Before proceeding with an elective skin graft reconstruction, the HgbA1c needs to be less than 8. Keep left leg elevated when sitting. He is anxious to get back to work. He will return on 12/28/2019. Encouraged to massage the right abdominal area with lotion to help soften scarring. Followup 1 week. Encouraged patient to stop smoking as it may have deleterious effects on wound healing. Code Visit [id number]: [id number] Global Visit
[2019-12-28 15:19] VITALS: BP 148/91; PULSE 106; RESP 18; BMI 36.9
--- NOTE | 2019-12-28 16:31 | PCM.WC.PN ---
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 Status: Chronic Code(s): L97.122 - Non-pressure chronic ulcer of left thigh with fat layer exposed (2) MRSA (methicillin resistant Staphylococcus aureus) infection Status: Acute Code(s): A49.02 - Methicillin resistant Staphylococcus aureus infection, unspecified site (3) Diabetes Status: Chronic Qualifiers: Diabetes mellitus type: type 2 Code(s): E11.9 - Type 2 diabetes mellitus without complications (4) Venous (peripheral) insufficiency Status: Chronic Code(s): I87.2 - Venous insufficiency (chronic) (peripheral) (5) Smoker Status: Chronic Code(s): F17.200 - Nicotine dependence, unspecified, uncomplicated Type of Wound Date of Service: 12/28/19 Chief Complaint: Nonhealing diabetic abscess ulcers right lower abdominal wall and left medial thigh. History of Wound: Surgery 11/13/19 - Surgical preparation left medial thigh with incision and drainage and excisional debridement nonhealing necrotizing diabetic ulcer abscess (45 cm2). Surgery 10/27/19 - Surgical preparation left medial thigh with incision and drainage and excisional debridement necrotizing soft tissue infection diabetic abscess (88 cm2) and surgical preparation right lower abdominal wall with incision and drainage and excisional debridement skin, subcutaneous tissue, and fascia for necrotizing soft tissue infection diabetic abscess (27 cm2). Wound care - Daily Aquacel- Ag. Right abdomen is healed. He would benefit from an advanced wound product such as Epifix to help get his wound to heal quicker. Operative culture - MRSE. He was discharged on Cleocin and has finished them. His operative culture from 10/27/19 showed MRSA and Pseudomonas aeroginosa. He was discharged on Doxycycline and Cefdinir and has finished them. Fungal culture positive for Aspirgillus species and Zoey albicans, will start on Diflucan. Prealbumin from 11/12/19 was 14.5. Encourage nutritional supplementation with protein to help the healing process. HgbA1c from 10/27/19 was 10.5. It needs to be less than 8 before proceeding with any elective skin graft surgery. He started back to work today and stated that it went ok although he is tired and has increased pain. Today he denies fever. His appetite is ok. Progress of Wound: Improved. - Physical Exam Vital Signs Temp Pulse Resp BP 97.1 F L 106 H 18 148/91 H 12/21/19 11:09 12/28/19 15:19 12/28/19 15:19 12/28/19 15:19 General: Alert, Oriented x3, Cooperative HEENT: Atraumatic Oral: Moist Mucosa Lungs: Normal air movement Cardiovascular: Regular rate Extremities: Capillary Refill Less than 3 Seconds, Edema Skin: Ulcer/ Wound - left thigh Wound Measurements and Assessment WC - Nurse 1 - General Ulcer Measurement Start: 12/14/19 11:32 Freq: Status: Active Protocol: Activity Type Activity Date Activity User E-Sign Co-Sign Detail Recorded Client Recorded Date Recorded By Document 12/28/19 15:19 BS [id number] 12/28/19 15:28 BS 12/28/19 15:19 Wound Center Nurse 1 [Ulcer Assessment] #1 left medial thigh -Combined with other wound No -Current Size (cm) - Length 8 -Current Size (cm) - Width 4.5 -Current Size (cm) - Depth 0.2 -Total Square Cm 36.0 -Granulation Quality [place],Red -Texture (Michael-wound Skin Appearance) Assessed,Rash -Moisture (Michael-wound Skin Appearance No Abnormality, ) Assessed -Temperature (Michael-wound Skin No Abnormality Appearance) (Pt Warm) -Tenderness on Palpation (Michael-wound No Skin Appearance) -Ulcer Cleansing Soap and water -Foul Odor after Cleansing No -Anesthetic Used 4% Lidocaine Solution - Nurse 2 - General Ulcer CM Notes Start: 12/14/19 11:32 Freq: Status: Active Protocol: Activity Type Activity Date Activity User E-Sign Co-Sign Detail Recorded Client Recorded Date Recorded By Document 12/28/19 15:57 MW [id number] 12/28/19 15:59 MW 12/28/19 15:57 Wound Center Nurse 2 [Procedure/Treatment] -Time 15:57 -Correct Patient Yes -Correct Side, Site, Position Yes -Correct Procedure Yes -Procedure Performed Yes -Type of Procedure Debridement -Clinical Debridement Subcutaneous -Post Debridement Size (cm) - Length 8.5 -Post Debridement Size (cm) - Width 6.0 -Post Debridement Size (cm) - Depth 0.2 -Total Square Cm 51.00 -Wound/Ulcer Outcome Not Healed -Ulcer Cleansing Rinsed/ Irrigated with Saline -Foul Odor after Cleansing No -Bioengineered Tissue No -Bleeding Controlled with Pressure -Offloading No -Treatment Response Procedure Tolerated Well [See Physician Procedure note for Specifics] Pain Scale: 0-10 Numeric [Pain] -Is Patient Pain Free? Yes Musculoskeletal: No Tenderness to Palpation of Joints or Extremities Neurological: Neuro grossly intact Psych/Mental Status: Normal Affect, Appropriate Debridement Note Post-Debridement Measurements/Treatment WC - Nurse 2 - General Ulcer CM Notes Start: 12/14/19 11:32 Freq: Status: Active Protocol: Activity Type Activity Date Activity User E-Sign Co-Sign Detail Recorded Client Recorded Date Recorded By Document 12/14/19 12:02 [id number] 12/14/19 12:07 Document 12/21/19 11:26 JF [id number] 12/21/19 11:27 Document 12/28/19 15:57 MW [id number] 12/28/19 15:59 MW 12/14/19 12/21/19 12/28/19 12:02 11:26 15:57 Wound Center Nurse 2 #2 right lower abd -Correct Patient No -Correct Side, Site, Position No -Correct Procedure No -Procedure Performed No -Post Debridement Size (cm) - Length 0 -Post Debridement Size (cm) - Width 0 -Post Debridement Size (cm) - Depth 0 -Total Square Cm 0 -Wound/Ulcer Outcome Healed- Epithelialized #1 left medial thigh -Time 12:03 11:26 15:57 -Correct Patient Yes Yes Yes -Correct Side, Site, Position Yes Yes Yes -Correct Procedure Yes Yes Yes -Procedure Performed Yes Yes Yes -Type of Procedure Debridement Debridement Debridement -Clinical Debridement Subcutaneous Subcutaneous Subcutaneous -Post Debridement Size (cm) - Length 8.7 8.0 8.5 -Post Debridement Size (cm) - Width 7 6.4 6.0 -Post Debridement Size (cm) - Depth 0.3 0.2 0.2 -Total Square Cm 60.9 51.20 51.00 -Wound/Ulcer Outcome Not Healed Not Healed Not Healed -Ulcer Cleansing Rinsed/ Rinsed/ Rinsed/ Irrigated with Irrigated with Irrigated with Saline Saline Saline -Foul Odor after Cleansing No No No -Bioengineered Tissue No No No -Bleeding Controlled with Pressure Pressure Pressure -Offloading No No No -Treatment Response Procedure Procedure Procedure Tolerated Well Tolerated Well Tolerated Well Pain Scale: 0-10 Numeric Is Patient Pain Free? Yes Yes Yes Wound debrided: thigh ulcer Laterality: Left Type of Debridement: Excisional debridement Anesthesia Used: 5% Lidocaine Gel Depth: Down to and including healthy tissue, in the subcutaneous layer Percentage of wound debrided: 100 Instrument Used: 5mm curette Tissue Removed: subcutaneous tissue and slough Severity: Fat Layer Exposed Amount of bleeding with debridement: Mild Bleeding Controlled with: Pressure Patient tolerated procedure well Assessment/Plan Assessment: 1. Nonhealing necrotizing diabetic abscess ulcer left medial thigh. 2. Nonhealing necrotizing diabetic abscess ulcer right lower abdominal wall. 2. Diabetes mellitus. 3. Smoker. 4. s/p surgical preparation left medial thigh with incision and drainage and excisional debridement nonhealing necrotizing diabetic ulcer abscess (45 cm2). 5. s/p surgical preparation left medial thigh with incision and drainage and excisional debridement necrotizing soft tissue infection diabetic abscess (88 cm2) and surgical preparation right lower abdominal wall with incision and drainage and excisional debridement skin, subcutaneous tissue, and fascia for necrotizing soft tissue infection diabetic abscess (27 cm2). Plan: Wound care: Daily Aquacel-Ag dressing changes. Patient would benefit from an advanced wound healing product such as Epifix to help with wound healing, epecially since he is going back to work even though he is not healed. The right lower abdominal wall ucler remains healed. He has finished Cleocin for operative culture that showed MRSE. His previous operative culture showed MRSA and Pseudomonas aeroginosa. He was treated with Doxycycline and Cefdinir and has finished them. His fungal culture came back positive for Aspirgillus species and Zoey albicans. Will start him on Diflucan. Will also obtaine 0CMP to check LFTs. His Prealbumin from 11/12/19 was 14.5. Encourage nutritional supplementation with protein to help the healing process. His HgbA1c from 10/27/19 was 10.5. Before proceeding with an elective skin graft reconstruction, the HgbA1c needs to be less than 8. Keep left leg elevated when sitting. He returned to work today and said it was ok. He states that he is tired and and has increased pain. He is going to try to wear a Tubigrip up over thigh to cover his dressing to help prevent so much rubbing against his pants. He has some skin irritation from the tape he had been using. Will also switch type of tape to see if that also helps improve michael wound. Encouraged to massage the right abdominal area with lotion to help soften scarring. Followup 1 week. Encouraged patient to stop smoking as it may have deleterious effects on wound healing. Code Visit [id number]: [id number] Global Visit
[2020-01-04 15:24] VITALS: BP 123/69; PULSE 119; RESP 16; TEMP 37.3; BMI 36.9
--- NOTE | 2020-01-04 16:37 | PCM.WC.PN ---
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 Status: Chronic Code(s): L97.122 - Non-pressure chronic ulcer of left thigh with fat layer exposed (2) MRSA (methicillin resistant Staphylococcus aureus) infection Status: Acute Code(s): A49.02 - Methicillin resistant Staphylococcus aureus infection, unspecified site (3) Diabetes Status: Chronic Qualifiers: Diabetes mellitus type: type 2 Code(s): E11.9 - Type 2 diabetes mellitus without complications (4) Venous (peripheral) insufficiency Status: Chronic Code(s): I87.2 - Venous insufficiency (chronic) (peripheral) (5) Smoker Status: Chronic Code(s): F17.200 - Nicotine dependence, unspecified, uncomplicated Type of Wound Date of Service: 01/04/20 Chief Complaint: Nonhealing diabetic abscess ulcers right lower abdominal wall and left medial thigh. History of Wound: Surgery 11/13/19 - Surgical preparation left medial thigh with incision and drainage and excisional debridement nonhealing necrotizing diabetic ulcer abscess (45 cm2). Surgery 10/27/19 - Surgical preparation left medial thigh with incision and drainage and excisional debridement necrotizing soft tissue infection diabetic abscess (88 cm2) and surgical preparation right lower abdominal wall with incision and drainage and excisional debridement skin, subcutaneous tissue, and fascia for necrotizing soft tissue infection diabetic abscess (27 cm2). Wound care - Daily Aquacel- Ag. Right abdomen is healed. He would benefit from an advanced wound product such as Epifix to help get his wound to heal quicker. Operative culture - MRSE. He was discharged on Cleocin and has finished them. His operative culture from 10/27/19 showed MRSA and Pseudomonas aeroginosa. He was discharged on Doxycycline and Cefdinir and has finished them. Fungal culture positive for Aspirgillus species and Zoey albicans, will start on Diflucan. Prealbumin from 11/12/19 was 14.5. Encourage nutritional supplementation with protein to help the healing process. HgbA1c from 10/27/19 was 10.5. It needs to be less than 8 before proceeding with any elective skin graft surgery. He started back to work last week and started to have increased pain where he had to call off work last Saturday. He states he is feeling better today. Today he denies fever. His appetite is ok. Progress of Wound: Improved. - Physical Exam Vital Signs Temp Pulse Resp BP 99.1 F 119 H 16 123/69 H 01/04/20 15:24 01/04/20 15:24 01/04/20 15:24 01/04/20 15:24 General: Alert, Oriented x3, Cooperative HEENT: Atraumatic Oral: Moist Mucosa Lungs: Normal air movement Cardiovascular: Regular rate Abdomen: Soft Extremities: Capillary Refill Less than 3 Seconds, Edema Skin: Ulcer/ Wound - left thigh Wound Measurements and Assessment WC - Nurse 1 - General Ulcer Measurement Start: 12/14/19 11:32 Freq: Status: Active Protocol: Activity Type Activity Date Activity User E-Sign Co-Sign Detail Recorded Client Recorded Date Recorded By Document 01/04/20 15:24 MW [id number] 01/04/20 15:28 MW 01/04/20 15:24 Wound Center Nurse 1 [Ulcer Assessment] #1 left medial thigh -Combined with other wound No -Current Size (cm) - Length 7.8 -Current Size (cm) - Width 4.7 -Current Size (cm) - Depth 0.1 -Total Square Cm 36.66 -Photo Taken No -Epithelialization Small 1-33% -Tunneling No -Undermining/Tunneling No -Circular Undermining No -Exudate Amt Medium -Exudate Type Serosanguineous -Wound Margin Flat & Intact -Granulation Amt Large (67-100%) -Granulation Quality Red -Slough/Fibrin Yes -Necrosis Amt Small (1-33%) -Necrotic Tissue Type Adherent Slough -Structure Exposed N/A -Texture (Michael-wound Skin Appearance) Assessed, Scarring -Moisture (Michael-wound Skin Appearance No Abnormality, ) Assessed -Color (Michael-wound Skin Appearance) No Abnormality, Assessed -Temperature (Michael-wound Skin No Abnormality Appearance) (Pt Warm) -Tenderness on Palpation (Michael-wound No Skin Appearance) -Ulcer Cleansing Rinsed/ Irrigated with Saline -Foul Odor after Cleansing No -Anesthetic Used 5% Lidocaine Gel [Edema Assessment] -Lower Limb Edema Present No WC - Nurse 2 - General Ulcer CM Notes Start: 12/14/19 11:32 Freq: Status: Active Protocol: Activity Type Activity Date Activity User E-Sign Co-Sign Detail Recorded Client Recorded Date Recorded By Document 01/04/20 15:45 JF [id number] 01/04/20 15:46 JF 01/04/20 15:45 Wound Center Nurse 2 [Procedure/Treatment] #1 left medial thigh -Time 15:45 -Correct Patient Yes -Correct Side, Site, Position Yes -Correct Procedure Yes -Procedure Performed Yes -Type of Procedure Debridement -Clinical Debridement Subcutaneous -Post Debridement Size (cm) - Length 7.0 -Post Debridement Size (cm) - Width 5.5 -Post Debridement Size (cm) - Depth 0.1 -Total Square Cm 38.50 -Wound/Ulcer Outcome Not Healed -Ulcer Cleansing Rinsed/ Irrigated with Saline -Foul Odor after Cleansing No -Bioengineered Tissue No -Bleeding Controlled with Pressure -Offloading No -Treatment Response Procedure Tolerated Well [See Physician Procedure note for Specifics] Pain Scale: 0-10 Numeric [Pain] -Is Patient Pain Free? Yes Musculoskeletal: Tenderness Neurological: Neuro grossly intact Psych/Mental Status: Normal Affect, Appropriate Debridement Note Post-Debridement Measurements/Treatment WC - Nurse 2 - General Ulcer CM Notes Start: 12/14/19 11:32 Freq: Status: Active Protocol: Activity Type Activity Date Activity User E-Sign Co-Sign Detail Recorded Client Recorded Date Recorded By Document 12/14/19 12:02 [id number] 12/14/19 12:07 Document 12/21/19 11:26 [id number] 12/21/19 11:27 Document 12/28/19 15:57 MW [id number] 12/28/19 15:59 MW Document 01/04/20 15:45 [id number] 01/04/20 15:46 JF 12/14/19 12/21/19 12/28/19 12:02 11:26 15:57 Wound Center Nurse 2 #2 right lower abd -Correct Patient No -Correct Side, Site, Position No -Correct Procedure No -Procedure Performed No -Post Debridement Size (cm) - Length 0 -Post Debridement Size (cm) - Width 0 -Post Debridement Size (cm) - Depth 0 -Total Square Cm 0 -Wound/Ulcer Outcome Healed- Epithelialized #1 left medial thigh -Time 12:03 11:26 15:57 -Correct Patient Yes Yes Yes -Correct Side, Site, Position Yes Yes Yes -Correct Procedure Yes Yes Yes -Procedure Performed Yes Yes Yes -Type of Procedure Debridement Debridement Debridement -Clinical Debridement Subcutaneous Subcutaneous Subcutaneous -Post Debridement Size (cm) - Length 8.7 8.0 8.5 -Post Debridement Size (cm) - Width 7 6.4 6.0 -Post Debridement Size (cm) - Depth 0.3 0.2 0.2 -Total Square Cm 60.9 51.20 51.00 -Wound/Ulcer Outcome Not Healed Not Healed Not Healed -Ulcer Cleansing Rinsed/ Rinsed/ Rinsed/ Irrigated with Irrigated with Irrigated with Saline Saline Saline -Foul Odor after Cleansing No No No -Bioengineered Tissue No No No -Bleeding Controlled with Pressure Pressure Pressure -Offloading No No No -Treatment Response Procedure Procedure Procedure Tolerated Well Tolerated Well Tolerated Well Pain Scale: 0-10 Numeric Is Patient Pain Free? Yes Yes Yes 01/04/20 15:45 Wound Center Nurse 2 #2 right lower abd -Correct Patient -Correct Side, Site, Position -Correct Procedure -Procedure Performed -Post Debridement Size (cm) - Length -Post Debridement Size (cm) - Width -Post Debridement Size (cm) - Depth -Total Square Cm -Wound/Ulcer Outcome #1 left medial thigh -Time 15:45 -Correct Patient Yes -Correct Side, Site, Position Yes -Correct Procedure Yes -Procedure Performed Yes -Type of Procedure Debridement -Clinical Debridement Subcutaneous -Post Debridement Size (cm) - Length 7.0 -Post Debridement Size (cm) - Width 5.5 -Post Debridement Size (cm) - Depth 0.1 -Total Square Cm 38.50 -Wound/Ulcer Outcome Not Healed -Ulcer Cleansing Rinsed/ Irrigated with Saline -Foul Odor after Cleansing No -Bioengineered Tissue No -Bleeding Controlled with Pressure -Offloading No -Treatment Response Procedure Tolerated Well Pain Scale: 0-10 Numeric Is Patient Pain Free? Yes Wound debrided: thigh Laterality: Left Type of Debridement: Excisional debridement Anesthesia Used: 5% Lidocaine Gel Depth: Down to and including healthy tissue, in the subcutaneous layer Percentage of wound debrided: 100 Instrument Used: 5mm curette Tissue Removed: Subcutaneous tissue and slough Severity: Fat Layer Exposed Amount of bleeding with debridement: Mild Bleeding Controlled with: Pressure Patient tolerated procedure well Assessment/Plan Assessment: 1. Nonhealing necrotizing diabetic abscess ulcer left medial thigh. 2. Nonhealing necrotizing diabetic abscess ulcer right lower abdominal wall. 2. Diabetes mellitus. 3. Smoker. 4. s/p surgical preparation left medial thigh with incision and drainage and excisional debridement nonhealing necrotizing diabetic ulcer abscess (45 cm2). 5. s/p surgical preparation left medial thigh with incision and drainage and excisional debridement necrotizing soft tissue infection diabetic abscess (88 cm2) and surgical preparation right lower abdominal wall with incision and drainage and excisional debridement skin, subcutaneous tissue, and fascia for necrotizing soft tissue infection diabetic abscess (27 cm2). Plan: Wound care: Daily Aquacel-Ag dressing changes. Patient would benefit from an advanced wound healing product such as Epifix to help with wound healing, epecially since he is going back to work even though he is not healed. The right lower abdominal wall ucler remains healed. He has finished Cleocin for operative culture that showed MRSE. His previous operative culture showed MRSA and Pseudomonas aeroginosa. He was treated with Doxycycline and Cefdinir and has finished them. His fungal culture came back positive for Aspirgillus species and Zoey albicans. Will start him on Diflucan. Will also obtaine 0CMP to check LFTs. His Prealbumin from 11/12/19 was 14.5. Encourage nutritional supplementation with protein to help the healing process. His HgbA1c from 10/27/19 was 10.5. Before proceeding with an elective skin graft reconstruction, the HgbA1c needs to be less than 8. Keep left leg elevated when sitting. He returned to work today and said it was ok. He states that he is tired and and has increased pain. He is going to try to wear a Tubigrip up over thigh to cover his dressing to help prevent so much rubbing against his pants. He has some skin irritation from the tape he had been using. Will also switch type of tape to see if that also helps improve michael wound. Encouraged to massage the right abdominal area with lotion to help soften scarring. Followup 1 week. Encouraged patient to stop smoking as it may have deleterious effects on wound healing. Code Visit [id number]: [id number] Global Visit
== END 2020-01-09 23:59 ==
LOC: WC 15:30
PROVIDERS: Nurse Practitioner Family; PCP Family Medicine; Referring Provider Surgery; Visit Provider Surgery
DX: E11.622 Type 2 diabetes mellitus with other skin ulcer (principal); Z86.14 Personal history of Methicillin resistant Staphylococcus aureus infection; L98.492 Non-pressure chronic ulcer of skin of other sites with fat layer exposed; L97.122 Non-pressure chronic ulcer of left thigh with fat layer exposed; F17.200 Nicotine dependence, unspecified, uncomplicated; I87.2 Venous insufficiency (chronic) (peripheral)
CPT/HCPCS: 11042; 11045; 36415; 80053; 97606

== ENCOUNTER 2020-02-08 15:30 | Outpatient (RCR) | payer BC, SELFPAY ==
[2020-01-10 00:55] VITALS: BP 123/69; PULSE 119; RESP 16; TEMP 37.3
[2020-01-11 15:41] VITALS: BP 132/82; PULSE 116; RESP 20; TEMP 36.8; BMI 36.9
--- NOTE | 2020-01-11 16:35 | PN.PCM_ITS ---
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 Status: Chronic Current Visit: Yes Code(s): L97.122 - Non-pressure chronic ulcer of left thigh with fat layer exposed (2) Venous (peripheral) insufficiency Status: Chronic Current Visit: Yes Code(s): I87.2 - Venous insufficiency (chronic) (peripheral) (3) MRSA (methicillin resistant Staphylococcus aureus) infection Status: Acute Current Visit: Yes Code(s): A49.02 - Methicillin resistant Staphylococcus aureus infection, unspecified site (4) Smoker Status: Chronic Current Visit: Yes Code(s): F17.200 - Nicotine dependence, unspecified, uncomplicated (5) Diabetes Status: Chronic Current Visit: Yes Code(s): E11.9 - Type 2 diabetes mellitus without complications Type of Wound Date of Service: 01/11/20 Chief Complaint: Nonhealing diabetic abscess ulcers right lower abdominal wall and left medial thigh. History of Wound: Surgery 11/13/19 - Surgical preparation left medial thigh with incision and drainage and excisional debridement nonhealing necrotizing diabetic ulcer abscess (45 cm2). Surgery 10/27/19 - Surgical preparation left medial thigh with incision and drainage and excisional debridement necrotizing soft tissue infection diabetic abscess (88 cm2) and surgical preparation right lower abdominal wall with incision and drainage and excisional debridement skin, subcutaneous tissue, and fascia for necrotizing soft tissue infection diabetic abscess (27 cm2). Wound care - Daily Aquacel- Ag. Right abdomen is healed. He would benefit from an advanced wound product such as Epifix to help get his wound to heal quicker. Operative culture - MRSE. He was discharged on Cleocin and has finished them. His operative culture from 10/27/19 showed MRSA and Pseudomonas aeroginosa. He was discharged on Doxycycline and Cefdinir and has finished them. Fungal culture positive for Aspirgillus species and Zoey albicans, will start on Diflucan. Prealbumin from 11/12/19 was 14.5. Encourage nutritional supplementation with protein to help the healing process. HgbA1c from 10/27/19 was 10.5. It needs to be less than 8 before proceeding with any elective skin graft surgery. He started back to work and is doing ok. Today he denies fever. His appetite is ok. Progress of Wound: Stable - Physical Exam Vital Signs Temp Pulse Resp BP 98.2 F 116 H 20 H 132/82 H 01/11/20 15:41 01/11/20 15:41 01/11/20 15:41 01/11/20 15:41 General: Alert, Oriented x3, Cooperative HEENT: Atraumatic Oral: Moist Mucosa Lungs: Normal air movement Cardiovascular: Regular rate Extremities: Capillary Refill Less than 3 Seconds, Edema - +2 non pitting edema Skin: Ulcer/ Wound - left thigh ulcer Wound Measurements and Assessment WC - Nurse 1 - General Ulcer Measurement Start: 01/11/20 15:40 Freq: Status: Active Protocol: Activity Type Activity Date Activity User E-Sign Co-Sign Detail Recorded Client Recorded Date Recorded By Document 01/11/20 15:41 [id number] 01/11/20 15:42 01/11/20 15:41 Wound Center Nurse 1 [Ulcer Assessment] #1 left medial thigh -Combined with other wound No -Current Size (cm) - Length 7.5 -Current Size (cm) - Width 5.8 -Current Size (cm) - Depth 0.1 -Total Square Cm 43.50 -Photo Taken Yes -Epithelialization None Present -Tunneling No -Undermining/Tunneling No -Circular Undermining No -Exudate Amt Large -Exudate Type Serosanguineous -Wound Margin Flat & Intact -Granulation Amt Large (67-100%) -Granulation Quality Red -Slough/Fibrin Yes -Necrosis Amt Small (1-33%) -Necrotic Tissue Type Adherent Slough -Structure Exposed N/A -Texture (Michael-wound Skin Appearance) Assessed, Localized Edema ,Scarring -Moisture (Michael-wound Skin Appearance Assessed,Dry/ ) Scaly -Color (Michael-wound Skin Appearance) Assessed -Temperature (Michael-wound Skin No Abnormality Appearance) (Pt Warm) -Tenderness on Palpation (Michael-wound No Skin Appearance) -Ulcer Cleansing Rinsed/ Irrigated with Saline -Foul Odor after Cleansing No -Anesthetic Used 4% Lidocaine Solution [Edema Assessment] -Lower Limb Edema Present NA - Nurse 2 - General Ulcer CM Notes Start: 01/11/20 15:40 Freq: Status: Active Protocol: Activity Type Activity Date Activity User E-Sign Co-Sign Detail Recorded Client Recorded Date Recorded By Document 01/11/20 15:42 [id number] 01/11/20 15:43 01/11/20 15:42 Wound Center Nurse 2 [Procedure/Treatment] #1 left medial thigh -Time 15:43 -Correct Patient Yes -Correct Side, Site, Position Yes -Correct Procedure Yes -Procedure Performed Yes -Type of Procedure Debridement -Clinical Debridement Subcutaneous -Post Debridement Size (cm) - Length 7.5 -Post Debridement Size (cm) - Width 5.8 -Post Debridement Size (cm) - Depth 0.1 -Total Square Cm 43.50 -Wound/Ulcer Outcome Not Healed -Ulcer Cleansing Rinsed/ Irrigated with Saline -Foul Odor after Cleansing No -Bioengineered Tissue No -Bleeding Controlled with Pressure -Offloading No -Treatment Response Procedure Tolerated Well [See Physician Procedure note for Specifics] Pain Scale: 0-10 Numeric [Pain] -Is Patient Pain Free? Yes Musculoskeletal: No Tenderness to Palpation of Joints or Extremities Neurological: Neuro grossly intact Psych/Mental Status: Normal Affect, Appropriate Debridement Note Post-Debridement Measurements/Treatment WC - Nurse 2 - General Ulcer CM Notes Start: 01/11/20 15:40 Freq: Status: Active Protocol: Activity Type Activity Date Activity User E-Sign Co-Sign Detail Recorded Client Recorded Date Recorded By Document 01/11/20 15:42 [id number] 01/11/20 15:43 RUTH ANN 01/11/20 15:42 Wound Center Nurse 2 #1 left medial thigh -Time 15:43 -Correct Patient Yes -Correct Side, Site, Position Yes -Correct Procedure Yes -Procedure Performed Yes -Type of Procedure Debridement -Clinical Debridement Subcutaneous -Post Debridement Size (cm) - Length 7.5 -Post Debridement Size (cm) - Width 5.8 -Post Debridement Size (cm) - Depth 0.1 -Total Square Cm 43.50 -Wound/Ulcer Outcome Not Healed -Ulcer Cleansing Rinsed/ Irrigated with Saline -Foul Odor after Cleansing No -Bioengineered Tissue No -Bleeding Controlled with Pressure -Offloading No -Treatment Response Procedure Tolerated Well Pain Scale: 0-10 Numeric Is Patient Pain Free? Yes Wound debrided: thigh ulcer Laterality: Left Type of Debridement: Excisional debridement Anesthesia Used: 5% Lidocaine Gel Depth: Down to and including healthy tissue, in the subcutaneous layer Percentage of wound debrided: 100 Instrument Used: 5mm curette Tissue Removed: subcutaneous tissue and slough Severity: Fat Layer Exposed Amount of bleeding with debridement: Mild Bleeding Controlled with: Pressure Patient tolerated procedure well Assessment/Plan Active Problems Venous (peripheral) insufficiency (Chronic) MRSA (methicillin resistant Staphylococcus aureus) infection (Acute) Chronic ulcer of left thigh with fat layer exposed (Chronic) Smoker (Chronic) Diabetes (Chronic) Assessment: 1. Nonhealing necrotizing diabetic abscess ulcer left medial thigh. 2. Nonhealing necrotizing diabetic abscess ulcer right lower abdominal wall. 2. Diabetes mellitus. 3. Smoker. 4. s/p surgical preparation left medial thigh with incision and drainage and excisional debridement nonhealing necrotizing diabetic ulcer abscess (45 cm2). 5. s/p surgical preparation left medial thigh with incision and drainage and excisional debridement necrotizing soft tissue infection diabetic abscess (88 cm2) and surgical preparation right lower abdominal wall with incision and drainage and excisional debridement skin, subcutaneous tissue, and fascia for necrotizing soft tissue infection diabetic abscess (27 cm2). Plan: Wound care: Daily Aquacel-Ag dressing changes will start Mepilex boarder dressing to help with absorption of drainage. Patient would benefit from an advanced wound healing product such as Epifix to help with wound healing, epecially since he is going back to work even though he is not healed. The right lower abdominal wall ucler remains healed. He has finished Cleocin for operative culture that showed MRSE. His previous operative culture showed MRSA and Pseudomonas aeroginosa. He was treated with Doxycycline and Cefdinir and has finished them. His fungal culture came back positive for Aspirgillus species and Zoey albicans. Will start him on Diflucan. His Prealbumin from 11/12/19 was 14.5. Encourage nutritional supplementation with protein to help the healing process. His HgbA1c from 10/27/19 was 10.5. Before proceeding with an elective skin graft reconstruction, the HgbA1c needs to be less than 8. Keep left leg elevated when sitting. He returned to work today and said it was ok. He states that he is tired and and has increased pain. He is going to try to wear a Tubigrip up over thigh to cover his dressing to help prevent so much rubbing against his pants. He has some skin irritation from the tape he had been using. Will also switch type of tape to see if that also helps improve michael wound. Encouraged to massage the right abdominal area with lotion to help soften scarring. Followup 1 week. Encouraged patient to stop smoking as it may have deleterious effects on wound healing. Code Visit [id number]: [id number] [facility] Visit
[2020-01-18 15:18] VITALS: BP 144/87; PULSE 118; RESP 18; TEMP 37.2; BMI 36.9
--- NOTE | 2020-01-18 15:37 | PN.PCM_ITS ---
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 Status: Chronic Current Visit: Yes Code(s): L97.122 - Non-pressure chronic ulcer of left thigh with fat layer exposed (2) Venous (peripheral) insufficiency Status: Chronic Current Visit: Yes Code(s): I87.2 - Venous insufficiency (chronic) (peripheral) (3) MRSA (methicillin resistant Staphylococcus aureus) infection Status: Acute Current Visit: Yes Code(s): A49.02 - Methicillin resistant Staphylococcus aureus infection, unspecified site (4) Smoker Status: Chronic Current Visit: Yes Code(s): F17.200 - Nicotine dependence, unspecified, uncomplicated (5) Diabetes Status: Chronic Current Visit: Yes Code(s): E11.9 - Type 2 diabetes mellitus without complications Type of Wound Date of Service: 01/18/20 Chief Complaint: Nonhealing diabetic abscess ulcers right lower abdominal wall and left medial thigh. History of Wound: Surgery 11/13/19 - Surgical preparation left medial thigh with incision and drainage and excisional debridement nonhealing necrotizing diabetic ulcer abscess (45 cm2). Surgery 10/27/19 - Surgical preparation left medial thigh with incision and drainage and excisional debridement necrotizing soft tissue infection diabetic abscess (88 cm2) and surgical preparation right lower abdominal wall with incision and drainage and excisional debridement skin, subcutaneous tissue, and fascia for necrotizing soft tissue infection diabetic abscess (27 cm2). Wound care - Daily Aquacel- Ag. Right abdomen is healed. He would benefit from an advanced wound product such as Epifix to help get his wound to heal quicker. Operative culture - MRSE. He was discharged on Cleocin and has finished them. His operative culture from 10/27/19 showed MRSA and Pseudomonas aeroginosa. He was discharged on Doxycycline and Cefdinir and has finished them. Fungal culture positive for Aspirgillus species and Zoey albicans he is on Diflucan. Prealbumin from 11/12/19 was 14.5. Encourage nutritional supplementation with protein to help the healing process. HgbA1c from 10/27/19 was 10.5. It needs to be less than 8 before proceeding with any elective skin graft surgery. He started back to work and is doing ok. Today he denies fever. His appetite is ok. Progress of Wound: Improved - Physical Exam Vital Signs Temp Pulse Resp BP 98.9 F 118 H 18 144/87 H 01/18/20 15:18 03/09/20 15:18 01/18/20 15:18 01/18/20 15:18 General: Alert, Oriented x3, Cooperative HEENT: Atraumatic Oral: Moist Mucosa Lungs: Normal air movement Cardiovascular: Regular rate Extremities: Capillary Refill Less than 3 Seconds Skin: Ulcer/ Wound - Left medial thigh Wound Measurements and Assessment WC - Nurse 1 - General Ulcer Measurement Start: 01/11/20 15:40 Freq: Status: Active Protocol: Activity Type Activity Date Activity User E-Sign Co-Sign Detail Recorded Client Recorded Date Recorded By Document 01/18/20 15:18 [id number] 01/18/20 15:20 01/18/20 15:18 Wound Center Nurse 1 [Ulcer Assessment] #1 left medial thigh -Combined with other wound No -Current Size (cm) - Length 7.2 -Current Size (cm) - Width 4.5 -Current Size (cm) - Depth 0.1 -Total Square Cm 32.40 -Photo Taken No -Epithelialization Small 1-33% -Tunneling No -Undermining/Tunneling No -Circular Undermining No -Exudate Amt Medium -Exudate Type Serosanguineous -Wound Margin Flat & Intact -Granulation Amt Large (67-100%) -Granulation Quality Red -Slough/Fibrin Yes -Necrosis Amt Small (1-33%) -Necrotic Tissue Type Adherent Slough -Structure Exposed N/A -Texture (Michael-wound Skin Appearance) Assessed, Scarring -Moisture (Michael-wound Skin Appearance Assessed,Dry/ ) Scaly -Color (Michael-wound Skin Appearance) Assessed -Temperature (Michael-wound Skin No Abnormality Appearance) (Pt Warm) -Tenderness on Palpation (Michael-wound No Skin Appearance) -Ulcer Cleansing Wound Cleanser -Foul Odor after Cleansing No -Anesthetic Used 4% Lidocaine Solution [Edema Assessment] -Lower Limb Edema Present NA WC - Nurse 2 - General Ulcer CM Notes Start: 01/11/20 15:40 Freq: Status: Active Protocol: Activity Type Activity Date Activity User E-Sign Co-Sign Detail Recorded Client Recorded Date Recorded By Document 01/18/20 15:28 [id number] 01/18/20 15:31 01/18/20 15:28 Wound Center Nurse 2 [Procedure/Treatment] #1 left medial thigh -Time 15:30 -Correct Patient Yes -Correct Side, Site, Position Yes -Correct Procedure Yes -Procedure Performed Yes -Type of Procedure Debridement -Clinical Debridement Subcutaneous -Post Debridement Size (cm) - Length 7.5 -Post Debridement Size (cm) - Width 4.8 -Post Debridement Size (cm) - Depth 0.2 -Total Square Cm 36.00 -Wound/Ulcer Outcome Not Healed -Ulcer Cleansing Rinsed/ Irrigated with Saline -Foul Odor after Cleansing No -Bioengineered Tissue No -Bleeding Controlled with Pressure -Offloading No -Treatment Response Procedure Tolerated Well [See Physician Procedure note for Specifics] Pain Scale: 0-10 Numeric [Pain] -Is Patient Pain Free? Yes Musculoskeletal: No Tenderness to Palpation of Joints or Extremities Neurological: Neuro grossly intact Psych/Mental Status: Normal Affect, Appropriate Debridement Note Post-Debridement Measurements/Treatment WC - Nurse 2 - General Ulcer CM Notes Start: 01/11/20 15:40 Freq: Status: Active Protocol: Activity Type Activity Date Activity User E-Sign Co-Sign Detail Recorded Client Recorded Date Recorded By Document 01/11/20 15:42 [id number] 01/11/20 15:43 Document 01/18/20 15:28 [id number] 01/18/20 15:31 01/11/20 01/18/20 15:42 15:28 Wound Center Nurse 2 #1 left medial thigh -Time 15:43 15:30 -Correct Patient Yes Yes -Correct Side, Site, Position Yes Yes -Correct Procedure Yes Yes -Procedure Performed Yes Yes -Type of Procedure Debridement Debridement -Clinical Debridement Subcutaneous Subcutaneous -Post Debridement Size (cm) - Length 7.5 7.5 -Post Debridement Size (cm) - Width 5.8 4.8 -Post Debridement Size (cm) - Depth 0.1 0.2 -Total Square Cm 43.50 36.00 -Wound/Ulcer Outcome Not Healed Not Healed -Ulcer Cleansing Rinsed/ Rinsed/ Irrigated with Irrigated with Saline Saline -Foul Odor after Cleansing No No -Bioengineered Tissue No No -Bleeding Controlled with Pressure Pressure -Offloading No No -Treatment Response Procedure Procedure Tolerated Well Tolerated Well Pain Scale: 0-10 Numeric Is Patient Pain Free? Yes Yes Wound debrided: Medial thigh ulcer Laterality: Left Type of Debridement: Excisional debridement Anesthesia Used: 5% Lidocaine Gel Depth: Down to and including healthy tissue, in the subcutaneous layer Percentage of wound debrided: 100 Instrument Used: 7mm curette Tissue Removed: Subcutaneous tissue and slough Severity: Fat Layer Exposed Amount of bleeding with debridement: Mild Bleeding Controlled with: Pressure, Compression and gauze Patient tolerated procedure well Assessment/Plan Active Problems Venous (peripheral) insufficiency (Chronic) MRSA (methicillin resistant Staphylococcus aureus) infection (Acute) Chronic ulcer of left thigh with fat layer exposed (Chronic) Smoker (Chronic) Diabetes (Chronic) Assessment: 1. Nonhealing necrotizing diabetic abscess ulcer left medial thigh. 2. Nonhealing necrotizing diabetic abscess ulcer right lower abdominal wall. 2. Diabetes mellitus. 3. Smoker. 4. s/p surgical preparation left medial thigh with incision and drainage and excisional debridement nonhealing necrotizing diabetic ulcer abscess (45 cm2). 5. s/p surgical preparation left medial thigh with incision and drainage and excisional debridement necrotizing soft tissue infection diabetic abscess (88 cm2) and surgical preparation right lower abdominal wall with incision and drainage and excisional debridement skin, subcutaneous tissue, and fascia for necrotizing soft tissue infection diabetic abscess (27 cm2). Plan: Wound care: Daily Aquacel-Ag dressing changes topped with Keramax dressing to help with absorption of drainage. Patient would benefit from an a dvanced wound healing product such as Epifix to help with wound healing, epecially since he is going back to work even though he is not healed. The right lower abdominal wall ucler remains healed. He has finished Cleocin for operative culture that showed MRSE. His previous operative culture showed MRSA and Pseudomonas aeroginosa. He was treated with Doxycycline and Cefdinir and has finished them. His fungal culture came back positive for Aspirgillus species and Zoey albicans. Will start him on Diflucan. His Prealbumin from 11/12/19 was 14.5. Encourage nutritional supplementation with protein to help the healing process. His HgbA1c from 10/27/19 was 10.5. Before proceeding with an elective skin graft reconstruction, the HgbA1c needs to be less than 8. Keep left leg elevated when sitting. He returned to work today and said it was ok. He states that he is tired and and has increased pain. He is going to try to wear a Tubigrip up over thigh to cover his dressing to help prevent so much rubbing against his pants. He has some skin irritation from the tape he had been using. Will also switch type of tape to see if that also helps improve michael wound. Encouraged to massage the right abdominal area with lotion to help soften scarring. Followup 1 week. Encouraged patient to stop smoking as it may have deleterious effects on wound healing. [id number]: [id number] [facility] Visit
[2020-01-25 15:23] VITALS: BP 126/73; PULSE 115; RESP 18; TEMP 35.7; BMI 36.9
--- NOTE | 2020-01-25 16:36 | PN.PCM_ITS ---
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 Status: Chronic Current Visit: Yes Code(s): L97.122 - Non-pressure chronic ulcer of left thigh with fat layer exposed (2) Venous (peripheral) insufficiency Status: Chronic Current Visit: Yes Code(s): I87.2 - Venous insufficiency (chronic) (peripheral) (3) MRSA (methicillin resistant Staphylococcus aureus) infection Status: Acute Current Visit: Yes Code(s): A49.02 - Methicillin resistant Staphylococcus aureus infection, unspecified site (4) Smoker Status: Chronic Current Visit: Yes Code(s): F17.200 - Nicotine dependence, unspecified, uncomplicated (5) Diabetes Status: Chronic Current Visit: Yes Code(s): E11.9 - Type 2 diabetes mellitus without complications Type of Wound Date of Service: 01/25/20 Chief Complaint: Nonhealing diabetic abscess ulcers right lower abdominal wall and left medial thigh. History of Wound: Surgery 11/13/19 - Surgical preparation left medial thigh with incision and drainage and excisional debridement nonhealing necrotizing diabetic ulcer abscess (45 cm2). Surgery 10/27/19 - Surgical preparation left medial thigh with incision and drainage and excisional debridement necrotizing soft tissue infection diabetic abscess (88 cm2) and surgical preparation right lower abdominal wall with incision and drainage and excisional debridement skin, subcutaneous tissue, and fascia for necrotizing soft tissue infection diabetic abscess (27 cm2). Wound care - Daily Aquacel- Ag. Right abdomen is healed. He would benefit from an advanced wound product such as Epifix to help get his wound to heal quicker. Operative culture - MRSE. He was discharged on Cleocin and has finished them. His operative culture from 10/27/19 showed MRSA and Pseudomonas aeroginosa. He was discharged on Doxycycline and Cefdinir and has finished them. Fungal culture positive for Aspirgillus species and Zoey albicans he is on Diflucan. Prealbumin from 11/12/19 was 14.5. Encourage nutritional supplementation with protein to help the healing process. HgbA1c from 10/27/19 was 10.5. It needs to be less than 8 before proceeding with any elective skin graft surgery. He started back to work and is doing ok. Today he denies fever. His appetite is ok. Progress of Wound: Improved - Physical Exam Vital Signs Temp Pulse Resp BP 96.2 F L 115 H 18 126/73 H 01/25/20 15:23 01/25/20 15:23 01/25/20 15:23 01/25/20 15:23 General: Alert, Oriented x3, Cooperative HEENT: Atraumatic Oral: Moist Mucosa Lungs: Normal air movement Cardiovascular: Regular rate Extremities: Capillary Refill Less than 3 Seconds, Edema Skin: Ulcer/ Wound - left thigh ulcer Wound Measurements and Assessment WC - Nurse 1 - General Ulcer Measurement Start: 01/11/20 15:40 Freq: Status: Active Protocol: Activity Type Activity Date Activity User E-Sign Co-Sign Detail Recorded Client Recorded Date Recorded By Document 01/25/20 15:23 RB [id number] 01/25/20 15:26 RB 01/25/20 15:23 Wound Center Nurse 1 [Ulcer Assessment] #1 left medial thigh -Combined with other wound No -Current Size (cm) - Length 6 -Current Size (cm) - Width 4.8 -Current Size (cm) - Depth 0.1 -Total Square Cm 28.8 -Tunneling No -Undermining/Tunneling No -Circular Undermining No -Exudate Amt Medium -Exudate Type Serosanguineous -Wound Margin Flat & Intact -Granulation Amt Large (67-100%) -Granulation Quality [place] -Slough/Fibrin Yes -Necrosis Amt Small (1-33%) -Necrotic Tissue Type Adherent Slough -Structure Exposed N/A -Texture (Renetta-wound Skin Appearance) Assessed, Scarring -Moisture (Renetta-wound Skin Appearance Assessed ) -Color (Renetta-wound Skin Appearance) Assessed -Temperature (Renetta-wound Skin No Abnormality Appearance) (Pt Warm) -Tenderness on Palpation (Renetta-wound No Skin Appearance) -Ulcer Cleansing Wound Cleanser -Foul Odor after Cleansing No -Anesthetic Used 4% Lidocaine Solution WC - Nurse 2 - General Ulcer CM Notes Start: 01/11/20 15:40 Freq: Status: Active Protocol: Activity Type Activity Date Activity User E-Sign Co-Sign Detail Recorded Client Recorded Date Recorded By Document 01/25/20 15:41 MW [id number] 01/25/20 15:42 MW 01/25/20 15:41 Wound Center Nurse 2 [Procedure/Treatment] -Time 15:41 -Correct Patient Yes -Correct Side, Site, Position Yes -Correct Procedure Yes -Procedure Performed Yes -Type of Procedure Debridement -Clinical Debridement Subcutaneous -Post Debridement Size (cm) - Length 6.5 -Post Debridement Size (cm) - Width 4.2 -Post Debridement Size (cm) - Depth 0.2 -Total Square Cm 27.30 -Wound/Ulcer Outcome Not Healed -Ulcer Cleansing Rinsed/ Irrigated with Saline -Foul Odor after Cleansing No -Bioengineered Tissue No -Bleeding Controlled with Pressure -Offloading No -Treatment Response Procedure Tolerated Well [See Physician Procedure note for Specifics] Pain Scale: 0-10 Numeric [Pain] -Is Patient Pain Free? Yes Musculoskeletal: No Tenderness to Palpation of Joints or Extremities Neurological: Neuro grossly intact Psych/Mental Status: Normal Affect, Appropriate Debridement Note Post-Debridement Measurements/Treatment WC - Nurse 2 - General Ulcer CM Notes Start: 01/11/20 15:40 Freq: Status: Active Protocol: Activity Type Activity Date Activity User E-Sign Co-Sign Detail Recorded Client Recorded Date Recorded By Document 01/11/20 15:42 JF [id number] 01/11/20 15:43 JF Document 01/18/20 15:28 JF [id number] 01/18/20 15:31 JF Document 01/25/20 15:41 MW [id number] 01/25/20 15:42 MW 01/11/20 01/18/20 01/25/20 15:42 15:28 15:41 Wound Center Nurse 2 #1 left medial thigh -Time 15:43 15:30 15:41 -Correct Patient Yes Yes Yes -Correct Side, Site, Position Yes Yes Yes -Correct Procedure Yes Yes Yes -Procedure Performed Yes Yes Yes -Type of Procedure Debridement Debridement Debridement -Clinical Debridement Subcutaneous Subcutaneous Subcutaneous -Post Debridement Size (cm) - Length 7.5 7.5 6.5 -Post Debridement Size (cm) - Width 5.8 4.8 4.2 -Post Debridement Size (cm) - Depth 0.1 0.2 0.2 -Total Square Cm 43.50 36.00 27.30 -Wound/Ulcer Outcome Not Healed Not Healed Not Healed -Ulcer Cleansing Rinsed/ Rinsed/ Rinsed/ Irrigated with Irrigated with Irrigated with Saline Saline Saline -Foul Odor after Cleansing No No No -Bioengineered Tissue No No No -Bleeding Controlled with Pressure Pressure Pressure -Offloading No No No -Treatment Response Procedure Procedure Procedure Tolerated Well Tolerated Well Tolerated Well Pain Scale: 0-10 Numeric Is Patient Pain Free? Yes Yes Yes Wound debrided: thigh ulcer Laterality: Left Type of Debridement: Excisional debridement Anesthesia Used: 4% Lidocaine Solution Depth: Down to and including healthy tissue, in the subcutaneous layer Percentage of wound debrided: 100 Instrument Used: 7mm curette Tissue Removed: subcutaneous tissue and slough Severity: Fat Layer Exposed Amount of bleeding with debridement: Mild Bleeding Controlled with: Pressure Patient tolerated procedure well Assessment/Plan Active Problems Venous (peripheral) insufficiency (Chronic) MRSA (methicillin resistant Staphylococcus aureus) infection (Acute) Chronic ulcer of left thigh with fat layer exposed (Chronic) Smoker (Chronic) Diabetes (Chronic) Assessment: 1. Nonhealing necrotizing diabetic abscess ulcer left medial thigh. 2. Nonhealing necrotizing diabetic abscess ulcer right lower abdominal wall. 2. Diabetes mellitus. 3. Smoker. 4. s/p surgical preparation left medial thigh with incision and drainage and excisional debridement nonhealing necrotizing diabetic ulcer abscess (45 cm2). 5. s/p surgical preparation left medial thigh with incision and drainage and excisional debridement necrotizing soft tissue infection diabetic abscess (88 cm2) and surgical preparation right lower abdominal wall with incision and drainage and excisional debridement skin, subcutaneous tissue, and fascia for necrotizing soft tissue infection diabetic abscess (27 cm2). Plan: Wound care: Daily Aquacel-Ag dressing changes topped with Keramax dressing to help with absorption of drainage. Patient would benefit from an advanced wound healing product such as Epifix to help with wound healing, epecially since he is going back to work even though he is not healed. The right lower abdominal wall ucler remains healed. He has finished Cleocin for operative culture that showed MRSE. His previous operative culture showed MRSA and Pseudomonas aeroginosa. He was treated with Doxycycline and Cefdinir and has finished them. His fungal culture came back positive for Aspirgillus species and Zoey albicans. Will start him on Diflucan. His Prealbumin from 11/12/19 was 14.5. Encourage nutritional supplementation with protein to help the healing process. His HgbA1c from 10/27/19 was 10.5. Before proceeding with an elective skin graft reconstruction, the HgbA1c needs to be less than 8. Keep left leg elevated when sitting. He returned to work and it going well. Encouraged to massage the right abdominal area with lotion to help soften scarring. Followup 2 weeks. Encouraged patient to stop smoking as it may have deleterious effects on wound healing. [id number]: [id number] Global Visit
[2020-02-08 15:20] VITALS: BP 148/95; PULSE 105; RESP 16; TEMP 37.1; BMI 36.9
--- NOTE | 2020-02-08 15:52 | PCM.WC.PN ---
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 Status: Chronic Current Visit: Yes Code(s): L97.122 - Non-pressure chronic ulcer of left thigh with fat layer exposed (2) Venous (peripheral) insufficiency Status: Chronic Current Visit: Yes Code(s): I87.2 - Venous insufficiency (chronic) (peripheral) (3) MRSA (methicillin resistant Staphylococcus aureus) infection Status: Acute Current Visit: Yes Code(s): A49.02 - Methicillin resistant Staphylococcus aureus infection, unspecified site (4) Smoker Status: Chronic Current Visit: Yes Code(s): F17.200 - Nicotine dependence, unspecified, uncomplicated (5) Diabetes Status: Chronic Current Visit: Yes Code(s): E11.9 - Type 2 diabetes mellitus without complications Type of Wound Date of Service: 02/08/20 Chief Complaint: Nonhealing diabetic abscess ulcers right lower abdominal wall and left medial thigh. History of Wound: Surgery 11/13/19 - Surgical preparation left medial thigh with incision and drainage and excisional debridement nonhealing necrotizing diabetic ulcer abscess (45 cm2). Surgery 10/27/19 - Surgical preparation left medial thigh with incision and drainage and excisional debridement necrotizing soft tissue infection diabetic abscess (88 cm2) and surgical preparation right lower abdominal wall with incision and drainage and excisional debridement skin, subcutaneous tissue, and fascia for necrotizing soft tissue infection diabetic abscess (27 cm2). Wound care - Daily Aquacel- Ag. Right abdomen is healed. He would benefit from an advanced wound product such as Epifix to help get his wound to heal quicker. Operative culture - MRSE. He was discharged on Cleocin and has finished them. His operative culture from 10/27/19 showed MRSA and Pseudomonas aeroginosa. He was discharged on Doxycycline and Cefdinir and has finished them. Fungal culture positive for Aspirgillus species and Zoey albicans he is on Diflucan. Prealbumin from 11/12/19 was 14.5. Encourage nutritional supplementation with protein to help the healing process. HgbA1c from 10/27/19 was 10.5. It needs to be less than 8 before proceeding with any elective skin graft surgery. He started back to work and is doing ok. Today he denies fever. His appetite is ok. Progress of Wound: Improved - Physical Exam Vital Signs Temp Pulse Resp BP 98.7 F 105 H 16 148/95 H 02/08/20 15:20 03/30/20 15:20 02/08/20 15:20 02/08/20 15:20 General: Alert, Oriented x3, Cooperative HEENT: Atraumatic Oral: Moist Mucosa Lungs: Normal air movement Cardiovascular: Regular rate Abdomen: Soft Extremities: Edema Skin: Ulcer/ Wound - left thigh ulcer Wound Measurements and Assessment WC - Nurse 1 - General Ulcer Measurement Start: 01/11/20 15:40 Freq: Status: Active Protocol: Activity Type Activity Date Activity User E-Sign Co-Sign Detail Recorded Client Recorded Date Recorded By Document 02/08/20 15:20 MW [id number] 02/08/20 15:27 MW 02/08/20 15:20 Wound Center Nurse 1 [Ulcer Assessment] #1 left medial thigh -Combined with other wound No -Current Size (cm) - Length 5.5 -Current Size (cm) - Width 2.5 -Current Size (cm) - Depth 0.1 -Total Square Cm 13.75 -Date of Last Picture (Recall this 02/08/20 field) -Photo Taken Yes -Epithelialization Small 1-33% -Tunneling No -Undermining/Tunneling No -Circular Undermining No -Exudate Amt Medium -Exudate Type Serosanguineous -Wound Margin Flat & Intact -Granulation Amt Large (67-100%) -Granulation Quality Hyper- granulation, [place] -Slough/Fibrin Yes -Necrosis Amt Small (1-33%) -Necrotic Tissue Type Adherent Slough -Structure Exposed N/A -Texture (Renetta-wound Skin Appearance) Assessed, Scarring -Moisture (Renetta-wound Skin Appearance No Abnormality, ) Assessed -Color (Renetta-wound Skin Appearance) No Abnormality, Assessed -Temperature (Renetta-wound Skin No Abnormality Appearance) (Pt Warm) -Tenderness on Palpation (Renetta-wound Yes Skin Appearance) -Ulcer Cleansing Rinsed/ Irrigated with Saline -Foul Odor after Cleansing No -Anesthetic Used 4% Lidocaine Solution [Edema Assessment] -Lower Limb Edema Present No WC - Nurse 2 - General Ulcer CM Notes Start: 01/11/20 15:40 Freq: Status: Active Protocol: Activity Type Activity Date Activity User E-Sign Co-Sign Detail Recorded Client Recorded Date Recorded By Document 02/08/20 15:30 MW [id number] 02/08/20 15:33 MW 02/08/20 15:30 Wound Center Nurse 2 [Procedure/Treatment] #1 left medial thigh -Time 15:30 -Correct Patient Yes -Correct Side, Site, Position Yes -Correct Procedure Yes -Procedure Performed Yes -Type of Procedure Debridement -Clinical Debridement Subcutaneous -Post Debridement Size (cm) - Length 5.4 -Post Debridement Size (cm) - Width 4.0 -Post Debridement Size (cm) - Depth 0.2 -Total Square Cm 21.60 -Wound/Ulcer Outcome Not Healed -Ulcer Cleansing Rinsed/ Irrigated with Saline -Foul Odor after Cleansing No -Bioengineered Tissue No -Bleeding Controlled with Pressure -Offloading No -Treatment Response Procedure Tolerated Well [See Physician Procedure note for Specifics] Pain Scale: 0-10 Numeric [Pain] -Is Patient Pain Free? Yes Musculoskeletal: No Tenderness to Palpation of Joints or Extremities Neurological: Neuro grossly intact Debridement Note Post-Debridement Measurements/Treatment WC - Nurse 2 - General Ulcer CM Notes Start: 01/11/20 15:40 Freq: Status: Active Protocol: Activity Type Activity Date Activity User E-Sign Co-Sign Detail Recorded Client Recorded Date Recorded By Document 01/11/20 15:42 JF [id number] 01/11/20 15:43 JF Document 01/18/20 15:28 JF [id number] 01/18/20 15:31 JF Document 01/25/20 15:41 MW [id number] 01/25/20 15:42 MW Document 02/08/20 15:30 MW [id number] 02/08/20 15:33 MW 01/11/20 01/18/20 01/25/20 15:42 15:28 15:41 Wound Center Nurse 2 #1 left medial thigh -Time 15:43 15:30 15:41 -Correct Patient Yes Yes Yes -Correct Side, Site, Position Yes Yes Yes -Correct Procedure Yes Yes Yes -Procedure Performed Yes Yes Yes -Type of Procedure Debridement Debridement Debridement -Clinical Debridement Subcutaneous Subcutaneous Subcutaneous -Post Debridement Size (cm) - Length 7.5 7.5 6.5 -Post Debridement Size (cm) - Width 5.8 4.8 4.2 -Post Debridement Size (cm) - Depth 0.1 0.2 0.2 -Total Square Cm 43.50 36.00 27.30 -Wound/Ulcer Outcome Not Healed Not Healed Not Healed -Ulcer Cleansing Rinsed/ Rinsed/ Rinsed/ Irrigated with Irrigated with Irrigated with Saline Saline Saline -Foul Odor after Cleansing No No No -Bioengineered Tissue No No No -Bleeding Controlled with Pressure Pressure Pressure -Offloading No No No -Treatment Response Procedure Procedure Procedure Tolerated Well Tolerated Well Tolerated Well Pain Scale: 0-10 Numeric Is Patient Pain Free? Yes Yes Yes 02/08/20 15:30 Wound Center Nurse 2 #1 left medial thigh -Time 15:30 -Correct Patient Yes -Correct Side, Site, Position Yes -Correct Procedure Yes -Procedure Performed Yes -Type of Procedure Debridement -Clinical Debridement Subcutaneous -Post Debridement Size (cm) - Length 5.4 -Post Debridement Size (cm) - Width 4.0 -Post Debridement Size (cm) - Depth 0.2 -Total Square Cm 21.60 -Wound/Ulcer Outcome Not Healed -Ulcer Cleansing Rinsed/ Irrigated with Saline -Foul Odor after Cleansing No -Bioengineered Tissue No -Bleeding Controlled with Pressure -Offloading No -Treatment Response Procedure Tolerated Well Pain Scale: 0-10 Numeric Is Patient Pain Free? Yes Wound debrided: Thigh ulcer Laterality: Left Type of Debridement: Excisional debridement Anesthesia Used: 5% Lidocaine Gel Depth: Down to and including healthy tissue, in the subcutaneous layer Percentage of wound debrided: 100 Instrument Used: 5mm curette Tissue Removed: Subcutaneous tissue and slough Severity: Limited To Skin Breakdown Amount of bleeding with debridement: Mild Bleeding Controlled with: Pressure Patient tolerated procedure well Assessment/Plan Active Problems Venous (peripheral) insufficiency (Chronic) MRSA (methicillin resistant Staphylococcus aureus) infection (Acute) Chronic ulcer of left thigh with fat layer exposed (Chronic) Smoker (Chronic) Diabetes (Chronic) Assessment: 1. Nonhealing necrotizing diabetic abscess ulcer left medial thigh. 2. Nonhealing necrotizing diabetic abscess ulcer right lower abdominal wall. 2. Diabetes mellitus. 3. Smoker. 4. s/p surgical preparation left medial thigh with incision and drainage and excisional debridement nonhealing necrotizing diabetic ulcer abscess (45 cm2). 5. s/p surgical preparation left medial thigh with incision and drainage and excisional debridement necrotizing soft tissue infection diabetic abscess (88 cm2) and surgical preparation right lower abdominal wall with incision and drainage and excisional debridement skin, subcutaneous tissue, and fascia for necrotizing soft tissue infection diabetic abscess (27 cm2). Plan: Wound care: Daily Aquacel-Ag dressing changes topped with Keramax dressing to help with absorption of drainage. Patient would benefit from an advanced wound healing product such as Epifix to help with wound healing, epecially since he is going back to work even though he is not healed. The right lower abdominal wall ucler remains healed. He has finished Cleocin for operative culture that showed MRSE. His previous operative culture showed MRSA and Pseudomonas aeroginosa. He was treated with Doxycycline and Cefdinir and has finished them. His fungal culture came back positive for Aspirgillus species and Zoey albicans. Will start him on Diflucan. His Prealbumin from 11/12/19 was 14.5. Encourage nutritional supplementation with protein to help the healing process. His HgbA1c from 10/27/19 was 10.5. Before proceeding with an elective skin graft reconstruction, the HgbA1c needs to be less than 8. Keep left leg elevated when sitting. He returned to work and it going well. Encouraged to massage the right abdominal area with lotion to help soften scarring. Followup one week. Encouraged patient to stop smoking as it may have deleterious effects on wound healing. [id number]: [id number] Global Visit
== END 2020-02-09 23:59 ==
LOC: WC 15:30
PROVIDERS: PCP Family Medicine; Referring Provider Surgery; Visit Provider Surgery
DX: E11.622 Type 2 diabetes mellitus with other skin ulcer (principal); Z86.14 Personal history of Methicillin resistant Staphylococcus aureus infection; F17.200 Nicotine dependence, unspecified, uncomplicated; I87.2 Venous insufficiency (chronic) (peripheral); L97.122 Non-pressure chronic ulcer of left thigh with fat layer exposed
CPT/HCPCS: 11042; 11045

== ENCOUNTER 2020-02-29 15:30 | Outpatient (RCR) | payer BC, SELFPAY ==
[2020-02-10 00:42] VITALS: BP 148/95; PULSE 105; RESP 16; TEMP 37.1
[2020-02-15 15:18] VITALS: BP 143/95; PULSE 110; RESP 18; TEMP 36.4; BMI 36.9
--- NOTE | 2020-02-15 15:59 | PN.PCM_ITS ---
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 Status: Chronic Current Visit: Yes Code(s): L97.122 - Non-pressure chronic ulcer of left thigh with fat layer exposed (2) Venous (peripheral) insufficiency Status: Chronic Current Visit: Yes Code(s): I87.2 - Venous insufficiency (chronic) (peripheral) (3) Smoker Status: Chronic Current Visit: Yes Code(s): F17.200 - Nicotine dependence, unspecified, uncomplicated (4) Diabetes Status: Chronic Current Visit: Yes Code(s): E11.9 - Type 2 diabetes mellitus without complications Type of Wound Date of Service: 02/15/20 Chief Complaint: Nonhealing diabetic abscess ulcers right lower abdominal wall and left medial thigh. History of Wound: Surgery 11/13/19 - Surgical preparation left medial thigh with incision and drainage and excisional debridement nonhealing necrotizing diabetic ulcer abscess (45 cm2). Surgery 10/27/19 - Surgical preparation left medial thi gh with incision and drainage and excisional debridement necrotizing soft tissue infection diabetic abscess (88 cm2) and surgical preparation right lower abdominal wall with incision and drainage and excisional debridement skin, subcutaneous tissue, and fascia for necrotizing soft tissue infection diabetic abscess (27 cm2). Wound care - Daily Aquacel- Ag. Right abdomen is healed. He would benefit from an advanced wound product such as Epifix to help get his wound to heal quicker. Operative culture - MRSE. He was discharged on Cleocin and has finished them. His operative culture from 10/27/19 showed MRSA and Pseudomonas aeroginosa. He was discharged on Doxycycline and Cefdinir and has finished them. Fungal culture positive for Aspirgillus species and Zoey albicans he is on Diflucan. Prealbumin from 11/12/19 was 14.5. Encourage nutritional supplementation with protein to help the healing process. HgbA1c from 10/27/19 was 10.5. It needs to be less than 8 before proceeding with any elective skin graft surgery. He started back to work and is doing ok. Today he denies fever. His appetite is ok. Progress of Wound: Improved - Physical Exam Vital Signs Temp Pulse Resp BP 97.6 F L 110 H 18 143/95 H 02/15/20 15:18 02/15/20 15:18 02/15/20 15:18 02/15/20 15:18 General: Alert, Oriented x3, Cooperative HEENT: Atraumatic Oral: Moist Mucosa Lungs: Normal air movement Cardiovascular: Regular rate Extremities: Capillary Refill Less than 3 Seconds, Edema Skin: Ulcer/ Wound - Left thigh ulcer is clean and beefy pink. Wound Measurements and Assessment - Nurse 1 - General Ulcer Measurement Start: 02/15/20 15:17 Freq: Status: Active Protocol: Activity Type Activity Date Activity User E-Sign Co-Sign Detail Recorded Client Recorded Date Recorded By Document 02/15/20 15:18 [address] [id number] 02/15/20 15:28 PL 02/15/20 15:18 Wound Center Nurse 1 [Ulcer Assessment] #1 left medial thigh -Combined with other wound No -Current Size (cm) - Length 4.5 -Current Size (cm) - Width 2.0 -Current Size (cm) - Depth 0.1 -Total Square Cm 9.00 -Photo Taken No -Tunneling No -Undermining/Tunneling No -Circular Undermining No -Exudate Amt Medium -Exudate Type Serosanguineous -Granulation Amt Large (67-100%) -Granulation Quality Hyper- granulation, Pale,Red -Slough/Fibrin No -Necrosis Amt None Present (0 %) -Texture (Renetta-wound Skin Appearance) No Abnormality -Moisture (Renetta-wound Skin Appearance No Abnormality ) -Color (Renetta-wound Skin Appearance) No Abnormality -Temperature (Renetta-wound Skin No Abnormality Appearance) (Pt Warm) -Tenderness on Palpation (Renetta-wound No Skin Appearance) -Ulcer Cleansing Rinsed/ Irrigated with Saline -Anesthetic Used 4% Lidocaine Solution - Nurse 2 - General Ulcer CM Notes Start: 02/15/20 15:17 Freq: Status: Active Protocol: Activity Type Activity Date Activity User E-Sign Co-Sign Detail Recorded Client Recorded Date Recorded By Document 02/15/20 15:45 [id number] 02/15/20 15:46 02/15/20 15:45 Wound Center Nurse 2 [Procedure/Treatment] -Time 15:45 -Correct Patient Yes -Correct Side, Site, Position Yes -Correct Procedure Yes -Procedure Performed Yes -Type of Procedure Debridement -Clinical Debridement Subcutaneous -Post Debridement Size (cm) - Length 4.6 -Post Debridement Size (cm) - Width 3.2 -Post Debridement Size (cm) - Depth 0.1 -Total Square Cm 14.72 -Wound/Ulcer Outcome Not Healed -Ulcer Cleansing Rinsed/ Irrigated with Saline -Foul Odor after Cleansing No -Bioengineered Tissue No -Bleeding Controlled with Pressure -Offloading No -Treatment Response Procedure Tolerated Well [See Physician Procedure note for Specifics] Pain Scale: 0-10 Numeric [Pain] -Is Patient Pain Free? Yes Musculoskeletal: No Tenderness to Palpation of Joints or Extremities Neurological: Neuro grossly intact Psych/Mental Status: Normal Affect, Appropriate Debridement Note Post-Debridement Measurements/Treatment WC - Nurse 2 - General Ulcer CM Notes Start: 02/15/20 15:17 Freq: Status: Active Protocol: Activity Type Activity Date Activity User E-Sign Co-Sign Detail Recorded Client Recorded Date Recorded By Document 02/15/20 15:45 RUTH ANN [id number] 02/15/20 15:46 RUTH ANN 02/15/20 15:45 Wound Center Nurse 2 #1 left medial thigh -Time 15:45 -Correct Patient Yes -Correct Side, Site, Position Yes -Correct Procedure Yes -Procedure Performed Yes -Type of Procedure Debridement -Clinical Debridement Subcutaneous -Post Debridement Size (cm) - Length 4.6 -Post Debridement Size (cm) - Width 3.2 -Post Debridement Size (cm) - Depth 0.1 -Total Square Cm 14.72 -Wound/Ulcer Outcome Not Healed -Ulcer Cleansing Rinsed/ Irrigated with Saline -Foul Odor after Cleansing No -Bioengineered Tissue No -Bleeding Controlled with Pressure -Offloading No -Treatment Response Procedure Tolerated Well Pain Scale: 0-10 Numeric Is Patient Pain Free? Yes Wound debrided: Thigh ulcer Laterality: Left Type of Debridement: Excisional debridement Anesthesia Used: 5% Lidocaine Gel Depth: Down to and including healthy tissue, in the subcutaneous layer Percentage of wound debrided: 100 Instrument Used: 5mm curette Tissue Removed: Subucataneous tissue and slough Severity: Fat Layer Exposed Amount of bleeding with debridement: Mild Bleeding Controlled with: Pressure Patient tolerated procedure well Assessment/Plan Active Problems Venous (peripheral) insufficiency (Chronic) Chronic ulcer of left thigh with fat layer exposed (Chronic) Smoker (Chronic) Diabetes (Chronic) Assessment: 1. Nonhealing necrotizing diabetic abscess ulcer left medial thigh. 2. Nonhealing necrotizing diabetic abscess ulcer right lower abdominal wall. 2. Diabetes mellitus. 3. Smoker. 4. s/p surgical preparation left medial thigh with incision and drainage and excisional debridement nonhealing necrotizing diabetic ulcer abscess (45 cm2). 5. s/p surgical preparation left medial thigh with incision and drainage and excisional debridement necrotizing soft tissue infection diabetic abscess (88 cm2) and surgical preparation right lower abdominal wall with incision and drainage and excisional debridement skin, subcutaneous tissue, and fascia for necrotizing soft tissue infection diabetic abscess (27 cm2). Plan: Wound care: Daily Aquacel-Ag dressing changes topped with Keramax dressing to help with absorption of drainage. Patient would benefit from an advanced wound healing product such as Epifix to help with wound healing, epecially since he is going back to work even though he is not healed. The right lower abdominal wall ucler remains healed. He has finished Cleocin for operative culture that showed MRSE. His previous operative culture showed MRSA and Pseudomonas aeroginosa. He was treated with Doxycycline and Cefdinir and has finished them. His fungal culture came back positive for Aspirgillus species and Zoey albicans. Will start him on Diflucan. His Prealbumin from 11/12/19 was 14.5. Encourage nutritional supplementation with protein to help the healing process. His HgbA1c from 10/27/19 was 10.5. Before proceeding with an elective skin graft reconstruction, the HgbA1c needs to be less than 8. Keep left leg elevated when sitting. He returned to work and it going well. Encouraged to massage the right abdominal area with lotion to help soften scarring. Followup one week. Encouraged patient to stop smoking as it may have deleterious effects on wound healing. [id number]: [id number] Jocelyn subq tissue 20 sq cm/<
== END 2020-03-10 23:59 ==
LOC: WC 15:30
PROVIDERS: PCP Family Medicine; Referring Provider Surgery; Visit Provider Surgery
DX: L97.122 Non-pressure chronic ulcer of left thigh with fat layer exposed (principal); L02.211 Cutaneous abscess of abdominal wall; I87.2 Venous insufficiency (chronic) (peripheral); E11.9 Type 2 diabetes mellitus without complications; F17.200 Nicotine dependence, unspecified, uncomplicated; B96.5 Pseudomonas (aeruginosa) (mallei) (pseudomallei) as the cause of diseases classified elsewhere
CPT/HCPCS: 11042

== ENCOUNTER 2020-04-25 15:30 | Outpatient (RCR) | payer BC, SELFPAY ==
[2020-02-15 15:18] VITALS: BMI 36.9
[2020-04-11 15:36] VITALS: BP 146/89; PULSE 106; RESP 18; TEMP 36.9; BMI 36.9
--- NOTE | 2020-04-11 16:13 | PN.PCM_ITS ---
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 Status: Chronic Current Visit: Yes Code(s): L97.122 - Non-pressure chronic ulcer of left thigh with fat layer exposed (2) Venous (peripheral) insufficiency Status: Chronic Current Visit: Yes Code(s): I87.2 - Venous insufficiency (chronic) (peripheral) (3) Smoker Status: Chronic Current Visit: Yes Code(s): F17.200 - Nicotine dependence, unspecified, uncomplicated (4) Diabetes Status: Chronic Current Visit: Yes Code(s): E11.9 - Type 2 diabetes mellitus without complications Type of Wound Date of Service: 04/11/20 Chief Complaint: Nonhealing diabetic abscess ulcers right lower abdominal wall and left medial thigh. History of Wound: Surgery 11/13/19 - Surgical preparation left medial thigh with incision and drainage and excisional debridement nonhealing necrotizing diabetic ulcer abscess (45 cm2). Surgery 10/27/19 - Surgical preparation left medial thi gh with incision and drainage and excisional debridement necrotizing soft tissue infection diabetic abscess (88 cm2) and surgical preparation right lower abdominal wall with incision and drainage and excisional debridement skin, subcutaneous tissue, and fascia for necrotizing soft tissue infection diabetic abscess (27 cm2). Wound care - Stop aquacel silver and start collagen hydrogel with adaptic. Right abdomen is healed. He would benefit from an advanced wound product such as Epifix to help get his wound to heal quicker. Operative culture - MRSE. He was discharged on Cleocin and has finished them. His operative culture from 10/27/19 showed MRSA and Pseudomonas aeroginosa. He was discharged on Doxycycline and Cefdinir and has finished them. Fungal culture positive for Aspirgillus species and Zoey albicans he is on Diflucan. Prealbumin from 11/12/19 was 14.5. Encourage nutritional supplementation with protein to help the healing process. HgbA1c from 10/27/19 was 10.5. It needs to be less than 8 before proceeding with any elective skin graft surgery. He started back to work and is doing ok. He has not been here for a few months because of the Covid-19 pandemic. Today he denies fever. His appetite is ok. Progress of Wound: Improved. - Physical Exam Vital Signs Temp Pulse Resp BP 98.5 F 106 H 18 146/89 H 04/11/20 15:36 04/11/20 15:36 04/11/20 15:36 04/11/20 15:36 General: Alert, Oriented x3, Cooperative HEENT: Atraumatic Oral: Moist Mucosa Lungs: Normal air movement Cardiovascular: Regular rate Extremities: Capillary Refill Less than 3 Seconds Skin: Ulcer/ Wound - Left medial thigh ulcer Wound Measurements and Assessment WC - Nurse 1 - General Ulcer Measurement Start: 04/11/20 15:35 Freq: Status: Active Protocol: Activity Type Activity Date Activity User E-Sign Co-Sign Detail Recorded Client Recorded Date Recorded By Document 04/11/20 15:36 [facility] [id number] 04/11/20 15:41 [facility] 04/11/20 15:36 Wound Center Nurse 1 [Ulcer Assessment] #1 left medial thigh -Combined with other wound No -Current Size (cm) - Length 0.1 -Current Size (cm) - Width 0.1 -Current Size (cm) - Depth 0.1 -Total Square Cm 0.01 -Epithelialization Large 67-100% -Tunneling No -Undermining/Tunneling No -Circular Undermining No -Exudate Amt None Present -Slough/Fibrin Yes -Necrosis Amt Small (1-33%) -Necrotic Tissue Type Adherent Slough -Texture (Renetta-wound Skin Appearance) Assessed, Scarring -Moisture (Renetta-wound Skin Appearance Assessed ) -Color (Renetta-wound Skin Appearance) Assessed -Temperature (Renetta-wound Skin No Abnormality Appearance) (Pt Warm) -Tenderness on Palpation (Renetta-wound No Skin Appearance) -Ulcer Cleansing Rinsed/ Irrigated with Saline -Foul Odor after Cleansing No -Anesthetic Used 5% Lidocaine Gel Musculoskeletal: No Tenderness to Palpation of Joints or Extremities Neurological: Neuro grossly intact Psych/Mental Status: Normal Affect, Appropriate Debridement Note Wound debrided: Medial thigh ulcer Laterality: Left Type of Debridement: Excisional debridement Anesthesia Used: 5% Lidocaine Gel Depth: Down to and including healthy tissue, in the subcutaneous layer Percentage of wound debrided: 100 Instrument Used: 3mm curette Tissue Removed: Subcutaneous tissue and slough Severity: Limited To Skin Breakdown Amount of bleeding with debridement: Mild Bleeding Controlled with: Pressure Patient tolerated procedure well Assessment/Plan Active Problems Venous (peripheral) insufficiency (Chronic) Chronic ulcer of left thigh with fat layer exposed (Chronic) Smoker (Chronic) Diabetes (Chronic) Assessment: 1. Nonhealing necrotizing diabetic abscess ulcer left medial thigh. 2. Nonhealing necrotizing diabetic abscess ulcer right lower abdominal wall. 2. Diabetes mellitus. 3. Smoker. 4. s/p surgical preparation left medial thigh with incision and drainage and excisional debridement nonhealing necrotizing diabetic ulcer abscess (45 cm2). 5. s/p surgical preparation left medial thigh with incision and drainage and excisional debridement necrotizing soft tissue infection diabetic abscess (88 cm2) and surgical preparation right lower abdominal wall with incision and drainage and excisional debridement skin, subcutaneous tissue, and fascia for necrotizing soft tissue infection diabetic abscess (27 cm2). Plan: Wound care: Stop daily Aquacel-Ag dressing changes and start Collagen Hydrogel daily with adaptic. The right lower abdominal wall ucler remains healed. He has finished Cleocin for operative culture that showed MRSE. His previous operative culture showed MRSA and Pseudomonas aeroginosa. He was treated with Doxycycline and Cefdinir and has finished them. His fungal culture came back positive for Aspirgillus species and Zoey albicans. Completed Diflucan. His Prealbumin from 11/12/19 was 14.5. Encourage nutritional supplementation with protein to help the healing process. His HgbA1c from 10/27/19 was 10.5. Before proceeding with an elective skin graft reconstruction, the HgbA1c needs to be less than 8. Keep left leg elevated when sitting. He returned to work and it going well. Encouraged to massage the right abdominal area and the surrounding left thigh scar with lotion to help soften scarring. Followup two weeks. Encouraged patient to stop smoking as it may have deleterious effects on wound healing. [id number]: [id number] Jocelyn subq tissue 20 sq cm/<
[2020-04-25 15:17] VITALS: BP 130/88; PULSE 116; RESP 16; TEMP 36.4; BMI 36.9
--- NOTE | 2020-04-25 15:38 | PN.PCM_ITS ---
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 Status: Chronic Current Visit: Yes Code(s): L97.122 - Non-pressure chronic ulcer of left thigh with fat layer exposed (2) Venous (peripheral) insufficiency Status: Chronic Current Visit: Yes Code(s): I87.2 - Venous insufficiency (chronic) (peripheral) (3) Smoker Status: Chronic Current Visit: Yes Code(s): F17.200 - Nicotine dependence, unspecified, uncomplicated (4) Diabetes Status: Chronic Current Visit: Yes Code(s): E11.9 - Type 2 diabetes mellitus without complications Type of Wound Date of Service: 04/25/20 Chief Complaint: Nonhealing diabetic abscess ulcers right lower abdominal wall and left medial thigh. History of Wound: Surgery 11/13/19 - Surgical preparation left medial thigh with incision and drainage and excisional debridement nonhealing necrotizing diabetic ulcer abscess (45 cm2). Surgery 10/27/19 - Surgical preparation left medial thi gh with incision and drainage and excisional debridement necrotizing soft tissue infection diabetic abscess (88 cm2) and surgical preparation right lower abdominal wall with incision and drainage and excisional debridement skin, subcutaneous tissue, and fascia for necrotizing soft tissue infection diabetic abscess (27 cm2). Wound care - Left thigh ulcer is healed today. Right abdomen is healed. Operative culture - MRSE. He was discharged on Cleocin and has finished them. His operative culture from 10/27/19 showed MRSA and Pseudomonas aeroginosa. He was discharged on Doxycycline and Cefdinir and has finished them. Fungal culture positive for Aspirgillus species and Zoey albicans he is on Diflucan. Prealbumin from 11/12/19 was 14.5. Encourage nutritional supplementation with protein to help the healing process. HgbA1c from 10/27/19 was 10.5. It needs to be less than 8 before proceeding with any elective skin graft surgery. He started back to work and is doing ok. He has not been here for a few months because of the Covid-19 pandemic. Today he denies fever. His appetite is ok. Progress of Wound: Left thigh is healed. - Physical Exam Vital Signs Temp Pulse Resp BP 97.6 F L 116 H 16 130/88 H 04/25/20 15:17 04/25/20 15:17 04/25/20 15:17 04/25/20 15:17 General: Alert, Oriented x3, Cooperative HEENT: Atraumatic Oral: Moist Mucosa Lungs: Clear to auscultation, Normal air movement Cardiovascular: Regular rate, Regular Rhythm Abdomen: Bowel Sounds Present, Soft, Non Tender Extremities: No edema, Capillary Refill Less than 3 Seconds, Peripheral Pulses Normal Skin: Ulcer/ Wound - Left thigh ulcer is healed today. Wound Measurements and Assessment WC - Nurse 1 - General Ulcer Measurement Start: 04/11/20 15:35 Freq: Status: Active Protocol: Activity Type Activity Date Activity User E-Sign Co-Sign Detail Recorded Client Recorded Date Recorded By Document 04/25/20 15:17 [id number] 04/25/20 15:18 04/25/20 15:17 Wound Center Nurse 1 [Ulcer Assessment] #3 left medial thigh -Combined with other wound No -Current Size (cm) - Length 0.1 -Current Size (cm) - Width 0.1 -Current Size (cm) - Depth 0.1 -Total Square Cm 0.01 -Date of Last Picture (Recall this 04/25/20 field) -Photo Taken Yes -Epithelialization Large 67-100% Musculoskeletal: No Tenderness to Palpation of Joints or Extremities Neurological: Neuro grossly intact Psych/Mental Status: Normal Affect, Appropriate Debridement Note Post-Debridement Measurements/Treatment WC - Nurse 2 - General Ulcer CM Notes Start: 04/11/20 15:35 Freq: Status: Active Protocol: Activity Type Activity Date Activity User E-Sign Co-Sign Detail Recorded Client Recorded Date Recorded By Document 04/11/20 16:58 PL [id number] 04/11/20 16:59 PL 04/11/20 16:58 Wound Center Nurse 2 #3 left medial thigh -Time 15:50 -Correct Patient Yes -Correct Side, Site, Position Yes -Correct Procedure Yes -Procedure Performed Yes -Type of Procedure Debridement -Clinical Debridement Subcutaneous -Post Debridement Size (cm) - Length 2.5 -Post Debridement Size (cm) - Width 1 -Post Debridement Size (cm) - Depth 0.1 -Total Square Cm 2.5 -Wound/Ulcer Outcome Not Healed -Ulcer Cleansing Rinsed/ Irrigated with Saline -Foul Odor after Cleansing No -Bleeding Controlled with Pressure -Treatment Response Procedure Tolerated Well Pain Scale: 0-10 Numeric Is Patient Pain Free? Yes No debridement was completed today Assessment/Plan Active Problems Venous (peripheral) insufficiency (Chronic) Chronic ulcer of left thigh with fat layer exposed (Chronic) Smoker (Chronic) Diabetes (Chronic) Assessment: 1. Nonhealing necrotizing diabetic abscess ulcer left medial thigh. 2. Nonhealing necrotizing diabetic abscess ulcer right lower abdominal wall. 2. Diabetes mellitus. 3. Smoker. 4. s/p surgical preparation left medial thigh with incision and drainage and excisional debridement nonhealing necrotizing diabetic ulcer abscess (45 cm2). 5. s/p surgical preparation left medial thigh with incision and drainage and excisional debridement necrotizing soft tissue infection diabetic abscess (88 cm2) and surgical preparation right lower abdominal wall with incision and drainage and excisional debridement skin, subcutaneous tissue, and fascia for necrotizing soft tissue infection diabetic abscess (27 cm2). Plan: The left thigh ulcer is healed today. Encouraged patient to massage the area daily to help soften scarring and to help with lymphatic drainage. The r ight lower abdominal wall ucler remains healed. He has finished Cleocin for operative culture that showed MRSE. His previous operative culture showed MRSA and Pseudomonas aeroginosa. He was treated with Doxycycline and Cefdinir and has finished them. His fungal culture came back positive for Aspirgillus species and Zoey albicans. Completed Diflucan. His Prealbumin from 11/12/19 was 14.5. Encourage nutritional supplementation with protein to help the healing process. His HgbA1c from 10/27/19 was 10.5. Before proceeding with an elective skin graft reconstruction, the HgbA1c needs to be less than 8. Keep left leg elevated when sitting. He returned to work and it going well. Encouraged to massage the right abdominal area and the surrounding left thigh scar with lotion to help soften scarring. Follow up as needed. Encouraged patient to stop smoking as it may have deleterious effects on wound healing. Office Visits / Consults: [id number] OV L3 Est
== END 2020-05-10 23:59 ==
LOC: WC 15:30
PROVIDERS: PCP Family Medicine; Visit Provider Nurse Practitioner Family
DX: E11.622 Type 2 diabetes mellitus with other skin ulcer (principal); L97.122 Non-pressure chronic ulcer of left thigh with fat layer exposed; I87.2 Venous insufficiency (chronic) (peripheral); F17.200 Nicotine dependence, unspecified, uncomplicated; L02.211 Cutaneous abscess of abdominal wall; Z86.14 Personal history of Methicillin resistant Staphylococcus aureus infection
CPT/HCPCS: 11042; 99212; G0463

== ENCOUNTER → 2021-03-21 15:27 | Outpatient (CLI) | payer BC, SELFPAY ==
[2021-03-21 18:21] LABS: ALB/GLOB Ratio 0.9 RATIO (0.9-2.4); AST(SGOT) 19 U/L (15-37); Alanine Aminotransfer ALT/SGPT 33 U/L (16-61); Albumin, Serum 3.7 g/dL (3.2-5.0); Alkaline Phosphatase 89 U/L (45-117); Anion Gap 10 (5-15); BUN 44 mg/dL (7-18); BUN/Creat Ratio 14.8 RATIO (10-20); Chloride 99 mmol/L (98-107); Cholesterol 250 mg/dL (200); Creatinine, Serum 2.97 mg/dL (0.70-1.30); EST Glomerular Filtration Rate 23 mL/min (>60); Est Glom Filt Rate - Afr Amer 28 mL/min (>60); Globulin 4.1 g/dL (2.2-4.2); Glucose 143 mg/dL (74-106); High Density Lipoprotein 30 mg/dL; Potassium 4.6 mmol/L (3.5-5.1); Protein, Total 7.8 g/dL (6.4-8.2); Sodium Level 133 mmol/L (136-145); Triglycerides 732 mg/dL
[2021-03-21 18:36] LABS: Hemoglobin A1c 7.9 % (3.8-5.6)
[2021-03-21 18:52] LABS: Microalbumin,Random Urine 49.7 mg/L (NO RANGE EST.); Microalbumin:Creatinine Ratio 17.6 mg/g CRE (<30 mg/g CRE)
== END ==
PROVIDERS: PCP Family Medicine; Referring Provider Family Medicine; Visit Provider Family Medicine
DX: E11.49 Type 2 diabetes mellitus with other diabetic neurological complication (principal); E11.65 Type 2 diabetes mellitus with hyperglycemia; I12.9 Hypertensive chronic kidney disease with stage 1 through stage 4 chronic kidney disease, or unspecified chronic kidney disease; E11.22 Type 2 diabetes mellitus with diabetic chronic kidney disease; N18.30 Chronic kidney disease, stage 3 unspecified
CPT/HCPCS: 36415; 80053; 80061; 82043; 82570; 83036

== ENCOUNTER → 2021-04-19 15:37 | Outpatient (CLI) | payer BC, SELFPAY ==
[2021-04-19 18:00] LABS: Anion Gap 8 (5-15); BUN 26 mg/dL (7-18); BUN/Creat Ratio 13.5 RATIO (10-20); Calcium,Total 8.6 mg/dL (8.5-10.1); Chloride 102 mmol/L (98-107); Creatinine, Serum 1.92 mg/dL (0.70-1.30); EST Glomerular Filtration Rate 38 mL/min (>60); Est Glom Filt Rate - Afr Amer 46 mL/min (>60); Glucose 248 mg/dL (74-106); Potassium 4.2 mmol/L (3.5-5.1); Sodium Level 136 mmol/L (136-145)
== END ==
PROVIDERS: PCP Family Medicine; Referring Provider Family Medicine; Visit Provider Family Medicine
DX: E11.22 Type 2 diabetes mellitus with diabetic chronic kidney disease (principal); N18.30 Chronic kidney disease, stage 3 unspecified
CPT/HCPCS: 36415; 80048

== ENCOUNTER → 2021-10-11 | Outpatient (CLI) | payer BC, SELFPAY | END | disposition home or self-care (01) | LOC: LABSPEC 15:41 | PROVIDERS: PCP Family Medicine; Visit Provider Family Medicine | DX: R05.9 Cough, unspecified (principal) | CPT/HCPCS: 87633; 87635; U0005; U0003 ==

== ENCOUNTER → 2024-03-09 | Outpatient (CLI) | payer OTHER, SELFPAY ==
[2024-03-09 18:02] LABS: Microalbumin:Creatinine Ratio 72.2 mg/g CRE (<30 mg/g CRE)
[2024-03-09 18:29] LABS: ALB/GLOB Ratio 0.9 RATIO (0.9-2.4); AST(SGOT) 17 U/L (15-37); Alanine Aminotransfer ALT/SGPT 21 U/L (16-61); Albumin, Serum 3.6 g/dL (3.2-5.0); Alkaline Phosphatase 105 U/L (45-117); Anion Gap 9 (5-15); BUN 40 mg/dL (7-18); BUN/Creat Ratio 13.6 RATIO (10-20); Calcium,Total 9.6 mg/dL (8.5-10.1); Chloride 101 mmol/L (98-107); Cholesterol 242 mg/dL (200); Creatinine, Serum 2.94 mg/dL (0.70-1.30); EST Glomerular Filtration Rate 23 mL/min (>60); Est Glom Filt Rate - Afr Amer 28 mL/min (>60); Globulin 4.1 g/dL (2.2-4.2); Glucose 317 mg/dL (74-106); High Density Lipoprotein 32 mg/dL; PSA,Total - Annual Screen 1.31 ng/mL (0.00-4.00); Potassium 5.6 mmol/L (3.5-5.1); Protein, Total 7.7 g/dL (6.4-8.2); Sodium Level 132 mmol/L (136-145); Triglycerides 752 mg/dL
== END | disposition home or self-care (01) ==
LOC: BFHLAB 15:47
PROVIDERS: PCP Family Medicine; Visit Provider Family Medicine
DX: Z00.00 Encounter for general adult medical examination without abnormal findings (principal); E11.9 Type 2 diabetes mellitus without complications; Z12.5 Encounter for screening for malignant neoplasm of prostate
CPT/HCPCS: 36415; 80053; 80061; 82043; 82570; 84153; G0103

== ENCOUNTER → 2024-03-18 | Outpatient (CLI) | payer OTHER, SELFPAY ==
[2024-03-18 17:55] LABS: Anion Gap 10 (5-15); BUN 35 mg/dL (7-18); BUN/Creat Ratio 11.2 RATIO (10-20); Calcium,Total 9.4 mg/dL (8.5-10.1); Chloride 105 mmol/L (98-107); Creatinine, Serum 3.13 mg/dL (0.70-1.30); EST Glomerular Filtration Rate 22 mL/min (>60); Est Glom Filt Rate - Afr Amer 26 mL/min (>60); Glucose 70 mg/dL (74-106); Potassium 4.2 mmol/L (3.5-5.1); Sodium Level 137 mmol/L (136-145)
== END | disposition home or self-care (01) ==
LOC: MTLAB 15:26
PROVIDERS: PCP Family Medicine; Referring Provider Family Medicine; Visit Provider Family Medicine
DX: N18.4 Chronic kidney disease, stage 4 (severe) (principal)
CPT/HCPCS: 36415; 80048

== ENCOUNTER → 2025-05-17 | Outpatient (CLI) | payer OTHER, SELFPAY ==
[2025-05-17 15:58] LABS: Anion Gap 13 (5-15); BUN 47 mg/dL (4-19); BUN/Creat Ratio 16.5 RATIO (10-20); Calcium,Total 9.5 mg/dL (7.6-11.0); Carbon Dioxide 12.8 mmol/L (21.0-32.0); Chloride 109 mmol/L (98-108); Glucose 128 mg/dL (70-99); Potassium 5.3 mmol/L (3.3-5.1)
== END | disposition home or self-care (01) ==
LOC: BFHLAB 13:37
PROVIDERS: PCP Family Medicine; Visit Provider Family Medicine
DX: E11.22 Type 2 diabetes mellitus with diabetic chronic kidney disease (principal); N18.4 Chronic kidney disease, stage 4 (severe); E11.49 Type 2 diabetes mellitus with other diabetic neurological complication
CPT/HCPCS: 36415; 80048; 83036

== ENCOUNTER → 2025-08-10 | Outpatient (CLI) | payer OTHER, SELFPAY ==
--- NOTE | 2025-08-10 11:28 | RAD_ITS ---
PROCEDURE: ABDOMEN SINGLE VIEW 08/10/2025 REASON FOR EXAM: RUQ PAIN TECHNIQUE: Procedure Code: RADABD Modality: DX Procedure: ABDOMEN SINGLE VIEW COMPARISON: None. FINDINGS: LUNG BASES: Lung bases clear where seen. Mild right hemidiaphragm elevation. BOWEL: The bowel gas pattern is unremarkable. No bowel obstruction. PERITONEUM/SOFT TISSUES: No appreciable free air. No abnormal calcifications in the region of the kidneys. Vascular calcifications noted. Calcified right pelvic phlebolith. BONES: No acute osseous abnormality. Degenerative changes of the spine. RAD/Abdomen Single View IMPRESSION: NO ACUTE FINDINGS. Reading Location: [id number]
== END | disposition home or self-care (01) ==
LOC: MTRAD 11:27
PROVIDERS: PCP Family Medicine; Referring Provider Family Medicine; Visit Provider Family Medicine
DX: R10.11 Right upper quadrant pain (principal)
CPT/HCPCS: 74018